=== PATIENT | female | born 1940 | race Caucasian/White ===

== ENCOUNTER 2017-08-15 14:04 | Inpatient (IN) | payer MEDICARE, SELFPAY ==
[2017-08-15] VITALS (16 sets, daily range): BP systolic 90–128; BP diastolic 60–104; PULSE 94–110; RESP 12–31; TEMP 36.3–36.9; O2SAT 92–100; BMI 31.1; BMI 31.2
--- NOTE | 2017-08-15 14:54 | EKG12_ITS ---
Test Reason : Blood Pressure : / mmHG Vent. Rate : 101 BPM Atrial Rate : 197 BPM P-R Int : 000 ms QRS Dur : 104 ms QT Int : 348 ms P-R-T Axes : 000 030 190 degrees QTc Int : 451 ms Atrial fibrillation with premature ventricular or aberrantly conducted complexes Poor R wave progression Nonspecific T wave abnormality Lateral infarct , age undetermined , cannot be excluded Abnormal ECG Confirmed by JOSE VALDEZ, AMANDA ([id number]), online editor NOEL POOL ([id number]) on 08/19/2017 2:41:20 PM Referred By: GUILLE Confirmed By:AMANDA GARCIA MD
--- NOTE | 2017-08-15 14:59 | PCM.HP.STD ---
Problem List (1) COPD (chronic obstructive pulmonary disease) with acute bronchitis Status: Acute (2) Acute respiratory failure with hypoxia Status: Acute (3) Coronary artery disease Status: Acute (4) Hypertension Status: Chronic (5) Paroxysmal A-fib Status: Acute (6) Acute exacerbation of congestive heart failure Status: Acute History of Present Illness Date of Admission: 08/15/17 Chief Complaint: Progressive worsening of shortness of breath for 2 weeks The patient is a 76 year old F with history of COPD and CHF and transferred from [place] ER for progressive worsening of shortness of breath for 2 weeks. Patient came to ER with respiratory distress and was put on BiPAP. She also complained of fever or chills. She does not use home oxygen/CPAP or BiPAP at home. In ER, ABG at 100% FiO2 / BiPAP setting shows 7.4/40 4/237. Chest x-ray reported as moderate degree of vascular redistribution and airspace changes suggestive of congestive changes. Moderate cardiomegaly. ED vitals temperature 96.1?F, pulse 101/min, respiratory 22, BP 140/105. Basic abnormal labs hemoglobin 8.8. K3.6, BUN 24, creatinine 0.94. LFT within normal limits. Anion gap 14. CO2 26. Magnesium 1.9. Troponin negative. EKG shows pulseless bigeminy with each QRS complex followed by PVC. No discernible P-wave. [] Past Medical History Past Medical History (Chronic Problems): Chronic Problems Hypertension (Chronic) Allergies Penicillins [PCN] Allergy (Verified 08/15/17 14:23) Swelling Smoking Status: Former smoker Review of Systems Constitutional: Reports: Chills, Fever, Weakness. Denies: Weight Change HEENT: Denies: Head Aches, Sinus Congestion, Sinus Drainage Cardiovascular: Denies: Chest Pain, Chest Pressure, Palpitations Respiratory: Reports: Cough, Shortness of breath at rest, Wheezing. Denies: Sputum production Gastrointestinal: Denies: Abdominal Pain, Nausea, Vomiting Genitourinary: Denies: Dysuria Musculoskeletal: Denies: Joint Pain, Joint Tenderness Skin: Denies: Rash, Wounds Neurological: Denies: Numbness, Tingling, Focal weakness Psychiatric: Denies: Anxiety, Depression, Homicidal Ideations, Suicidal Ideations Hematologic/ Lymphatic: Denies: Easy Bruising, Easy Bleeding VTE Information - Inpt Only VTE Present on Admission: No VTE Mechan Device Prophylaxis: SCD's VTE Pharm Prophylaxis ordered?: Yes Patient Problems: Active and Suspected Problems Congestive heart failure (Acute) COPD (chronic obstructive pulmonary disease) with acute bronchitis (Acute) Acute respiratory failure with hypoxia (Acute) Coronary artery disease (Acute) Paroxysmal A-fib (Acute) Acute exacerbation of congestive heart failure (Acute) - Physical Exam General: Alert, Oriented x3, Cooperative HEENT: Atraumatic, PERRLA, EOMI, Normocephalic Oral: Dry Mucosa Neck: Supple, No JVD, Negative Carotid Bruits Lungs: No wheeze, No rales, Diminished, Rhonchi Cardiovascular: Normal S1, Normal S2, No murmurs, Irregular Rate Abdomen: Bowel Sounds Present, Soft, Non Tender, Non-Distended Extremities: No edema, Capillary Refill Less than 3 Seconds Skin: No rashes, No breakdown Musculoskeletal: No Tenderness to Palpation of Joints or Extremities, Arthritic Changes Neurological: Cranial nerves II-XII grossly intact, Neuro grossly intact Psych/Mental Status: Normal Affect, Appropriate Vital Signs Temp Pulse Resp BP Pulse Ox 98.4 F 94 25 H 117/85 H 100 08/15/17 14:21 08/15/17 14:43 08/15/17 14:21 08/15/17 14:21 08/15/17 14:21 Oxygen Delivery Method Bi-pap Weight: 170 lb 6.677 oz Body Mass Index (BMI) 31.1 Assessment/Plan Active and Suspected Problems Congestive heart failure (Acute) COPD (chronic obstructive pulmonary disease) with acute bronchitis (Acute) Acute respiratory failure with hypoxia (Acute) Coronary artery disease (Acute) Paroxysmal A-fib (Acute) Acute exacerbation of congestive heart failure (Acute) The patient is a 76 year old F with history of COPD and CHF and transferred from [place] ER for progressive worsening of shortness of breath for 2 weeks. Patient came to ER with respiratory distress and was put on BiPAP. She also complained of fever or chills. She does not use home oxygen/CPAP or BiPAP at home. In ER, ABG at 100% FiO2 12/6 BiPAP setting shows 7.4/40 4/237. Chest x-ray reported as moderate degree of vascular redistribution and airspace changes suggestive of congestive changes. Moderate cardiomegaly. ED vitals temperature 96.1?F, pulse 101/min, respiratory 22, BP 140/105. Basic abnormal labs hemoglobin 8.8. K3.6, BUN 24, creatinine 0.94. LFT within normal limits. Anion gap 14. CO2 26. Magnesium 1.9. Troponin negative. EKG shows pulseless bigeminy with each QRS complex followed by PVC. No discernible P-wave. 1. Acute hypoxic respiratory failure: As per the ABG it seems that she is not a CO2 retainer. 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 Twelve-lead EKG and cardiac enzymes ordered. Repeat chest x-ray portable ordered. Continue BiPAP. Currently she is on 08/09 at 40% FiO2. Pulmonary consult. Titrate to keep pulse ox around 90%. 2. COPD exacerbation: On IV Solu-Medrol 40 mg every 8 hourly, bronchodilator, incentive spirometry, chest physiotherapy. Influenza test and sputum culture. 3. CHF exacerbation: There is no echo report in our system. It is unclear whether systolic or diastolic. 2D echo report ordered. 4. SIRS or sepsis (tachycardia, tachypnea, hypoxia with lactic acidosis) possible community acquired pneumonia: Patient complaint of fever, shortness of breath. Lactic acid 2.9. Chest x-ray images not available. Patient was given aztreonam and doxycycline in [place] ER. Started on IV Levaquin until we rule out pneumonia. On sepsis protocol. 5. Other comorbidities include coronary artery disease status post stent, hypertension, possible paroxysmal A. fib: Home medication reconciliation done. DVT prophylaxis: On Lovenox 40 mg subcu daily and bilateral SCDs Code Visit Inpatient E&M: 76065 Init Hosp L3
--- NOTE | 2017-08-15 15:02 | ECHOD_ITS ---
Reason For Study: Heart Failure Procedure This was a 2D Doppler, Color Flow transthoracic echocardiogram. The exam was of poor technical quality due to diminished acoustic windows. The study was technically difficult. Exam performed portable in patient room. Left Ventricle Normal LV size. Mild segmental systolic dysfunction (see wall motion). The estimated ejection fraction is 40 %. Infero-Basal: Hypokinetic. Basal inferoseptal: Hypokinetic. Mid-Anterior : Hypokinetic. Mid-Lateral : Hypokinetic. Mid-Posterior: Hypokinetic. Mid-Inferior: Akinetic. Mid- inferoseptal : Hypokinetic. Mid-anteroseptal : Hypokinetic. Anterior [place] : Not visualized. Inferior [place] : Akinetic. Lateral [place] : Akinetic. Septal [place] : Akinetic. Right Ventricle Normal RV size. Normal systolic function. Atria The left atrium is mildly enlarged. The right atrium is mildly enlarged. No doppler evidence for ASD. Mitral Valve There is mild mitral annular calcification. Mild diffuse mitral valve thickening. Mild-Moderate (1- 2+) eccentric mitral valve insufficiency. Tricuspid Valve Normal tricuspid valve. Mild tricuspid valve insufficiency. Right ventricular systolic pressure estimated to be 53 mmHg. Aortic Valve Trisinus/trileaflet aortic valve. Mild focal aortic valve thickening. Pulmonic Valve The pulmonic valve is not well visualized. Trivial pulmonic valve insufficiency. Great Vessels Normal sized aortic root. Pericardium/Pleural No pericardial effusion. MMode/2D Measurements & Calculations LVIDd: 4.8 cm IVSd: 1.4 cm LVOT diam: 2.0 cm LVIDs: 3.7 cm LVPWd: 0.94 cm LVOT area: 3.1 cm2 RVDd: 4.2 cm FS: 23.0 % Ao root diam: 2.7 cm LAV(MOD-bp): 102.0 ml LVAd ap4: 33.3 cm2 LA dimension: 4.6 cm LAV(MOD-bp) Indexed: 57.2 ml/m2 EDV(MOD-sp4): 115.5 ml LAV(MOD-sp2): 87.1 ml EDV(sp4-el): 119.6 ml LAV(MOD-sp4): 106.0 ml LVAs ap4: 25.0 cm2 ESV(MOD-sp4): 64.6 ml ESV(sp4-el): 68.2 ml EF(MOD-sp4): 44.0 % EF(sp4-el): 43.0 % SV(MOD-sp4): 50.8 ml SV(sp4-el): 51.4 ml LA A4 area: 27.9 cm2 RA A4 area: 25.5 cm2 Time Measurements MV dec time: 0.13 sec Doppler Measurements & Calculations MV E max jarrell: 117.2 cm/sec Ao V2 max: 156.7 cm/sec LV V1 max: 94.9 cm/sec Ao max P.8 mmHg LV V1 max P.6 mmHg Ao V2 mean: 102.4 cm/sec LV V1 mean P.4 mmHg Ao mean P.8 mmHg LV V1 mean: 52.6 cm/sec Ao V2 VTI: 22.4 cm LV V1 VTI: 15.8 cm SATINDER(I,D): 2.2 cm2 SATINDER(V,D): 1.9 cm2 SV(LVOT): 48.9 ml PA V2 max: 100.2 cm/sec TR max jarrell: 352.2 cm/sec TR max P.1 mmHg Interpretation Summary The study was technically difficult. Mild segmental systolic dysfunction (see wall motion). The estimated ejection fraction is 40 %. The left atrium is mildly enlarged. The right atrium is mildly enlarged. There is mild mitral annular calcification. Mild diffuse mitral valve thickening. Mild-Moderate (1-2+) eccentric mitral valve insufficiency. Mild tricuspid valve insufficiency. Mild focal aortic valve thickening. Trivial pulmonic valve insufficiency. Right ventricular systolic pressure estimated to be 53 mmHg. Ordering Physician: Nato Madsen Referring Physician: Pretty Noguera Performed By: Saqib Spangler RCS
--- NOTE | 2017-08-15 15:14 | HP.PCM_ITS ---
Problem List (1) COPD (chronic obstructive pulmonary disease) with acute bronchitis Status: Acute (2) Acute respiratory failure with hypoxia Status: Acute (3) Coronary artery disease Status: Acute (4) Hypertension Status: Chronic (5) Paroxysmal A-fib Status: Acute (6) Acute exacerbation of congestive heart failure Status: Acute History of Present Illness Date of Admission: 08/15/17 Chief Complaint: Progressive worsening of shortness of breath for 2 weeks The patient is a 76 year old F with history of COPD and CHF and transferred from [place] ER for progressive worsening of shortness of breath for 2 weeks. Patient came to ER with respiratory distress and was put on BiPAP. She also complained of fever or chills. She does not use home oxygen/CPAP or BiPAP at home. In ER, ABG at 100% FiO2 / BiPAP setting shows 7.4/40 4/237. Chest x- ray reported as moderate degree of vascular redistribution and airspace changes suggestive of congestive changes. Moderate cardiomegaly. ED vitals temperature 96.1?F, pulse 101/min, respiratory 22, BP 140/105. Basic abnormal labs hemoglobin 8.8. K3.6, BUN 24, creatinine 0.94. LFT within normal limits. Anion gap 14. CO2 26. Magnesium 1.9. Troponin negative. EKG shows pulseless bigeminy with each QRS complex followed by PVC. No discernible P-wave. [] Past Medical History Past Medical History (Chronic Problems): Chronic Problems Hypertension (Chronic) Allergies Penicillins [PCN] Allergy (Verified 08/15/17 14:23) Swelling Smoking Status: Former smoker Review of Systems Constitutional: Reports: Chills, Fever, Weakness. Denies: Weight Change HEENT: Denies: Head Aches, Sinus Congestion, Sinus Drainage Cardiovascular: Denies: Chest Pain, Chest Pressure, Palpitations Respiratory: Reports: Cough, Shortness of breath at rest, Wheezing. Denies: Sputum production Gastrointestinal: Denies: Abdominal Pain, Nausea, Vomiting Genitourinary: Denies: Dysuria Musculoskeletal: Denies: Joint Pain, Joint Tenderness Skin: Denies: Rash, Wounds Neurological: Denies: Numbness, Tingling, Focal weakness Psychiatric: Denies: Anxiety, Depression, Homicidal Ideations, Suicidal Ideations Hematologic/ Lymphatic: Denies: Easy Bruising, Easy Bleeding VTE Information - Inpt Only VTE Present on Admission: No VTE Mechan Device Prophylaxis: SCD's VTE Pharm Prophylaxis ordered?: Yes Patient Problems: Active and Suspected Problems Congestive heart failure (Acute) COPD (chronic obstructive pulmonary disease) with acute bronchitis (Acute) Acute respiratory failure with hypoxia (Acute) Coronary artery disease (Acute) Paroxysmal A-fib (Acute) Acute exacerbation of congestive heart failure (Acute) - Physical Exam General: Alert, Oriented x3, Cooperative HEENT: Atraumatic, PERRLA, EOMI, Normocephalic Oral: Dry Mucosa Neck: Supple, No JVD, Negative Carotid Bruits Lungs: No wheeze, No rales, Diminished, Rhonchi Cardiovascular: Normal S1, Normal S2, No murmurs, Irregular Rate Abdomen: Bowel Sounds Present, Soft, Non Tender, Non-Distended Extremities: No edema, Capillary Refill Less than 3 Seconds Skin: No rashes, No breakdown Musculoskeletal: No Tenderness to Palpation of Joints or Extremities, Arthritic Changes Neurological: Cranial nerves II-XII grossly intact, Neuro grossly intact Psych/Mental Status: Normal Affect, Appropriate Vital Signs Temp Pulse Resp BP Pulse Ox 98.4 F 94 25 H 117/85 H 100 08/15/17 14:21 08/15/17 14:43 08/15/17 14:21 08/15/17 14:21 08/15/17 14:21 Oxygen Delivery Method Bi-pap Weight: 170 lb 6.677 oz Body Mass Index (BMI) 31.1 Assessment/Plan Active and Suspected Problems Congestive heart failure (Acute) COPD (chronic obstructive pulmonary disease) with acute bronchitis (Acute) Acute respiratory failure with hypoxia (Acute) Coronary artery disease (Acute) Paroxysmal A-fib (Acute) Acute exacerbation of congestive heart failure (Acute) The patient is a 76 year old F with history of COPD and CHF and transferred from [place] ER for progressive worsening of shortness of breath for 2 weeks. Patient came to ER with respiratory distress and was put on BiPAP. She also complained of fever or chills. She does not use home oxygen/CPAP or BiPAP at home. In ER, ABG at 100% FiO2 12/6 BiPAP setting shows 7.4/40 4/237. Chest x- ray reported as moderate degree of vascular redistribution and airspace changes suggestive of congestive changes. Moderate cardiomegaly. ED vitals temperature 96.1?F, pulse 101/min, respiratory 22, BP 140/105. Basic abnormal labs hemoglobin 8.8. K3.6, BUN 24, creatinine 0.94. LFT within normal limits. Anion gap 14. CO2 26. Magnesium 1.9. Troponin negative. EKG shows pulseless bigeminy with each QRS complex followed by PVC. No discernible P-wave. 1. Acute hypoxic respiratory failure: As per the ABG it seems that she is not a CO2 retainer. 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 Twelve-lead EKG and cardiac enzymes ordered. Repeat chest x-ray portable ordered. Continue BiPAP. Currently she is on 08/09 at 40% FiO2. Pulmonary consult. Titrate to keep pulse ox around 90%. 2. COPD exacerbation: On IV Solu-Medrol 40 mg every 8 hourly, bronchodilator, incentive spirometry, chest physiotherapy. Influenza test and sputum culture. 3. CHF exacerbation: There is no echo report in our system. It is unclear whether systolic or diastolic. 2D echo report ordered. 4. SIRS or sepsis (tachycardia, tachypnea, hypoxia with lactic acidosis) possible community acquired pneumonia: Patient complaint of fever, shortness of breath. Lactic acid 2.9. Chest x-ray images not available. Patient was given aztreonam and doxycycline in [place] ER. Started on IV Levaquin until we rule out pneumonia. On sepsis protocol. 5. Other comorbidities include coronary artery disease status post stent, hypertension, possible paroxysmal A. fib: Home medication reconciliation done. DVT prophylaxis: On Lovenox 40 mg subcu daily and bilateral SCDs Code Visit Inpatient E&M: 16605 Init Hosp L3
--- NOTE | 2017-08-15 15:16 | RAD_ITS ---
STUDY: X-RAY CHEST REASON FOR EXAM: Female, 76 years old. Increasing shortness of breath. TECHNIQUE: Single AP portable view of the chest. COMPARISON: None. FINDINGS: EKG electrodes are seen. Mild degree of vascular congestion and CHF. There is no demonstrated pleural abnormality. There is mild cardiac enlargement. Normal mediastinum and blade. Normal visualized pulmonary arteries. There is atherosclerotic calcification of the aortic arch with tortuosity. There are degenerative changes of the visualized thoracic spine. Normal visualized ribs, clavicles, and shoulders. There is no demonstrated abnormality of the visualized soft tissue structures of the upper abdomen. RAD/Chest 1 View (Portable) IMPRESSION: Cardiomegaly and mild CHF. Electronically Signed: Larry Rios MD at 15:38 EST Tel [phone], Service support ,
[2017-08-15 16:19] LABS: Partial Thromboplast Time 36.7 Seconds (24.1-36.2)
[2017-08-15 16:39] LABS: Lactic Acid 1.4 mmol/L (0.4-2.0)
[2017-08-15] MEDS: APIXABAN 5 MG TABLET PO (17:27)
[2017-08-15] MEDS: tiZANidine HCl 2 MG Tablet PO (17:27)
[2017-08-15] MEDS: Atorvastatin Calcium 40 MG Tablet PO (17:30)
[2017-08-15] MEDS: Aspirin 325 MG Tablet PO (17:30)
[2017-08-15] MEDS: 0.9% NaCl Peripheral Flush Adult/Peds IV ×2 (18:03→21:39)
[2017-08-15] MEDS: Furosemide 40 MG/4 ML Vial IV (18:03)
[2017-08-15 18:48] LABS: Lactic Acid 1.9 mmol/L (0.4-2.0)
[2017-08-15] MEDS: Ipratropium/Albuterol Sulfate 3 ML AMPUL.NEB INHALATION (19:36)
[2017-08-15] MEDS: Zolpidem Tartrate 5 MG Tablet PO (21:38)
[2017-08-15] MEDS: guaiFENesin 1,200 MG Tablet 1200 MG PO (21:39)
[2017-08-16] VITALS (27 sets, daily range): BP systolic 113–147; BP diastolic 57–92; PULSE 60–122; RESP 12–31; TEMP 35.9–37.2; O2SAT 92–100
[2017-08-16 06:03] LABS: Absolute Lymphocyte Count 0.24 X10^3/ul (0.83-4.51); Absolute Neutrophil Count 4.5 X10^3/uL (2.0-7.7); Hematocrit 28.7 % (37-47); Hemoglobin 7.9 g/dl (12.0-15.0); Lymphocyte # 0.24 X10^3/ul (4.0); Mean Corp Hgb Conc 27.5 g/gl (32-36); Mean Corpuscular Hgb 19.3 pg (27.0-32.0); Mean Corpuscular Volume 70.2 fL (81-99); Mean Platelet Vol. 10.3 fl (6.2-12.0); Monocyte# 0.03 X10^3/uL; Monocyte% 0.6 % (0-10); Neutrophil # 4.53 X10^3/uL (2.7-7.7); Neutrophil % 94.2 % (47-70); Platelet Count 233 K/mm3 (150-450); RBC Distribution Width CV 19.8 % (11.6-14.6); RBC Distribution Width SD 49.3 fl (35.1-43.9); Red Blood Count 4.09 M/mm3 (4.2-5.4); White Blood Count 4.8 K/mm3 (4.4-11.0)
[2017-08-16 06:05] LABS: Differential Indicated SCAN CRITERIA MET; POSITIVE COUNT NO; POSITIVE DIFFERENTIAL YES; POSITIVE MORPHOLOGY YES
[2017-08-16] MEDS: 0.9% NaCl Peripheral Flush Adult/Peds IV ×3 (06:16→13:13)
[2017-08-16 06:21] LABS: Anion Gap 9 (5-15); BUN 23 mg/dL (7-18); BUN/Creat Ratio 24.4 RATIO (10-20); Calcium,Total 8.9 mg/dL (8.5-10.1); Chloride 106 mmol/L (98-107); Cholesterol 138 mg/dL (200); Creatinine, Serum 0.94 mg/dL (0.55-1.02); EST Glomerular Filtration Rate 61 mL/min (>60); Est Glom Filt Rate - Afr Amer 74 mL/min (>60); Estimated Creatinine Clearance 39.64 ml/min; Glucose 134 mg/dL (70-110); High Density Lipoprotein 77 mg/dL; Potassium 3.8 mmol/L (3.5-5.1); Sodium Level 142 mmol/L (136-145); Thyroid Stim Hormone (TSH) 0.49 uIU/mL (0.358-3.74); Triglycerides 45 mg/dL; Very Low Density Lipoprotein 9 mg/dL (5-40)
[2017-08-16 06:25] LABS: Acanthocytes RARE; Differential Comment SCANNED; Hypochromasia 3+; Microcytosis 2+; Ovalocyte 1+; Schistocytes RARE
[2017-08-16] MEDS: Ipratropium/Albuterol Sulfate 3 ML AMPUL.NEB INHALATION ×4 (07:21→20:30)
[2017-08-16] MEDS: APIXABAN 5 MG TABLET PO ×2 (09:11→21:31)
[2017-08-16] MEDS: guaiFENesin 1,200 MG Tablet 1200 MG PO (09:11)
[2017-08-16] MEDS: Furosemide 40 MG/4 ML Vial IV ×2 (09:11→17:10)
[2017-08-16] MEDS: Aspirin 325 MG Tablet PO (09:11)
[2017-08-16] MEDS: LORazepam 1 MG Tablet PO (09:11)
--- NOTE | 2017-08-16 11:31 | PCM.CONS.GEN ---
Problem List (1) Acute respiratory failure with hypoxia Status: Acute (2) COPD (chronic obstructive pulmonary disease) with acute bronchitis Status: Acute (3) Acute exacerbation of congestive heart failure Status: Acute Qualifiers: Congestive heart failure type: combined Qualified Code(s): I50.43 - Acute on chronic combined systolic (congestive) and diastolic (congestive) heart failure (4) Coronary artery disease Status: Chronic Comment: s/p stents 1999 (5) Hypertension Status: Chronic (6) Paroxysmal A-fib Status: Chronic Comment: on Eliquis (7) Anxiety Status: Chronic (8) Hypothyroidism Status: Chronic Qualifiers: Hypothyroidism type: unspecified Qualified Code(s): E03.9 - Hypothyroidism, unspecified (9) GERD (gastroesophageal reflux disease) Status: Chronic (10) Hyperlipidemia Status: Chronic (11) Hypokalemia Status: Chronic (12) Anemia Status: Chronic Qualifiers: Anemia type: unspecified type Qualified Code(s): D64.9 - Anemia, unspecified (13) Chronic bronchitis Status: Chronic Reason for Consult Date of Consultation: 08/16/17 Reason for Consultation: acute respiratory failure, on BiPAP History of Present Illness: The patient is a 77 year old F who presented to [place] ER via EMS with complaints of a 1-2 week history of progressive shortness of breath with fever and chills the last 2 days. She was placed on BiPAP at [facility] secondary to hypoxia at 88% with venturi mask and ABG was obtained, which showed pH of 7.40, bicarb 27.3, PCO2 44, PO2 237 with oxygen saturation of 100%. Workup at [place] as follows: Medications received include IV Lorazepam, 100 mg of doxycycline IV, Nitropaste 1 inch topical, Lasix 20 mg IV ?1, Azactam 2 g ?1, and DuoNeb aerosol. Urinalysis was negative for infection. CBC with no leukocytosis, Hgb 8.8 and Hct 31.4. CMP remarkable for glucose 149, bilirubin 1.8, normal AST/ALT. Renal function with BUN of 24 and creatinine 0.94. Lactate was 2.9. Troponin was normal. Chest x-ray showed moderate degree of vascular congestion and airspace changes, moderate cardiomegaly. EKG read as bigeminy with a rate of 94 bpm. Initial vital signs BP 140/105, pulse 101, RR 22, 96.1?F. The patient denies any known history of COPD. She takes DuoNeb and Ventolin MDI twice daily at home. She also routinely uses fluticasone. She has 100 [id number] of smoking and quit in the . She has never been on noninvasive positive pressure therapy. Patient reports she had a walking oximetry at her primary care physician's office about 3 weeks ago and was ordered home oxygen at bedtime only, she is unsure how much but thinks it might be 2 L. Patient reports she was placed on a Z-Ramu last week for she is on Lasix 20 mg daily and metoprolol for her history of diastolic congestive heart failure. She is anticoagulated with Eliquis secondary to PAF. An acute exacerbation of chronic bronchitis. She was not put on any steroids. She reports minimal improvement from the Z-Ramu. She reports some intermittent fever and chills over the last week. She has been feeling very tired and noticed an increase in her lower extremity edema. Typically when this happens, her tool checker has her take 40 mg of Lasix until edema resolves. She did take an extra Lasix at home with no relief in her shortness of breath and orthopnea. She denied any dizziness, chest pain, hemoptysis, or nausea/vomiting/diarrhea. She has a cough but denies any increase in cough or sputum production. She does have occasional brown sputum. Lab work on arrival to [facility] showed no leukocytosis, hemoglobin of 7.9 and hematocrit 28.7. Neutrophils were 94.2% and lymphocytes 5%. BNP elevated at 1784. Initial troponin 0 0.27 and peaked at 0.38. TSH was 0.49. Blood cultures are still pending. Urine culture showed no growth. Influenza was negative. Sputum has not yet been collected. Echocardiogram was performed today and showed mild segmental systolic dysfunction, an estimated EF of 40%, a mildly enlarged left and right atrium, mild mitral annular calcification, mild diffuse MV thickening, mild to moderate eccentric MVI, mild TVI, mild focal aortic valve thickening, trivial PVI, and RVSP estimated at 53 mmHg. There is no previous echocardiogram on file to compare to. Patient follows with Dr. Ndiaye in [place] from [facility]. She does have a history of CAD s/p stents in 1999. 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 She had a colonoscopy in December 2016 which was normal. She gets yearly mammograms with no abnormalities in the past. Past Medical History Past Medical History (Chronic Problems): Chronic Problems Coronary artery disease (Chronic) s/p stents 1999 Hypertension (Chronic) Paroxysmal A-fib (Chronic) on Eliquis Anxiety (Chronic) Hypothyroidism (Chronic) GERD (gastroesophageal reflux disease) (Chronic) Hyperlipidemia (Chronic) Hypokalemia (Chronic) Anemia (Chronic) Chronic bronchitis (Chronic) Allergies Penicillins [PCN] Allergy (Verified 08/15/17 14:23) Swelling Home Medications: Ambulatory Orders Medication Instructions Recorded Apixaban [Eliquis] 5 mg PO BID 08/15/17 Furosemide [Lasix] 20 mg PO DAILY 08/15/17 Lorazepam [Ativan] 1 mg PO DAILY 08/15/17 Potassium Chloride [Klor-Con 10] 10 meq PO DAILY 08/15/17 Tizanidine HCl [Zanaflex] 2 mg PO Q8H PRN 08/15/17 TraMADol [Ultram (G)] 50 mg PO Q4H PRN PRN 08/15/17 Surgical History: appendectomy, cholecystectomy, hysterectomy - total, tonsillectomy, - - colonoscopy 2009, cardiac stents 1999 Psychiatric History: Anxiety FORENSIC PATHOLOGIST History: No pertinent FORENSIC PATHOLOGIST history Smoking Status: Former smoker - 2 PPD x50 years Tobacco Use: Cigarettes Alcohol: None Drugs: None - *Family History Maternal History Items: Unknown Paternal History Items: Unknown Review of Systems Constitutional: Reports: Chills, Fever, Fatigue. Denies: Anorexia, Night Sweats, Malaise, Weakness, Weight Change Eyes: Denies: Vision Change HEENT: Reports: Nasal Congestion, Post Nasal Drip. Denies: Difficulty Swallowing, Head Aches, Nasal bleeding, Sore Throat, Visual Changes Cardiovascular: Reports: Chest Tightness - at times, Edema, Orthopnea. Denies: Chest Pain, Light Headedness, Palpitations, Paroxysmal Noc. Dyspnea, Syncope Respiratory: Reports: Cough - chronic, Shortness of breath upon exertion, Sputum production - occasional, no increase in frequency or consistency, Wheezing. Denies: Hemoptysis, Pleuritic Pain, Shortness of breath at rest Gastrointestinal: Denies: Abdominal Pain, Constipation, Diarrhea, Dyspepsia, Hematemesis, Hematochezia, Nausea, Melena, Vomiting Genitourinary: Denies: Dysuria, Frequency, Hematuria, Retention Musculoskeletal: Reports: Back Pain - chronic Skin: Reports: Dryness, Skin Changes - leathery, large scab to L wrist Neurological: Denies: Balance problems, Change in Speech, Confusion, Difficulty swallowing, Focal weakness, Numbness, Tingling, Tremor, Seizures Psychiatric: Reports: Anxiety. Denies: Depression, Suicidal Ideations Endocrine: Denies: Change in Body Habitus, Polydipsia, Polyuria Hematologic/ Lymphatic: Reports: Anemia, Easy Bruising, Easy Bleeding. Denies: Adenopathy, Hx of blood clot Patient Problems: Active and Suspected Problems Congestive heart failure (Acute) COPD (chronic obstructive pulmonary disease) with acute bronchitis (Acute) Acute respiratory failure with hypoxia (Acute) Acute exacerbation of congestive heart failure (Acute) Subjective: The patient was seen and examined. She is wearing her BiPAP. I did switch her to 4 L per nasal cannula for the interview. She seemed to tolerate this fairly well, she had moderate conversational dyspnea towards the end. She denies any persistent cough, does feel like she has a tickle in the back of her throat. She has occasional brown sputum production, denies any increase. Reports intermittent fevers and chills despite being on an antibiotic last week. Her shortness of breath has been progressively worse over the last 1-2 weeks, reports improvement on the BiPAP. Denies any current chest pain. Patient placed back on BiPAP before I left the room. Objective: Clinical Impression(s) from Imaging Studies Chest X-Ray 08/15/17 15:16 IMPRESSION: Cardiomegaly and mild CHF. Electronically Signed: Larry Rios MD at 15:38 EST Tel [phone], Service support , - Physical Exam General: Alert, Oriented x3, Cooperative, No apparent distress, Well developed, Well nourished HEENT: Atraumatic, Normocephalic Oral: No Gingival or Mucosal Lesions/ Ulcerations, Dry Mucosa Neck: Supple, No Nodes, Trachea Midline Lungs: - - Very diminished throughout, faint expiratory wheeze on the left. Mild bibasilar rales Cardiovascular: Normal S1, Normal S2, No murmurs, No rub noted, No Gallop, - - Irregular rhythm Abdomen: Bowel Sounds Present, Soft, Non Tender, Non-Distended, No Hepato-splenomegaly, Obese Extremities: No clubbing, No cyanosis, Capillary Refill Less than 3 Seconds, No Calf Tenderness, Edema - Mild bilat LE Skin: No rashes, Ulcer/ Wound - large scab L wrist, no drainage. Musculoskeletal: No Tenderness to Palpation of Joints or Extremities Lymphatic: No Cervical, Supraclavicular, or Inguinal Adenopathy Neurological: Cranial nerves II-XII grossly intact, Neuro grossly intact, Motor Exam 5/5 strength throughout Psych/Mental Status: Alert and oriented to time, place, person, mood and affect Vital Signs Temp Pulse Resp BP Pulse Ox 98.4 F 98 20 H 125/64 H 97 08/16/17 11:00 08/16/17 11:13 08/16/17 11:00 08/16/17 11:00 08/16/17 11:00 Oxygen Flow Rate 6 Oxygen Delivery Method Bi-pap Weight: 76.6 kg Body Mass Index (BMI) 31.1 Intake and Output for Last 24 Hours 08/14/17 08/15/17 08/16/17 23:59 23:59 23:59 Intake Total 320 / 320 200 / 200 Output Total 150 / 150 1200 / 1200 Balance 170 / 170 -1000 / -1000 Microbiology Past 72 Hours 08/15/17 18:07 Urine Culture - Preliminary Urine Catheter - Prieto Culture exhibits no growth. 08/15/17 15:45 Influenza Types A,B Direct FA (VIDAL) - Final Mucosa - Nose Laboratory Tests Past 24 Hrs 08/15/17 08/15/17 08/15/17 15:50 15:50 15:50 WBC RBC Hgb Hct MCV MCH MCHC RDW RDW Differential Plt Count MPV Immature Gran % (Auto) Neut % (Auto) Lymph % (Auto) [place] % (Auto) Eos % (Auto) Baso % (Auto) Absolute Neuts (auto) Absolute Lymphs (auto) Total Counted Differential Comment Hypochromasia Microcytosis Ovalocytes Acanthocytes (Spur) Schistocytes APTT 36.7 H Sodium Potassium Chloride Carbon Dioxide Anion Gap BUN Creatinine Estim Creat Clear Calc Est GFR (MDRD) Af Amer Est GFR (MDRD) Non-Af BUN/Creatinine Ratio Glucose Lactic Acid 1.4 Calcium Troponin I 0.27 H B-Natriuretic Peptide Triglycerides Cholesterol LDL Cholesterol VLDL Cholesterol HDL Cholesterol TSH 08/15/17 08/15/17 08/15/17 17:56 19:42 23:37 WBC RBC Hgb Hct MCV MCH MCHC RDW RDW Differential Plt Count MPV Immature Gran % (Auto) Neut % (Auto) Lymph % (Auto) [place] % (Auto) Eos % (Auto) Baso % (Auto) Absolute Neuts (auto) Absolute Lymphs (auto) Total Counted Differential Comment Hypochromasia Microcytosis Ovalocytes Acanthocytes (Spur) Schistocytes APTT Sodium Potassium Chloride Carbon Dioxide Anion Gap BUN Creatinine Estim Creat Clear Calc Est GFR (MDRD) Af Amer Est GFR (MDRD) Non-Af BUN/Creatinine Ratio Glucose Lactic Acid 1.9 Calcium Troponin I 0.34 H 0.38 H B-Natriuretic Peptide Triglycerides Cholesterol LDL Cholesterol VLDL Cholesterol HDL Cholesterol TSH 08/16/17 08/16/17 08/16/17 05:32 05:32 05:32 WBC 4.8 RBC 4.09 L Hgb 7.9 L Hct 28.7 L MCV 70.2 L MCH 19.3 L MCHC 27.5 L RDW 19.8 H RDW Differential 49.3 H Plt Count 233 MPV 10.3 Immature Gran % (Auto) 0.200 Neut % (Auto) 94.2 H Lymph % (Auto) 5.0 L Montgomery % (Auto) 0.6 Eos % (Auto) 0.0 Baso % (Auto) 0.0 Absolute Neuts (auto) 4.5 Absolute Lymphs (auto) 0.24 L Total Counted Not Reportable Differential Comment SCANNED Hypochromasia 3+ Microcytosis 2+ Ovalocytes 1+ Acanthocytes (Spur) RARE Schistocytes RARE APTT Sodium 142 Potassium 3.8 Chloride 106 Carbon Dioxide 27.0 Anion Gap 9 BUN 23 H Creatinine 0.94 Estim Creat Clear Calc 39.64 Est GFR (MDRD) Af Amer 74 Est GFR (MDRD) Non-Af 61 BUN/Creatinine Ratio 24.4 H Glucose 134 H Lactic Acid Calcium 8.9 Troponin I 0.36 H B-Natriuretic Peptide 1784.3 H Triglycerides 45 Cholesterol 138 LDL Cholesterol 52 VLDL Cholesterol 9 HDL Cholesterol 77 TSH 0.49 Assessment/Plan Active and Suspected Problems Congestive heart failure (Acute) COPD (chronic obstructive pulmonary disease) with acute bronchitis (Acute) Acute respiratory failure with hypoxia (Acute) Acute exacerbation of congestive heart failure (Acute) RECOMMENDATIONS 1. Wean off BiPAP/oxygen to keep saturations 88-92% 2. Recommend increasing Lasix to twice daily for more aggressive diuresis 3. Recheck CBC in a.m. 4. Discontinue steroids 5. Continue aerosols 6. Obtain respiratory panel and sputum culture IMPRESSIONS 1. Acute hypoxic respiratory failure Likely secondary to CHF exacerbation. Chest x-ray showed cardiomegaly and mild CHF. Patient does also have significant pulmonary hypertension on echocardiogram performed 08/16/17. She was hypoxic in the 80s on room air and placed on BiPAP and [place], which she has remained on pretty much continuously. She was given a break when I was in the room and she did become somewhat dyspneic. She was placed back on BiPAP. Wean FiO2 as tolerated and transition to nasal cannula once breathing improves. Would recommend leaving her on for the remainder of the day with breaks as tolerated. Patient did have a bump in her troponin which peaked at 0.38, likely demand ischemia from her hypoxia. She does wear 2 L of oxygen at bedtime which was prescribed proximally 3 weeks ago. It is unclear what testing she has had in the past, as she is a poor historian. Infectious workup pending. Ordered a respiratory panel and sputum culture. Would recommend walking oximetry prior to discharge to assess the need for supplemental oxygen. She can follow-up in the pulmonary clinic in 2 weeks after discharge with the [facility] if she so desires, at which time pulmonary function tests and a walking oximetry can be ordered. 2. Acute CHF exacerbation, combined Echocardiogram shows systolic and diastolic dysfunction, estimated EF of 40%. RVSP elevated at 53 mmHg, c/w moderate pulmonary hypertension. BNP was elevated at 1784. Patient follows with Dr. Ndiaye from [facility], she is scheduled to see him in October. 3. Suspected COPD Patient denies any history of COPD. Patient has never had any pulmonary function tests that she is aware of. She has an extensive smoking history of 100 pack years. She uses DuoNeb and Ventolin at home. She does not recall ever being on any other inhalers. She has never seen a navy material inspector in the past. Does not appear that she has an acute COPD exacerbation. She has minimal wheezing, no increase in sputum or cough. Would wean supplemental oxygen to keep saturations 88-92%. Doubt that she requires antibiotics or steroids at this time. 4. PAF on anticoagulation/anxiety/hyperthyroidism/GERD/hyperlipidemia/hypokalemia/anemia/hypertension/CAD Complicates care, management, recovery, and prognosis. Continue her home medications per hospitalist recommendations. Thank you for the opportunity to participate in this patient's care, please do not hesitate to contact us with any further questions or concerns. This note was generated with [employer] dictation software. It may contain incorrect words, spelling, and punctuation that were not noted in checking the note before signing.
--- NOTE | 2017-08-16 11:44 | CON.PCM_ITS ---
Problem List (1) Acute respiratory failure with hypoxia Status: Acute (2) COPD (chronic obstructive pulmonary disease) with acute bronchitis Status: Acute (3) Acute exacerbation of congestive heart failure Status: Acute Qualifiers: Congestive heart failure type: combined Qualified Code(s): I50.43 - Acute on chronic combined systolic (congestive) and diastolic (congestive) heart failure (4) Coronary artery disease Status: Chronic Comment: s/p stents 1999 (5) Hypertension Status: Chronic (6) Paroxysmal A-fib Status: Chronic Comment: on Eliquis (7) Anxiety Status: Chronic (8) Hypothyroidism Status: Chronic Qualifiers: Hypothyroidism type: unspecified Qualified Code(s): E03.9 - Hypothyroidism , unspecified (9) GERD (gastroesophageal reflux disease) Status: Chronic (10) Hyperlipidemia Status: Chronic (11) Hypokalemia Status: Chronic (12) Anemia Status: Chronic Qualifiers: Anemia type: unspecified type Qualified Code(s): D64.9 - Anemia, unspecified (13) Chronic bronchitis Status: Chronic Reason for Consult Date of Consultation: 08/16/17 Reason for Consultation: acute respiratory failure, on BiPAP History of Present Illness: The patient is a 77 year old F who presented to [facility] via EMS with complaints of a 1-2 week history of progressive shortness of breath with fever and chills the last 2 days. She was placed on BiPAP at [facility] secondary to hypoxia at 88% with venturi mask and ABG was obtained, which showed pH of 7.40, bicarb 27.3, PCO2 44, PO2 237 with oxygen saturation of 100%. Workup at [facility] as follows: Medications received include IV Lorazepam, 100 mg of doxycycline IV, Nitropaste 1 inch topical, Lasix 20 mg IV ?1, Azactam 2 g ?1, and DuoNeb aerosol. Urinalysis was negative for infection. CBC with no leukocytosis, Hgb 8.8 and Hct 31.4. CMP remarkable for glucose 149, bilirubin 1.8, normal AST/ ALT. Renal function with BUN of 24 and creatinine 0.94. Lactate was 2.9. Troponin was normal. Chest x-ray showed moderate degree of vascular congestion and airspace changes, moderate cardiomegaly. EKG read as bigeminy with a rate of 94 bpm. Initial vital signs BP 140/105, pulse 101, RR 22, 96.1?F. The patient denies any known history of COPD. She takes DuoNeb and Ventolin MDI twice daily at home. She also routinely uses fluticasone. She has 100 pack -year-history of smoking and quit in the . She has never been on noninvasive positive pressure therapy. Patient reports she had a walking oximetry at her primary care physician's office about 3 weeks ago and was ordered home oxygen at bedtime only, she is unsure how much but thinks it might be 2 L. Patient reports she was placed on a Z-Ramu last week for she is on Lasix 20 mg daily and metoprolol for her history of diastolic congestive heart failure. She is anticoagulated with Eliquis secondary to PAF. An acute exacerbation of chronic bronchitis. She was not put on any steroids. She reports minimal improvement from the Z-Ramu. She reports some intermittent fever and chills over the last week. She has been feeling very tired and noticed an increase in her lower extremity edema. 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 She did take an extra Lasix at home with no relief in her shortness of breath and orthopnea. She denied any dizziness, chest pain, hemoptysis, or nausea/vomiting /diarrhea. She has a cough but denies any increase in cough or sputum production. She does have occasional brown sputum. Lab work on arrival to [facility] showed no leukocytosis, hemoglobin of 7.9 and hematocrit 28.7. Neutrophils were 94.2% and lymphocytes 5%. BNP elevated at 1784. Initial troponin 0 0.27 and peaked at 0.38. TSH was 0.49. Blood cultures are still pending. Urine culture showed no growth. Influenza was negative. Sputum has not yet been collected. Echocardiogram was performed today and showed mild segmental systolic dysfunction, an estimated EF of 40%, a mildly enlarged left and right atrium, mild mitral annular calcification, mild diffuse MV thickening, mild to moderate eccentric MVI, mild TVI, mild focal aortic valve thickening, trivial PVI, and RVSP estimated at 53 mmHg. There is no previous echocardiogram on file to compare to. Patient follows with Dr. Ndiaye in [place] from [facility]. She does have a history of CAD s/p stents in 1999. 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 She had a colonoscopy in December 2016 which was normal. She gets yearly mammograms with no abnormalities in the past. Past Medical History Past Medical History (Chronic Problems): Chronic Problems Coronary artery disease (Chronic) s/p stents 1999 Hypertension (Chronic) Paroxysmal A-fib (Chronic) on Eliquis Anxiety (Chronic) Hypothyroidism (Chronic) GERD (gastroesophageal reflux disease) (Chronic) Hyperlipidemia (Chronic) Hypokalemia (Chronic) Anemia (Chronic) Chronic bronchitis (Chronic) Allergies Penicillins [PCN] Allergy (Verified 08/15/17 14:23) Swelling Home Medications: Ambulatory Orders Medication Instructions Recorded Apixaban [Eliquis] 5 mg PO BID 08/15/17 Furosemide [Lasix] 20 mg PO DAILY 08/15/17 Lorazepam [Ativan] 1 mg PO DAILY 08/15/17 Potassium Chloride [Klor-Con 10] 10 meq PO DAILY 08/15/17 Tizanidine HCl [Zanaflex] 2 mg PO Q8H PRN 08/15/17 TraMADol [Ultram (G)] 50 mg PO Q4H PRN PRN 08/15/17 Surgical History: appendectomy, cholecystectomy, hysterectomy - total, tonsillectomy, - - colonoscopy 2009, cardiac stents 1999 Psychiatric History: Anxiety BRIAR CUTTER History: No pertinent BRIAR CUTTER history Smoking Status: Former smoker - 2 PPD x50 years Tobacco Use: Cigarettes Alcohol: None Drugs: None - *Family History Maternal History Items: Unknown Paternal History Items: Unknown Review of Systems Constitutional: Reports: Chills, Fever, Fatigue. Denies: Anorexia, Night Sweats , Malaise, Weakness, Weight Change Eyes: Denies: Vision Change HEENT: Reports: Nasal Congestion, Post Nasal Drip. Denies: Difficulty Swallowing, Head Aches, Nasal bleeding, Sore Throat, Visual Changes Cardiovascular: Reports: Chest Tightness - at times, Edema, Orthopnea. Denies: Chest Pain, Light Headedness, Palpitations, Paroxysmal Noc. Dyspnea, Syncope Respiratory: Reports: Cough - chronic, Shortness of breath upon exertion, Sputum production - occasional, no increase in frequency or consistency, Wheezing. Denies: Hemoptysis, Pleuritic Pain, Shortness of breath at rest Gastrointestinal: Denies: Abdominal Pain, Constipation, Diarrhea, Dyspepsia, Hematemesis, Hematochezia, Nausea, Melena, Vomiting Genitourinary: Denies: Dysuria, Frequency, Hematuria, Retention Musculoskeletal: Reports: Back Pain - chronic Skin: Reports: Dryness, Skin Changes - leathery, large scab to L wrist Neurological: Denies: Balance problems, Change in Speech, Confusion, Difficulty swallowing, Focal weakness, Numbness, Tingling, Tremor, Seizures Psychiatric: Reports: Anxiety. Denies: Depression, Suicidal Ideations Endocrine: Denies: Change in Body Habitus, Polydipsia, Polyuria Hematologic/ Lymphatic: Reports: Anemia, Easy Bruising, Easy Bleeding. Denies: Adenopathy, Hx of blood clot Patient Problems: Active and Suspected Problems Congestive heart failure (Acute) COPD (chronic obstructive pulmonary disease) with acute bronchitis (Acute) Acute respiratory failure with hypoxia (Acute) Acute exacerbation of congestive heart failure (Acute) Subjective: The patient was seen and examined. She is wearing her BiPAP. I did switch her to 4 L per nasal cannula for the interview. She seemed to tolerate this fairly well, she had moderate conversational dyspnea towards the end. She denies any persistent cough, does feel like she has a tickle in the back of her throat. She has occasional brown sputum production, denies any increase. Reports intermittent fevers and chills despite being on an antibiotic last week. Her shortness of breath has been progressively worse over the last 1-2 weeks, reports improvement on the BiPAP. Denies any current chest pain. Patient placed back on BiPAP before I left the room. Objective: Clinical Impression(s) from Imaging Studies Chest X-Ray 08/15/17 15:16 IMPRESSION: Cardiomegaly and mild CHF. Electronically Signed: Larry Rios MD at 15:38 EST Tel [phone], Service support , - Physical Exam General: Alert, Oriented x3, Cooperative, No apparent distress, Well developed, Well nourished HEENT: Atraumatic, Normocephalic Oral: No Gingival or Mucosal Lesions/ Ulcerations, Dry Mucosa Neck: Supple, No Nodes, Trachea Midline Lungs: - - Very diminished throughout, faint expiratory wheeze on the left. Mild bibasilar rales Cardiovascular: Normal S1, Normal S2, No murmurs, No rub noted, No Gallop, - - Irregular rhythm Abdomen: Bowel Sounds Present, Soft, Non Tender, Non-Distended, No Hepato- splenomegaly, Obese Extremities: No clubbing, No cyanosis, Capillary Refill Less than 3 Seconds, No Calf Tenderness, Edema - Mild bilat LE Skin: No rashes, Ulcer/ Wound - large scab L wrist, no drainage. Musculoskeletal: No Tenderness to Palpation of Joints or Extremities Lymphatic: No Cervical, Supraclavicular, or Inguinal Adenopathy Neurological: Cranial nerves II-XII grossly intact, Neuro grossly intact, Motor Exam 5/5 strength throughout Psych/Mental Status: Alert and oriented to time, place, person, mood and affect Vital Signs Temp Pulse Resp BP Pulse Ox 98.4 F 98 20 H 125/64 H 97 08/16/17 11:00 08/16/17 11:13 08/16/17 11:00 08/16/17 11:00 08/16/17 11:00 Oxygen Flow Rate 6 Oxygen Delivery Method Bi-pap Weight: 76.6 kg Body Mass Index (BMI) 31.1 Intake and Output for Last 24 Hours 08/14/17 08/15/17 08/16/17 23:59 23:59 23:59 Intake Total 320 / 320 200 / 200 Output Total 150 / 150 1200 / 1200 Balance 170 / 170 -1000 / -1000 Microbiology Past 72 Hours 08/15/17 18:07 Urine Culture - Preliminary Urine Catheter - Prieto Culture exhibits no growth. 08/15/17 15:45 Influenza Types A,B Direct FA (VIDAL) - Final Mucosa - Nose Laboratory Tests Past 24 Hrs 08/15/17 08/15/17 08/15/17 15:50 15:50 15:50 WBC RBC Hgb Hct MCV MCH MCHC RDW RDW Differential Plt Count MPV Immature Gran % (Auto) Neut % (Auto) Lymph % (Auto) [place] % (Auto) Eos % (Auto) Baso % (Auto) Absolute Neuts (auto) Absolute Lymphs (auto) Total Counted Differential Comment Hypochromasia Microcytosis Ovalocytes Acanthocytes (Spur) Schistocytes APTT 36.7 H Sodium Potassium Chloride Carbon Dioxide Anion Gap BUN Creatinine Estim Creat Clear Calc Est GFR (MDRD) Af Amer Est GFR (MDRD) Non-Af BUN/Creatinine Ratio Glucose Lactic Acid 1.4 Calcium Troponin I 0.27 H B-Natriuretic Peptide Triglycerides Cholesterol LDL Cholesterol VLDL Cholesterol HDL Cholesterol TSH 08/15/17 08/15/17 08/15/17 17:56 19:42 23:37 WBC RBC Hgb Hct MCV MCH MCHC RDW RDW Differential Plt Count MPV Immature Gran % (Auto) Neut % (Auto) Lymph % (Auto) [place] % (Auto) Eos % (Auto) Baso % (Auto) Absolute Neuts (auto) Absolute Lymphs (auto) Total Counted Differential Comment Hypochromasia Microcytosis Ovalocytes Acanthocytes (Spur) Schistocytes APTT Sodium Potassium Chloride Carbon Dioxide Anion Gap BUN Creatinine Estim Creat Clear Calc Est GFR (MDRD) Af Amer Est GFR (MDRD) Non-Af BUN/Creatinine Ratio Glucose Lactic Acid 1.9 Calcium Troponin I 0.34 H 0.38 H B-Natriuretic Peptide Triglycerides Cholesterol LDL Cholesterol VLDL Cholesterol HDL Cholesterol TSH 08/16/17 08/16/17 08/16/17 05:32 05:32 05:32 WBC 4.8 RBC 4.09 L Hgb 7.9 L Hct 28.7 L MCV 70.2 L MCH 19.3 L MCHC 27.5 L RDW 19.8 H RDW Differential 49.3 H Plt Count 233 MPV 10.3 Immature Gran % (Auto) 0.200 Neut % (Auto) 94.2 H Lymph % (Auto) 5.0 L [place] % (Auto) 0.6 Eos % (Auto) 0.0 Baso % (Auto) 0.0 Absolute Neuts (auto) 4.5 Absolute Lymphs (auto) 0.24 L Total Counted Not Reportable Differential Comment SCANNED Hypochromasia 3+ Microcytosis 2+ Ovalocytes 1+ Acanthocytes (Spur) RARE Schistocytes RARE APTT Sodium 142 Potassium 3.8 Chloride 106 Carbon Dioxide 27.0 Anion Gap 9 BUN 23 H Creatinine 0.94 Estim Creat Clear Calc 39.64 Est GFR (MDRD) Af Amer 74 Est GFR (MDRD) Non-Af 61 BUN/Creatinine Ratio 24.4 H Glucose 134 H Lactic Acid Calcium 8.9 Troponin I 0.36 H B-Natriuretic Peptide 1784.3 H Triglycerides 45 Cholesterol 138 LDL Cholesterol 52 VLDL Cholesterol 9 HDL Cholesterol 77 TSH 0.49 Assessment/Plan Active and Suspected Problems Congestive heart failure (Acute) COPD (chronic obstructive pulmonary disease) with acute bronchitis (Acute) Acute respiratory failure with hypoxia (Acute) Acute exacerbation of congestive heart failure (Acute) RECOMMENDATIONS 1. Wean off BiPAP/oxygen to keep saturations 88-92% 2. Recommend increasing Lasix to twice daily for more aggressive diuresis 3. Recheck CBC in a.m. 4. Discontinue steroids 5. Continue aerosols 6. Obtain respiratory panel and sputum culture IMPRESSIONS 1. Acute hypoxic respiratory failure Likely secondary to CHF exacerbation. Chest x-ray showed cardiomegaly and mild CHF. Patient does also have significant pulmonary hypertension on echocardiogram performed 08/16/17. She was hypoxic in the 80s on room air and placed on BiPAP and [facility], which she has remained on pretty much continuously. She was given a break when I was in the room and she did become somewhat dyspneic. She was placed back on BiPAP. Wean FiO2 as tolerated and transition to nasal cannula once breathing improves. Would recommend leaving her on for the remainder of the day with breaks as tolerated. Patient did have a bump in her troponin which peaked at 0.38, likely demand ischemia from her hypoxia. She does wear 2 L of oxygen at bedtime which was prescribed proximally 3 weeks ago. It is unclear what testing she has had in the past, as she is a poor historian. Infectious workup pending. Ordered a respiratory panel and sputum culture. Would recommend walking oximetry prior to discharge to assess the need for supplemental oxygen. She can follow-up in the pulmonary clinic in 2 weeks after discharge with the [employer] if she so desires, at which time pulmonary function tests and a walking oximetry can be ordered. 2. Acute CHF exacerbation, combined Echocardiogram shows systolic and diastolic dysfunction, estimated EF of 40%. RVSP elevated at 53 mmHg, c/w moderate pulmonary hypertension. BNP was elevated at 1784. Patient follows with Dr. Ndiaye from [facility], she is scheduled to see him in October. 3. Suspected COPD Patient denies any history of COPD. Patient has never had any pulmonary function tests that she is aware of. She has an extensive smoking history of 100 pack years. She uses DuoNeb and Ventolin at home. She does not recall ever being on any other inhalers. She has never seen a mending carrier in the past. Does not appear that she has an acute COPD exacerbation. She has minimal wheezing, no increase in sputum or cough. Would wean supplemental oxygen to keep saturations 88-92%. Doubt that she requires antibiotics or steroids at this time. 4. PAF on anticoagulation/anxiety/hyperthyroidism/GERD/hyperlipidemia/ hypokalemia/anemia/hypertension/CAD Complicates care, management, recovery, and prognosis. Continue her home medications per hospitalist recommendations. Thank you for the opportunity to participate in this patient's care, please do not hesitate to contact us with any further questions or concerns. This note was generated with [employer] dictation software. It may contain incorrect words, spelling, and punctuation that were not noted in checking the note before signing.
[2017-08-16 13:25] LABS: Ferritin 11 ng/mL (8-252); Iron 17 ug/dL (50-170); Iron Binding Capacity,Total 386 ug/dL (250-450); PERCENT IRON SATURATION 4.4 % (15.0-55.0)
--- NOTE | 2017-08-16 14:26 | PCM.PROGNOTE ---
<Cyril Aguilera - Last Filed: 08/16/17 14:26> Patient Problems: Active and Suspected Problems Congestive heart failure (Acute) COPD (chronic obstructive pulmonary disease) with acute bronchitis (Acute) Acute respiratory failure with hypoxia (Acute) Acute exacerbation of congestive heart failure (Acute) Subjective: Patient seen and examined this morning following echocardiogram. She states she has been wearing the BiPAP all night and most of the morning here. She feels that her breathing is significantly improved and she would like to take it off. She does does not use CPAP or BiPAP at home but she does use home oxygen in the evening. She denies prior history of COPD but used to smoke heavily, denies smoking now. She also does use duo nebs at home. She does have a known history of congestive heart failure does admit to atrial fibrillation and states she takes Eliquis. She denies fevers or chills. She has an occasional dry cough. At this time she denies dizziness, lightheadedness, or palpitations or racing. She has noted some recent worsening of swelling in her lower extremities. - Physical Exam General: Alert, Oriented x3, Cooperative HEENT: Atraumatic, PERRLA, EOMI, Normocephalic Neck: Supple, No JVD, Negative Carotid Bruits Lungs: Diminished, Wheezes - Diffuse expiratory wheezing bilateral lungs diffusely heard throughout. Cardiovascular: Regular rate, No murmurs Abdomen: Bowel Sounds Present, Soft, Non Tender Extremities: No edema, Capillary Refill Less than 3 Seconds Skin: No rashes, No breakdown Musculoskeletal: No Tenderness to Palpation of Joints or Extremities Neurological: Cranial nerves II-XII grossly intact Psych/Mental Status: Normal Affect, Appropriate Vital Signs Temp Pulse Resp BP Pulse Ox 98.4 F 86 16 125/64 H 97 08/16/17 11:00 08/16/17 14:20 08/16/17 14:20 08/16/17 11:00 08/16/17 14:20 Oxygen Flow Rate 3 Oxygen Delivery Method Nasal Cannula Weight: 76.6 kg Body Mass Index (BMI) 31.1 Intake and Output for Last 24 Hours 08/14/17 08/15/17 08/16/17 23:59 23:59 23:59 Intake Total 320 / 320 746 / 746 Output Total 150 / 150 1800 / 1800 Balance 170 / 170 -1054 / -1054 Microbiology Past 72 Hours 08/15/17 18:07 Urine Culture - Preliminary Urine Catheter - Prieto Culture exhibits no growth. 08/15/17 15:45 Influenza Types A,B Direct FA (VIDAL) - Final Mucosa - Nose Laboratory Tests Past 24 Hrs 08/15/17 08/15/17 08/15/17 15:50 15:50 15:50 WBC RBC Hgb Hct MCV MCH MCHC RDW RDW Differential Plt Count MPV Immature Gran % (Auto) Neut % (Auto) Lymph % (Auto) [place] % (Auto) Eos % (Auto) Baso % (Auto) Absolute Neuts (auto) Absolute Lymphs (auto) Total Counted Differential Comment Hypochromasia Microcytosis Ovalocytes Acanthocytes (Spur) Schistocytes APTT 36.7 H Sodium Potassium Chloride Carbon Dioxide Anion Gap BUN Creatinine Estim Creat Clear Calc Est GFR (MDRD) Af Amer Est GFR (MDRD) Non-Af BUN/Creatinine Ratio Glucose Lactic Acid 1.4 Calcium Iron TIBC Iron Saturation Ferritin Troponin I 0.27 H B-Natriuretic Peptide Triglycerides Cholesterol LDL Cholesterol VLDL Cholesterol HDL Cholesterol TSH 08/15/17 08/15/17 08/15/17 17:56 19:42 23:37 WBC RBC Hgb Hct MCV MCH MCHC RDW RDW Differential Plt Count MPV Immature Gran % (Auto) Neut % (Auto) Lymph % (Auto) [place] % (Auto) Eos % (Auto) Baso % (Auto) Absolute Neuts (auto) Absolute Lymphs (auto) Total Counted Differential Comment Hypochromasia Microcytosis Ovalocytes Acanthocytes (Spur) Schistocytes APTT Sodium Potassium Chloride Carbon Dioxide Anion Gap BUN Creatinine Estim Creat Clear Calc Est GFR (MDRD) Af Amer Est GFR (MDRD) Non-Af BUN/Creatinine Ratio Glucose Lactic Acid 1.9 Calcium Iron TIBC Iron Saturation Ferritin Troponin I 0.34 H 0.38 H B-Natriuretic Peptide Triglycerides Cholesterol LDL Cholesterol VLDL Cholesterol HDL Cholesterol TSH 08/16/17 08/16/17 08/16/17 05:32 05:32 05:32 WBC 4.8 RBC 4.09 L Hgb 7.9 L Hct 28.7 L MCV 70.2 L MCH 19.3 L MCHC 27.5 L RDW 19.8 H RDW Differential 49.3 H Plt Count 233 MPV 10.3 Immature Gran % (Auto) 0.200 Neut % (Auto) 94.2 H Lymph % (Auto) 5.0 L [place] % (Auto) 0.6 Eos % (Auto) 0.0 Baso % (Auto) 0.0 Absolute Neuts (auto) 4.5 Absolute Lymphs (auto) 0.24 L Total Counted Not Reportable Differential Comment SCANNED Hypochromasia 3+ Microcytosis 2+ Ovalocytes 1+ Acanthocytes (Spur) RARE Schistocytes RARE APTT Sodium 142 Potassium 3.8 Chloride 106 Carbon Dioxide 27.0 Anion Gap 9 BUN 23 H Creatinine 0.94 Estim Creat Clear Calc 39.64 Est GFR (MDRD) Af Amer 74 Est GFR (MDRD) Non-Af 61 BUN/Creatinine Ratio 24.4 H Glucose 134 H Lactic Acid Calcium 8.9 Iron TIBC Iron Saturation Ferritin Troponin I 0.36 H B-Natriuretic Peptide 1784.3 H Triglycerides 45 Cholesterol 138 LDL Cholesterol 52 VLDL Cholesterol 9 HDL Cholesterol 77 TSH 0.49 08/16/17 05:32 WBC RBC Hgb Hct MCV MCH MCHC RDW RDW Differential Plt Count MPV Immature Gran % (Auto) Neut % (Auto) Lymph % (Auto) [place] % (Auto) Eos % (Auto) Baso % (Auto) Absolute Neuts (auto) Absolute Lymphs (auto) Total Counted Differential Comment Hypochromasia Microcytosis Ovalocytes Acanthocytes (Spur) Schistocytes APTT Sodium Potassium Chloride Carbon Dioxide Anion Gap BUN Creatinine Estim Creat Clear Calc Est GFR (MDRD) Af Amer Est GFR (MDRD) Non-Af BUN/Creatinine Ratio Glucose Lactic Acid Calcium Iron 17 L TIBC 386 Iron Saturation 4.4 L Ferritin 11 Troponin I B-Natriuretic Peptide Triglycerides Cholesterol LDL Cholesterol VLDL Cholesterol HDL Cholesterol TSH Assessment/Plan Active and Suspected Problems Congestive heart failure (Acute) COPD (chronic obstructive pulmonary disease) with acute bronchitis (Acute) Acute respiratory failure with hypoxia (Acute) Acute exacerbation of congestive heart failure (Acute) 1. Acute on chronic systolic congestive heart failure exacerbation located by moderate pulmonary hypertension-chest x-ray demonstrates cardiomegaly and CHF. -Continue Lasix 40 IV twice daily. -Echocardiogram performed this morning demonstrates EF of 40%, regional wall abnormalities noted, RVSP is 53 mmHg, 1-2+ MVI -Patient on metoprolol 25 twice daily at home, will add this in today -Patient not on an GINGER inhibitor, will start low-dose and monitor blood pressure. -BNP 1700+ -Troponin is indeterminant, began at 0.27 and is increased to 0.36. 2. Probable underlying COPD-will maintain steroids for now. Continue duo nebs. Heavy smoking history. No longer smokes. 3. Infectious process ruled out-we will discontinue antibiotics. No fever or leukocytosis. 4. Acute on chronic hypoxic respiratory failure-we will trial off BiPAP this afternoon and see how she does on nasal cannula. Her baseline is 2 L at night only. 5. Paroxysmal atrial fibrillation-continue LoPatricia castaneda 6. History of hyperthyroidism-TSH normal 7. Microcytic anemia-trend as her hemoglobin is 7.9, will check ferritin, iron, and TIBC. 8. CAD-had stents in 1999. Continue beta-arthur, GINGER inhibitor-she is on high-dose aspirin daily. She is not on Plavix. 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 DVT prophylaxis: Patricia MARCIAL planning: No reported debility. We will reassess her respiratory status in the morning. This patient was seen by Cyril Aguilera PA-C under the supervision of Doctor Tristen. Code Visit Inpatient E&M: 63134 Subs Hosp L2 <Ulices Ramon - Last Filed: 08/16/17 15:01> - Physical Exam General: Alert, Cooperative HEENT: Atraumatic, Normocephalic Lungs: Diminished, Wheezes Cardiovascular: Regular rate, Regular Rhythm, Normal S1, Normal S2, No murmurs Abdomen: Bowel Sounds Present, Soft, Non Tender, Non-Distended Extremities: No edema, No Calf Tenderness Skin: No rashes, No breakdown Vital Signs Temp Pulse Resp BP Pulse Ox 36.9 C 86 16 125/64 H 97 08/16/17 11:00 08/16/17 14:20 08/16/17 14:20 08/16/17 11:00 08/16/17 14:20 Oxygen Flow Rate 3 Oxygen Delivery Method Nasal Cannula Weight: 76.6 kg Body Mass Index (BMI) 31.1 Intake and Output for Last 24 Hours 08/14/17 08/15/17 08/16/17 23:59 23:59 23:59 Intake Total 320 / 320 746 / 746 Output Total 150 / 150 1800 / 1800 Balance 170 / 170 -1054 / -1054 Microbiology Past 72 Hours 08/15/17 18:07 Urine Culture - Preliminary Urine Catheter - Prieto Culture exhibits no growth. 08/15/17 15:45 Influenza Types A,B Direct FA (VIDAL) - Final Mucosa - Nose Laboratory Tests Past 24 Hrs 08/15/17 08/15/17 08/15/17 15:50 15:50 15:50 WBC RBC Hgb Hct MCV MCH MCHC RDW RDW Differential Plt Count MPV Immature Gran % (Auto) Neut % (Auto) Lymph % (Auto) [place] % (Auto) Eos % (Auto) Baso % (Auto) Absolute Neuts (auto) Absolute Lymphs (auto) Total Counted Differential Comment Hypochromasia Microcytosis Ovalocytes Acanthocytes (Spur) Schistocytes APTT 36.7 H Sodium Potassium Chloride Carbon Dioxide Anion Gap BUN Creatinine Estim Creat Clear Calc Est GFR (MDRD) Af Amer Est GFR (MDRD) Non-Af BUN/Creatinine Ratio Glucose Lactic Acid 1.4 Calcium Iron TIBC Iron Saturation Ferritin Troponin I 0.27 H B-Natriuretic Peptide Triglycerides Cholesterol LDL Cholesterol VLDL Cholesterol HDL Cholesterol TSH 08/15/17 08/15/17 08/15/17 17:56 19:42 23:37 WBC RBC Hgb Hct MCV MCH MCHC RDW RDW Differential Plt Count MPV Immature Gran % (Auto) Neut % (Auto) Lymph % (Auto) [place] % (Auto) Eos % (Auto) Baso % (Auto) Absolute Neuts (auto) Absolute Lymphs (auto) Total Counted Differential Comment Hypochromasia Microcytosis Ovalocytes Acanthocytes (Spur) Schistocytes APTT Sodium Potassium Chloride Carbon Dioxide Anion Gap BUN Creatinine Estim Creat Clear Calc Est GFR (MDRD) Af Amer Est GFR (MDRD) Non-Af BUN/Creatinine Ratio Glucose Lactic Acid 1.9 Calcium Iron TIBC Iron Saturation Ferritin Troponin I 0.34 H 0.38 H B-Natriuretic Peptide Triglycerides Cholesterol LDL Cholesterol VLDL Cholesterol HDL Cholesterol TSH 08/16/17 08/16/17 08/16/17 05:32 05:32 05:32 WBC 4.8 RBC 4.09 L Hgb 7.9 L Hct 28.7 L MCV 70.2 L MCH 19.3 L MCHC 27.5 L RDW 19.8 H RDW Differential 49.3 H Plt Count 233 MPV 10.3 Immature Gran % (Auto) 0.200 Neut % (Auto) 94.2 H Lymph % (Auto) 5.0 L [place] % (Auto) 0.6 Eos % (Auto) 0.0 Baso % (Auto) 0.0 Absolute Neuts (auto) 4.5 Absolute Lymphs (auto) 0.24 L Total Counted Not Reportable Differential Comment SCANNED Hypochromasia 3+ Microcytosis 2+ Ovalocytes 1+ Acanthocytes (Spur) RARE Schistocytes RARE APTT Sodium 142 Potassium 3.8 Chloride 106 Carbon Dioxide 27.0 Anion Gap 9 BUN 23 H Creatinine 0.94 Estim Creat Clear Calc 39.64 Est GFR (MDRD) Af Amer 74 Est GFR (MDRD) Non-Af 61 BUN/Creatinine Ratio 24.4 H Glucose 134 H Lactic Acid Calcium 8.9 Iron TIBC Iron Saturation Ferritin Troponin I 0.36 H B-Natriuretic Peptide 1784.3 H Triglycerides 45 Cholesterol 138 LDL Cholesterol 52 VLDL Cholesterol 9 HDL Cholesterol 77 TSH 0.49 08/16/17 05:32 WBC RBC Hgb Hct MCV MCH MCHC RDW RDW Differential Plt Count MPV Immature Gran % (Auto) Neut % (Auto) Lymph % (Auto) [place] % (Auto) Eos % (Auto) Baso % (Auto) Absolute Neuts (auto) Absolute Lymphs (auto) Total Counted Differential Comment Hypochromasia Microcytosis Ovalocytes Acanthocytes (Spur) Schistocytes APTT Sodium Potassium Chloride Carbon Dioxide Anion Gap BUN Creatinine Estim Creat Clear Calc Est GFR (MDRD) Af Amer Est GFR (MDRD) Non-Af BUN/Creatinine Ratio Glucose Lactic Acid Calcium Iron 17 L TIBC 386 Iron Saturation 4.4 L Ferritin 11 Troponin I B-Natriuretic Peptide Triglycerides Cholesterol LDL Cholesterol VLDL Cholesterol HDL Cholesterol TSH Assessment/Plan Patient seen and examined and family. Agree with the above note by the physician restaurant assistant. 1. Heart failure with reduced ejection fraction Ejection fraction 40% Seen with IV Lasix, lisinopril on metoprolol tartrate 2. COPD De-escalate steroids to prednisone 40 mg for 5 days with bronchodilators No pneumonia, antibiotics DC'd.
--- NOTE | 2017-08-16 14:36 | PN_ITS ---
<Cyril Aguilera - Last Filed: 08/16/17 14:26> Patient Problems: Active and Suspected Problems Congestive heart failure (Acute) COPD (chronic obstructive pulmonary disease) with acute bronchitis (Acute) Acute respiratory failure with hypoxia (Acute) Acute exacerbation of congestive heart failure (Acute) Subjective: Patient seen and examined this morning following echocardiogram. She states she has been wearing the BiPAP all night and most of the morning here. She feels that her breathing is significantly improved and she would like to take it off. She does does not use CPAP or BiPAP at home but she does use home oxygen in the evening. She denies prior history of COPD but used to smoke heavily, denies smoking now. She also does use duo nebs at home. She does have a known history of congestive heart failure does admit to atrial fibrillation and states she takes Eliquis. She denies fevers or chills. She has an occasional dry cough. At this time she denies dizziness, lightheadedness , or palpitations or racing. She has noted some recent worsening of swelling in her lower extremities. - Physical Exam General: Alert, Oriented x3, Cooperative HEENT: Atraumatic, PERRLA, EOMI, Normocephalic Neck: Supple, No JVD, Negative Carotid Bruits Lungs: Diminished, Wheezes - Diffuse expiratory wheezing bilateral lungs diffusely heard throughout. Cardiovascular: Regular rate, No murmurs Abdomen: Bowel Sounds Present, Soft, Non Tender Extremities: No edema, Capillary Refill Less than 3 Seconds Skin: No rashes, No breakdown Musculoskeletal: No Tenderness to Palpation of Joints or Extremities Neurological: Cranial nerves II-XII grossly intact Psych/Mental Status: Normal Affect, Appropriate Vital Signs Temp Pulse Resp BP Pulse Ox 98.4 F 86 16 125/64 H 97 08/16/17 11:00 08/16/17 14:20 08/16/17 14:20 08/16/17 11:00 08/16/17 14:20 Oxygen Flow Rate 3 Oxygen Delivery Method Nasal Cannula Weight: 76.6 kg Body Mass Index (BMI) 31.1 Intake and Output for Last 24 Hours 08/14/17 08/15/17 08/16/17 23:59 23:59 23:59 Intake Total 320 / 320 746 / 746 Output Total 150 / 150 1800 / 1800 Balance 170 / 170 -1054 / -1054 Microbiology Past 72 Hours 08/15/17 18:07 Urine Culture - Preliminary Urine Catheter - Prieto Culture exhibits no growth. 08/15/17 15:45 Influenza Types A,B Direct FA (VIDAL) - Final Mucosa - Nose Laboratory Tests Past 24 Hrs 08/15/17 08/15/17 08/15/17 15:50 15:50 15:50 WBC RBC Hgb Hct MCV MCH MCHC RDW RDW Differential Plt Count MPV Immature Gran % (Auto) Neut % (Auto) Lymph % (Auto) [place] % (Auto) Eos % (Auto) Baso % (Auto) Absolute Neuts (auto) Absolute Lymphs (auto) Total Counted Differential Comment Hypochromasia Microcytosis Ovalocytes Acanthocytes (Spur) Schistocytes APTT 36.7 H Sodium Potassium Chloride Carbon Dioxide Anion Gap BUN Creatinine Estim Creat Clear Calc Est GFR (MDRD) Af Amer Est GFR (MDRD) Non-Af BUN/Creatinine Ratio Glucose Lactic Acid 1.4 Calcium Iron TIBC Iron Saturation Ferritin Troponin I 0.27 H B-Natriuretic Peptide Triglycerides Cholesterol LDL Cholesterol VLDL Cholesterol HDL Cholesterol TSH 08/15/17 08/15/17 08/15/17 17:56 19:42 23:37 WBC RBC Hgb Hct MCV MCH MCHC RDW RDW Differential Plt Count MPV Immature Gran % (Auto) Neut % (Auto) Lymph % (Auto) [place] % (Auto) Eos % (Auto) Baso % (Auto) Absolute Neuts (auto) Absolute Lymphs (auto) Total Counted Differential Comment Hypochromasia Microcytosis Ovalocytes Acanthocytes (Spur) Schistocytes APTT Sodium Potassium Chloride Carbon Dioxide Anion Gap BUN Creatinine Estim Creat Clear Calc Est GFR (MDRD) Af Amer Est GFR (MDRD) Non-Af BUN/Creatinine Ratio Glucose Lactic Acid 1.9 Calcium Iron TIBC Iron Saturation Ferritin Troponin I 0.34 H 0.38 H B-Natriuretic Peptide Triglycerides Cholesterol LDL Cholesterol VLDL Cholesterol HDL Cholesterol TSH 08/16/17 08/16/17 08/16/17 05:32 05:32 05:32 WBC 4.8 RBC 4.09 L Hgb 7.9 L Hct 28.7 L MCV 70.2 L MCH 19.3 L MCHC 27.5 L RDW 19.8 H RDW Differential 49.3 H Plt Count 233 MPV 10.3 Immature Gran % (Auto) 0.200 Neut % (Auto) 94.2 H Lymph % (Auto) 5.0 L [place] % (Auto) 0.6 Eos % (Auto) 0.0 Baso % (Auto) 0.0 Absolute Neuts (auto) 4.5 Absolute Lymphs (auto) 0.24 L Total Counted Not Reportable Differential Comment SCANNED Hypochromasia 3+ Microcytosis 2+ Ovalocytes 1+ Acanthocytes (Spur) RARE Schistocytes RARE APTT Sodium 142 Potassium 3.8 Chloride 106 Carbon Dioxide 27.0 Anion Gap 9 BUN 23 H Creatinine 0.94 Estim Creat Clear Calc 39.64 Est GFR (MDRD) Af Amer 74 Est GFR (MDRD) Non-Af 61 BUN/Creatinine Ratio 24.4 H Glucose 134 H Lactic Acid Calcium 8.9 Iron TIBC Iron Saturation Ferritin Troponin I 0.36 H B-Natriuretic Peptide 1784.3 H Triglycerides 45 Cholesterol 138 LDL Cholesterol 52 VLDL Cholesterol 9 HDL Cholesterol 77 TSH 0.49 08/16/17 05:32 WBC RBC Hgb Hct MCV MCH MCHC RDW RDW Differential Plt Count MPV Immature Gran % (Auto) Neut % (Auto) Lymph % (Auto) [place] % (Auto) Eos % (Auto) Baso % (Auto) Absolute Neuts (auto) Absolute Lymphs (auto) Total Counted Differential Comment Hypochromasia Microcytosis Ovalocytes Acanthocytes (Spur) Schistocytes APTT Sodium Potassium Chloride Carbon Dioxide Anion Gap BUN Creatinine Estim Creat Clear Calc Est GFR (MDRD) Af Amer Est GFR (MDRD) Non-Af BUN/Creatinine Ratio Glucose Lactic Acid Calcium Iron 17 L TIBC 386 Iron Saturation 4.4 L Ferritin 11 Troponin I B-Natriuretic Peptide Triglycerides Cholesterol LDL Cholesterol VLDL Cholesterol HDL Cholesterol TSH Assessment/Plan Active and Suspected Problems Congestive heart failure (Acute) COPD (chronic obstructive pulmonary disease) with acute bronchitis (Acute) Acute respiratory failure with hypoxia (Acute) Acute exacerbation of congestive heart failure (Acute) 1. Acute on chronic systolic congestive heart failure exacerbation located by moderate pulmonary hypertension-chest x-ray demonstrates cardiomegaly and CHF. -Continue Lasix 40 IV twice daily. -Echocardiogram performed this morning demonstrates EF of 40%, regional wall abnormalities noted, RVSP is 53 mmHg, 1-2+ MVI -Patient on metoprolol 25 twice daily at home, will add this in today -Patient not on an GINGER inhibitor, will start low-dose and monitor blood pressure. -BNP 1700+ -Troponin is indeterminant, began at 0.27 and is increased to 0.36. 2. Probable underlying COPD-will maintain steroids for now. Continue duo nebs. Heavy smoking history. No longer smokes. 3. Infectious process ruled out-we will discontinue antibiotics. No fever or leukocytosis. 4. Acute on chronic hypoxic respiratory failure-we will trial off BiPAP this afternoon and see how she does on nasal cannula. Her baseline is 2 L at night only. 5. Paroxysmal atrial fibrillation-continue LoPatricia castaneda 6. History of hyperthyroidism-TSH normal 7. Microcytic anemia-trend as her hemoglobin is 7.9, will check ferritin, iron , and TIBC. 8. CAD-had stents in 1999. Continue beta-arthur, GINGER inhibitor-she is on high -dose aspirin daily. She is not on Plavix. 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 DVT prophylaxis: Patricia MARCIAL planning: No reported debility. We will reassess her respiratory status in the morning. This patient was seen by Cyril Aguilera PA-C under the supervision of Doctor Tristen. Code Visit Inpatient E&M: 74494 Subs Hosp L2 <Ulices Ramon - Last Filed: 08/16/17 15:01> - Physical Exam General: Alert, Cooperative HEENT: Atraumatic, Normocephalic Lungs: Diminished, Wheezes Cardiovascular: Regular rate, Regular Rhythm, Normal S1, Normal S2, No murmurs Abdomen: Bowel Sounds Present, Soft, Non Tender, Non-Distended Extremities: No edema, No Calf Tenderness Skin: No rashes, No breakdown Vital Signs Temp Pulse Resp BP Pulse Ox 36.9 C 86 16 125/64 H 97 08/16/17 11:00 08/16/17 14:20 08/16/17 14:20 08/16/17 11:00 08/16/17 14:20 Oxygen Flow Rate 3 Oxygen Delivery Method Nasal Cannula Weight: 76.6 kg Body Mass Index (BMI) 31.1 Intake and Output for Last 24 Hours 08/14/17 08/15/17 08/16/17 23:59 23:59 23:59 Intake Total 320 / 320 746 / 746 Output Total 150 / 150 1800 / 1800 Balance 170 / 170 -1054 / -1054 Microbiology Past 72 Hours 08/15/17 18:07 Urine Culture - Preliminary Urine Catheter - Prieto Culture exhibits no growth. 08/15/17 15:45 Influenza Types A,B Direct FA (VIDAL) - Final Mucosa - Nose Laboratory Tests Past 24 Hrs 08/15/17 08/15/17 08/15/17 15:50 15:50 15:50 WBC RBC Hgb Hct MCV MCH MCHC RDW RDW Differential Plt Count MPV Immature Gran % (Auto) Neut % (Auto) Lymph % (Auto) [place] % (Auto) Eos % (Auto) Baso % (Auto) Absolute Neuts (auto) Absolute Lymphs (auto) Total Counted Differential Comment Hypochromasia Microcytosis Ovalocytes Acanthocytes (Spur) Schistocytes APTT 36.7 H Sodium Potassium Chloride Carbon Dioxide Anion Gap BUN Creatinine Estim Creat Clear Calc Est GFR (MDRD) Af Amer Est GFR (MDRD) Non-Af BUN/Creatinine Ratio Glucose Lactic Acid 1.4 Calcium Iron TIBC Iron Saturation Ferritin Troponin I 0.27 H B-Natriuretic Peptide Triglycerides Cholesterol LDL Cholesterol VLDL Cholesterol HDL Cholesterol TSH 08/15/17 08/15/17 08/15/17 17:56 19:42 23:37 WBC RBC Hgb Hct MCV MCH MCHC RDW RDW Differential Plt Count MPV Immature Gran % (Auto) Neut % (Auto) Lymph % (Auto) [place] % (Auto) Eos % (Auto) Baso % (Auto) Absolute Neuts (auto) Absolute Lymphs (auto) Total Counted Differential Comment Hypochromasia Microcytosis Ovalocytes Acanthocytes (Spur) Schistocytes APTT Sodium Potassium Chloride Carbon Dioxide Anion Gap BUN Creatinine Estim Creat Clear Calc Est GFR (MDRD) Af Amer Est GFR (MDRD) Non-Af BUN/Creatinine Ratio Glucose Lactic Acid 1.9 Calcium Iron TIBC Iron Saturation Ferritin Troponin I 0.34 H 0.38 H B-Natriuretic Peptide Triglycerides Cholesterol LDL Cholesterol VLDL Cholesterol HDL Cholesterol TSH 08/16/17 08/16/17 08/16/17 05:32 05:32 05:32 WBC 4.8 RBC 4.09 L Hgb 7.9 L Hct 28.7 L MCV 70.2 L MCH 19.3 L MCHC 27.5 L RDW 19.8 H RDW Differential 49.3 H Plt Count 233 MPV 10.3 Immature Gran % (Auto) 0.200 Neut % (Auto) 94.2 H Lymph % (Auto) 5.0 L [place] % (Auto) 0.6 Eos % (Auto) 0.0 Baso % (Auto) 0.0 Absolute Neuts (auto) 4.5 Absolute Lymphs (auto) 0.24 L Total Counted Not Reportable Differential Comment SCANNED Hypochromasia 3+ Microcytosis 2+ Ovalocytes 1+ Acanthocytes (Spur) RARE Schistocytes RARE APTT Sodium 142 Potassium 3.8 Chloride 106 Carbon Dioxide 27.0 Anion Gap 9 BUN 23 H Creatinine 0.94 Estim Creat Clear Calc 39.64 Est GFR (MDRD) Af Amer 74 Est GFR (MDRD) Non-Af 61 BUN/Creatinine Ratio 24.4 H Glucose 134 H Lactic Acid Calcium 8.9 Iron TIBC Iron Saturation Ferritin Troponin I 0.36 H B-Natriuretic Peptide 1784.3 H Triglycerides 45 Cholesterol 138 LDL Cholesterol 52 VLDL Cholesterol 9 HDL Cholesterol 77 TSH 0.49 08/16/17 05:32 WBC RBC Hgb Hct MCV MCH MCHC RDW RDW Differential Plt Count MPV Immature Gran % (Auto) Neut % (Auto) Lymph % (Auto) [place] % (Auto) Eos % (Auto) Baso % (Auto) Absolute Neuts (auto) Absolute Lymphs (auto) Total Counted Differential Comment Hypochromasia Microcytosis Ovalocytes Acanthocytes (Spur) Schistocytes APTT Sodium Potassium Chloride Carbon Dioxide Anion Gap BUN Creatinine Estim Creat Clear Calc Est GFR (MDRD) Af Amer Est GFR (MDRD) Non-Af BUN/Creatinine Ratio Glucose Lactic Acid Calcium Iron 17 L TIBC 386 Iron Saturation 4.4 L Ferritin 11 Troponin I B-Natriuretic Peptide Triglycerides Cholesterol LDL Cholesterol VLDL Cholesterol HDL Cholesterol TSH Assessment/Plan Patient seen and examined and family. Agree with the above note by the physician regulatory affairs assistant. 1. Heart failure with reduced ejection fraction Ejection fraction 40% Seen with IV Lasix, lisinopril on metoprolol tartrate 2. COPD De-escalate steroids to prednisone 40 mg for 5 days with bronchodilators No pneumonia, antibiotics DC'd.
--- NOTE | 2017-08-16 16:34 | CASEMGMT ---
Face to Face with patient for initial transition planning/care coordination assessment. RN MATILDA introduced self and role at [facility], pt voices understanding and consents to assessment at this time. Pt sitting up on side of bed in no distress at this time. Pt A/O x4 at this time and answers all questions appropriately at this time. Care providers, pharmacy, and demographics verified and updated. See attached link. Pt voices no further concerns/needs at this time. Advised pt to ask for CM if any further questions/concerns/needs arise, voices understanding. CM to follow for any further discharge planning/needs. PLAN[place]
[2017-08-16] MEDS: Atorvastatin Calcium 40 MG Tablet PO (21:31)
[2017-08-16] MEDS: Metoprolol Tartrate 25 MG Tablet PO (21:31)
[2017-08-16] MEDS: Zolpidem Tartrate 5 MG Tablet PO (21:31)
[2017-08-17] VITALS (18 sets, daily range): BP systolic 100–127; BP diastolic 61–73; PULSE 64–98; RESP 16–20; TEMP 36.8–37; O2SAT 87–99
[2017-08-17] MEDS: Ipratropium/Albuterol Sulfate 3 ML AMPUL.NEB INHALATION ×4 (07:55→20:16)
[2017-08-17] MEDS: Aspirin 325 MG Tablet PO (07:58)
[2017-08-17 08:08] LABS: Absolute Lymphocyte Count 1.06 X10^3/ul (0.83-4.51); Absolute Neutrophil Count 10.2 X10^3/uL (2.0-7.7); Hematocrit 30.8 % (37-47); Hemoglobin 8.3 g/dl (12.0-15.0); Lymphocyte # 1.06 X10^3/ul (4.0); Lymphocyte % 8.7 % (19-41); Mean Corp Hgb Conc 26.9 g/gl (32-36); Mean Corpuscular Hgb 19.1 pg (27.0-32.0); Mean Platelet Vol. 10.2 fl (6.2-12.0); Monocyte# 0.95 X10^3/uL; Monocyte% 7.8 % (0-10); Neutrophil # 10.22 X10^3/uL (2.7-7.7); Neutrophil % 83.3 % (47-70); Platelet Count 253 K/mm3 (150-450); RBC Distribution Width CV 19.5 % (11.6-14.6); RBC Distribution Width SD 50.4 fl (35.1-43.9); Red Blood Count 4.34 M/mm3 (4.2-5.4); White Blood Count 12.3 K/mm3 (4.4-11.0)
[2017-08-17 08:21] LABS: AST(SGOT) 29 U/L (15-37); Alanine Aminotransfer ALT/SGPT 18 U/L (12-78); Albumin, Serum 3.4 g/dL (3.4-5.0); Alkaline Phosphatase 85 U/L (45-117); Anion Gap 7 (5-15); BUN 34 mg/dL (7-18); BUN/Creat Ratio 30.6 RATIO (10-20); Chloride 106 mmol/L (98-107); Creatinine, Serum 1.11 mg/dL (0.55-1.02); EST Glomerular Filtration Rate 51 mL/min (>60); Est Glom Filt Rate - Afr Amer 61 mL/min (>60); Estimated Creatinine Clearance 33.57 ml/min; Globulin 3.4 g/dL (2.2-4.2); Glucose 103 mg/dL (70-110); Potassium 3.6 mmol/L (3.5-5.1); Protein, Total 6.8 g/dL (6.4-8.2); Sodium Level 144 mmol/L (136-145)
--- NOTE | 2017-08-17 08:27 | CPS ---
PEP THERAPY AND SMI .....PT INSTRUCTED TO DO ON OWN
[2017-08-17 08:29] LABS: Differential Indicated SCAN CRITERIA MET; POSITIVE COUNT NO; POSITIVE DIFFERENTIAL NO; POSITIVE MORPHOLOGY YES
--- NOTE | 2017-08-17 08:43 | PCM.PROGNOTE ---
Patient Problems: Active and Suspected Problems Congestive heart failure (Acute) COPD (chronic obstructive pulmonary disease) with acute bronchitis (Acute) Acute respiratory failure with hypoxia (Acute) Acute exacerbation of congestive heart failure (Acute) Subjective: Patient did well overnight. Patient tolerated BiPAP for a couple hours, but discontinued secondary to discomfort. Patient has remained on 6 L nasal cannula. Patient reports subjective improvement in dyspnea compared to yesterday. No productive cough is been reported. - Physical Exam General: Alert, Oriented x3, Cooperative, No apparent distress, - - Speaking in full sentences. Appears stated age. HEENT: Atraumatic, PERRLA, EOMI, Normocephalic, - - No scleral icterus or injection noted. Oral: Moist Mucosa, No Gingival or Mucosal Lesions/ Ulcerations Neck: Supple, No Nodes, Trachea Midline, JVD, Right Lungs: No rhonchi, Diminished, Rales, Wheezes - Sporadic Cardiovascular: Normal S1, Normal S2, No murmurs, Irregular Rate, No rub noted, No Gallop Abdomen: Bowel Sounds Present, Soft, Non Tender, Non-Distended, Obese Extremities: No cyanosis, Capillary Refill Less than 3 Seconds, Edema Skin: No rashes, No breakdown Musculoskeletal: No Tenderness to Palpation of Joints or Extremities Lymphatic: No Cervical, Supraclavicular, or Inguinal Adenopathy Neurological: Cranial nerves II-XII grossly intact, Neuro grossly intact, Motor Exam 5/5 strength throughout Psych/Mental Status: Alert and oriented to time, place, person, mood and affect Vital Signs Temp Pulse Resp BP Pulse Ox 36.8 C 81 16 113/68 94 08/17/17 03:16 08/17/17 07:55 08/17/17 07:55 08/17/17 03:16 08/17/17 07:44 Oxygen Flow Rate 2 Oxygen Delivery Method Nasal Cannula Weight: 74.4 kg Body Mass Index (BMI) 31.1 Intake and Output for Last 24 Hours 08/15/17 08/16/17 08/17/17 23:59 23:59 23:59 Intake Total 320 / 320 1116 / 1116 60 / 60 Output Total 150 / 150 2200 / 2200 300 / 300 Balance 170 / 170 -1084 / -1084 -240 / -240 Microbiology Past 72 Hours 08/15/17 18:07 Urine Culture - Preliminary Urine Catheter - Prieto Culture exhibits no growth. 08/15/17 15:45 Influenza Types A,B Direct FA (VIDAL) - Final Mucosa - Nose Laboratory Tests Past 24 Hrs 08/16/17 08/17/17 08/17/17 05:32 07:35 07:35 WBC 12.3 H RBC 4.34 Hgb 8.3 L Hct 30.8 L MCV 71.0 L MCH 19.1 L MCHC 26.9 L RDW 19.5 H RDW Differential 50.4 H Plt Count 253 MPV 10.2 Immature Gran % (Auto) 0.200 Neut % (Auto) 83.3 H Lymph % (Auto) 8.7 L [place] % (Auto) 7.8 Eos % (Auto) 0.0 Baso % (Auto) 0.0 Absolute Neuts (auto) 10.2 H Absolute Lymphs (auto) 1.06 Total Counted Pending Sodium 144 Potassium 3.6 Chloride 106 Carbon Dioxide 31.0 Anion Gap 7 BUN 34 H Creatinine 1.11 H Estim Creat Clear Calc 33.57 Est GFR (MDRD) Af Amer 61 Est GFR (MDRD) Non-Af 51 L BUN/Creatinine Ratio 30.6 H Glucose 103 Calcium 9.0 Iron 17 L TIBC 386 Iron Saturation 4.4 L Ferritin 11 Total Bilirubin 1.10 H AST 29 ALT 18 Alkaline Phosphatase 85 Total Protein 6.8 Albumin 3.4 Globulin 3.4 Albumin/Globulin Ratio 1.0 Assessment/Plan Active and Suspected Problems Congestive heart failure (Acute) COPD (chronic obstructive pulmonary disease) with acute bronchitis (Acute) Acute respiratory failure with hypoxia (Acute) Acute exacerbation of congestive heart failure (Acute) RECOMMENDATIONS: 1. Wean off BiPAP/oxygen to keep saturations 88-92% 2. Recommend increasing Lasix to twice daily for more aggressive diuresis 3. Recheck CBC in a.m. 4. Discontinue steroids 5. Continue aerosols 6. Obtain respiratory panel and sputum culture IMPRESSIONS: 1. Acute hypoxic respiratory failure Patient appears to be responding to therapy well. Patient does have BiPAP that she can use overnight and for rescue during the day. Would continue with diuresis with a goal of -1-2 L per day. Respiratory status is likely complicated by underlying COPD, but this has not been confirmed. She does not appear to be in acute exacerbation of COPD at this time. Patient has been attempted on noninvasive therapy previously for LITO, but was unable to tolerate. Likely okay to discontinue steroids from my perspective. Steroids may add to increase in uremia. 2. Acute CHF exacerbation, combined Echocardiogram shows systolic and diastolic dysfunction, estimated EF of 40%. RVSP elevated at 53 mmHg, c/w moderate pulmonary hypertension. BNP was elevated at 1784. Patient follows with Dr. Ndiaye from [facility], she is scheduled to see him in October. Unclear how much aggressive diuresis patient will tolerate given increase in creatinine. Recommend rechecking BMP tomorrow. Elevation of troponin likely secondary to type II non-ST elevation [place] with global hypoxemia leading to decreased effective perfusion to her vasculature. 3. Suspected COPD Patient would need outpatient pulmonary function test for confirmation of suspected COPD. Patient does have an extensive smoking history. Patient has DuoNeb's at home, but is never seen a transformer mechanic. Labs are suggestive of CO2 retention at baseline. Would recommend keeping patient saturations 88-92% to minimize CO2 retention. 4. PAF on anticoagulation/anxiety/hyperthyroidism/GERD/hyperlipidemia/hypokalemia/anemia/hypertension/CAD Complicates care, management, recovery, and prognosis. Continue her home medications per hospitalist recommendations. Thank you for the opportunity to participate in this patient's care, please do not hesitate to contact us with any further questions or concerns. This note was generated with [employer] dictation software. It may contain incorrect words, spelling, and punctuation that were not noted in checking the note before signing. Code Visit Inpatient E&M: 25651 Subs Hosp L3
--- NOTE | 2017-08-17 08:49 | PN_ITS ---
Patient Problems: Active and Suspected Problems Congestive heart failure (Acute) COPD (chronic obstructive pulmonary disease) with acute bronchitis (Acute) Acute respiratory failure with hypoxia (Acute) Acute exacerbation of congestive heart failure (Acute) Subjective: Patient did well overnight. Patient tolerated BiPAP for a couple hours, but discontinued secondary to discomfort. Patient has remained on 6 L nasal cannula. Patient reports subjective improvement in dyspnea compared to yesterday. No productive cough is been reported. - Physical Exam General: Alert, Oriented x3, Cooperative, No apparent distress, - - Speaking in full sentences. Appears stated age. HEENT: Atraumatic, PERRLA, EOMI, Normocephalic, - - No scleral icterus or injection noted. Oral: Moist Mucosa, No Gingival or Mucosal Lesions/ Ulcerations Neck: Supple, No Nodes, Trachea Midline, JVD, Right Lungs: No rhonchi, Diminished, Rales, Wheezes - Sporadic Cardiovascular: Normal S1, Normal S2, No murmurs, Irregular Rate, No rub noted, No Gallop Abdomen: Bowel Sounds Present, Soft, Non Tender, Non-Distended, Obese Extremities: No cyanosis, Capillary Refill Less than 3 Seconds, Edema Skin: No rashes, No breakdown Musculoskeletal: No Tenderness to Palpation of Joints or Extremities Lymphatic: No Cervical, Supraclavicular, or Inguinal Adenopathy Neurological: Cranial nerves II-XII grossly intact, Neuro grossly intact, Motor Exam 5/5 strength throughout Psych/Mental Status: Alert and oriented to time, place, person, mood and affect Vital Signs Temp Pulse Resp BP Pulse Ox 36.8 C 81 16 113/68 94 08/17/17 03:16 08/17/17 07:55 08/17/17 07:55 08/17/17 03:16 08/17/17 07:44 Oxygen Flow Rate 2 Oxygen Delivery Method Nasal Cannula Weight: 74.4 kg Body Mass Index (BMI) 31.1 Intake and Output for Last 24 Hours 08/15/17 08/16/17 08/17/17 23:59 23:59 23:59 Intake Total 320 / 320 1116 / 1116 60 / 60 Output Total 150 / 150 2200 / 2200 300 / 300 Balance 170 / 170 -1084 / -1084 -240 / -240 Microbiology Past 72 Hours 08/15/17 18:07 Urine Culture - Preliminary Urine Catheter - Prieto Culture exhibits no growth. 08/15/17 15:45 Influenza Types A,B Direct FA (VIDAL) - Final Mucosa - Nose Laboratory Tests Past 24 Hrs 08/16/17 08/17/17 08/17/17 05:32 07:35 07:35 WBC 12.3 H RBC 4.34 Hgb 8.3 L Hct 30.8 L MCV 71.0 L MCH 19.1 L MCHC 26.9 L RDW 19.5 H RDW Differential 50.4 H Plt Count 253 MPV 10.2 Immature Gran % (Auto) 0.200 Neut % (Auto) 83.3 H Lymph % (Auto) 8.7 L [place] % (Auto) 7.8 Eos % (Auto) 0.0 Baso % (Auto) 0.0 Absolute Neuts (auto) 10.2 H Absolute Lymphs (auto) 1.06 Total Counted Pending Sodium 144 Potassium 3.6 Chloride 106 Carbon Dioxide 31.0 Anion Gap 7 BUN 34 H Creatinine 1.11 H Estim Creat Clear Calc 33.57 Est GFR (MDRD) Af Amer 61 Est GFR (MDRD) Non-Af 51 L BUN/Creatinine Ratio 30.6 H Glucose 103 Calcium 9.0 Iron 17 L TIBC 386 Iron Saturation 4.4 L Ferritin 11 Total Bilirubin 1.10 H AST 29 ALT 18 Alkaline Phosphatase 85 Total Protein 6.8 Albumin 3.4 Globulin 3.4 Albumin/Globulin Ratio 1.0 Assessment/Plan Active and Suspected Problems Congestive heart failure (Acute) COPD (chronic obstructive pulmonary disease) with acute bronchitis (Acute) Acute respiratory failure with hypoxia (Acute) Acute exacerbation of congestive heart failure (Acute) RECOMMENDATIONS: 1. Wean off BiPAP/oxygen to keep saturations 88-92% 2. Recommend increasing Lasix to twice daily for more aggressive diuresis 3. Recheck CBC in a.m. 4. Discontinue steroids 5. Continue aerosols 6. Obtain respiratory panel and sputum culture IMPRESSIONS: 1. Acute hypoxic respiratory failure Patient appears to be responding to therapy well. Patient does have BiPAP that she can use overnight and for rescue during the day. Would continue with diuresis with a goal of -1-2 L per day. Respiratory status is likely complicated by underlying COPD, but this has not been confirmed. She does not appear to be in acute exacerbation of COPD at this time. Patient has been attempted on noninvasive therapy previously for LITO, but was unable to tolerate. Likely okay to discontinue steroids from my perspective. Steroids may add to increase in uremia. 2. Acute CHF exacerbation, combined Echocardiogram shows systolic and diastolic dysfunction, estimated EF of 40%. RVSP elevated at 53 mmHg, c/w moderate pulmonary hypertension. BNP was elevated at 1784. Patient follows with Dr. Ndiaye from [facility], she is scheduled to see him in October. Unclear how much aggressive diuresis patient will tolerate given increase in creatinine. Recommend rechecking BMP tomorrow. Elevation of troponin likely secondary to type II non-ST elevation [place] with global hypoxemia leading to decreased effective perfusion to her vasculature. 3. Suspected COPD Patient would need outpatient pulmonary function test for confirmation of suspected COPD. Patient does have an extensive smoking history. Patient has DuoNeb's at home, but is never seen a ground support agent. Labs are suggestive of CO2 retention at baseline. Would recommend keeping patient saturations 88-92% to minimize CO2 retention. 4. PAF on anticoagulation/anxiety/hyperthyroidism/GERD/hyperlipidemia/ hypokalemia/anemia/hypertension/CAD Complicates care, management, recovery, and prognosis. Continue her home medications per hospitalist recommendations. Thank you for the opportunity to participate in this patient's care, please do not hesitate to contact us with any further questions or concerns. This note was generated with [employer] dictation software. It may contain incorrect words, spelling, and punctuation that were not noted in checking the note before signing. Code Visit Inpatient E&M: 92910 Subs Hosp L3
[2017-08-17] MEDS: APIXABAN 5 MG TABLET PO ×2 (09:26→21:15)
[2017-08-17] MEDS: LORazepam 1 MG Tablet PO (09:26)
[2017-08-17] MEDS: Lisinopril 5 MG Tablet PO (09:26)
[2017-08-17] MEDS: BENZOCAINE/MENTHOL 1 LOZENGE MUCOUS MEM (09:26)
[2017-08-17] MEDS: Metoprolol Tartrate 25 MG Tablet PO ×2 (09:26→21:15)
[2017-08-17] MEDS: 0.9% NaCl Peripheral Flush Adult/Peds IV (09:26)
[2017-08-17] MEDS: Furosemide 40 MG/4 ML Vial IV (09:27)
[2017-08-17 11:06] LABS: Anisocytosis 2+; Differential Comment SCANNED; Hypochromasia 2+; Poikilocytosis 1+
[2017-08-17 11:07] LABS: Macrocytosis 1+; Microcytosis 1+; Ovalocyte 1+; Target Cells 1+
--- NOTE | 2017-08-17 13:03 | PN_ITS ---
Patient Problems: Active and Suspected Problems Congestive heart failure (Acute) COPD (chronic obstructive pulmonary disease) with acute bronchitis (Acute) Acute respiratory failure with hypoxia (Acute) Acute exacerbation of congestive heart failure (Acute) Subjective: Shortness of breath improved lower extremity edema improved Vitals/I&O's: Vital Signs Temp Pulse Resp BP Pulse Ox 37.0 C 64 16 127/73 H 96 08/17/17 09:15 08/17/17 11:35 08/17/17 11:35 08/17/17 09:15 08/17/17 09:15 Oxygen Flow Rate 2 Oxygen Delivery Method Nasal Cannula Weight: 74.4 kg Body Mass Index (BMI) 31.1 Intake and Output for Last 24 Hours 08/15/17 08/16/17 08/17/17 23:59 23:59 23:59 Intake Total 320 / 320 1116 / 1116 500 / 500 Output Total 150 / 150 2200 / 2200 1300 / 1300 Balance 170 / 170 -1084 / -1084 -800 / -800 General: Alert, Cooperative, No apparent distress HEENT: Atraumatic, Normocephalic Neck: No Nodes, Thyroid Normal Size and Texture Lungs: Clear to auscultation, Normal air movement, No rhonchi, No wheeze Cardiovascular: Regular rate, Regular Rhythm, Normal S1, Normal S2 Abdomen: Bowel Sounds Present, Soft, Non Tender, Non-Distended Extremities: Edema - trace Skin: No rashes, No breakdown Microbiology Past 72 Hours 08/16/17 14:20 Mucosa - Nose Respiratory Panel (PCR) - Final 08/15/17 18:07 Urine Catheter - Prieto Urine Culture - Preliminary Culture exhibits no growth. 08/15/17 15:45 Mucosa - Nose Influenza Types A,B Direct FA (VIDAL) - Final Laboratory Results 08/16/17 05:32: Iron 17 L, TIBC 386, Iron Saturation 4.4 L, Ferritin 11 08/17/17 07:35: WBC 12.3 H, RBC 4.34, Hgb 8.3 L, Hct 30.8 L, MCV 71.0 L, MCH 19.1 L, MCHC 26.9 L, RDW 19.5 H, RDW Differential 50.4 H, Plt Count 253, MPV 10.2, Immature Gran % (Auto) 0.200, Neut % (Auto) 83.3 H, Lymph % (Auto) 8.7 L, [place] % (Auto) 7.8, Eos % (Auto) 0.0, Baso % (Auto) 0.0, Absolute Neuts (auto) 10.2 H, Absolute Lymphs (auto) 1.06, Total Counted Not Reportable, Differential Comment SCANNED, Hypochromasia 2+, Poikilocytosis 1+, Anisocytosis 2+, Microcytosis 1+, Macrocytosis 1+, Target Cells 1+, Ovalocytes 1+ 08/17/17 07:35: Sodium 144, Potassium 3.6, Chloride 106, Carbon Dioxide 31.0, Anion Gap 7, BUN 34 H, Creatinine 1.11 H, Estim Creat Clear Calc 33.57, Est GFR (MDRD) Af Amer 61, Est GFR (MDRD) Non-Af 51 L, BUN/Creatinine Ratio 30.6 H, Glucose 103, Calcium 9.0, Total Bilirubin 1.10 H, AST 29, ALT 18, Alkaline Phosphatase 85, Total Protein 6.8, Albumin 3.4, Globulin 3.4, Albumin/Globulin Ratio 1.0 Current Medications Acetaminophen (Tylenol) 650 mg PO Q6H PRN PRN PRN Reason: Mild Pain (scale 0-3)/T>100.7 Al Hydroxide/Mg Hydroxide (Mylanta Ii) 30 ml PO Q6H PRN PRN PRN Reason: Gastric Burning Albuterol Sulfate (Ventolin Aerosols) 2.5 mg INHALATION Q2H PRN PRN PRN Reason: SHORTNESS OF BREATH Albuterol/Ipratropium (Duoneb) 3 ml INHALATION Q4HWA.RT [facility] Last Admin: 08/17/17 11:35 Dose: 3 ml Apixaban (Eliquis) 5 mg PO BID [facility] Last Admin: 08/17/17 09:26 Dose: 5 mg Aspirin (Aspirin) 325 mg PO DAILY@0800 [facility] Last Admin: 08/17/17 07:58 Dose: 325 mg Atorvastatin Calcium (Lipitor) 40 mg PO QHS [facility] Last Admin: 08/16/17 21:31 Dose: 40 mg Docusate Sodium (Colace) 200 mg PO BID PRN PRN PRN Reason: Constipation Furosemide (Lasix) 40 mg IV BID@1000,1800 [facility] Last Admin: 08/17/17 09:27 Dose: 40 mg Lisinopril (Zestril) 5 mg PO DAILY [facility] Last Admin: 08/17/17 09:26 Dose: 5 mg Lorazepam (Ativan) 1 mg PO DAILY [facility] Last Admin: 08/17/17 09:26 Dose: 1 mg Metoprolol Tartrate (Lopressor (Beta [place])) 25 mg PO BID [facility] Last Admin: 08/17/17 09:26 Dose: 25 mg Ondansetron HCl (Zofran) 4 mg IV Q8H PRN PRN PRN Reason: Nausea Potassium Chloride (K-Dur) 40 meq PO DAILYCM [facility] Last Admin: 08/17/17 07:58 Dose: 40 meq Prednisone (Prednisone) 40 mg PO DAILY@0800 [facility] Last Admin: 08/17/17 07:58 Dose: 40 mg Sodium Chloride () 5 - 30 ml IV UD PRN PRN Reason: SALINE FLUSH Last Admin: 08/17/17 09:26 Dose: 10 ml Throat Lozenges (Cepacol Sore Throat Lozenge) 1 lozenge MUCOUS MEM Q2H PRN PRN PRN Reason: SORE THROAT Last Admin: 08/17/17 09:26 Dose: 1 lozenge Tizanidine HCl (Zanaflex) 2 mg PO Q8H PRN PRN PRN Reason: MUSCLE SPASM Last Admin: 08/15/17 17:27 Dose: 2 mg Tramadol HCl (Ultram (G)) 50 mg PO Q4H PRN PRN PRN Reason: MODERATE PAIN (4-5/10) Zolpidem Tartrate (Ambien (Generic)) 5 mg PO QHS PRN PRN PRN Reason: INSOMNIA Last Admin: 08/16/17 21:31 Dose: 5 mg Assessment/Plan Active and Suspected Problems Congestive heart failure (Acute) COPD (chronic obstructive pulmonary disease) with acute bronchitis (Acute) Acute respiratory failure with hypoxia (Acute) Acute exacerbation of congestive heart failure (Acute) 1. Heart failure with reduced ejection fraction Ejection fraction 40% Much better today Transition Lasix over to oral at 40 mg daily. Patient instructed to weigh herself daily as well as take an additional 40 mg of her weight Is put on by 2 pounds in 1 day or 3 pounds in 1 week. Agent is to follow-up with her cook starch, Dr. Ndiaye 2. COPD De-escalate steroids to prednisone 40 mg for 5 days with bronchodilators No pneumonia, antibiotics DC'd. Check an amatory pulse ox of the patient does have oxygen at home. Discharge home.
[2017-08-17] MEDS: Zolpidem Tartrate 5 MG Tablet PO (21:15)
[2017-08-17] MEDS: Atorvastatin Calcium 40 MG Tablet PO (21:15)
[2017-08-18] VITALS (20 sets, daily range): BP systolic 100–115; BP diastolic 35–60; PULSE 60–94; RESP 16–20; TEMP 36.3–36.7; O2SAT 85–98
[2017-08-18 07:34] LABS: Anion Gap 8 (5-15); BUN 34 mg/dL (7-18); BUN/Creat Ratio 37.7 RATIO (10-20); Calcium,Total 8.7 mg/dL (8.5-10.1); Chloride 103 mmol/L (98-107); EST Glomerular Filtration Rate 64 mL/min (>60); Est Glom Filt Rate - Afr Amer 78 mL/min (>60); Glucose 83 mg/dL (70-110); Potassium 3.3 mmol/L (3.5-5.1); Sodium Level 143 mmol/L (136-145)
[2017-08-18] MEDS: Ipratropium/Albuterol Sulfate 3 ML AMPUL.NEB INHALATION ×4 (07:37→19:42)
[2017-08-18 08:28] LABS: Absolute Lymphocyte Count 1.92 X10^3/ul (0.83-4.51); Basophil# 0.01 X10^3/uL; Basophil% 0.1 % (0-1); Eosinophil# 0.02 X10^3/uL; Eosinophils% 0.2 % (0-5); Hematocrit 31.7 % (37-47); Hemoglobin 8.5 g/dl (12.0-15.0); Lymphocyte # 1.92 X10^3/ul (4.0); Lymphocyte % 19.6 % (19-41); Mean Corp Hgb Conc 26.8 g/gl (32-36); Mean Corpuscular Hgb 19.1 pg (27.0-32.0); Mean Corpuscular Volume 71.2 fL (81-99); Mean Platelet Vol. 10.1 fl (6.2-12.0); Monocyte# 0.89 X10^3/uL; Monocyte% 9.1 % (0-10); Neutrophil # 6.97 X10^3/uL (2.7-7.7); Neutrophil % 70.9 % (47-70); Platelet Count 237 K/mm3 (150-450); RBC Distribution Width CV 19.4 % (11.6-14.6); RBC Distribution Width SD 50.6 fl (35.1-43.9); Red Blood Count 4.45 M/mm3 (4.2-5.4); White Blood Count 9.8 K/mm3 (4.4-11.0)
[2017-08-18 08:30] LABS: Differential Indicated SCAN CRITERIA MET; POSITIVE COUNT NO; POSITIVE DIFFERENTIAL NO; POSITIVE MORPHOLOGY YES
--- NOTE | 2017-08-18 08:41 | PCM.PROGNOTE ---
Patient Problems: Active and Suspected Problems Congestive heart failure (Acute) COPD (chronic obstructive pulmonary disease) with acute bronchitis (Acute) Acute respiratory failure with hypoxia (Acute) Acute exacerbation of congestive heart failure (Acute) Subjective: Patient did well overnight. Patient reports subjective improvement. Patient's oxygen has improved compared to yesterday. No acute issues were reported overnight. - Physical Exam General: Alert, Oriented x3, Cooperative, No apparent distress, - - Speaking in full sentences. HEENT: Atraumatic, PERRLA, EOMI, Normocephalic, - - No scleral icterus or injection noted. Oral: Moist Mucosa, No Gingival or Mucosal Lesions/ Ulcerations Neck: Supple, No JVD, No Nodes Lungs: No rhonchi, No wheeze, Diminished, Rales - Improving, - - Symmetric expansion. No dullness to percussion. Cardiovascular: Normal S1, Normal S2, Irregular Rate, Murmur, No rub noted, No Gallop Abdomen: Bowel Sounds Present, Soft, Non Tender, Non-Distended Extremities: No clubbing, No cyanosis, Capillary Refill Less than 3 Seconds, Edema - Improving Skin: No rashes, No breakdown Musculoskeletal: No Tenderness to Palpation of Joints or Extremities, No Muscle Wasting Lymphatic: No Cervical, Supraclavicular, or Inguinal Adenopathy Neurological: Cranial nerves II-XII grossly intact, Neuro grossly intact, Motor Exam 5/5 strength throughout Psych/Mental Status: Alert and oriented to time, place, person, mood and affect Vital Signs Temp Pulse Resp BP Pulse Ox 36.7 C 60 18 108/60 94 08/18/17 07:54 08/18/17 07:59 08/18/17 07:59 08/18/17 07:54 08/18/17 07:54 Oxygen Flow Rate 2 Oxygen Delivery Method Nasal Cannula Weight: 74.5 kg Body Mass Index (BMI) 31.1 Intake and Output for Last 24 Hours 08/16/17 08/17/17 08/18/17 23:59 23:59 23:59 Intake Total 1116 / 1116 1082 / 1082 120 / 120 Output Total 2200 / 2200 1500 / 1500 Balance -1084 / -1084 -418 / -418 120 / 120 Microbiology Past 72 Hours 08/15/17 16:10 Blood Culture - Preliminary Blood Culture (Wb) #2 - Anticubital Right No growth in 48 hours. 12/14/17 15:50 Blood Culture - Preliminary Blood Culture (Wb) - Left Hand No growth in 48 hours. 08/16/17 14:20 Respiratory Panel (PCR) - Final Mucosa - Nose 08/15/17 18:07 Urine Culture - Preliminary Urine Catheter - Prieto Culture exhibits no growth. 08/15/17 15:45 Influenza Types A,B Direct FA (VIDAL) - Final Mucosa - Nose Laboratory Tests Past 24 Hrs 08/17/17 08/18/17 08/18/17 07:35 06:28 06:28 WBC 9.8 RBC 4.45 Hgb 8.5 L Hct 31.7 L MCV 71.2 L MCH 19.1 L MCHC 26.8 L RDW 19.4 H RDW Differential 50.6 H Plt Count 237 MPV 10.1 Immature Gran % (Auto) 0.100 Neut % (Auto) 70.9 H Lymph % (Auto) 19.6 [place] % (Auto) 9.1 Eos % (Auto) 0.2 Baso % (Auto) 0.1 Absolute Neuts (auto) 7.0 Absolute Lymphs (auto) 1.92 Total Counted Not Reportable Pending Differential Comment SCANNED Hypochromasia 2+ Poikilocytosis 1+ Anisocytosis 2+ Microcytosis 1+ Macrocytosis 1+ Target Cells 1+ Ovalocytes 1+ Sodium 143 Potassium 3.3 L Chloride 103 Carbon Dioxide 32.0 Anion Gap 8 BUN 34 H Creatinine 0.90 Estim Creat Clear Calc 41.40 Est GFR (MDRD) Af Amer 78 Est GFR (MDRD) Non-Af 64 BUN/Creatinine Ratio 37.7 H Glucose 83 Calcium 8.7 Assessment/Plan Active and Suspected Problems Congestive heart failure (Acute) COPD (chronic obstructive pulmonary disease) with acute bronchitis (Acute) Acute respiratory failure with hypoxia (Acute) Acute exacerbation of congestive heart failure (Acute) RECOMMENDATIONS: 1. Wean off BiPAP/oxygen to keep saturations 88-92% 2. Likely continue diuresis for another 24 hours 3. Outpatient complete pulmonary function test 4. Walking oximetry prior to discharge IMPRESSIONS: 1. Acute hypoxic respiratory failure Patient appears to be responding to therapy well. Patient does have BiPAP that she can use overnight and for rescue during the day, but this has not been required. Would continue with diuresis with a goal of -1-2 L per day. Respiratory status is likely complicated by underlying COPD, but this has not been confirmed. She does not appear to be in acute exacerbation of COPD at this time. Patient has been attempted on noninvasive therapy previously for LITO, but was unable to tolerate. Likely okay to discontinue steroids from my perspective. Potassium supplementation per hospitalist 2. Acute CHF exacerbation, combined Echocardiogram shows systolic and diastolic dysfunction, estimated EF of 40%. RVSP elevated at 53 mmHg, c/w moderate pulmonary hypertension. BNP was elevated at 1784. Patient follows with Dr. Ndiaye from [facility], she is scheduled to see him in October. Unclear how much aggressive diuresis patient will tolerate given increase in creatinine. Recommend rechecking BMP tomorrow. Elevation of troponin likely secondary to type II non-ST elevation CT with global hypoxemia leading to decreased effective perfusion to her vasculature. 3. Suspected COPD Patient would need outpatient pulmonary function test for confirmation of suspected COPD. Patient does have an extensive smoking history. Patient has DuoNeb's at home, but is never seen a timber selector. Labs are suggestive of CO2 retention at baseline. Would recommend keeping patient saturations 88-92% to minimize CO2 retention. 4. PAF on anticoagulation/anxiety/hyperthyroidism/GERD/hyperlipidemia/hypokalemia/anemia/hypertension/CAD Complicates care, management, recovery, and prognosis. Continue her home medications per hospitalist recommendations. Thank you for the opportunity to participate in this patient's care, please do not hesitate to contact us with any further questions or concerns. This note was generated with [employer] dictation software. It may contain incorrect words, spelling, and punctuation that were not noted in checking the note before signing. Code Visit Inpatient E&M: 43641 Subs Hosp L2
--- NOTE | 2017-08-18 08:44 | PN_ITS ---
Patient Problems: Active and Suspected Problems Congestive heart failure (Acute) COPD (chronic obstructive pulmonary disease) with acute bronchitis (Acute) Acute respiratory failure with hypoxia (Acute) Acute exacerbation of congestive heart failure (Acute) Subjective: Patient did well overnight. Patient reports subjective improvement. Patient's oxygen has improved compared to yesterday. No acute issues were reported overnight. - Physical Exam General: Alert, Oriented x3, Cooperative, No apparent distress, - - Speaking in full sentences. HEENT: Atraumatic, PERRLA, EOMI, Normocephalic, - - No scleral icterus or injection noted. Oral: Moist Mucosa, No Gingival or Mucosal Lesions/ Ulcerations Neck: Supple, No JVD, No Nodes Lungs: No rhonchi, No wheeze, Diminished, Rales - Improving, - - Symmetric expansion. No dullness to percussion. Cardiovascular: Normal S1, Normal S2, Irregular Rate, Murmur, No rub noted, No Gallop Abdomen: Bowel Sounds Present, Soft, Non Tender, Non-Distended Extremities: No clubbing, No cyanosis, Capillary Refill Less than 3 Seconds, Edema - Improving Skin: No rashes, No breakdown Musculoskeletal: No Tenderness to Palpation of Joints or Extremities, No Muscle Wasting Lymphatic: No Cervical, Supraclavicular, or Inguinal Adenopathy Neurological: Cranial nerves II-XII grossly intact, Neuro grossly intact, Motor Exam 5/5 strength throughout Psych/Mental Status: Alert and oriented to time, place, person, mood and affect Vital Signs Temp Pulse Resp BP Pulse Ox 36.7 C 60 18 108/60 94 08/18/17 07:54 08/18/17 07:59 08/18/17 07:59 08/18/17 07:54 08/18/17 07:54 Oxygen Flow Rate 2 Oxygen Delivery Method Nasal Cannula Weight: 74.5 kg Body Mass Index (BMI) 31.1 Intake and Output for Last 24 Hours 08/16/17 08/17/17 08/18/17 23:59 23:59 23:59 Intake Total 1116 / 1116 1082 / 1082 120 / 120 Output Total 2200 / 2200 1500 / 1500 Balance -1084 / -1084 -418 / -418 120 / 120 Microbiology Past 72 Hours 08/15/17 16:10 Blood Culture - Preliminary Blood Culture (Wb) #2 - Anticubital Right No growth in 48 hours. 12/14/17 15:50 Blood Culture - Preliminary Blood Culture (Wb) - Left Hand No growth in 48 hours. 08/16/17 14:20 Respiratory Panel (PCR) - Final Mucosa - Nose 08/15/17 18:07 Urine Culture - Preliminary Urine Catheter - Prieto Culture exhibits no growth. 08/15/17 15:45 Influenza Types A,B Direct FA (VIDAL) - Final Mucosa - Nose Laboratory Tests Past 24 Hrs 08/17/17 08/18/17 08/18/17 07:35 06:28 06:28 WBC 9.8 RBC 4.45 Hgb 8.5 L Hct 31.7 L MCV 71.2 L MCH 19.1 L MCHC 26.8 L RDW 19.4 H RDW Differential 50.6 H Plt Count 237 MPV 10.1 Immature Gran % (Auto) 0.100 Neut % (Auto) 70.9 H Lymph % (Auto) 19.6 [place] % (Auto) 9.1 Eos % (Auto) 0.2 Baso % (Auto) 0.1 Absolute Neuts (auto) 7.0 Absolute Lymphs (auto) 1.92 Total Counted Not Reportable Pending Differential Comment SCANNED Hypochromasia 2+ Poikilocytosis 1+ Anisocytosis 2+ Microcytosis 1+ Macrocytosis 1+ Target Cells 1+ Ovalocytes 1+ Sodium 143 Potassium 3.3 L Chloride 103 Carbon Dioxide 32.0 Anion Gap 8 BUN 34 H Creatinine 0.90 Estim Creat Clear Calc 41.40 Est GFR (MDRD) Af Amer 78 Est GFR (MDRD) Non-Af 64 BUN/Creatinine Ratio 37.7 H Glucose 83 Calcium 8.7 Assessment/Plan Active and Suspected Problems Congestive heart failure (Acute) COPD (chronic obstructive pulmonary disease) with acute bronchitis (Acute) Acute respiratory failure with hypoxia (Acute) Acute exacerbation of congestive heart failure (Acute) RECOMMENDATIONS: 1. Wean off BiPAP/oxygen to keep saturations 88-92% 2. Likely continue diuresis for another 24 hours 3. Outpatient complete pulmonary function test 4. Walking oximetry prior to discharge IMPRESSIONS: 1. Acute hypoxic respiratory failure Patient appears to be responding to therapy well. Patient does have BiPAP that she can use overnight and for rescue during the day, but this has not been required. Would continue with diuresis with a goal of -1-2 L per day. Respiratory status is likely complicated by underlying COPD, but this has not been confirmed. She does not appear to be in acute exacerbation of COPD at this time. Patient has been attempted on noninvasive therapy previously for LITO , but was unable to tolerate. Likely okay to discontinue steroids from my perspective. Potassium supplementation per hospitalist 2. Acute CHF exacerbation, combined Echocardiogram shows systolic and diastolic dysfunction, estimated EF of 40%. RVSP elevated at 53 mmHg, c/w moderate pulmonary hypertension. BNP was elevated at 1784. Patient follows with Dr. Ndiaye from [facility], she is scheduled to see him in October. Unclear how much aggressive diuresis patient will tolerate given increase in creatinine. Recommend rechecking BMP tomorrow. Elevation of troponin likely secondary to type II non-ST elevation PA with global hypoxemia leading to decreased effective perfusion to her vasculature. 3. Suspected COPD Patient would need outpatient pulmonary function test for confirmation of suspected COPD. Patient does have an extensive smoking history. Patient has DuoNeb's at home, but is never seen a link cutter. Labs are suggestive of CO2 retention at baseline. Would recommend keeping patient saturations 88-92% to minimize CO2 retention. 4. PAF on anticoagulation/anxiety/hyperthyroidism/GERD/hyperlipidemia/ hypokalemia/anemia/hypertension/CAD Complicates care, management, recovery, and prognosis. Continue her home medications per hospitalist recommendations. Thank you for the opportunity to participate in this patient's care, please do not hesitate to contact us with any further questions or concerns. This note was generated with [employer] dictation software. It may contain incorrect words, spelling, and punctuation that were not noted in checking the note before signing. Code Visit Inpatient E&M: 61982 Subs Hosp L2
[2017-08-18 09:57] LABS: Anisocytosis 2+; Differential Comment SCANNED; Hypochromasia 2+; Microcytosis 2+; Ovalocyte 1+; Poikilocytosis 1+
[2017-08-18] MEDS: Furosemide 40 MG Tablet PO (10:26)
[2017-08-18] MEDS: LORazepam 1 MG Tablet PO (10:29)
[2017-08-18] MEDS: Aspirin 325 MG Tablet PO (10:30)
[2017-08-18] MEDS: Metoprolol Tartrate 25 MG Tablet PO ×2 (10:31→21:50)
[2017-08-18] MEDS: Lisinopril 5 MG Tablet PO (11:04)
[2017-08-18] MEDS: APIXABAN 5 MG TABLET PO ×2 (11:04→21:50)
--- NOTE | 2017-08-18 11:06 | PCM.PN.HOSP ---
Patient Problems: Active and Suspected Problems Congestive heart failure (Acute) COPD (chronic obstructive pulmonary disease) with acute bronchitis (Acute) Acute respiratory failure with hypoxia (Acute) Acute exacerbation of congestive heart failure (Acute) Subjective: Breathing well. Denies shortness of breath. No chest pain. Objective: Weight Weight: 74.5 kg Weight: 74.4 kg Weight: 76.6 kg Weight: 76.6 kg Weight: 77.3 kg Intake and Output for Last 24 Hours 08/16/17 08/17/17 08/18/17 23:59 23:59 23:59 Intake Total 1116 / 1116 1082 / 1082 120 / 120 Output Total 2200 / 2200 1500 / 1500 Balance -1084 / -1084 -418 / -418 120 / 120 Vitals/I&O's: Vital Signs Temp Pulse Resp BP Pulse Ox 36.7 C 75 18 108/60 94 08/18/17 07:54 08/18/17 10:31 08/18/17 07:59 08/18/17 10:31 08/18/17 07:54 Oxygen Flow Rate 2 Oxygen Delivery Method Nasal Cannula Weight: 74.5 kg Body Mass Index (BMI) 31.1 Intake and Output for Last 24 Hours 08/16/17 08/17/17 08/18/17 23:59 23:59 23:59 Intake Total 1116 / 1116 1082 / 1082 120 / 120 Output Total 2200 / 2200 1500 / 1500 Balance -1084 / -1084 -418 / -418 120 / 120 General: Alert, Cooperative, Well developed, Well nourished HEENT: Atraumatic, Normocephalic Neck: No Nodes, Thyroid Normal Size and Texture Lungs: Clear to auscultation, Normal air movement, No rhonchi, No wheeze Cardiovascular: Regular rate, Regular Rhythm, Normal S1, Normal S2 Abdomen: Bowel Sounds Present, Soft, Non Tender, Non-Distended, No Hepato-splenomegaly Extremities: No edema, No Calf Tenderness Psych/Mental Status: Normal Affect, Appropriate Microbiology Past 72 Hours 08/15/17 16:10 Blood Culture (Wb) #2 - Anticubital Right Blood Culture - Preliminary No growth in 48 hours. 08/15/17 15:50 Blood Culture (Wb) - Left Hand Blood Culture - Preliminary No growth in 48 hours. 08/16/17 14:20 Mucosa - Nose Respiratory Panel (PCR) - Final 08/15/17 18:07 Urine Catheter - Prieto Urine Culture - Preliminary Culture exhibits no growth. 08/15/17 15:45 Mucosa - Nose Influenza Types A,B Direct FA (VIDAL) - Final Laboratory Results 08/17/17 07:35: Total Counted Not Reportable, Differential Comment SCANNED, Hypochromasia 2+, Poikilocytosis 1+, Anisocytosis 2+, Microcytosis 1+, Macrocytosis 1+, Target Cells 1+, Ovalocytes 1+ 08/18/17 06:28: WBC 9.8, RBC 4.45, Hgb 8.5 L, Hct 31.7 L, MCV 71.2 L, MCH 19.1 L, MCHC 26.8 L, RDW 19.4 H, RDW Differential 50.6 H, Plt Count 237, MPV 10.1, Immature Gran % (Auto) 0.100, Neut % (Auto) 70.9 H, Lymph % (Auto) 19.6, [place] % (Auto) 9.1, Eos % (Auto) 0.2, Baso % (Auto) 0.1, Absolute Neuts (auto) 7.0, Absolute Lymphs (auto) 1.92, Total Counted Not Reportable, Differential Comment SCANNED, Hypochromasia 2+, Poikilocytosis 1+, Anisocytosis 2+, Microcytosis 2+, Ovalocytes 1+ 08/18/17 06:28: Sodium 143, Potassium 3.3 L, Chloride 103, Carbon Dioxide 32.0, Anion Gap 8, BUN 34 H, Creatinine 0.90, Estim Creat Clear Calc 41.40, Est GFR (MDRD) Af Amer 78, Est GFR (MDRD) Non-Af 64, BUN/Creatinine Ratio 37.7 H, Glucose 83, Calcium 8.7 Current Medications Acetaminophen (Tylenol) 650 mg PO Q6H PRN PRN PRN Reason: Mild Pain (scale 0-3)/T>100.7 Al Hydroxide/Mg Hydroxide (Mylanta Ii) 30 ml PO Q6H PRN PRN PRN Reason: Gastric Burning Albuterol Sulfate (Ventolin Aerosols) 2.5 mg INHALATION Q2H PRN PRN PRN Reason: SHORTNESS OF BREATH Albuterol/Ipratropium (Duoneb) 3 ml INHALATION Q4HWA.RT [facility] Last Admin: 08/18/17 10:56 Dose: 3 ml Apixaban (Eliquis) 5 mg PO BID [facility] Last Admin: 08/18/17 11:04 Dose: 5 mg Aspirin (Aspirin) 325 mg PO DAILY@0800 [facility] Last Admin: 08/18/17 10:30 Dose: 325 mg Atorvastatin Calcium (Lipitor) 40 mg PO QHS [facility] Last Admin: 08/17/17 21:15 Dose: 40 mg Docusate Sodium (Colace) 200 mg PO BID PRN PRN PRN Reason: Constipation Furosemide (Lasix) 40 mg PO DAILY [facility] Last Admin: 08/18/17 10:26 Dose: 40 mg Lisinopril (Zestril) 5 mg PO DAILY [facility] Last Admin: 08/18/17 11:04 Dose: 5 mg Lorazepam (Ativan) 1 mg PO DAILY [facility] Last Admin: 08/18/17 10:29 Dose: 1 mg Metoprolol Tartrate (Lopressor (Beta [place])) 25 mg PO BID [facility] Last Admin: 08/18/17 10:31 Dose: 25 mg Ondansetron HCl (Zofran) 4 mg IV Q8H PRN PRN PRN Reason: Nausea Potassium Chloride (K-Dur) 40 meq PO DAILYCM [facility] Last Admin: 08/18/17 10:31 Dose: 40 meq Prednisone (Prednisone) 40 mg PO DAILY@0800 [facility] Last Admin: 08/18/17 10:26 Dose: 40 mg Sodium Chloride () 5 - 30 ml IV UD PRN PRN Reason: SALINE FLUSH Last Admin: 08/17/17 09:26 Dose: 10 ml Throat Lozenges (Cepacol Sore Throat Lozenge) 1 lozenge MUCOUS MEM Q2H PRN PRN PRN Reason: SORE THROAT Last Admin: 08/17/17 09:26 Dose: 1 lozenge Tizanidine HCl (Zanaflex) 2 mg PO Q8H PRN PRN PRN Reason: MUSCLE SPASM Last Admin: 08/15/17 17:27 Dose: 2 mg Tramadol HCl (Ultram (G)) 50 mg PO Q4H PRN PRN PRN Reason: MODERATE PAIN (4-5/10) Zolpidem Tartrate (Ambien (Generic)) 5 mg PO QHS PRN PRN PRN Reason: INSOMNIA Last Admin: 08/17/17 21:15 Dose: 5 mg Assessment/Plan Active and Suspected Problems Congestive heart failure (Acute) COPD (chronic obstructive pulmonary disease) with acute bronchitis (Acute) Acute respiratory failure with hypoxia (Acute) Acute exacerbation of congestive heart failure (Acute) 1. Heart failure with reduced ejection fraction Ejection fraction 40% Much better today Transition Lasix over to oral at 40 mg daily. Patient instructed to weigh herself daily as well as take an additional 40 mg of her weight Is put on by 2 pounds in 1 day or 3 pounds in 1 week. Agent is to follow-up with her customer experience strategist, Dr. Ndiaye 2. COPD De-escalate steroids to prednisone 40 mg for 5 days with bronchodilators No pneumonia, antibiotics DC'd. 3. Elevated troponins Suspect due to demand ischemia from heart failure. Stress test has been ordered and will be performed on . This shows no new process then I would anticipate patient be able to be discharged on the , however if it is showing new areas of ischemia then I would consult cardiology. Patient's customer experience strategist is associated with [facility]. Continue with aspirin and atorvastatin 4. Paroxysmal atrial fibrillation Anticoagulated on Eliquis and on metoprolol tartrate
--- NOTE | 2017-08-18 11:09 | PN_ITS ---
Patient Problems: Active and Suspected Problems Congestive heart failure (Acute) COPD (chronic obstructive pulmonary disease) with acute bronchitis (Acute) Acute respiratory failure with hypoxia (Acute) Acute exacerbation of congestive heart failure (Acute) Subjective: Breathing well. Denies shortness of breath. No chest pain. Objective: Weight Weight: 74.5 kg Weight: 74.4 kg Weight: 76.6 kg Weight: 76.6 kg Weight: 77.3 kg Intake and Output for Last 24 Hours 08/16/17 08/17/17 08/18/17 23:59 23:59 23:59 Intake Total 1116 / 1116 1082 / 1082 120 / 120 Output Total 2200 / 2200 1500 / 1500 Balance -1084 / -1084 -418 / -418 120 / 120 Vitals/I&O's: Vital Signs Temp Pulse Resp BP Pulse Ox 36.7 C 75 18 108/60 94 08/18/17 07:54 08/18/17 10:31 08/18/17 07:59 08/18/17 10:31 08/18/17 07:54 Oxygen Flow Rate 2 Oxygen Delivery Method Nasal Cannula Weight: 74.5 kg Body Mass Index (BMI) 31.1 Intake and Output for Last 24 Hours 08/16/17 08/17/17 08/18/17 23:59 23:59 23:59 Intake Total 1116 / 1116 1082 / 1082 120 / 120 Output Total 2200 / 2200 1500 / 1500 Balance -1084 / -1084 -418 / -418 120 / 120 General: Alert, Cooperative, Well developed, Well nourished HEENT: Atraumatic, Normocephalic Neck: No Nodes, Thyroid Normal Size and Texture Lungs: Clear to auscultation, Normal air movement, No rhonchi, No wheeze Cardiovascular: Regular rate, Regular Rhythm, Normal S1, Normal S2 Abdomen: Bowel Sounds Present, Soft, Non Tender, Non-Distended, No Hepato- splenomegaly Extremities: No edema, No Calf Tenderness Psych/Mental Status: Normal Affect, Appropriate Microbiology Past 72 Hours 08/15/17 16:10 Blood Culture (Wb) #2 - Anticubital Right Blood Culture - Preliminary No growth in 48 hours. 08/15/17 15:50 Blood Culture (Wb) - Left Hand Blood Culture - Preliminary No growth in 48 hours. 08/16/17 14:20 Mucosa - Nose Respiratory Panel (PCR) - Final 08/15/17 18:07 Urine Catheter - Prieto Urine Culture - Preliminary Culture exhibits no growth. 08/15/17 15:45 Mucosa - Nose Influenza Types A,B Direct FA (VIDAL) - Final Laboratory Results 08/17/17 07:35: Total Counted Not Reportable, Differential Comment SCANNED, Hypochromasia 2+, Poikilocytosis 1+, Anisocytosis 2+, Microcytosis 1+, Macrocytosis 1+, Target Cells 1+, Ovalocytes 1+ 08/18/17 06:28: WBC 9.8, RBC 4.45, Hgb 8.5 L, Hct 31.7 L, MCV 71.2 L, MCH 19.1 L , MCHC 26.8 L, RDW 19.4 H, RDW Differential 50.6 H, Plt Count 237, MPV 10.1, Immature Gran % (Auto) 0.100, Neut % (Auto) 70.9 H, Lymph % (Auto) 19.6, [place] % (Auto) 9.1, Eos % (Auto) 0.2, Baso % (Auto) 0.1, Absolute Neuts (auto) 7.0, Absolute Lymphs (auto) 1.92, Total Counted Not Reportable, Differential Comment SCANNED, Hypochromasia 2+, Poikilocytosis 1+, Anisocytosis 2+, Microcytosis 2+, Ovalocytes 1+ 08/18/17 06:28: Sodium 143, Potassium 3.3 L, Chloride 103, Carbon Dioxide 32.0, Anion Gap 8, BUN 34 H, Creatinine 0.90, Estim Creat Clear Calc 41.40, Est GFR ( MDRD) Af Amer 78, Est GFR (MDRD) Non-Af 64, BUN/Creatinine Ratio 37.7 H, Glucose 83, Calcium 8.7 Current Medications Acetaminophen (Tylenol) 650 mg PO Q6H PRN PRN PRN Reason: Mild Pain (scale 0-3)/T>100.7 Al Hydroxide/Mg Hydroxide (Mylanta Ii) 30 ml PO Q6H PRN PRN PRN Reason: Gastric Burning Albuterol Sulfate (Ventolin Aerosols) 2.5 mg INHALATION Q2H PRN PRN PRN Reason: SHORTNESS OF BREATH Albuterol/Ipratropium (Duoneb) 3 ml INHALATION Q4HWA.RT [facility] Last Admin: 08/18/17 10:56 Dose: 3 ml Apixaban (Eliquis) 5 mg PO BID [facility] Last Admin: 08/18/17 11:04 Dose: 5 mg Aspirin (Aspirin) 325 mg PO DAILY@0800 [facility] Last Admin: 08/18/17 10:30 Dose: 325 mg Atorvastatin Calcium (Lipitor) 40 mg PO QHS [facility] Last Admin: 08/17/17 21:15 Dose: 40 mg Docusate Sodium (Colace) 200 mg PO BID PRN PRN PRN Reason: Constipation Furosemide (Lasix) 40 mg PO DAILY [facility] Last Admin: 08/18/17 10:26 Dose: 40 mg Lisinopril (Zestril) 5 mg PO DAILY [facility] Last Admin: 08/18/17 11:04 Dose: 5 mg Lorazepam (Ativan) 1 mg PO DAILY [facility] Last Admin: 08/18/17 10:29 Dose: 1 mg Metoprolol Tartrate (Lopressor (Beta [place])) 25 mg PO BID [facility] Last Admin: 08/18/17 10:31 Dose: 25 mg Ondansetron HCl (Zofran) 4 mg IV Q8H PRN PRN PRN Reason: Nausea Potassium Chloride (K-Dur) 40 meq PO DAILYCM [facility] Last Admin: 08/18/17 10:31 Dose: 40 meq Prednisone (Prednisone) 40 mg PO DAILY@0800 [facility] Last Admin: 08/18/17 10:26 Dose: 40 mg Sodium Chloride () 5 - 30 ml IV UD PRN PRN Reason: SALINE FLUSH Last Admin: 08/17/17 09:26 Dose: 10 ml Throat Lozenges (Cepacol Sore Throat Lozenge) 1 lozenge MUCOUS MEM Q2H PRN PRN PRN Reason: SORE THROAT Last Admin: 08/17/17 09:26 Dose: 1 lozenge Tizanidine HCl (Zanaflex) 2 mg PO Q8H PRN PRN PRN Reason: MUSCLE SPASM Last Admin: 08/15/17 17:27 Dose: 2 mg Tramadol HCl (Ultram (G)) 50 mg PO Q4H PRN PRN PRN Reason: MODERATE PAIN (4-5/10) Zolpidem Tartrate (Ambien (Generic)) 5 mg PO QHS PRN PRN PRN Reason: INSOMNIA Last Admin: 08/17/17 21:15 Dose: 5 mg Assessment/Plan Active and Suspected Problems Congestive heart failure (Acute) COPD (chronic obstructive pulmonary disease) with acute bronchitis (Acute) Acute respiratory failure with hypoxia (Acute) Acute exacerbation of congestive heart failure (Acute) 1. Heart failure with reduced ejection fraction Ejection fraction 40% Much better today Transition Lasix over to oral at 40 mg daily. Patient instructed to weigh herself daily as well as take an additional 40 mg of her weight Is put on by 2 pounds in 1 day or 3 pounds in 1 week. Agent is to follow-up with her echocardiograph technician, Dr. Ndiaye 2. COPD De-escalate steroids to prednisone 40 mg for 5 days with bronchodilators No pneumonia, antibiotics DC'd. 3. Elevated troponins Suspect due to demand ischemia from heart failure. Stress test has been ordered and will be performed on . This shows no new process then I would anticipate patient be able to be discharged on the , however if it is showing new areas of ischemia then I would consult cardiology. Patient's echocardiograph technician is associated with [facility]. Continue with aspirin and atorvastatin 4. Paroxysmal atrial fibrillation Anticoagulated on Eliquis and on metoprolol tartrate
[2017-08-18] MEDS: Atorvastatin Calcium 40 MG Tablet PO (21:50)
[2017-08-19] VITALS (12 sets, daily range): BP systolic 107–121; BP diastolic 43–62; PULSE 60–94; RESP 16–18; TEMP 36.2–37.1; O2SAT 91–99
--- NOTE | 2017-08-19 04:00 | EKG12_ITS ---
Test Reason : AM EKG Blood Pressure : / mmHG Vent. Rate : 062 BPM Atrial Rate : 072 BPM P-R Int : 000 ms QRS Dur : 100 ms QT Int : 454 ms P-R-T Axes : 000 006 181 degrees QTc Int : [address] & T wave abnormality, consider inferolateral ischemia Abnormal ECG When compared with ECG of 15-AUG-2017 14:53, MANUAL COMPARISON REQUIRED, DATA IS UNCONFIRMED Confirmed by REBECCA VALDEZ, KIKA ([id number]), editor newspaper NOEL [employer]OL ([id number]) on 08/21/2017 3:31:52 PM Referred By: JOAQUÍN Confirmed By:KIKA FERNANDEZ MD
[2017-08-19 04:04] LABS: Absolute Lymphocyte Count 1.41 X10^3/ul (0.83-4.51); Absolute Neutrophil Count 7.3 X10^3/uL (2.0-7.7); Basophil# 0.01 X10^3/uL; Basophil% 0.1 % (0-1); Eosinophil# 0.01 X10^3/uL; Eosinophils% 0.1 % (0-5); Hemoglobin 8.8 g/dl (12.0-15.0); Lymphocyte # 1.41 X10^3/ul (4.0); Lymphocyte % 14.8 % (19-41); Mean Corp Hgb Conc 27.5 g/gl (32-36); Mean Corpuscular Hgb 19.4 pg (27.0-32.0); Mean Corpuscular Volume 70.5 fL (81-99); Mean Platelet Vol. 9.9 fl (6.2-12.0); Monocyte# 0.83 X10^3/uL; Monocyte% 8.7 % (0-10); Neutrophil # 7.26 X10^3/uL (2.7-7.7); Neutrophil % 76.2 % (47-70); Platelet Count 277 K/mm3 (150-450); RBC Distribution Width CV 19.7 % (11.6-14.6); RBC Distribution Width SD 49.1 fl (35.1-43.9); Red Blood Count 4.54 M/mm3 (4.2-5.4); White Blood Count 9.5 K/mm3 (4.4-11.0)
[2017-08-19 04:06] LABS: Differential Indicated SCAN CRITERIA MET; POSITIVE COUNT NO; POSITIVE DIFFERENTIAL NO; POSITIVE MORPHOLOGY YES
[2017-08-19 04:14] LABS: International Normalized Ratio 1.4; Prothrombin Time (Protime)PT. 16.7 SECONDS (11.7-14.9)
[2017-08-19 04:15] LABS: Partial Thromboplast Time 33.2 Seconds (24.1-36.2)
[2017-08-19 04:19] LABS: Anion Gap 6 (5-15); BUN 36 mg/dL (7-18); BUN/Creat Ratio 47.4 RATIO (10-20); Calcium,Total 8.7 mg/dL (8.5-10.1); Chloride 103 mmol/L (98-107); Creatinine, Serum 0.76 mg/dL (0.55-1.02); EST Glomerular Filtration Rate 79 mL/min (>60); Est Glom Filt Rate - Afr Amer 95 mL/min (>60); Estimated Creatinine Clearance 37.26 ml/min; Glucose 99 mg/dL (70-110); Potassium 3.6 mmol/L (3.5-5.1); Sodium Level 142 mmol/L (136-145)
[2017-08-19 04:24] LABS: Differential Comment SCANNED; Ovalocyte 1+; Target Cells 3+
[2017-08-19] MEDS: Lisinopril 5 MG Tablet PO (05:42)
--- NOTE | 2017-08-19 09:22 | PN_ITS ---
Patient Problems: Active and Suspected Problems Congestive heart failure (Acute) COPD (chronic obstructive pulmonary disease) with acute bronchitis (Acute) Acute respiratory failure with hypoxia (Acute) Acute exacerbation of congestive heart failure (Acute) Subjective: Patient seen and examined, sitting up in chair with no complaints. Reports her breathing is back to baseline. Denies any shortness of breath or cough. She had a stress test this morning and is awaiting the results. Objective: Awaiting stress test results. Renal function stable. Remains hemodynamically stable. Oxygen saturations have been in the upper 90s on 2 L. She is on room air this morning but was put back on 2 L during her stress test for an unknown reason. - Physical Exam General: Alert, Oriented x3, Cooperative, No apparent distress, Well developed, Well nourished HEENT: Atraumatic, Normocephalic Oral: Moist Mucosa, No Gingival or Mucosal Lesions/ Ulcerations Neck: Supple, No Nodes, Trachea Midline Lungs: Clear to auscultation, No rhonchi, No wheeze, No rales, - - mildly diminished posteriorly Cardiovascular: Regular rate, Regular Rhythm, Normal S1, Normal S2, No murmurs Abdomen: Bowel Sounds Present, Soft, Non Tender, Non-Distended Extremities: No clubbing, No cyanosis, Edema - trace Skin: No rashes, No breakdown Musculoskeletal: No Tenderness to Palpation of Joints or Extremities Lymphatic: No Cervical, Supraclavicular, or Inguinal Adenopathy Neurological: Neuro grossly intact Psych/Mental Status: Alert and oriented to time, place, person, mood and affect Vital Signs Temp Pulse Resp BP Pulse Ox 97.2 F L 78 18 119/43 L 99 08/19/17 03:45 08/19/17 07:06 08/19/17 03:45 08/19/17 03:45 08/19/17 03:45 Oxygen Flow Rate 2 Oxygen Delivery Method Nasal Cannula Weight: 72.3 kg Body Mass Index (BMI) 31.1 Intake and Output for Last 24 Hours 08/17/17 08/18/17 08/19/17 23:59 23:59 23:59 Intake Total 1082 / 1082 2142 / 2142 Output Total 1500 / 1500 200 / 200 200 / 200 Balance -418 / -418 1942 / 1942 -200 / -200 Microbiology Past 72 Hours 08/15/17 18:07 Urine Culture - Final Urine Catheter - Prieto Culture exhibits no growth. 08/15/17 16:10 Blood Culture - Preliminary Blood Culture (Wb) #2 - Anticubital Right No growth in 48 hours. 08/15/17 15:50 Blood Culture - Preliminary Blood Culture (Wb) - Left Hand No growth in 48 hours. 08/16/17 14:20 Respiratory Panel (PCR) - Final Mucosa - Nose Laboratory Tests Past 24 Hrs 08/18/17 08/19/17 08/19/17 06:28 03:50 03:50 WBC 9.5 RBC 4.54 Hgb 8.8 L Hct 32.0 L MCV 70.5 L MCH 19.4 L MCHC 27.5 L RDW 19.7 H RDW Differential 49.1 H Plt Count 277 MPV 9.9 Immature Gran % (Auto) 0.100 Neut % (Auto) 76.2 H Lymph % (Auto) 14.8 L [place] % (Auto) 8.7 Eos % (Auto) 0.1 Baso % (Auto) 0.1 Absolute Neuts (auto) 7.3 Absolute Lymphs (auto) 1.41 Total Counted Not Reportable Not Reportable Differential Comment SCANNED SCANNED Hypochromasia 2+ Poikilocytosis 1+ Anisocytosis 2+ Microcytosis 2+ Target Cells 3+ Ovalocytes 1+ 1+ PT 16.7 H INR 1.4 APTT 33.2 Sodium Potassium Chloride Carbon Dioxide Anion Gap BUN Creatinine Estim Creat Clear Calc Est GFR (MDRD) Af Amer Est GFR (MDRD) Non-Af BUN/Creatinine Ratio Glucose Calcium 08/19/17 03:50 WBC RBC Hgb Hct MCV MCH MCHC RDW RDW Differential Plt Count MPV Immature Gran % (Auto) Neut % (Auto) Lymph % (Auto) [place] % (Auto) Eos % (Auto) Baso % (Auto) Absolute Neuts (auto) Absolute Lymphs (auto) Total Counted Differential Comment Hypochromasia Poikilocytosis Anisocytosis Microcytosis Target Cells Ovalocytes PT INR APTT Sodium 142 Potassium 3.6 Chloride 103 Carbon Dioxide 33.0 H Anion Gap 6 BUN 36 H Creatinine 0.76 Estim Creat Clear Calc 37.26 Est GFR (MDRD) Af Amer 95 Est GFR (MDRD) Non-Af 79 BUN/Creatinine Ratio 47.4 H Glucose 99 Calcium 8.7 Assessment/Plan Active and Suspected Problems Congestive heart failure (Acute) COPD (chronic obstructive pulmonary disease) with acute bronchitis (Acute) Acute respiratory failure with hypoxia (Acute) Acute exacerbation of congestive heart failure (Acute) RECOMMENDATIONS: 1. Wean off oxygen to keep saturations 88-92% 2. Continue Lasix 40mg daily 3. Outpatient complete pulmonary function test 4. Walking oximetry prior to discharge 5. Okay to d/c from pulmonary standpoint. IMPRESSIONS: 1. Acute hypoxic respiratory failure Patient appears to be responding to therapy well. Patient does have BiPAP that she can use overnight and for rescue during the day, but this has not been required. Would continue 40mg lasix daily. Respiratory status is likely complicated by underlying COPD, but this has not been confirmed. She does not appear to be in acute exacerbation of COPD at this time. Patient has been attempted on noninvasive therapy previously for LITO, but was unable to tolerate. Likely okay to discontinue steroids. 2. Acute CHF exacerbation, combined Echocardiogram shows systolic and diastolic dysfunction, estimated EF of 40%. RVSP elevated at 53 mmHg, c/w moderate pulmonary hypertension. BNP was elevated at 1784. Patient follows with Dr. Ndiaye from [facility]/CC. Unclear how much aggressive diuresis patient will tolerate given increase in creatinine. Elevation of troponin likely secondary to type II non-ST elevation WI with global hypoxemia leading to decreased effective perfusion to her vasculature. 3. Suspected COPD Patient would need outpatient pulmonary function test for confirmation of suspected COPD. Patient does have an extensive smoking history. 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 Labs are suggestive of CO2 retention at baseline. Would recommend keeping patient saturations 88-92% to minimize CO2 retention. 4. PAF on anticoagulation/anxiety/hyperthyroidism/GERD/hyperlipidemia/ hypokalemia/anemia/hypertension/CAD Complicates care, management, recovery, and prognosis. Continue her home medications per hospitalist recommendations. This note was generated with GeneCaptureation software. It may contain incorrect words, spelling, and punctuation that were not noted in checking the note before signing.
--- NOTE | 2017-08-19 09:52 | STRESSREP ---
Stress Test Report Pharmacologic myocardial perfusion stress test. 77 yo man with abnormal cardiac testing with positive enzymes. Stress Test Protocol. Atrial fibrillation with resting heart rate of 72. T-wave inversions noted in lead II and aVF V5 and V6. 0.4 mg of regadenoson was infused per usual protocol followed by rapid intravenous saline flush injection. Continuous EKG monitoring was performed. At rest there with T-wave inversions noted and during infusion T-wave inversions persisted. The maximum heart rate attained was 93 bpm which was 65% of the maximum predicted workload. The maximum workload of 1 metabolic equivalent. The resting blood pressure is 132/84 with a final blood pressure of 122/72. Myocardial perfusion protocol. 11.3 mCi of technetium 99m sestamibi was injected at rest. 0.4 mg regadenoson was infused per usual protocol peak infusion 32.9 mCi of technetium 99m sestamibi was injected. Stress images were obtained. Stress and rest images were reconstructed and compared in the short axis vertical long and horizontal long axis. Gated images were also obtained. Perfusion SPECT analysis: Review of the stress images demonstrate normal uptake of tracer noted in the septum and anterior wall. The distal anterior wall and apex has a small to medium sized defect present. The lateral wall and mid and basal inferior wall appeared to be well perfused. On the resting images there is a similar defect Giordano noted in the apex. 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 No significant ischemia is noted. Gated SPECT analysis: The gated ejection fraction is noted to be 46%. There appears to be evidence of apical akinesis and anterior apical dyskinesis. The above confirms a previous anterior apical infarct. 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 No ischemia is noted. Mild ischemic cardiomyopathy.
[2017-08-19] MEDS: Aspirin 325 MG Tablet PO (10:05)
[2017-08-19] MEDS: Furosemide 40 MG Tablet PO (10:06)
[2017-08-19] MEDS: Metoprolol Tartrate 25 MG Tablet PO (10:06)
[2017-08-19] MEDS: LORazepam 1 MG Tablet PO (10:19)
[2017-08-19] MEDS: APIXABAN 5 MG TABLET PO (10:20)
[2017-08-19] MEDS: Ipratropium/Albuterol Sulfate 3 ML AMPUL.NEB INHALATION (11:37)
--- NOTE | 2017-08-19 11:52 | CASEMGMT ---
Per Akiko LARA, pt does not qualify for home oxygen at this time. Preston LARA CM
--- NOTE | 2017-08-19 17:57 | PN_ITS ---
Patient Problems: Active and Suspected Problems Congestive heart failure (Acute) COPD (chronic obstructive pulmonary disease) with acute bronchitis (Acute) Acute respiratory failure with hypoxia (Acute) Acute exacerbation of congestive heart failure (Acute) - Physical Exam Vital Signs Temp Pulse Resp BP Pulse Ox 98.6 F 81 18 121/48 H 93 08/19/17 15:45 08/19/17 15:45 08/19/17 15:45 08/19/17 15:45 08/19/17 15:45 Oxygen Flow Rate 2 Oxygen Delivery Method Room Air Weight: 159 lb 6.307 oz Body Mass Index (BMI) 31.1 Intake and Output for Last 24 Hours 08/17/17 08/18/17 08/19/17 23:59 23:59 23:59 Intake Total 1082 / 1082 2142 / 2142 360 / 360 Output Total 1500 / 1500 200 / 200 200 / 200 Balance -418 / -418 194 / 194 160 / 160 Microbiology Past 72 Hours 08/18/17 09:40 Gram Stain - Final Sputum, Expectorated/Coughed Respiratory Culture - Preliminary 08/15/17 18:07 Urine Culture - Final Urine Catheter - Prieto Culture exhibits no growth. 08/15/17 16:10 Blood Culture - Preliminary Blood Culture (Wb) #2 - Anticubital Right No growth in 48 hours. 08/15/17 15:50 Blood Culture - Preliminary Blood Culture (Wb) - Left Hand No growth in 48 hours. 08/16/17 14:20 Respiratory Panel (PCR) - Final Mucosa - Nose Laboratory Tests Past 24 Hrs 08/19/17 08/19/17 08/19/17 03:50 03:50 03:50 WBC 9.5 RBC 4.54 Hgb 8.8 L Hct 32.0 L MCV 70.5 L MCH 19.4 L MCHC 27.5 L RDW 19.7 H RDW Differential 49.1 H Plt Count 277 MPV 9.9 Immature Gran % (Auto) 0.100 Neut % (Auto) 76.2 H Lymph % (Auto) 14.8 L [place] % (Auto) 8.7 Eos % (Auto) 0.1 Baso % (Auto) 0.1 Absolute Neuts (auto) 7.3 Absolute Lymphs (auto) 1.41 Total Counted Not Reportable Differential Comment SCANNED Target Cells 3+ Ovalocytes 1+ PT 16.7 H INR 1.4 APTT 33.2 Sodium 142 Potassium 3.6 Chloride 103 Carbon Dioxide 33.0 H Anion Gap 6 BUN 36 H Creatinine 0.76 Estim Creat Clear Calc 37.26 Est GFR (MDRD) Af Amer 95 Est GFR (MDRD) Non-Af 79 BUN/Creatinine Ratio 47.4 H Glucose 99 Calcium 8.7 Assessment/Plan Active and Suspected Problems Congestive heart failure (Acute) COPD (chronic obstructive pulmonary disease) with acute bronchitis (Acute) Acute respiratory failure with hypoxia (Acute) Acute exacerbation of congestive heart failure (Acute)
--- NOTE | 2017-08-19 18:29 | DCINST_ITS ---
- Discharge Diagnoses Current Active Problems: Current Active and Chronic Problems Congestive heart failure (Acute) COPD (chronic obstructive pulmonary disease) with acute bronchitis (Acute) Acute respiratory failure with hypoxia (Acute) Coronary artery disease (Chronic) s/p stents 1999 Hypertension (Chronic) Paroxysmal A-fib (Chronic) on Eliquis Acute exacerbation of congestive heart failure (Acute) Anxiety (Chronic) Hypothyroidism (Chronic) GERD (gastroesophageal reflux disease) (Chronic) Hyperlipidemia (Chronic) Hypokalemia (Chronic) Anemia (Chronic) Chronic bronchitis (Chronic) You will use the following diet at home:: Cardiac Your food should be the consistency of: Regular Your liquids should be the consistency of: Regular/Thin Discharge Activity: Return to Normal Activity, - - Avoid exposure to any strong smells such as bleach, cleaning products, strong colognes or perfumes, paint fumes and smoke of any kind. Avoid sudden exposure to cold air because this can cause bronchospasm. You may want to cover your mouth when you go outside in the winter. Avoid exposure to anyone who is sick with a cough or sore throat. Call your doctor if you observe: Fever of 101 or Higher, Inability to urinate, Shortness of breath, Dizziness, Fainting spells, Swelling in the ankles, Chest pain Additional Instructions: 1. You are on some new medications. I faxed your new prescriptions to your pharmacy. 2. You are iron deficient and this is causing you to be anemic. I have given you a prescription for an iron supplement to take BUT, if you have not had a colonoscopy recently you need to discuss this with your PCP. Anemia can contribute to shortness of breath, davi with exertion. 3. The stress test was negative. You heart does not squeeze as well as it should and for this reason you will need to stay on Lasix(furosemide ) which is a diuretic. You should weigh yourself daily in the morning and keep a record. If the weigh increases by more than 1-2 lbs for 2-3 days in a row then you are retaining fluid and you should cut back on salt and fluids and call your doctor for instructions. Allergies/Adverse Reactions: Allergies Penicillins [PCN] Allergy (Verified 08/15/17 14:23) Swelling Medications to take at Discharge Apixaban [Eliquis] 5 mg PO BID 08/15/17 Lorazepam [Ativan] 1 mg PO DAILY 08/15/17 Potassium Chloride [Klor-Con 10] 10 meq PO DAILY 08/15/17 Tizanidine HCl [Zanaflex] 2 mg PO Q8H PRN 08/15/17 TraMADol [Ultram] 50 mg PO Q4H PRN PRN 08/15/17 Aspirin 81 mg PO DAILY #1 tab.chew 08/17/17 Albuterol Sulfate [Proair Hfa] 8.5 gm IH Q4H PRN PRN #1 hfa.aer.ad 08/19/17 Atorvastatin Calcium 40 mg PO QHS #30 tab 08/19/17 Furosemide [Lasix] 40 mg PO DAILY #30 tab 08/19/17 Lisinopril [Zestril] 5 mg PO DAILY #30 tab 08/19/17 Metoprolol Tartrate [Lopressor (beta arthur)] 25 mg PO BID #60 tab 08/19/17 Prednisone 20 mg PO BID #8 tab 08/19/17 The following prescriptions were given: Albuterol Sulfate [Proair Hfa] 8.5 gm IH Q4H PRN PRN #1 hfa.aer.ad PRN Reason: wheeZing/SOB Aspirin 81 mg PO DAILY #1 tab.chew Atorvastatin Calcium 40 mg PO QHS #30 tab Furosemide [Lasix] 40 mg PO DAILY #30 tab Lisinopril [Zestril] 5 mg PO DAILY #30 tab Metoprolol Tartrate [Lopressor (beta arthur)] 25 mg PO BID #60 tab Prednisone 20 mg PO BID #8 tab Primary Care Physician: Pretty Noguera [Primary Care Provider] - Please follow up with your Primary Care Physician in: 5-7 days Please Follow Up With: Gael Wagner MD - or Last When: 2 weeks to arrange PFT's Please Follow Up With: cardiology When: within the next 4-6 weeks Proposed Discharge Date: 08/19/17
--- NOTE | 2017-08-19 18:37 | DS.PCM_ITS ---
Discharge Date and Diagnosis Date of Admission: 08/15/17 Date of Discharge: 08/19/17 - Primary Discharge Diagnosis Active and Suspected Problems COPD (chronic obstructive pulmonary disease) with acute bronchitis (Acute) Acute respiratory failure with hypoxia (Acute) Acute exacerbation of congestive heart failure (Acute) - Secondary Discharge Diagnosis Chronic Problems Iron deficiency anemia (Chronic) Congestive heart failure (Chronic)- EF on stress is 46% Coronary artery disease (Chronic) s/p stents 2000 Hypertension (Chronic) Paroxysmal A-fib (Chronic) on Eliquis Anxiety (Chronic) Hypothyroidism (Chronic) GERD (gastroesophageal reflux disease) (Chronic) Hyperlipidemia (Chronic) Hypokalemia (Chronic) Chronic bronchitis (Chronic) Hospital Course and Treatment Imaging Results: Clinical Impression(s) from Imaging Studies Chest X-Ray 08/15/17 15:16 IMPRESSION: Cardiomegaly and mild CHF. Electronically Signed: Larry Rios MD at 15:38 EST Tel [phone], Service support , Microbiology Past 72 Hours 08/18/17 09:40 Gram Stain - Final Sputum, Expectorated/Coughed Respiratory Culture - Preliminary 08/15/17 18:07 Urine Culture - Final Urine Catheter - Prieto Culture exhibits no growth. 08/15/17 16:10 Blood Culture - Preliminary Blood Culture (Wb) #2 - Anticubital Right No growth in 48 hours. 08/15/17 15:50 Blood Culture - Preliminary Blood Culture (Wb) - Left Hand No growth in 48 hours. 08/16/17 14:20 Respiratory Panel (PCR) - Final Mucosa - Nose Laboratory Tests Past 24 Hrs 08/19/17 08/19/17 08/19/17 03:50 03:50 03:50 WBC 9.5 RBC 4.54 Hgb 8.8 L Hct 32.0 L MCV 70.5 L MCH 19.4 L MCHC 27.5 L RDW 19.7 H RDW Differential 49.1 H Plt Count 277 MPV 9.9 Immature Gran % (Auto) 0.100 Neut % (Auto) 76.2 H Lymph % (Auto) 14.8 L [place] % (Auto) 8.7 Eos % (Auto) 0.1 Baso % (Auto) 0.1 Absolute Neuts (auto) 7.3 Absolute Lymphs (auto) 1.41 Total Counted Not Reportable Differential Comment SCANNED Target Cells 3+ Ovalocytes 1+ PT 16.7 H INR 1.4 APTT 33.2 Sodium 142 Potassium 3.6 Chloride 103 Carbon Dioxide 33.0 H Anion Gap 6 BUN 36 H Creatinine 0.76 Estim Creat Clear Calc 37.26 Est GFR (MDRD) Af Amer 95 Est GFR (MDRD) Non-Af 79 BUN/Creatinine Ratio 47.4 H Glucose [address] 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 She was placed on BiPAP in the emergency room. Pulse ox on BiPAP with 100% FiO2 was 100% and the FiO2 was successfully weaned to 40%. Chest x-ray was consistent with CHF and she had cardiomegaly. White blood cell count was within normal limits at 4.8 but she had 94% neutrophils. Hemoglobin was 7.9 with an MCV 70.2 and platelets were 233,000. BUN was 23 with a creatinine of 0.94. Troponin at admission was 0.27 and did not trend. BNP was 1784. EKG showed atrial fibrillation with PVCs no significant ST or T-wave changes that would indicate ischemia. She was admitted to the hospital and started on intravenous furosemide. Pulmonary consult was ordered with Dr. Gael Wagner. She was started on Solu-Medrol 40 mg every 8 hours, aerosolized bronchodilators, incentive spirometry and Acapella. An echocardiogram was obtained and showed mild segmental systolic dysfunction with an estimated ejection fraction of 40%. There was biatrial mild enlargement. There was diffuse mitral valve thickening with 1-2+ eccentric mitral valve insufficiency. The right ventricular systolic pressure was estimated to be 53. As she diuresed the BiPAP was discontinued and the oxygen weaned off. Was converted to p.o. Lasix 40 mg daily. Potassium supplementation was administered. On 08/19 she had a nuclear stress test that showed apical akinesis and anterior apical dyskinesis. There was no ischemia noted. The gated ejection fraction was 46%. Significant lab during her admission included a iron panel showing a TIBC of 386, low serum iron at 17 and a low ferritin at 11. LFTs were unremarkable with the exception of a mildly increased bilirubin at 1.1. Lipid panel showed a total cholesterol of 138, LDL of 52 and an HDL of 77. TSH was within normal limits. Vital signs at the time of discharge were temp 98.8, pulse rate 81-94, blood pressure 118/50, respiratory rate 18 and she was 94% saturated on room air. She was not tachypneic and had no conversational dyspnea. She denied shortness of breath and also denied chest pain. She had no peripheral edema. Auscultation of her lungs revealed them to be clear to auscultation but diminished. Heart rate was controlled. She was discharged home with prescriptions for an albuterol metered-dose inhaler, atorvastatin 40 mg nightly , furosemide 40 mg daily, lisinopril 5 mg daily, metoprolol 25 mg twice daily and prednisone 40 mg daily for the following 4 days. She was instructed to follow-up with Dr. Gael Wagner or Dr. Ni in the office in 2 weeks. She will need outpatient pulmonary function tests. She will also need to follow-up with cardiology for CAD and mild ischemic cardiomyopathy. She will follow-up with Dr. Pretty gregg, her PCP, in 5-7 days. Patient does have iron deficiency and the source of chronic bleeding has not been identified. She will discuss with Dr. gregg obtaining colonoscopy/EGD if this has not been done in the recent past. Would recheck a ferritin in 1 month and if it is not improving consider referral to hematology. This note was generated with Snapt[employer] dictation software. It may contain incorrect words, spelling, and punctuation that were not noted in checking the note before signing. Discharge Activity: Return to Normal Activity, - - Avoid exposure to any strong smells such as bleach, cleaning products, strong colognes or perfumes, paint fumes and smoke of any kind. Avoid sudden exposure to cold air because this can cause bronchospasm. You may want to cover your mouth when you go outside in the winter. Avoid exposure to anyone who is sick with a cough or sore throat. Call your doctor if you observe: Fever of 101 or Higher, Inability to urinate, Shortness of breath, Dizziness, Fainting spells, Swelling in the ankles, Chest pain Home Medications: Medications to take at Discharge Apixaban [Eliquis] 5 mg PO BID 08/15/17 Lorazepam [Ativan] 1 mg PO DAILY 08/15/17 Potassium Chloride [Klor-Con 10] 10 meq PO DAILY 08/15/17 Tizanidine HCl [Zanaflex] 2 mg PO Q8H PRN 08/15/17 TraMADol [Ultram] 50 mg PO Q4H PRN PRN 08/15/17 Aspirin 81 mg PO DAILY #1 tab.chew 08/17/17 Albuterol Sulfate [Proair Hfa] 8.5 gm IH Q4H PRN PRN #1 hfa.aer.ad 08/19/17 Atorvastatin Calcium 40 mg PO QHS #30 tab 08/19/17 Ferrous Sulfate 325 mg PO BIDCM #60 tab 08/19/17 Furosemide [Lasix] 40 mg PO DAILY #30 tab 08/19/17 Lisinopril [Zestril] 5 mg PO DAILY #30 tab 08/19/17 Metoprolol Tartrate [Lopressor (beta arthur)] 25 mg PO BID #60 tab 08/19/17 Prednisone 20 mg PO BID #8 tab 08/19/17 Following Prescrptions Were Given to Patient: Albuterol Sulfate [Proair Hfa] 8.5 gm IH Q4H PRN PRN #1 hfa.aer.ad PRN Reason: wheeZing/SOB Aspirin 81 mg PO DAILY #1 tab.chew Atorvastatin Calcium 40 mg PO QHS #30 tab Furosemide [Lasix] 40 mg PO DAILY #30 tab Lisinopril [Zestril] 5 mg PO DAILY #30 tab Ferrous Sulfate 325 mg PO BIDCM #60 tab Metoprolol Tartrate [Lopressor (beta arthur)] 25 mg PO BID #60 tab Prednisone 20 mg PO BID #8 tab Primary Care Physician: Pretty Gregg [Primary Care Provider] - Please follow up with your Primary Care Physician in: 5-7 days Please Follow Up With: Gael Wagner MD - or Last When: 2 weeks to arrange PFT's Please Follow Up With: cardiology When: within the next 4-6 weeks Minutes spent on discharge:: 40 Patient Condition:: Good Meaningful Use Info Meaningful Use Diagnoses (Choose all that apply): CHF - CHF GINGER/ARB ordered at discharge?: Yes Documented LVEF (%): 46 Code Visit Inpatient E&M: 27832 Disch Hosp
== END 2017-08-19 19:05 | disposition home or self-care (01) | DRG 291 ==
PROVIDERS: Physician Assistant; Admitting Provider Internal Medicine; Family Provider Family Medicine; PCP Family Medicine; Visit Provider Internal Medicine
DX: I11.0 Hypertensive heart disease with heart failure (principal); J96.21 Acute and chronic respiratory failure with hypoxia; I27.20 Pulmonary hypertension, unspecified; J44.0 Chronic obstructive pulmonary disease with (acute) lower respiratory infection; I50.43 Acute on chronic combined systolic (congestive) and diastolic (congestive) heart failure; I25.5 Ischemic cardiomyopathy; I25.10 Atherosclerotic heart disease of native coronary artery without angina pectoris; I48.0 Paroxysmal atrial fibrillation; F41.9 Anxiety disorder, unspecified; K21.9 Gastro-esophageal reflux disease without esophagitis; E78.5 Hyperlipidemia, unspecified; E87.6 Hypokalemia; D50.9 Iron deficiency anemia, unspecified; Z99.81 Dependence on supplemental oxygen; Z95.5 Presence of coronary angioplasty implant and graft; Z79.02 Long term (current) use of antithrombotics/antiplatelets; Z87.891 Personal history of nicotine dependence; J20.9 Acute bronchitis, unspecified
CPT/HCPCS: 36415; 71010; 78452; 80048; 80053; 80061; 82728; 83540; 83550; 83605; 83880; 84443; 84484; 85025; 85610; 85730; 87040; 87070; 87086; 87205; 87633; 87804; 93005; 93017; 93306; 94002; 94003; 94640; 94667; 94668; 94762; A9500; J7040; A4216; J1940; J2785

== ENCOUNTER 2018-12-15 13:45 | Inpatient (IN) | payer MEDICARE, SELFPAY ==
[2017-08-15 14:29] VITALS: BMI 31.1
[2018-12-15] VITALS (7 sets, daily range): BP systolic 136–145; BP diastolic 50–58; PULSE 79–102; RESP 16–18; TEMP 36.6–36.8; O2SAT 86–94; BMI 31.4; BMI 31.5
--- NOTE | 2018-12-15 14:46 | PCM.HP.STD ---
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 (3) Acute respiratory failure with hypoxia Status: Acute (4) Anxiety Status: Chronic (5) Chronic bronchitis Status: Chronic (6) Congestive heart failure Status: Chronic (7) Coronary artery disease Status: Chronic Comment: s/p stents 1999 (8) GERD (gastroesophageal reflux disease) Status: Chronic (9) Hyperlipidemia Status: Chronic (10) Hypertension Status: Chronic (11) Hypothyroidism Status: Chronic Qualifiers: (12) Iron deficiency anemia Status: Chronic (13) Paroxysmal A-fib Status: Chronic Comment: on Patricia (14) Chronic anticoagulation Status: Chronic History of Present Illness Date of Admission: 12/15/18 Chief Complaint: pain in the left buttock radiating down the left leg with numbness in the anterior thigh The patient is a 78 year old F with a past medical history of paroxysmal atrial fibrillation, chronic anticoagulation with apixaban, coronary artery disease, hypertension, or smoking history, COPD, anxiety, GERD, hyperlipidemia and ischemic cardiomyopathy who was transferred to [facility] from [place] emergency room on 12/15/2018. She presented to [facility] ER complaining of severe left buttock and left leg pain causing an inability for her to bear weight and walk. She tells me that approximately 2 weeks ago she started with some pain in her buttocks and low back. This has progressed and now extends down her posterior thigh, posterior calf and into her toes. Sitting and prolonged standing make it worse. Today she could not bear weight without severe pain and she was unable to ambulate. She denies any falls.She was lifting some heavy objects. No lab was done at [facility] but she did have a MRI of the LS spine and has several lateral recess and foraminal stenosis at L4-5 on the left. She also has foraminal stenosis at L5-S1. Venous US of the LLE was negative. No fractures. She has + SLR on the left at 20-30 degrees. He denies any urinary or fecal incontinence. She has been Temodal at home with no relief. She was given morphine sulfate intravenously at [facility] and she stated this helped her. She is being admitted to the hospital for intractable back pain secondary to severe foraminal stenosis at L4-5 and L5-1 on the left. Past Medical History Past Medical History (Chronic Problems): Chronic Problems Foraminal stenosis of lumbosacral region (Chronic) Chronic anticoagulation (Chronic) Iron deficiency anemia (Chronic) Congestive heart failure (Chronic) Coronary artery disease (Chronic) s/p stents 1999 Hypertension (Chronic) Paroxysmal A-fib (Chronic) on Eliquis Anxiety (Chronic) Hypothyroidism (Chronic) GERD (gastroesophageal reflux disease) (Chronic) Hyperlipidemia (Chronic) Chronic bronchitis (Chronic) Allergies Penicillins [PCN] Allergy (Verified 08/15/17 14:23) Swelling Home Medications: Ambulatory Orders Medication Instructions Recorded Apixaban [Eliquis] 5 mg PO BID 08/15/17 Potassium Chloride [Klor-Con 10] 2 tab PO DAILY 08/15/17 Cyanocobalamin/FA/Pyridoxine 1 each PO DAILY 12/15/18 [Folgard Rx Tablet] Cyclobenzaprine [Flexeril] 10 mg PO TID PRN PRN 12/15/18 Ferrous Sulfate 325 mg PO BIDCM 12/15/18 Fluticasone Propionate 1 spray NASAL DAILY 12/15/18 Furosemide [Lasix] 1 tablet PO DAILY 12/15/18 Ipratropium/Albuterol Sulfate 3 ml INHALATION BID 12/15/18 [Iprat-Albut 0.5-3(2.5) mg/3 ml] Levothyroxine [Synthroid] 75 mcg PO DAILY 12/15/18 Lisinopril [Zestril] 5 mg PO DAILY 12/15/18 Metoprolol Tartrate [Lopressor 25 mg PO BID 12/15/18 (beta arthur)] Omeprazole [Prilosec] 20 mg PO DAILY 12/15/18 Sertraline HCl [Zoloft] 50 mg PO DAILY 12/15/18 traZODone [Desyrel] 2 tab PO QHS 12/15/18 Surgical History: appendectomy, cholecystectomy, hysterectomy - total, tonsillectomy, - - colonoscopy 2009, cardiac stents 1999 Psychiatric History: Anxiety INVESTIGATOR History: No pertinent INVESTIGATOR history Lives: With Family Smoking Status: Former smoker Tobacco Use: Non-smoker Alcohol: Occasional Drugs: None - *Family History Maternal History Items: Unknown Paternal History Items: Unknown Review of Systems Constitutional: Denies: Chills, Fever, Weight Change HEENT: Denies: Head Aches, Sinus Congestion, Sinus Drainage Cardiovascular: Denies: Chest Pain, Palpitations Respiratory: Denies: Cough, Shortness of breath at rest, Sputum production Gastrointestinal: Denies: Abdominal Pain, Nausea, Vomiting Genitourinary: Denies: Dysuria Musculoskeletal: Reports: Back Pain - radiatin g down the R leg. Denies: Joint Pain, Joint Tenderness Skin: Denies: Rash, Wounds Neurological: Denies: Numbness, Tingling, Focal weakness Psychiatric: Denies: Anxiety, Depression, Homicidal Ideations, Suicidal Ideations Hematologic/ Lymphatic: Denies: Easy Bruising, Easy Bleeding VTE Information - Inpt Only VTE Present on Admission: No VTE Mechan Device Prophylaxis: SCD's, Knee High PEYTON Hose VTE Pharm Prophylaxis ordered?: No Reason prophylaxis not ordered:: Treatment Not Indicated - on Eliquis Patient Problems: Active and Suspected Problems Intractable back pain (Acute) - Physical Exam General: Alert, Oriented x3, Cooperative, Well developed, Well nourished, - - looks to be in severe pain HEENT: Atraumatic, PERRLA, EOMI Oral: Moist Mucosa Neck: Supple, No Nodes, No Nuchal Rigidity, Trachea Midline Lungs: Clear to auscultation Cardiovascular: Regular rate, Regular Rhythm, Normal S1, Normal S2 Abdomen: Bowel Sounds Present, Soft, Non Tender, Non-Distended Extremities: No clubbing, No cyanosis, No edema Skin: No rashes Musculoskeletal: Arthritic Changes, - - + pain in the left buttock and it radiates down the left posterior thigh to the toes. She has some numbenss in the toes intemittently + SLR at 30 degrees. Negative Fabers Neurological: Cranial nerves II-XII grossly intact, Neuro grossly intact, Motor Exam 5/5 strength throughout Psych/Mental Status: Appropriate, Anxious Weight: 172 lb 2.896 oz Body Mass Index (BMI) 31.4 Assessment/Plan All Active Problems Intractable back pain (Acute) Acute respiratory failure with hypoxia (Acute) Acute exacerbation of congestive heart failure (Resolved) COPD (chronic obstructive pulmonary disease) with acute bronchitis (Resolved) Hypokalemia (Resolved) Impressions 1. Intractable back pain with radiation down the left leg secondary to her lateral recess foraminal stenosis at L4-L5 on the left. Also with foraminal stenosis at L5-S1. 2. Foraminal stenosis at L4-5 on the left with foraminal stenosis at L5-S1 3. Paroxysmal atrial fibrillation 4. Chronic anticoagulation with Eliquis 5. Coronary artery disease 6. Hypertension 7. COPD 8. Anxiety 9. GERD 10. Hyperlipidemia 11. Ischemic cardiomyopathy CBC, CMP, mag Hold the Eliquis in anticipation of Dr. Faria doing an epidural....will need to wait [address] Faria Prednisone 60 mg daily.....I asked the ED doc at [facility] to give her 60 mg today Flexeril 10 mg TID PT and OT consults Pain medications ordered. Code Visit Inpatient E&M: 93524 Init Hosp L2
--- NOTE | 2018-12-15 14:51 | HP.PCM_ITS ---
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 (3) Acute respiratory failure with hypoxia Status: Acute (4) Anxiety Status: Chronic (5) Chronic bronchitis Status: Chronic (6) Congestive heart failure Status: Chronic (7) Coronary artery disease Status: Chronic Comment: s/p stents 1999 (8) GERD (gastroesophageal reflux disease) Status: Chronic (9) Hyperlipidemia Status: Chronic (10) Hypertension Status: Chronic (11) Hypothyroidism Status: Chronic Qualifiers: (12) Iron deficiency anemia Status: Chronic (13) Paroxysmal A-fib Status: Chronic Comment: on Patricia (14) Chronic anticoagulation Status: Chronic History of Present Illness Date of Admission: 12/15/18 Chief Complaint: pain in the left buttock radiating down the left leg with numbness in the anterior thigh The patient is a 78 year old F with a past medical history of paroxysmal atrial fibrillation, chronic anticoagulation with apixaban, coronary artery disease, hypertension, or smoking history, COPD, anxiety, GERD, hyperlipidemia and ischemic cardiomyopathy who was transferred to [facility] from [place] emergency room on 12/15/2018. She presented to [place] ER complaining of severe left buttock and left leg pain causing an inability for her to bear weight and walk. She tells me that approximately 2 weeks ago she started with some pain in her buttocks and low back. This has progressed and now extends down her posterior thigh, posterior calf and into her toes. Sitting and prolonged standing make it worse. Today she could not bear weight without severe pain and she was unable to ambulate. She denies any falls.She was lifting some heavy objects. No lab was done at [place] but she did have a MRI of the LS spine and has several lateral recess and foraminal stenosis at L4-5 on the left. She also has foraminal stenosis at L5-S1. Venous US of the LLE was negative. No fractures. She has + SLR on the left at 20-30 degrees. He denies any urinary or fecal incontinence. She has been Temodal at home with no relief. She was given morphine sulfate intravenously at [place] and she stated this helped her. She is being admitted to the hospital for intractable back pain secondary to severe foraminal stenosis at L4-5 and L5-1 on the left. Past Medical History Past Medical History (Chronic Problems): Chronic Problems Foraminal stenosis of lumbosacral region (Chronic) Chronic anticoagulation (Chronic) Iron deficiency anemia (Chronic) Congestive heart failure (Chronic) Coronary artery disease (Chronic) s/p stents 1999 Hypertension (Chronic) Paroxysmal A-fib (Chronic) on Eliquis Anxiety (Chronic) Hypothyroidism (Chronic) GERD (gastroesophageal reflux disease) (Chronic) Hyperlipidemia (Chronic) Chronic bronchitis (Chronic) Allergies Penicillins [PCN] Allergy (Verified 08/15/17 14:23) Swelling Home Medications: Ambulatory Orders Medication Instructions Recorded Apixaban [Eliquis] 5 mg PO BID 08/15/17 Potassium Chloride [Klor-Con 10] 2 tab PO DAILY 08/15/17 Cyanocobalamin/FA/Pyridoxine 1 each PO DAILY 12/15/18 [Folgard Rx Tablet] Cyclobenzaprine [Flexeril] 10 mg PO TID PRN PRN 12/15/18 Ferrous Sulfate 325 mg PO BIDCM 12/15/18 Fluticasone Propionate 1 spray NASAL DAILY 12/15/18 Furosemide [Lasix] 1 tablet PO DAILY 12/15/18 Ipratropium/Albuterol Sulfate 3 ml INHALATION BID 12/15/18 [Iprat-Albut 0.5-3(2.5) mg/3 ml] Levothyroxine [Synthroid] 75 mcg PO DAILY 12/15/18 Lisinopril [Zestril] 5 mg PO DAILY 12/15/18 Metoprolol Tartrate [Lopressor 25 mg PO BID 12/15/18 (beta arthur)] Omeprazole [Prilosec] 20 mg PO DAILY 12/15/18 Sertraline HCl [Zoloft] 50 mg PO DAILY 12/15/18 traZODone [Desyrel] 2 tab PO QHS 12/15/18 Surgical History: appendectomy, cholecystectomy, hysterectomy - total, tonsillectomy, - - colonoscopy 2009, cardiac stents 1999 Psychiatric History: Anxiety 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 Denies: Joint Pain, Joint Tenderness Skin: Denies: Rash, Wounds Neurological: Denies: Numbness, Tingling, Focal weakness Psychiatric: Denies: Anxiety, Depression, Homicidal Ideations, Suicidal Ideations Hematologic/ Lymphatic: Denies: Easy Bruising, Easy Bleeding VTE Information - Inpt Only VTE Present on Admission: No VTE Mechan Device Prophylaxis: SCD's, Knee High PEYTON Hose VTE Pharm Prophylaxis ordered?: No Reason prophylaxis not ordered:: Treatment Not Indicated - on Eliquis Patient Problems: Active and Suspected Problems Intractable back pain (Acute) - Physical Exam General: Alert, Oriented x3, Cooperative, Well developed, Well nourished, - - looks to be in severe pain HEENT: Atraumatic, PERRLA, EOMI Oral: Moist Mucosa Neck: Supple, No Nodes, No Nuchal Rigidity, Trachea Midline Lungs: Clear to auscultation Cardiovascular: Regular rate, Regular Rhythm, Normal S1, Normal S2 Abdomen: Bowel Sounds Present, Soft, Non Tender, Non-Distended Extremities: No clubbing, No cyanosis, No edema Skin: No rashes Musculoskeletal: Arthritic Changes, - - + pain in the left buttock and it radiates down the left posterior thigh to the toes. She has some numbenss in the toes intemittently + SLR at 30 degrees. Negative Fabers Neurological: Cranial nerves II-XII grossly intact, Neuro grossly intact, Motor Exam 5/5 strength throughout Psych/Mental Status: Appropriate, Anxious Weight: 172 lb 2.896 oz Body Mass Index (BMI) 31.4 Assessment/Plan All Active Problems Intractable back pain (Acute) Acute respiratory failure with hypoxia (Acute) Acute exacerbation of congestive heart failure (Resolved) COPD (chronic obstructive pulmonary disease) with acute bronchitis (Resolved) Hypokalemia (Resolved) Impressions 1. Intractable back pain with radiation down the left leg secondary to her lateral recess foraminal stenosis at L4-L5 on the left. Also with foraminal stenosis at L5-S1. 2. Foraminal stenosis at L4-5 on the left with foraminal stenosis at L5-S1 3. Paroxysmal atrial fibrillation 4. Chronic anticoagulation with Eliquis 5. Coronary artery disease 6. Hypertension 7. COPD 8. Anxiety 9. GERD 10. Hyperlipidemia 11. Ischemic cardiomyopathy CBC, CMP, mag Hold the Eliquis in anticipation of Dr. Faria doing an epidural....will need to wait [address] Faria Prednisone 60 mg daily.....I asked the ED doc at [place] to give her 60 mg today Flexeril 10 mg TID PT and OT consults Pain medications ordered. Code Visit Inpatient E&M: 36414 Init Hosp L2
[2018-12-15 15:38] LABS: Absolute Lymphocyte Count 1.05 X10^3/ul (0.83-4.51); Absolute Neutrophil Count 5.6 X10^3/uL (2.0-7.7); Basophil# 0.04 X10^3/uL; Basophil% 0.6 % (0-1); Eosinophil# 0.08 X10^3/uL; Eosinophils% 1.1 % (0-5); Hematocrit 42.7 % (37-47); Hemoglobin 13.6 g/dl (12.0-15.0); Lymphocyte # 1.05 X10^3/ul (4.0); Lymphocyte % 14.8 % (19-41); Mean Corp Hgb Conc 31.9 g/gl (32-36); Mean Corpuscular Hgb 29.3 pg (27.0-32.0); Mean Platelet Vol. 10.5 fl (6.2-12.0); Monocyte# 0.34 X10^3/uL; Monocyte% 4.8 % (0-10); Neutrophil # 5.55 X10^3/uL (2.7-7.7); Neutrophil % 78.4 % (47-70); Platelet Count 171 K/mm3 (150-450); RBC Distribution Width CV 13.2 % (11.6-14.6); RBC Distribution Width SD 43.1 fl (35.1-43.9); Red Blood Count 4.64 M/mm3 (4.2-5.4); White Blood Count 7.1 K/mm3 (4.4-11.0)
[2018-12-15 15:43] LABS: POSITIVE COUNT NO; POSITIVE DIFFERENTIAL NO; POSITIVE MORPHOLOGY NO
[2018-12-15 15:51] LABS: ALB/GLOB Ratio 0.8 RATIO (0.9-2.4); AST(SGOT) 62 U/L (15-37); Alanine Aminotransfer ALT/SGPT 44 U/L (13-56); Albumin, Serum 3.3 g/dL (3.2-5.0); Alkaline Phosphatase 156 U/L (45-117); Anion Gap 3 (5-15); BUN 26 mg/dL (7-18); BUN/Creat Ratio 34.7 RATIO (10-20); Calcium,Total 8.8 mg/dL (8.5-10.1); Chloride 109 mmol/L (98-107); Creatinine, Serum 0.75 mg/dL (0.55-1.02); EST Glomerular Filtration Rate 79 mL/min (>60); Est Glom Filt Rate - Afr Amer 96 mL/min (>60); Estimated Creatinine Clearance 36.67 ml/min; Globulin 3.9 g/dL (2.2-4.2); Glucose 83 mg/dL (74-106); Potassium 4.1 mmol/L (3.5-5.1); Protein, Total 7.2 g/dL (6.4-8.2); Sodium Level 143 mmol/L (136-145)
[2018-12-15] MEDS: Ondansetron 4 MG/2 ML Vial IV (18:12)
[2018-12-15] MEDS: Morphine 2 MG/ML Syringe IV (18:13)
[2018-12-15 18:20] LABS: Bacteria 0 SEEN /hpf (None Seen); Mucous, Urine 0 SEEN /hpf (<or=2+); Red Blood Cells-Urine 0 SEEN /hpf (0-5); Squamous Epithelial Cells - UA 0 SEEN /hpf (5-10); White Blood Cells 0 SEEN /hpf (0-5)
[2018-12-15 18:22] LABS: Color, Urine Yellow (Yellow); Glucose, Dipstick Normal (Normal); Ketone-Dipstick 5 mg/dl (Negative); Leukocyte Esterase-Dipstick Negative /ul (Negative); Nitrite-Dipstick Negative (Negative); Occult Blood-Urine Negative /ul (Negative); Protein-Dipstick Negative (Negative); Specific Gravity, Urine 1.025 (1.002-1.030); Urine Bilirubin Dipstick Negative (Negative); Urine Clarity Clear (Clear); Urine Urobilinogen Normal (Normal)
[2018-12-15] MEDS: Ipratropium/Albuterol Sulfate 3 ML AMPUL.NEB INHALATION (19:35)
[2018-12-15] MEDS: Metoprolol Tartrate 25 MG Tablet PO (21:05)
[2018-12-15] MEDS: traZODone 50 MG Tablet 100 MG PO (21:06)
[2018-12-15] MEDS: HYDROcodone Bitartrate/Apap 5/325 Tablet PO (23:10)
[2018-12-16] VITALS (12 sets, daily range): BP systolic 140–153; BP diastolic 69–83; PULSE 75–98; RESP 16–18; TEMP 36.5–37.5; O2SAT 89–96
[2018-12-16] MEDS: Levothyroxine 75 MCG Tablet PO (05:08)
[2018-12-16] MEDS: HYDROcodone Bitartrate/Apap 5/325 Tablet PO ×3 (06:41→23:48)
[2018-12-16] MEDS: 0.9% NaCl Peripheral Flush Adult/Peds IV ×4 (06:42→21:50)
[2018-12-16] MEDS: Ipratropium/Albuterol Sulfate 3 ML AMPUL.NEB INHALATION ×2 (06:54→18:46)
[2018-12-16] MEDS: Morphine 2 MG/ML Syringe IV ×3 (07:48→21:50)
--- NOTE | 2018-12-16 08:37 | NURSING ---
Home med to prevent clotting (diagnosis of A.fib), has been held since admission 12/15 and continues to be held for surgical intervention with Dr. Faria Saturday.
[2018-12-16] MEDS: Ferrous Sulfate 325 MG Tablet PO ×2 (09:47→17:08)
[2018-12-16] MEDS: predniSONE 20 MG Tablet 60 MG PO (09:48)
[2018-12-16] MEDS: Metoprolol Tartrate 25 MG Tablet PO ×2 (09:48→21:49)
[2018-12-16] MEDS: Furosemide 20 MG Tablet PO (09:48)
[2018-12-16] MEDS: Lisinopril 5 MG Tablet PO (09:49)
[2018-12-16] MEDS: Pantoprazole Sodium 20 MG Tablet PO (09:49)
[2018-12-16] MEDS: Sertraline 50 MG Tablet PO (09:49)
--- NOTE | 2018-12-16 11:25 | CASEMGMT ---
RN CM Assessment Presentation: Intractable Back pain, Forminal stenosis of lumbosacral region. Dr. Faria consult, plan is for epidural Saturday, Patricia is on hold for procedure. Intro role of CM and purpose of RN CM assessment to patient in room. Pt is having significant back pain still. . Demographics, PCP and Pharmacy verified. Pt states she and her sister live together, however sister is in SNF presently. Pt will be home alone on discharge. Niece is able to assist some per pt. PCP: Dr. Baeza Specialists: Dr. Faria Preferred Pharmacy: [facility] Insurance:[employer] [facility] PP Prescription Benefit: yes LNOK: Sister Katelyn Kelly Living Arrangements: Lives in Mobile Home, 3 steps into home. Pt was independent prior to this back pain incident Transportation: Pt drives DME: Pt uses oxygen @ night. Does not know which company she used. Pt does not have ambulatory devices. HHC: none Patient DC goals: Home DC PLAN: undetermined. Will await to see after epidural and PT/OT evaluations. Catrina WILLIS RN ACM
--- NOTE | 2018-12-16 11:30 | PN_ITS ---
Patient Problems: Active and Suspected Problems Intractable back pain (Acute) Subjective: The patient is a 78 year old F with a past medical history of paroxysmal atrial fibrillation, chronic anticoagulation with apixaban, coronary artery disease, hypertension, or smoking history, COPD, anxiety, GERD, hyperlipidemia and ischemic cardiomyopathy who was transferred to [facility] from [place] emergency room on 12/15/2018. She presented to [place] ER complaining of severe left buttock and left leg pain causing an inability for her to bear weight and walk. She tells me that approximately 2 weeks ago she started with some pain in her buttocks and low back. MRI of the LS spine and has several lateral recess and foraminal stenosis at L4-5 on the left. She also has foraminal stenosis at L5-S1. Venous US of the LLE was negative. No fractures. All events of the past 24 hours been reviewed. Temperature was 99.5 degrees this morning but there is no evidence of any infection. She was under a lot of blankets.. Blood pressure is mildly elevated likely secondary to pain. Pulse ox earlier this morning was 89% on a 4 L nasal cannula. Pulse ox decreases when she receives pain medication. She was seen by Dr. Dr. Faria yesterday and he plans on an epidural tomorrow. Eliquis needs to be held for 48 hours prior to epidural. She continues to complain of pain. She just had physical therapy and was unable to ambulate. She had severe pain when sitting at the edge of the bed. She is quite anxious about moving because she fears the pain will get worse. She has received 2 doses of Vicodin 5 mg and 2 doses of morphine sulfate 4 mg. The last dose was at 748 and the current time is 1130. Denies nausea. She is tremulous and anxious. Objective: - Physical Exam General: Alert, Oriented x3, Cooperative, Well developed, Well nourished, - - looks to be in severe pain. She is very tremulous. He just finished PT. HEENT: Atraumatic, PERRLA, EOMI Oral: Moist Mucosa Neck: Supple, No Nodes, No Nuchal Rigidity, Trachea Midline Lungs: Clear to auscultation, diminished. Cardiovascular: Regular rate, Regular Rhythm, Normal S1, Normal S2 Abdomen: Bowel Sounds Present, Soft, Non Tender, Non-Distended Extremities: No clubbing, No cyanosis, No edema Skin: No rashes Musculoskeletal: Arthritic Changes, - - + pain in the left buttock and it radiates down the left posterior thigh to the toes. She has some numbness in the toes intermittently + SLR at 30 degrees. Negative Fabers Neurological: Cranial nerves II-XII grossly intact, Neuro grossly intact, Motor Exam 5/5 strength throughout Psych/Mental Status: Appropriate, Anxious Telemetry shows CAF with good rate control and no significant pauses. - Physical Exam Vital Signs Temp Pulse Resp BP Pulse Ox 99.5 F H 84 18 152/69 H 89 12/16/18 07:55 12/16/18 10:00 12/16/18 07:55 12/16/18 09:48 12/16/18 07:55 Oxygen Flow Rate (L/min) 2 Oxygen Delivery Method Nasal Cannula Weight: 172 lb 2.896 oz Body Mass Index (BMI) 31.4 Intake and Output for Last 24 Hours 12/14/18 12/15/18 12/16/18 23:59 23:59 23:59 Intake Total 100 / 100 150 / 150 Output Total 600 / 600 300 / 300 Balance -500 / -500 -150 / -150 Laboratory Tests Past 24 Hrs 12/15/18 12/15/18 12/15/18 15:10 15:10 18:00 WBC 7.1 RBC 4.64 Hgb 13.6 Hct 42.7 MCV 92.0 MCH 29.3 MCHC 31.9 L RDW 13.2 RDW Differential 43.1 Plt Count 171 MPV 10.5 Immature Gran % (Auto) 0.300 Neut % (Auto) 78.4 H Lymph % (Auto) 14.8 L Patrick % (Auto) 4.8 Eos % (Auto) 1.1 Baso % (Auto) 0.6 Absolute Neuts (auto) 5.6 Absolute Lymphs (auto) 1.05 Total Counted Not Reportable Sodium 143 Potassium 4.1 Chloride 109 H Carbon Dioxide 31.0 Anion Gap 3 L BUN 26 H Creatinine 0.75 Estim Creat Clear Calc 36.67 Est GFR (MDRD) Af Amer 96 Est GFR (MDRD) Non-Af 79 BUN/Creatinine Ratio 34.7 H Glucose 83 Calcium 8.8 Total Bilirubin 1.00 AST 62 H ALT 44 Alkaline Phosphatase 156 H Total Protein 7.2 Albumin 3.3 Globulin 3.9 Albumin/Globulin Ratio 0.8 L Urine Color Yellow Urine Clarity Clear Urine pH 5.0 Ur Specific [place] 1.025 Urine Protein Negative Urine Glucose (UA) Normal Urine Ketones 5 H Urine Occult Blood Negative Urine Nitrite Negative Urine Bilirubin Negative Urine Urobilinogen Normal Ur Leukocyte Esterase Negative Urine RBC 0 SEEN Urine WBC 0 SEEN Ur Squamous Epith Cells 0 SEEN Urine Bacteria 0 SEEN Urine Mucus 0 SEEN Medical Necessity - Tobacco Use Smoking Status: Former smoker Tobacco Use: Non-smoker Assessment/Plan All Active Problems Intractable back pain (Acute) Acute respiratory failure with hypoxia (Acute) Acute exacerbation of congestive heart failure (Resolved) COPD (chronic obstructive pulmonary disease) with acute bronchitis (Resolved) Hypokalemia (Resolved) Impressions 1. Intractable back pain with radiation down the left leg secondary to her lateral recess foraminal stenosis at L4-L5 on the left. Also with foraminal stenosis at L5-S1. 2. Foraminal stenosis at L4-5 on the left with foraminal stenosis at L5-S1 3. Paroxysmal atrial fibrillation 4. Chronic anticoagulation with Eliquis 5. Coronary artery disease 6. Hypertension 7. COPD 8. Anxiety 9. GERD 10. Hyperlipidemia 11. Ischemic cardiomyopathy Add Vistaril 25 mg p.o. 3 times daily as needed anxiety -nursing tells me that when she is medicated she appears comfortable and is able to go to sleep. She seems to get anxious when anyone is in her room and especially when anyone tries to move her left leg. Yesterday after pain medication PEYTON hose were applied and both legs were lifted and she was relaxed and able to go to sleep. Lovenox 40 mg x1 today and then discontinue in preparation for epidural tomorrow continue prednisone, Flexeril and pain medication. Any PT/OT And is unable to even sit at the edge of the bed without severe pain and anxiety. She has been unable to ambulate for the past 2 days. She [facility] discharge. Code Visit Inpatient E&M: 83098 Subs Hosp L2
[2018-12-16] MEDS: Fluticasone 0.05% 1 SPRAY NASAL.SRY NASAL ×2 (13:43)
[2018-12-16] MEDS: hydrOXYzine PAM 25 MG Capsule PO ×2 (13:44→23:48)
--- NOTE | 2018-12-16 13:51 | CASEMGMT ---
SW spoke w/pt in room in regard to discharge plan. Pt is very painful at present, is to have an epidural tomorrow. Pt has never been to SNF in the past, sister is at [facility] in [place]. Pt would not want to go there. Pt is too painful at present to have a conversation about options for SNF if needed. SW explained will come back to see her tomorrow. LATRELL Bonds
--- NOTE | 2018-12-16 15:01 | CHAPLAIN ---
patient is sleeping and RN requests she be permitted to sleep as pt becomes anxious easily; this ware cleaner will make visit attempt another time
[2018-12-16] MEDS: traZODone 50 MG Tablet 100 MG PO (21:49)
[2018-12-17] VITALS (16 sets, daily range): BP systolic 133–183; BP diastolic 60–106; PULSE 66–95; RESP 16–22; TEMP 36.6–37.6; O2SAT 93–98; BMI 31.4
[2018-12-17] MEDS: Levothyroxine 75 MCG Tablet PO (05:16)
[2018-12-17] MEDS: 0.9% NaCl Peripheral Flush Adult/Peds IV ×4 (05:21→15:11)
[2018-12-17] MEDS: Morphine 2 MG/ML Syringe IV ×3 (05:21→15:07)
[2018-12-17 06:08] LABS: Basophil# 0.01 X10^3/uL; Basophil% 0.1 % (0-1); Eosinophil# 0.01 X10^3/uL; Eosinophils% 0.1 % (0-5); Lymphocyte % 12.2 % (19-41); Mean Corp Hgb Conc 32.6 g/gl (32-36); Mean Corpuscular Hgb 29.2 pg (27.0-32.0); Mean Corpuscular Volume 89.7 fL (81-99); Mean Platelet Vol. 11.3 fl (6.2-12.0); Monocyte# 0.91 X10^3/uL; Monocyte% 10.1 % (0-10); Neutrophil # 6.98 X10^3/uL (2.7-7.7); Neutrophil % 77.3 % (47-70); Platelet Count 190 K/mm3 (150-450); RBC Distribution Width CV 12.8 % (11.6-14.6); RBC Distribution Width SD 41.8 fl (35.1-43.9); Red Blood Count 5.13 M/mm3 (4.2-5.4)
[2018-12-17 06:23] LABS: POSITIVE COUNT NO; POSITIVE DIFFERENTIAL NO; POSITIVE MORPHOLOGY NO
[2018-12-17 06:39] LABS: Anion Gap 6 (5-15); BUN 27 mg/dL (7-18); BUN/Creat Ratio 36.6 RATIO (10-20); Calcium,Total 9.2 mg/dL (8.5-10.1); Chloride 100 mmol/L (98-107); Creatinine, Serum 0.74 mg/dL (0.55-1.02); EST Glomerular Filtration Rate 81 mL/min (>60); Est Glom Filt Rate - Afr Amer 98 mL/min (>60); Estimated Creatinine Clearance 36.67 ml/min; Glucose 106 mg/dL (74-106); Potassium 3.9 mmol/L (3.5-5.1); Sodium Level 140 mmol/L (136-145); Thyroid Stim Hormone (TSH) 0.76 uIU/mL (0.358-3.74)
[2018-12-17] MEDS: Ipratropium/Albuterol Sulfate 3 ML AMPUL.NEB INHALATION ×2 (07:18→20:18)
[2018-12-17] MEDS: Sertraline 50 MG Tablet PO (07:48)
[2018-12-17] MEDS: predniSONE 20 MG Tablet 60 MG PO (07:48)
[2018-12-17] MEDS: Lisinopril 5 MG Tablet PO (07:48)
[2018-12-17] MEDS: Pantoprazole Sodium 20 MG Tablet PO (07:48)
[2018-12-17] MEDS: Metoprolol Tartrate 25 MG Tablet PO ×2 (07:50→21:18)
--- NOTE | 2018-12-17 08:24 | PCM.PROGNOTE ---
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 Patient seen and examined. When I saw the patient, she was in severe pain in the left lower extremity, crying, very anxious. Next was instructed to give the patient IV morphine at this time. She is afebrile, blood pressure slightly elevated which is likely because of pain, pulse ox is maintained on room air. - Physical Exam General: Alert, Oriented x3, Cooperative, - - Very anxious, in severe distress because of pain. HEENT: Atraumatic, PERRLA, EOMI, Normocephalic Oral: Moist Mucosa, No Gingival or Mucosal Lesions/ Ulcerations Neck: Supple, No JVD, Negative Carotid Bruits, Trachea Midline, Thyroid Normal Size and Texture Lungs: Clear to auscultation, No rhonchi, No wheeze, No rales, Diminished Cardiovascular: Regular rate, Regular Rhythm, Normal S1, Normal S2, PMI Normal, Tachycardic Abdomen: Bowel Sounds Present, Soft, Non Tender, Non-Distended, No Hepato-splenomegaly Extremities: No clubbing, No cyanosis, No edema Skin: No rashes, No breakdown Lymphatic: No Cervical, Supraclavicular, or Inguinal Adenopathy Neurological: Cranial nerves II-XII grossly intact, Motor Exam 5/5 strength throughout, - - Decreased sensation to light touch on the left leg pain Psych/Mental Status: Anxious, Restless, Alert and oriented to time, place, person, mood and affect Vital Signs Temp Pulse Resp BP Pulse Ox 98 F 85 16 170/90 H 98 12/17/18 07:37 12/17/18 07:50 12/17/18 07:37 12/17/18 07:37 12/17/18 07:37 Oxygen Flow Rate (L/min) 2 Oxygen Delivery Method Room Air Weight: 172 lb 2.896 oz Body Mass Index (BMI) 31.4 Intake and Output for Last 24 Hours 12/15/18 12/16/18 12/17/18 23:59 23:59 23:59 Intake Total 100 / 100 1500 / 1500 50 / 50 Output Total 600 / 600 1425 / 1425 100 / 100 Balance -500 / -500 75 / 75 -50 / -50 Laboratory Tests Past 24 Hrs 12/17/18 12/17/18 05:14 05:14 WBC 9.0 RBC 5.13 Hgb 15.0 Hct 46.0 MCV 89.7 MCH 29.2 MCHC 32.6 RDW 12.8 RDW Differential 41.8 Plt Count 190 MPV 11.3 Immature Gran % (Auto) 0.200 Neut % (Auto) 77.3 H Lymph % (Auto) 12.2 L [place] % (Auto) 10.1 H Eos % (Auto) 0.1 Baso % (Auto) 0.1 Absolute Neuts (auto) 7.0 Absolute Lymphs (auto) 1.10 Total Counted Not Reportable Sodium 140 Potassium 3.9 Chloride 100 Carbon Dioxide 34.0 H Anion Gap 6 BUN 27 H Creatinine 0.74 Estim Creat Clear Calc 36.67 Est GFR (MDRD) Af Amer 98 Est GFR (MDRD) Non-Af 81 BUN/Creatinine Ratio 36.6 H Glucose 106 Calcium 9.2 TSH 0.76 Medical Necessity - Tobacco Use Smoking Status: Former smoker Tobacco Use: Non-smoker Assessment/Plan All Active Problems Intractable back pain (Acute) This is a 78 years old female patient admitted because of pain in the left buttock with radiation down to the left leg associated with numbness, had an MRI done at outside facility that revealed severe foraminal stenosis at L4-L5 on the left side as well as L5-S1 and she was admitted for pain control and epidural injection. #1 intractable low back pain/left buttock pain/left lower extremity pain/severe foraminal stenosis at L4-L5/L5-S1/radiculopathy: She is on IV morphine, [place], prednisone and Flexeril. She is still symptomatic, having severe pain this morning. Apart from slightly elevated blood pressure secondary to pain, other vital signs are stable. Routine blood work was unremarkable. Pain management consulted, plan for epidural injection today. Patient will need placement to halfway facility. #2 paroxysmal atrial fibrillation: Rate is controlled, continue metoprolol for rate control, Eliquis held because she is going for the epidural injection. #3 CAD status post stents: Stable, no acute issues. Continue lisinopril and metoprolol. #4 hypertension: Blood pressure slightly elevated secondary to pain, continue current medications, IV hydralazine as needed. #5 hypothyroidism: TSH was normal, continue levothyroxine. #6 DVT prophylaxis: SCDs for now. Other chronic medical problems: Stable, continue current medications. #1 GERD. #2 hyperlipidemia. #3 chronic anemia. #4 chronic bronchitis. This note was generated with etechies.ination software. It may contain incorrect words, spelling, and punctuation that were not noted in checking the note before signing. Code Visit Inpatient E&M: 66225 Subs Hosp L2
--- NOTE | 2018-12-17 08:27 | PN_ITS ---
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 Patient seen and examined. When I saw the patient, she was in severe pain in the left lower extremity, crying, very anxious. Next was instructed to give the patient IV morphine at this time. She is afebrile, blood pressure slightly elevated which is likely because of pain, pulse ox is maintained on room air. - Physical Exam General: Alert, Oriented x3, Cooperative, - - Very anxious, in severe distress because of pain. HEENT: Atraumatic, PERRLA, EOMI, Normocephalic Oral: Moist Mucosa, No Gingival or Mucosal Lesions/ Ulcerations Neck: Supple, No JVD, Negative Carotid Bruits, Trachea Midline, Thyroid Normal Size and Texture Lungs: Clear to auscultation, No rhonchi, No wheeze, No rales, Diminished Cardiovascular: Regular rate, Regular Rhythm, Normal S1, Normal S2, PMI Normal, Tachycardic Abdomen: Bowel Sounds Present, Soft, Non Tender, Non-Distended, No Hepato- splenomegaly Extremities: No clubbing, No cyanosis, No edema Skin: No rashes, No breakdown Lymphatic: No Cervical, Supraclavicular, or Inguinal Adenopathy Neurological: Cranial nerves II-XII grossly intact, Motor Exam 5/5 strength throughout, - - Decreased sensation to light touch on the left leg pain Psych/Mental Status: Anxious, Restless, Alert and oriented to time, place, person, mood and affect Vital Signs Temp Pulse Resp BP Pulse Ox 98 F 85 16 170/90 H 98 12/17/18 07:37 12/17/18 07:50 12/17/18 07:37 12/17/18 07:37 12/17/18 07:37 Oxygen Flow Rate (L/min) 2 Oxygen Delivery Method Room Air Weight: 172 lb 2.896 oz Body Mass Index (BMI) 31.4 Intake and Output for Last 24 Hours 12/15/18 12/16/18 12/17/18 23:59 23:59 23:59 Intake Total 100 / 100 1500 / 1500 50 / 50 Output Total 600 / 600 1425 / 1425 100 / 100 Balance -500 / -500 75 / 75 -50 / -50 Laboratory Tests Past 24 Hrs 12/17/18 12/17/18 05:14 05:14 WBC 9.0 RBC 5.13 Hgb 15.0 Hct 46.0 MCV 89.7 MCH 29.2 MCHC 32.6 RDW 12.8 RDW Differential 41.8 Plt Count 190 MPV 11.3 Immature Gran % (Auto) 0.200 Neut % (Auto) 77.3 H Lymph % (Auto) 12.2 L [place] % (Auto) 10.1 H Eos % (Auto) 0.1 Baso % (Auto) 0.1 Absolute Neuts (auto) 7.0 Absolute Lymphs (auto) 1.10 Total Counted Not Reportable Sodium 140 Potassium 3.9 Chloride 100 Carbon Dioxide 34.0 H Anion Gap 6 BUN 27 H Creatinine 0.74 Estim Creat Clear Calc 36.67 Est GFR (MDRD) Af Amer 98 Est GFR (MDRD) Non-Af 81 BUN/Creatinine Ratio 36.6 H Glucose 106 Calcium 9.2 TSH 0.76 Medical Necessity - Tobacco Use Smoking Status: Former smoker Tobacco Use: Non-smoker Assessment/Plan All Active Problems Intractable back pain (Acute) This is a 78 years old female patient admitted because of pain in the left buttock with radiation down to the left leg associated with numbness, had an MRI done at outside facility that revealed severe foraminal stenosis at L4-L5 on the left side as well as L5-S1 and she was admitted for pain control and epidural injection. #1 intractable low back pain/left buttock pain/left lower extremity pain/severe foraminal stenosis at L4-L5/L5-S1/radiculopathy: She is on IV morphine, [place], prednisone and Flexeril. She is still symptomatic, having severe pain this morning. Apart from slightly elevated blood pressure secondary to pain, other vital signs are stable. Routine blood work was unremarkable. Pain management consulted, plan for epidural injection today. Patient will need placement to senior living facility. #2 paroxysmal atrial fibrillation: Rate is controlled, continue metoprolol for rate control, Eliquis held because she is going for the epidural injection. #3 CAD status post stents: Stable, no acute issues. Continue lisinopril and metoprolol. #4 hypertension: Blood pressure slightly elevated secondary to pain, continue current medications, IV hydralazine as needed. #5 hypothyroidism: TSH was normal, continue levothyroxine. #6 DVT prophylaxis: SCDs for now. Other chronic medical problems: Stable, continue current medications. #1 GERD. #2 hyperlipidemia. #3 chronic anemia. #4 chronic bronchitis. This note was generated with isocketation software. It may contain incorrect words, spelling, and punctuation that were not noted in checking the note before signing. Code Visit Inpatient E&M: 57578 Subs Hosp L2
--- NOTE | 2018-12-17 11:00 | NURSING ---
called report to ac. pt left for surgery
--- NOTE | 2018-12-17 12:00 | RAD_ITS ---
PROCEDURE: Epidural block at the L4-L5 level. DATE OF EXAMINATION: December 17, 2018 INDICATION: Female, 78 years old. Low back pain. FLUOROSCOPY TIME (if supplied): (0:04) minutes/seconds. Single coned-down intraoperative view was obtained. Intraoperative imaging provided for left-sided epidural block at the L4-L5 level. RAD/Spine 1 View Any Level IMPRESSION: Intraoperative imaging provided for left-sided epidural block at the L4-L5 level. Electronically Signed: Larry Rios, at 8:30 EDT , Service support ,
[2018-12-17] MEDS: Triamcinolone Acetonide 40 MG/ML Vial (13:07)
--- NOTE | 2018-12-17 13:38 | CASEMGMT ---
Physician stated in rounds this morning that pt will need usp. SW was not able to speak w/pt prior to her going for a procedure. SW will speak w/pt later today or tomorrow morning regarding usp placement. LATRELL Bonds
[2018-12-17] MEDS: hydrALAZINE 20 MG/ML Vial 10 MG IV (14:13)
[2018-12-17] MEDS: hydrOXYzine PAM 25 MG Capsule PO (15:07)
--- NOTE | 2018-12-17 15:32 | CHAPLAIN ---
patient and bed are out of the room; card left
[2018-12-17] MEDS: Ferrous Sulfate 325 MG Tablet PO (17:03)
[2018-12-17] MEDS: traZODone 50 MG Tablet 100 MG PO (21:18)
[2018-12-18] VITALS (8 sets, daily range): BP systolic 144–163; BP diastolic 63–93; PULSE 65–100; RESP 12–20; TEMP 36.6–37.1; O2SAT 95–98
[2018-12-18] MEDS: HYDROcodone Bitartrate/Apap 5/325 Tablet PO ×3 (01:23→18:49)
[2018-12-18] MEDS: Levothyroxine 75 MCG Tablet PO (06:02)
[2018-12-18] MEDS: predniSONE 20 MG Tablet 60 MG PO (07:37)
[2018-12-18] MEDS: Ipratropium/Albuterol Sulfate 3 ML AMPUL.NEB INHALATION ×2 (07:37→19:35)
[2018-12-18] MEDS: hydrOXYzine PAM 25 MG Capsule PO ×2 (07:37→18:49)
[2018-12-18] MEDS: Ferrous Sulfate 325 MG Tablet PO ×2 (07:38→16:31)
--- NOTE | 2018-12-18 08:12 | NURSING ---
pt yelling out stating she needs pain/anxiety medication. reviewed MAR, recently medicated for both. reminded patient of recent medications given. attempted to have patient relax using distraction, deep breathing. patient now resting in bed with eyes closed. will continue to monitor.
--- NOTE | 2018-12-18 08:46 | PCM.PROGNOTE ---
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 Patient seen and examined. No acute events overnight. Low back, left buttock and left lower extremity pain significantly improved compared to yesterday. Patient still anxious and very restless. All over, she feels better. Vital signs are stable. - Physical Exam General: Alert, Oriented x3, Cooperative, - - Anxious. HEENT: Atraumatic, PERRLA, EOMI, Normocephalic Oral: Moist Mucosa, No Gingival or Mucosal Lesions/ Ulcerations Neck: Supple, No JVD, Negative Carotid Bruits, Trachea Midline, Thyroid Normal Size and Texture Lungs: Clear to auscultation, No rhonchi, No wheeze, No rales, Diminished Cardiovascular: Regular rate, Regular Rhythm, Normal S1, Normal S2, PMI Normal Abdomen: Bowel Sounds Present, Soft, Non Tender, Non-Distended, No Hepato-splenomegaly Extremities: No clubbing, No cyanosis, No edema Skin: No rashes, No breakdown Lymphatic: No Cervical, Supraclavicular, or Inguinal Adenopathy Neurological: Cranial nerves II-XII grossly intact, Neuro grossly intact Psych/Mental Status: Anxious, Restless, Alert and oriented to time, place, person, mood and affect Vital Signs Temp Pulse Resp BP Pulse Ox 97.9 F 98 16 158/93 H 98 12/18/18 07:16 12/18/18 07:16 12/18/18 07:16 12/18/18 07:16 12/18/18 07:16 Oxygen Flow Rate (L/min) 2 Oxygen Delivery Method Nasal Cannula Weight: 172 lb 2.896 oz Body Mass Index (BMI) 31.4 Intake and Output for Last 24 Hours 12/16/18 12/17/18 12/18/18 23:59 23:59 23:59 Intake Total 1500 / 1500 250 / 250 500 / 500 Output Total 1425 / 1425 300 / 300 1250 / 1250 Balance 75 / 75 -50 / -50 -750 / -750 Medical Necessity - Tobacco Use Smoking Status: Former smoker Tobacco Use: Non-smoker Assessment/Plan All Active Problems Intractable back pain (Acute) This is a 78 years old female patient admitted because of pain in the left buttock with radiation down to the left leg associated with numbness, had an MRI done at outside facility that revealed severe foraminal stenosis at L4-L5 on the left side as well as L5-S1 and she was admitted for pain control and epidural injection. #1 intractable low back pain/left buttock pain/left lower extremity pain/severe foraminal stenosis at L4-L5/L5-S1/radiculopathy: Status post epidural steroid injection. She is on IV morphine, [place], prednisone and Flexeril. Her pain started to improve but she is still very anxious. Plan: Start Ativan every 12 hours for anxiety, continue other treatments, plan for placement to shelter facility. #2 paroxysmal atrial fibrillation: Rate is controlled, continue metoprolol for rate control, Eliquis held for the epidural injection, plan to restart Eliquis tomorrow. #3 CAD status post stents: Stable, no acute issues. Continue lisinopril and metoprolol. #4 hypertension: Blood pressure slightly elevated secondary to pain, continue current medications, IV hydralazine as needed. #5 hypothyroidism: TSH was normal, continue levothyroxine. #6 DVT prophylaxis: SCDs for now. Other chronic medical problems: Stable, continue current medications. #1 GERD. #2 hyperlipidemia. #3 chronic anemia. #4 chronic bronchitis. This note was generated with [employer] software. It may contain incorrect words, spelling, and punctuation that were not noted in checking the note before signing. Code Visit Inpatient E&M: 26236 Subs Hosp L2
--- NOTE | 2018-12-18 08:49 | PN_ITS ---
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 Patient seen and examined. No acute events overnight. Low back, left buttock and left lower extremity pain significantly improved compared to yesterday. Patient still anxious and very restless. All over, she feels better. Vital signs are stable. - Physical Exam General: Alert, Oriented x3, Cooperative, - - Anxious. HEENT: Atraumatic, PERRLA, EOMI, Normocephalic Oral: Moist Mucosa, No Gingival or Mucosal Lesions/ Ulcerations Neck: Supple, No JVD, Negative Carotid Bruits, Trachea Midline, Thyroid Normal Size and Texture Lungs: Clear to auscultation, No rhonchi, No wheeze, No rales, Diminished Cardiovascular: Regular rate, Regular Rhythm, Normal S1, Normal S2, PMI Normal Abdomen: Bowel Sounds Present, Soft, Non Tender, Non-Distended, No Hepato- splenomegaly Extremities: No clubbing, No cyanosis, No edema Skin: No rashes, No breakdown Lymphatic: No Cervical, Supraclavicular, or Inguinal Adenopathy Neurological: Cranial nerves II-XII grossly intact, Neuro grossly intact Psych/Mental Status: Anxious, Restless, Alert and oriented to time, place, person, mood and affect Vital Signs Temp Pulse Resp BP Pulse Ox 97.9 F 98 16 158/93 H 98 12/18/18 07:16 12/18/18 07:16 12/18/18 07:16 12/18/18 07:16 12/18/18 07:16 Oxygen Flow Rate (L/min) 2 Oxygen Delivery Method Nasal Cannula Weight: 172 lb 2.896 oz Body Mass Index (BMI) 31.4 Intake and Output for Last 24 Hours 12/16/18 12/17/18 12/18/18 23:59 23:59 23:59 Intake Total 1500 / 1500 250 / 250 500 / 500 Output Total 1425 / 1425 300 / 300 1250 / 1250 Balance 75 / 75 -50 / -50 -750 / -750 Medical Necessity - Tobacco Use Smoking Status: Former smoker Tobacco Use: Non-smoker Assessment/Plan All Active Problems Intractable back pain (Acute) This is a 78 years old female patient admitted because of pain in the left buttock with radiation down to the left leg associated with numbness, had an MRI done at outside facility that revealed severe foraminal stenosis at L4-L5 on the left side as well as L5-S1 and she was admitted for pain control and epidural injection. #1 intractable low back pain/left buttock pain/left lower extremity pain/severe foraminal stenosis at L4-L5/L5-S1/radiculopathy: Status post epidural steroid injection. She is on IV morphine, [place], prednisone and Flexeril. Her pain started to improve but she is still very anxious. Plan: Start Ativan every 12 hours for anxiety, continue other treatments, plan for placement to [facility] facility. #2 paroxysmal atrial fibrillation: Rate is controlled, continue metoprolol for rate control, Eliquis held for the epidural injection, plan to restart Eliquis tomorrow. #3 CAD status post stents: Stable, no acute issues. Continue lisinopril and metoprolol. #4 hypertension: Blood pressure slightly elevated secondary to pain, continue current medications, IV hydralazine as needed. #5 hypothyroidism: TSH was normal, continue levothyroxine. #6 DVT prophylaxis: SCDs for now. Other chronic medical problems: Stable, continue current medications. #1 GERD. #2 hyperlipidemia. #3 chronic anemia. #4 chronic bronchitis. This note was generated with Mailgunation software. It may contain incorrect words, spelling, and punctuation that were not noted in checking the note before signing. Code Visit Inpatient E&M: 23671 Subs Hosp L2
[2018-12-18] MEDS: Fluticasone 0.05% 1 SPRAY NASAL.SRY NASAL (10:11)
[2018-12-18] MEDS: Pantoprazole Sodium 20 MG Tablet PO (10:12)
[2018-12-18] MEDS: Metoprolol Tartrate 25 MG Tablet PO ×2 (10:12→21:42)
[2018-12-18] MEDS: Furosemide 20 MG Tablet PO (10:12)
[2018-12-18] MEDS: Lisinopril 5 MG Tablet PO (10:12)
[2018-12-18] MEDS: Sertraline 50 MG Tablet PO (10:13)
[2018-12-18] MEDS: ALPRAZolam 0.5 MG Tablet PO ×2 (10:16→21:42)
--- NOTE | 2018-12-18 10:29 | CASEMGMT ---
SW spoke w/pt in room in regard to possible rehab options for her. She would like to go to the [facility]. SW explained will call. SW called, they take pt's insurance and have bed availability. SW faxed initial referral, will fax PT/OT updates once they see pt. SW let pt know that [facility] takes her insurance and they are reviewing her referral. Pt states understanding. SW will continue to follow. LATRELL Bonds
--- NOTE | 2018-12-18 10:38 | CASEMGMT ---
LW/POA not in chart, SW let pt know, asked her to bring in the forms at some point in the future. Pt states understanding. LATRELL Bonds
--- NOTE | 2018-12-18 10:54 | NURSING ---
PT STOOD AT BEDSIDE WITH MAX 2 ASSIST. PT TOLERATED FAIR. PT PLACED BACK INTO BED WITH HEAD ELEVATED.
--- NOTE | 2018-12-18 14:54 | CHAPLAIN ---
Type of Pastoral Visit _x__ Initial Visit ___ Follow-up Visit ___ On-call Visit ___ General Patient Visit ___ Spiritual Assessment ___ Family Conference ___ Bereavement ___ Rapid Response ___ Code Blue ___ Other (describe below) Pastoral Care Referral From _x__ Patient _x__ Family ___ Nurse ___ Physician ___ Office Runner ___ Crusher Plant Operator ___ Other (describe below) Sacrament/Intervention _x__ Active listening ___ Anointing ___ Mormon ___ Bereavement ___ Communion ___ Sayra exploration ___ ___ Life review _x__ Prayer ___ Reconciliation ___ Sacrament of Sick _x__ Supportive presence ___ Wedding ___ Other (describe below) Pastoral Comments
[2018-12-18] MEDS: traZODone 50 MG Tablet 100 MG PO (21:41)
[2018-12-19] VITALS (8 sets, daily range): BP systolic 102–168; BP diastolic 74–98; PULSE 68–108; RESP 16–20; TEMP 36.4–37.2; O2SAT 92–100
[2018-12-19] MEDS: hydrOXYzine PAM 25 MG Capsule PO ×3 (02:29→15:26)
[2018-12-19] MEDS: hydrALAZINE 20 MG/ML Vial 10 MG IV (02:29)
[2018-12-19] MEDS: HYDROcodone Bitartrate/Apap 5/325 Tablet PO ×3 (02:29→15:26)
[2018-12-19] MEDS: 0.9% NaCl Peripheral Flush Adult/Peds IV (02:31)
[2018-12-19] MEDS: Levothyroxine 75 MCG Tablet PO (06:37)
[2018-12-19] MEDS: Acetaminophen 325 MG Tablet 650 MG PO (06:37)
[2018-12-19] MEDS: Ipratropium/Albuterol Sulfate 3 ML AMPUL.NEB INHALATION (07:12)
[2018-12-19] MEDS: Furosemide 20 MG Tablet PO (09:10)
[2018-12-19] MEDS: predniSONE 20 MG Tablet 60 MG PO (09:10)
[2018-12-19] MEDS: Pantoprazole Sodium 20 MG Tablet PO (09:11)
[2018-12-19] MEDS: Fluticasone 0.05% 1 SPRAY NASAL.SRY NASAL (09:11)
[2018-12-19] MEDS: Ferrous Sulfate 325 MG Tablet PO (09:11)
[2018-12-19] MEDS: Sertraline 50 MG Tablet PO (09:12)
[2018-12-19] MEDS: ALPRAZolam 0.5 MG Tablet PO (09:16)
--- NOTE | 2018-12-19 09:26 | NURSING ---
pT SITTING IN CHAIR, THERAPY GOT PT UP. WAS ONLY UP MAYBE 20 MIN. PT TEARFULL, MOANING, ANXIOUS WHEN THIS NURSE ENTERED ROOM. pT SEEMED FINE UNTIL THIS NURSE ENTERED ROOM. pT DEMEANDING TO GET BACK IN BED. ONCE INFORMED WE WOULD GET HER BACK IN BED, MOANING, AND ANXIETY GOT WORSE. pANIAC LEVEL OF ANXIETY. i CANT BREATHE i CANT BREATHE. SHE KEPT REPEATING. INSTRUCTED TO TAKE DEEP BREATHS. SPO2 WAS 100% ON 2l nc. oNCE BACK IN BED PT HAD DIARREA. STATES SHE GETS THAT WHEN SHE IS ANXIOUS.
--- NOTE | 2018-12-19 11:33 | CASEMGMT ---
Addendum entered by Mimi Burgess 12/19/18 14:02: NAVIN faxed completed discharge paperwork to [facility] including transfer to extended care facility, signed medication list and any scripts. Original in SNF folder and copy on pt's chart. NAVIN arranged transportation through [facility] via cot for 3:30pm. Transportation form on SNF folder and copy on pt's chart. [facility] is not needed. NAVIN updated pt, charge nurse and RN on transportation time. SW asked pt if she would like this worker to call any family members, pt denied, states she will call her family when she arrives at [facility]. Plan: Pt to discharge to [facility] with [facility] transporting via cot at 3:30pm ANIBAL Smalls Original Note: Social Work Note SW received message from MARCO Geronimo at [facility] stating pre-cert has been obtained and pt is able to discharge today. Physician updated. Plan: [facility] today ANIBAL Smalls
--- NOTE | 2018-12-19 11:39 | PCM.TXEXTCAR ---
- Diet 12/17/18 13:58 Diet: Cardiac/Low Cholesterol Type of Dietary Supplement:: Ensure Complete Is pt able to select menu?: No - Wound(s) top of left foot Wound Type: thickened area- abrasion to top LUMBAR Wound Type: INJECTION - Suggestions for Active Care Change Position every (hours): 3 Hours to sit in a chair: 2 Times a day to sit in chair: 3 - Therapies Weight Bearing: Weight bearing as tolerated Physical Therapy: Eval and Treat Occupational Therapy: Eval and Treat - Allergies/Procedures Done in Hospital Allergies/Adverse Reactions: Allergies Penicillins [PCN] Allergy (Verified 08/15/17 14:23) Swelling - Type of Care/Length of Stay Estimated LOS: Convalescent Care Less Than 30 days Type of Care Needed: Skilled Rehab Potential: Fair Prognosis: Fair - Additional Orders/Day of Discharge H&P will serve as current which was dated: 12/15/18 Day of Discharge: 12/19/18 - Dietary and Speech Recommendations Dietitian Recommendations/Changes: Rec diet change to Cardiac/Low sodium diet w/ fluid restriction if medically indicated d/t hx of CHF and to comply w/ home routine. Rec to change ONS to Ensure Enlive 120 ml w/medpass to increase protein/energy intake between meals instead of 240ml w/ meals. Rec continue w/ 240 ml Ensure Enlive for breakfast to comply w/ home routine. - Follow Up Care Primary Care Physician: Pretty Baeza DO [Primary Care Provider] - Please follow up with your Primary Care Physician in: 2 weeks. Please Follow Up With: Peter Faria MD When: 1 week.
--- NOTE | 2018-12-19 13:09 | PCM.PROGNOTE ---
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 Patient seen and examined. No acute events overnight. Today, she feels better, having less pain. She is less anxious. Feeling much better. Her vital signs are stable. We are awaiting insurance approval for placement to senior care facility. - Physical Exam General: Alert, Oriented x3, Cooperative, No apparent distress HEENT: Atraumatic, PERRLA, EOMI, Normocephalic Oral: Moist Mucosa, No Gingival or Mucosal Lesions/ Ulcerations Neck: Supple, No JVD, Negative Carotid Bruits, Trachea Midline, Thyroid Normal Size and Texture Lungs: Clear to auscultation, No rhonchi, No wheeze, No rales, Diminished Cardiovascular: Regular rate, Regular Rhythm, Normal S1, Normal S2, PMI Normal Abdomen: Bowel Sounds Present, Soft, Non Tender, Non-Distended, No Hepato-splenomegaly Extremities: No clubbing, No cyanosis, No edema Skin: No rashes, No breakdown Lymphatic: No Cervical, Supraclavicular, or Inguinal Adenopathy Neurological: Cranial nerves II-XII grossly intact, Neuro grossly intact Psych/Mental Status: Normal Affect, Appropriate, Alert and oriented to time, place, person, mood and affect Vital Signs Temp Pulse Resp BP Pulse Ox 98.9 F 108 H 20 H 102/74 100 12/19/18 08:15 12/19/18 08:15 12/19/18 08:15 12/19/18 08:15 12/19/18 08:15 Oxygen Flow Rate (L/min) 2 Oxygen Delivery Method Nasal Cannula Weight: 172 lb 2.896 oz Body Mass Index (BMI) 31.4 Intake and Output for Last 24 Hours 12/17/18 12/18/18 12/19/18 23:59 23:59 23:59 Intake Total 250 / 250 500 / 500 300 / 300 Output Total 300 / 300 1250 / 1250 Balance -50 / -50 -750 / -750 299 / 299 Microbiology Past 72 Hours 12/15/18 18:00 Urine Culture - Final Urine Catheter - Catheter Culture exhibits no growth. Medical Necessity - Tobacco Use Smoking Status: Former smoker Tobacco Use: Non-smoker Assessment/Plan All Active Problems Intractable back pain (Acute) This is a 78 years old female patient admitted because of pain in the left buttock with radiation down to the left leg associated with numbness, had an MRI done at outside facility that revealed severe foraminal stenosis at L4-L5 on the left side as well as L5-S1 and she was admitted for pain control and epidural injection. #1 intractable low back pain/left buttock pain/left lower extremity pain/severe foraminal stenosis at L4-L5/L5-S1/radiculopathy: Status post epidural steroid injection. She is on IV morphine, [place], prednisone and Flexeril. Symptoms continue to improve, feeling much better. She is able to ambulate. Awaiting insurance approval for placement to senior care facility. #2 paroxysmal atrial fibrillation: Rate is controlled, continue metoprolol for rate control, started back on Eliquis. #3 CAD status post stents: Stable, no acute issues. Continue lisinopril and metoprolol. #4 hypertension: Blood pressure under better control, continue current medications, IV hydralazine as needed. #5 hypothyroidism: TSH was normal, continue levothyroxine. #6 DVT prophylaxis: SCDs for now. Other chronic medical problems: Stable, continue current medications. #1 GERD. #2 hyperlipidemia. #3 chronic anemia. #4 chronic bronchitis. This note was generated with [employer] dictation software. It may contain incorrect words, spelling, and punctuation that were not noted in checking the note before signing. Code Visit Inpatient E&M: 63420 Subs Hosp L2
--- NOTE | 2018-12-19 13:20 | PN_ITS ---
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 Patient seen and examined. No acute events overnight. Today, she feels better, having less pain. She is less anxious. Feeling much better. Her vital signs are stable. We are awaiting insurance approval for placement to [facility]. - Physical Exam General: Alert, Oriented x3, Cooperative, No apparent distress HEENT: Atraumatic, PERRLA, EOMI, Normocephalic Oral: Moist Mucosa, No Gingival or Mucosal Lesions/ Ulcerations Neck: Supple, No JVD, Negative Carotid Bruits, Trachea Midline, Thyroid Normal Size and Texture Lungs: Clear to auscultation, No rhonchi, No wheeze, No rales, Diminished Cardiovascular: Regular rate, Regular Rhythm, Normal S1, Normal S2, PMI Normal Abdomen: Bowel Sounds Present, Soft, Non Tender, Non-Distended, No Hepato- splenomegaly Extremities: No clubbing, No cyanosis, No edema Skin: No rashes, No breakdown Lymphatic: No Cervical, Supraclavicular, or Inguinal Adenopathy Neurological: Cranial nerves II-XII grossly intact, Neuro grossly intact Psych/Mental Status: Normal Affect, Appropriate, Alert and oriented to time, place, person, mood and affect Vital Signs Temp Pulse Resp BP Pulse Ox 98.9 F 108 H 20 H 102/74 100 12/19/18 08:15 12/19/18 08:15 12/19/18 08:15 12/19/18 08:15 12/19/18 08:15 Oxygen Flow Rate (L/min) 2 Oxygen Delivery Method Nasal Cannula Weight: 172 lb 2.896 oz Body Mass Index (BMI) 31.4 Intake and Output for Last 24 Hours 12/17/18 12/18/18 12/19/18 23:59 23:59 23:59 Intake Total 250 / 250 500 / 500 300 / 300 Output Total 300 / 300 1250 / 1250 Balance -50 / -50 -750 / -750 299 / 299 Microbiology Past 72 Hours 12/15/18 18:00 Urine Culture - Final Urine Catheter - Catheter Culture exhibits no growth. Medical Necessity - Tobacco Use Smoking Status: Former smoker Tobacco Use: Non-smoker Assessment/Plan All Active Problems Intractable back pain (Acute) This is a 78 years old female patient admitted because of pain in the left buttock with radiation down to the left leg associated with numbness, had an MRI done at outside facility that revealed severe foraminal stenosis at L4-L5 on the left side as well as L5-S1 and she was admitted for pain control and epidural injection. #1 intractable low back pain/left buttock pain/left lower extremity pain/severe foraminal stenosis at L4-L5/L5-S1/radiculopathy: Status post epidural steroid injection. She is on IV morphine, [place], prednisone and Flexeril. Symptoms continue to improve, feeling much better. She is able to ambulate. Awaiting insurance approval for placement to prison facility. #2 paroxysmal atrial fibrillation: Rate is controlled, continue metoprolol for rate control, started back on Eliquis. #3 CAD status post stents: Stable, no acute issues. Continue lisinopril and metoprolol. #4 hypertension: Blood pressure under better control, continue current medications, IV hydralazine as needed. #5 hypothyroidism: TSH was normal, continue levothyroxine. #6 DVT prophylaxis: SCDs for now. Other chronic medical problems: Stable, continue current medications. #1 GERD. #2 hyperlipidemia. #3 chronic anemia. #4 chronic bronchitis. This note was generated with [employer] dictation software. It may contain incorrect words, spelling, and punctuation that were not noted in checking the note before signing. Code Visit Inpatient E&M: 12135 Subs Hosp L2
[2018-12-19] MEDS: Lisinopril 5 MG Tablet PO (14:21)
[2018-12-19] MEDS: Metoprolol Tartrate 25 MG Tablet PO (14:22)
[2018-12-19] MEDS: APIXABAN 5 MG TABLET PO (14:24)
--- NOTE | 2018-12-19 14:54 | NURSING ---
Bladder Scanned for 431. This was after Attends changed.
--- NOTE | 2018-12-19 15:21 | NURSING ---
Addendum entered by Sravanthi Munoz 12/19/18 15:58: pt up to [facility] and voided 300cc of urine. Original Note: pt only had one mod amt of incont in attends. Mimi LARA bladder scanned pt for 431. This nurse and Mimi LARA got pt up to [facility]. Pt screaming and having another Panic attack. states her pain goes from waist down to toes, pt states it does not happen while she is in bed. Dr. Del Angel paged to inform that pt still complaining of this. Dr. Del Angel states she came in with this and that the reason for the epidural injection. pt still okay to go to [place].
--- NOTE | 2018-12-19 16:14 | NURSING ---
Report given to Adriane LARA at [facility] at this time. Still waiting on transport to come get her.
--- NOTE | 2018-12-19 16:29 | DS.PCM_ITS ---
Discharge Date and Diagnosis Date of Admission: 12/15/18 Date of Discharge: 12/19/18 - Primary Discharge Diagnosis Active and Suspected Problems #1 intractable back pain/left buttock pain/left lower extremity pain (Acute) #2 severe foraminal stenosis at L4-L5/L5-S1 with radiculopathy. Status post epidural steroid injection. #3 physical debility/functional decline. - Secondary Discharge Diagnosis Chronic Problems Foraminal stenosis of lumbosacral region (Chronic) Chronic anticoagulation (Chronic) Iron deficiency anemia (Chronic) Congestive heart failure (Chronic) Coronary artery disease (Chronic) s/p stents 1999 Hypertension (Chronic) Paroxysmal A-fib (Chronic) on Eliquis Anxiety (Chronic) Hypothyroidism (Chronic) GERD (gastroesophageal reflux disease) (Chronic) Hyperlipidemia (Chronic) Chronic bronchitis (Chronic) Hospital Course and Treatment Imaging Results: Clinical Impression(s) from Imaging Studies Spine X-Ray 12/17/18 12:00 IMPRESSION: Intraoperative imaging provided for left-sided epidural block at the L4-L5 level. Electronically Signed: Larry Rios, at 8:30 EDT , Service support , Dr. Faria, pain management. Operations: None Procedures: - - Epidural steroid injection. Summary of Care Provided: Patient seen and examined on the day of discharge and appeared to be stable to be discharged home. Her back/left buttock/left leg pain improved and she has been able to ambulate. Her level of anxiety also improved. Her vital signs are stable. The patient is a 78 year old F admitted because of pain in the left buttock with radiation down to the left leg associated with numbness and tingling. She had an MRI done at outside facility that revealed severe foraminal stenosis at L4-L5 on the left side as well as L5-S1. She was treated with IV morphine, [place], oral prednisone and Flexeril. Pain management consulted and patient underwent epidural steroid injection. Initially, patient had severe pain, was very distressed and very anxious. After the epidural injection as well as IV pain medications, her symptoms started to improve. She had very high level of anxiety for which she was started on Xanax twice daily. With above-mentioned treatment, patient symptoms improved, her pain improved and she was able to ambulate on her feet and she did have minimal numbness and tingling in the left lower extremity. Because patient lives alone at home and because of her difficulties with this pain and radicular bradycardia, patient was appropriate for placement to halfway facility. Her Eliquis was held for 2 days for the epidural injection and then was restarted back. Patient discharged to halfway facility in a stable medical condition, discharged on tapering course of prednisone, [place] for pain as needed, Flexeril as needed, discharged on Xanax 0.5 mg p.o. twice daily for anxiety, continued on her chronic home medications without any changes, recommended follow-up with PCP in 2 weeks and follow-up with pain management in 1 week. - Physical Exam General: Alert, Oriented x3, Cooperative HEENT: Atraumatic, PERRLA, EOMI, Normocephalic Oral: Moist Mucosa, No Gingival or Mucosal Lesions/ Ulcerations Neck: Supple, No JVD, Negative Carotid Bruits, Trachea Midline, Thyroid Normal Size and Texture Lungs: Clear to auscultation, No rhonchi, No wheeze, No rales, Diminished Cardiovascular: Regular rate, Regular Rhythm, Normal S1, Normal S2, PMI Normal Abdomen: Bowel Sounds Present, Soft, Non Tender, Non-Distended, No Hepato- splenomegaly Extremities: No clubbing, No cyanosis, No edema Skin: No rashes, No breakdown Neurological: Cranial nerves II-XII grossly intact, - - Moving all limbs. Psych/Mental Status: - - Less anxious and restless. Vital Signs Temp Pulse Resp BP Pulse Ox 98.2 F 102 H 18 152/84 H 92 12/19/18 14:25 12/19/18 14:25 12/19/18 14:25 12/19/18 14:25 12/19/18 14:25 Oxygen Flow Rate (L/min) 2 Oxygen Delivery Method Room Air Weight: 172 lb 2.896 oz Body Mass Index (BMI) 31.4 Intake and Output for Last 24 Hours 12/17/18 12/18/18 12/19/18 23:59 23:59 23:59 Intake Total 250 / 250 500 / 500 500 / 500 Output Total 300 / 300 1250 / 1250 Balance -50 / -50 -750 / -750 499 / 499 Microbiology Past 72 Hours 04/15/19 18:00 Urine Culture - Final Urine Catheter - Catheter Culture exhibits no growth. Home Medications: Medications to take at Discharge Apixaban [Eliquis] 5 mg PO BID 08/15/17 Potassium Chloride [Klor-Con 10] 2 tab PO DAILY 08/15/17 Cyanocobalamin/FA/Pyridoxine [Folgard Rx Tablet] 1 each PO DAILY 12/15/18 Cyclobenzaprine [Flexeril] 10 mg PO TID PRN PRN 12/15/18 Ferrous Sulfate 325 mg PO BIDCM 12/15/18 Fluticasone Propionate 1 spray NASAL DAILY 12/15/18 Furosemide [Lasix] 1 tablet PO DAILY 12/15/18 Ipratropium/Albuterol Sulfate [Iprat-Albut 0.5-3(2.5) mg/3 ml] 3 ml INHALATION BID 12/15/18 Levothyroxine [Synthroid] 75 mcg PO DAILY 12/15/18 Lisinopril [Zestril] 5 mg PO DAILY 12/15/18 Metoprolol Tartrate [Lopressor (beta arthur)] 25 mg PO BID 12/15/18 Omeprazole [Prilosec] 20 mg PO DAILY 12/15/18 Sertraline HCl [Zoloft] 50 mg PO DAILY 12/15/18 traZODone [Desyrel] 2 tab PO QHS 12/15/18 ALPRAZolam [Xanax] 0.5 mg PO BID #30 tab 12/19/18 Hydrocodone Bitart/Apap 5-325 [[place] 5/325] 1 tab PO Q6H PRN PRN 7 Days #30 tab 12/19/18 Prednisone 40 mg PO DAILY #30 tab 12/19/18 Following Prescrptions Were Given to Patient: Hydrocodone Bitart/Apap 5-325 [[place] 5/325] 1 tab PO Q6H PRN PRN 7 Days #30 tab PRN Reason: Severe Pain (6-10/10) Prednisone 40 mg PO DAILY #30 tab ALPRAZolam [Xanax] 0.5 mg PO BID #30 tab Primary Care Physician: Pretty Baeza DO [Primary Care Provider] - Please follow up with your Primary Care Physician in: 2 weeks. Please Follow Up With: Peter Faria MD When: 1 week. Disposition: [facility] facility Minutes spent on discharge:: 32 Patient Condition:: Stable Medical Necessity - Tobacco Use Smoking Status: Former smoker Tobacco Use: Non-smoker Meaningful Use Info Meaningful Use Diagnoses (Choose all that apply): None applicable Code Visit Inpatient E&M: 76624 Disch Hosp
== END 2018-12-19 16:20 | disposition skilled nursing facility (03) | DRG 552 ==
PROVIDERS: Anesthesiology; Anesthesiology Pain Medicine; Admitting Provider Internal Medicine; Family Provider Family Medicine; PCP Family Medicine; Referring Provider Internal Medicine; Visit Provider Hospitalist
PROC: 3E0S3BZ Introduction of Anesthetic Agent into Epidural Space, Percutaneous Approach (ICD-10-PCS; CPT 62322; principal; 2018-12-17 11:55)
DX: M48.07 Spinal stenosis, lumbosacral region (principal); M48.061 Spinal stenosis, lumbar region without neurogenic claudication; I48.0 Paroxysmal atrial fibrillation; I25.10 Atherosclerotic heart disease of native coronary artery without angina pectoris; J44.9 Chronic obstructive pulmonary disease, unspecified; K21.9 Gastro-esophageal reflux disease without esophagitis; I25.5 Ischemic cardiomyopathy; Z79.01 Long term (current) use of anticoagulants; E78.5 Hyperlipidemia, unspecified; M54.16 Radiculopathy, lumbar region; M54.17 Radiculopathy, lumbosacral region; F41.9 Anxiety disorder, unspecified; E03.9 Hypothyroidism, unspecified; I11.0 Hypertensive heart disease with heart failure; I50.9 Heart failure, unspecified; D50.9 Iron deficiency anemia, unspecified; Z95.5 Presence of coronary angioplasty implant and graft; Z87.891 Personal history of nicotine dependence
CPT/HCPCS: 36415; 64483; 72020; 80048; 80053; 81001; 84443; 85025; 87086; 93005; 94640; 97162; 97166; 97530; A4216; J2405

== ENCOUNTER 2022-07-13 23:04 | Inpatient (IN) | payer MEDICARE, SELFPAY ==
--- NOTE | 2022-07-13 22:57 | HP.PCM.HOS_ITS ---
HPI - General General Date of Admission: 07/13/22 Date of Service: 07/13/22 Chief Complaint: Abdominal pain, elevated LFTs HPI Narrative The patient is an 81 y/o F w/ PMHx: Former tobacco use, CAD s/p PCI OM 10/2003, Chronic thrombocytopenia, HTN, HLD, PAF, Anxiety and Depression, Hypothyroidism, GERD, Chronic anemia/Fe deficiency anemia, Diastolic CHF/Mild Ischemic Cardiomyopathy, COPD w/ Chronic Hypoxic Respiratory Failure (O2 HS only), Chronic elevated alkaline phosphatase and stable biliary ductal dilation per records recently admitted to [facility] secondary to fatigue, encephalopathy and elevated LFTs from 06/27/22-07/03/22 eventual diagnosed with PNA (suspected aspiration potential treated with rocephin/flagyl), diarrhea transiently from abx with ruled out cdiff/enteric/O+P, YOHANA improved, Elevated LFTs improved w/ continued mildly elevated alk phos with MRCP noting T2 intense lesion involving segment 6 of the liver, findings concerning for acute interstitial pancreatitis, mild intrahepatic and extrahepatic biliary ductal dilatation with no evidence of choledocholithiasis, right lower lobe mass or infiltrate, negative hepatitis panel with GI evaluation performed who now presents to [place] ED on 07/13/22 with increased abdominal pain, upper abdominal, epigastric region with radiation toward the middle of the back, ongoing congestion/cough but no recent fever or chills prompting return to ED for evaluation. From review of records during prior recent admission at [facility] noted intention for outpatient EUS. Patient was encouraged to be transferred to [facility] where she has received all her care but she declined and noted preference to transfer to [place]. Upon her initial presentation and work-up at [facility] her labs were: 06/27/22 with sodium 136, potassium 5.2, chloride 97, BUN/creatinine 49/2.13, AST/ALT 123/109, ALP 341, bilirubin 1.0. From prior [facility] records with noted 04/2021 w/ EGD and colonoscopy gastritis, several adenomatous colon polyps, diverticulosis and hemorrhoids at that time. Current work-up at [place] ED included: VS: T 98.5, BP 111/96, HR 68, RR 14, 100% on RA CBC: WBC 7.75, Hgb 12.9, MCV 94, Ptls 158 without marked shift CMP: Na 139, K 4.1, Chl 95, CO2 34, BUN/Cr 25/1.06, glucose 94, AST/ALT 201/70, Alk phos 416, lipase 44. [facility] Medical History (Updated 07/13/22 @ 23:[address] Elisa Huddleston MD) Anxiety and depression Chronic idiopathic thrombocytopenia Chronic respiratory failure with hypoxia, on home O2 therapy COPD (chronic obstructive pulmonary disease) Coronary artery disease Diastolic CHF Former tobacco use GERD (gastroesophageal reflux disease) Hyperlipidemia Hypertension Hypothyroidism Iron deficiency anemia Ischemic cardiomyopathy Paroxysmal A-fib Home Medications apixaban 5 mg tablet (Eliquis) 2.5 mg PO BID blood thinner 08/15/17 [History Last Taken 07/13/22] cyclobenzaprine 10 mg tablet 10 mg PO TID PRN PRN pain 12/15/18 [History Last Taken Unknown] ferrous sulfate 325 mg (65 mg iron) tablet 325 mg PO BIDCM anemia 12/15/18 [History Last Taken Unknown] fluticasone propionate 50 mcg/actuation nasal spray,suspension 1 spray DAILY copd 12/15/18 [History Last Taken Unknown] folic acid-vit B6-vit B12 2.2 mg-25 mg-1 mg tablet (Folgard RX) 1 ea PO DAILY supplement 12/15/18 [History Last Taken Unknown] ipratropium 0.5 mg-albuterol 3 mg (2.5 mg base)/3 mL nebulization soln 3 ml inhalation TID respiratory 12/15/18 [History Last Taken 07/13/22] levothyroxine 75 mcg tablet 75 mcg PO DAILY thyroid 12/15/18 [History Last Taken 07/13/22] sertraline 50 mg tablet 125 mg PO DAILY depression 12/15/18 [History Last Taken 07/13/22] trazodone 50 mg tablet 100 mg PO QHS sleep, depression 12/15/18 [History Last Taken 07/12/22] amlodipine 2.5 mg tablet 2.5 mg PO DAILY bp 07/13/22 [History Last Taken 07/13/22] atorvastatin 40 mg tablet 40 mg PO DAILY cholesterol 07/13/22 [History Last Taken 07/12/22] cetirizine 10 mg tablet 10 mg PO DAILY SINUSES 07/13/22 [History Last Taken 07/12/22] metoprolol succinate 25 mg tablet,extended release 24 hr 25 mg PO DAILY HEART FAILURE 07/13/22 [History Last Taken 07/13/22] pantoprazole 20 mg tablet,delayed release (Protonix) 20 mg PO DAILY gerd 07/13/22 [History Last Taken 07/13/22] potassium chloride 20 mEq tablet,extended release 20 meq PO BID CHF 07/13/22 [History Last Taken 07/13/22] sacubitril 49 mg-valsartan 51 mg tablet 1 tab PO BID CHF 07/13/22 [History Last Taken 07/13/22] torsemide 20 mg tablet 20 mg PO BID sob/edema 07/13/22 [History Last Taken 07/13/22] Allergy/AdvReac Type Severity Reaction Status Date / Time Penicillins [PCN] Allergy Swelling Verified 08/15/17 14:23 other (Denies any marked maternal or paternal family history including HD, DM, CA.) Surgical History (Updated 07/13/22 @ 20:[address] Elisa Huddleston MD) H/O heart artery stent History of appendectomy History of tonsillectomy and adenoidectomy History of total abdominal hysterectomy Hx of cholecystectomy Social History (Updated 07/13/22 @ 20:[address] Elisa Huddleston MD) household members: none housing: assisted living facility Smoking Status: Former smoker how long ago did patient quit smoking: Quit 1999. alcohol intake: never substance use type: does not use ROS ROS Narrative Admission Review of Systems: CONSTITUTIONAL: + Prior recent hospitalization with fever, weakness, fatigue, weight loss history. + Congestion, rhinorrhea. Eyes: No visual loss, blurred vision, double vision or yellow sclerae. Ears, Nose, Throat: No hearing loss, sneezing. SKIN: + Various excoriations, picked regions, occasional ecchymoses. CARDIOVASCULAR: No chest pain, chest pressure or chest discomfort, palpitations, edema, orthopnea, syncopal events. RESPIRATORY: + shortness of breath, cough with mildly productive sputum, No wheezing, hemoptysis. GASTROINTESTINAL: + anorexia, recent diarrhea at [facility], abdominal pain, nausea, No melena, BRBPR. GENITOURINARY: No dysuria, frequency, urgency or retention. NEUROLOGICAL: No headache, dizziness, syncope, paralysis, ataxia, numbness or tingling in the extremities, focal weakness, change in bowel or bladder control, seizure. MUSCULOSKELETAL: + muscle, back pain, joint pain or stiffness. HEMATOLOGIC: + anemia, bleeding or bruising. LYMPHATICS: No enlarged nodes. No history of splenectomy. PSYCHIATRIC: + history of depression or anxiety. ENDOCRINOLOGIC: No reports of sweating, cold or heat intolerance. No polyuria or polydipsia. ALLERGIES: + history of rhinitis. Physical Exam Narrative Physical Examination: General: Awake, alert, oriented x 3 and cooperative, seated upright in the EMS bed, no acute distress. Skin: Normal color, normal turgor, no icterus, no cyanosis except for occasional excoriations, picked regions, occasional ecchymoses. HEENT: AT/NC, EOMI, PERRLA, MMM, no carotid bruits or JVD noted. Lungs: Diminished, greater bases, some moist coughing but improves, no evidence of any distress, no rales, ronchi or wheezing but again notably diminished. Heart: Irregular, rate controlled; no gallop, rub audible. Abdomen: Soft, initially mild discomfort especially to the epigastric region however with distraction there is no abdominal pain present, ND, distant normal BS, no HSM. Extremities: No cyanosis, clubbing, or edema. Neurological: Patient awake, alert, oriented as noted, cognitive function intact; pupils equally reactive to light and accommodation, cranial nerves II- XII grossly normal, moving all 4 extremities, no focal deficits, strength moderately global decrease secondary to acute complaints Psychiatric: Affect appears fatigued otherwise normal, no acute evidence of depressive or anxiety feelings. Assessment & Plan Assessment/Plan (1) Abdominal pain: PLAN: Plan The patient is an 81 y/o F w/ PMHx: Former tobacco use, CAD s/p PCI OM 10/2003, Chronic thrombocytopenia, HTN, HLD, PAF, Anxiety and Depression, Hypothyroidism, GERD, Chronic anemia/Fe deficiency anemia, Diastolic CHF/Mild Ischemic Cardiomyopathy, COPD w/ Chronic Hypoxic Respiratory Failure (O2 HS only), Chronic elevated alkaline phosphatase and stable biliary ductal dilation per records recently admitted to [facility] 06/27/22-07/03/22 who now presents to the [facility] as direct admission from [place] ED on 07/13/22 with increased abdominal pain, upper abdominal, epigastric region with radiation toward the middle of the back, ongoing congestion/cough but no recent fever or chills. #1. Epigastric pain with intermittent Transaminitis: Recent MRCP with concern for possible findings on acute pancreatitis and as noted prior upper endscopy from 2020 with findings of gastritis thus certainly could be component, lipase at OSH ED normal, will admit to [facility] given pain, monitor lipase and liver function, maintain on IV PPI, carafate, judiciously hydrate given CHF history, NPO status, pending repeat LFTs, pending repeat AM assessment if ongoing discomfort or if LFTs increase further would consider GI evaluation. #2. Recent Pneumonia: CT of the chest RLL pulmonary infiltrate also noted on MRCP as noted, treated with course rocephin and flagyl for possible initial aspiration concerns, required oxygen supplementation at [facility] transiently above her baseline q HS, still having URI type symptoms, will obtain full respiratory viral panel and COVID PCR to be cautious, continue aerosols as noted, encourage HOB, IS, speech consulted given concern at OSH prior for rec ent aspiration PNA. #3. Recent YOHANA: Improved, at initial OSH [facility] recent admission Cr >2, OSH ED current presentation with BUN/Cr 25/1.06, baseline Cr 1.2, Nephrology at [facility] as suspected bactrim and medications as etiology for recent YOHANA which is resolved. #4. Recent diarrhea, suspect antibiotic related, resolved: Patient with diarrhea at [facility] with negative C. difficile, enteric and O&P, improved with Lomotil and from reports had started after antibiotic therapies at admission. #5. Chronic Diastolic CHF (historically reported as both preserved and reduced EF of note): 06/29/2022 echocardiogram with normal LV size, mild LV hypertrophy, LV systolic function mild decreased with EF 53% ?5%, LV diastolic function not evaluated due to A. fib, RV moderately dilated, RV systolic function normal, moderately dilated LA and RA, moderate early systolic mitral valve regurgitation due to excessive leaflet motion likely related to fibrocalcific changes, mild TR. Will continue home eliquis, entresto, torsemide, metoprolol, statin therapy. #6. Chronic COPD with chronic hypoxic respiratory failure (supplemental oxygen nightly): Will maintain on supplemental nightly home oxygen, continue ATC duonebs, PRN albuterol, HOB, IS parameters. #7. Hypertension: Continue home regimen including metoprolol, Entresto, torsemide with hold parameters as, PRN hydralazine. #8. Hyperlipidemia: Continue home statin regimen. #9. Chronic anemia/Fe deficiency anemia: OSH ED Hgb 12.9, from prior [facility] records 10-11 baseline, continue to trend. #10. GERD: We will continue patient on PPI. #11. Hypothyroidism: We will continue patient home Synthroid regimen. #12. Anxiety and depression: We will continue patient home sertraline and nightly trazodone regimen. #13. Former tobacco use: Encourage continued tobacco cessation. #14. PAF: From review of records at [facility] patient had consistently been in atrial fibrillation of note, Will continue home eliquis and metoprolol regimen. #15. Chronic thrombocytopenia: Noted history, outside [place] ED Plts 154, improved from prior reviewed labs, will trend CBC. #16. DVT prophylaxis: SCDs, eliquis. #17. CODE status: Patient TORO is her son Ollie and living will is currently in place. Discussed CODE status at length including difference between FULL code, DNR-CCA and DNR-CC status. Following discussions about the differences in these status, requested DNR-CCA, no intubation status. Advanced Care Planning Face to Face Time: 16 minutes. Charges/Coding Visit Charges OBSV E&M: 52062 Initial observation care L3 Procedures Hospitalists Procedures: 92830 Advncd Care Plan 30 Min
[2022-07-13 22:58] VITALS: BP 133/70; PULSE 65; RESP 18; TEMP 36.9; O2SAT 98
[2022-07-13 23:04] VITALS: BMI 27.4
[2022-07-13 23:44] VITALS: O2SAT 97
[2022-07-13] MEDS: 0.9% Normal Saline 1,000 ML 100 ML IV (23:45)
[2022-07-14] VITALS (10 sets, daily range): BP systolic 124–142; BP diastolic 49–102; PULSE 42–66; RESP 16–18; TEMP 36.5–37.1; O2SAT 93–100
[2022-07-14] MEDS: Sucralfate 1 GM Tablet PO ×5 (00:21→22:09)
[2022-07-14] MEDS: 0.9% Saline Lock 10 ML Syringe IV ×3 (00:21→15:36)
[2022-07-14] MEDS: Levothyroxine 75 MCG Tablet PO (05:42)
[2022-07-14] MEDS: Morphine 2 MG/ML Syringe IV (06:20)
--- NOTE | 2022-07-14 06:22 | PCM.HOSP.N ---
Hospitalist Note Respiratory panel with RSV A. Onset diarrhea, foul smelling, sent for cdiff and enteric to be cautious.
[2022-07-14 06:43] LABS: Absolute Lymphocyte Count 1.75 X10^3/uL (0.83-4.51); Absolute Neutrophil Count 4.2 X10^3/uL (2.0-7.7); Basophil# 0.04 X10^3/uL; Basophil% 0.6 % (0-1); Eosinophil# 0.28 X10^3/uL; Eosinophils% 4.1 % (0-5); Hematocrit 38.6 % (37-47); Hemoglobin 11.9 g/dL (12.0-15.0); Lymphocyte # 1.75 X10^3/ul (0.83-4.51); Lymphocyte % 25.8 % (19-41); Mean Corp Hgb Conc 30.8 g/dL (32-36); Mean Corpuscular Hgb 28.8 pg (27.0-32.0); Mean Corpuscular Volume 93.5 fL (81-99); Mean Platelet Vol. 12.7 fl (6.2-12.0); Monocyte# 0.52 X10^3/uL; Monocyte% 7.7 % (0-10); NRBC Flagged by Analyzer 0 % (0-5); Neutrophil # 4.16 X10^3/uL (2.7-7.7); Neutrophil % 61.4 % (47-70); Platelet Count 169 K/mm3 (150-450); RBC Distribution Width CV 14.3 % (11.6-14.6); RBC Distribution Width SD 48.4 fl (35.1-43.9); Red Blood Count 4.13 M/mm3 (4.2-5.4); White Blood Count 6.8 K/mm3 (4.4-11.0)
[2022-07-14 07:20] LABS: AST(SGOT) 201 U/L (15-37); Alanine Aminotransfer ALT/SGPT 119 U/L (13-56); Albumin, Serum 2.6 g/dL (3.2-5.0); Alkaline Phosphatase 389 U/L (45-117); Anion Gap 5 (5-15); BUN 21 mg/dL (7-18); BUN/Creat Ratio 21.4 RATIO (10-20); Bilirubin, Direct 0.49 mg/dL (0.00-0.30); Calcium,Total 8.8 mg/dL (8.5-10.1); Chloride 102 mmol/L (98-107); Creatinine, Serum 0.98 mg/dL (0.55-1.02); EST Glomerular Filtration Rate 58 mL/min (>60); Est Glom Filt Rate - Afr Amer 70 mL/min (>60); Estimated Creatinine Clearance 33.97 ml/min; Globulin 4.8 g/dL (2.2-4.2); Glucose 76 mg/dL (74-106); Lipase 62 U/L (73-393); Potassium 3.9 mmol/L (3.5-5.1); Protein, Total 7.4 g/dL (6.4-8.2); Sodium Level 139 mmol/L (136-145)
[2022-07-14] MEDS: Ipratropium/Albuterol Sulfate 3 ML AMPUL.NEB INHALATION ×3 (07:25→19:29)
[2022-07-14 08:33] LABS: Procalcitonin 0.24 ng/mL (0.00-0.09)
--- NOTE | 2022-07-14 08:46 | CASEMGMT ---
Social Work As per admitting RN, pt has LW and POA, indicated that Ollie Guerrero is POA. However, pt is not able to bring in the documents at this time. LATRELL Bonds
[2022-07-14] MEDS: Potassium Chloride Oral Tablet 20 MEQ PO (08:58)
[2022-07-14] MEDS: Furosemide 40 MG Tablet PO (09:06)
[2022-07-14] MEDS: Sertraline 50 MG Tablet 125 MG PO (09:07)
[2022-07-14] MEDS: APIXABAN 2.5 MG TABLET PO ×2 (09:07→22:09)
[2022-07-14] MEDS: amLODIPine 2.5 MG Tablet PO (09:08)
[2022-07-14] MEDS: Metoprolol(XL)Succ 25 MG Tablet PO (09:08)
[2022-07-14] MEDS: Loratadine 10 MG Tablet PO (09:09)
[2022-07-14] MEDS: SACUBITRIL/VALSARTAN 49-51 MG TABLET 1 EACH PO ×2 (09:09→22:08)
--- NOTE | 2022-07-14 10:27 | PCM.PN.HOSP ---
Subjective Subjective Follow-up on abdominal pain: Patient was seen and examined. She is on 2 L of oxygen. She complains of slight abdominal discomfort as well as diarrhea. Patient denies any fever or chills. Objective Data Objective Data Vital Signs: Vital Signs Temp Pulse Resp BP Pulse Ox O2 Del Method O2 Flow Rate 98.3 F 66 18 124/50 H 100 Nasal Cannula 3 07/14/22 09:02 07/14/22 09:08 07/14/22 09:02 07/14/22 09:08 07/14/22 09:02 07/14/22 09:16 07/14/22 09:16 Oxygen Flow Rate (L/min) 3 Oxygen Delivery Method Nasal Cannula Weight: 67.495 kg Body Mass Index (BMI) 27.4 Intake & Output: Intake and Output for Last 24 Hours 07/12/22 07/13/22 07/14/22 23:59 23:59 23:59 Intake Total 170 / 170 Output Total 300 / 300 Balance -130 / -130 Lab / Micro Data Result Diagrams: 07/14/22 06:02 07/14/22 06:02 Labs: Laboratory Results - last 24 hr 07/13/22 23:25: COVID-19 (MATY) Not Detected 07/14/22 06:02: Procalcitonin 0.24 H 07/14/22 06:02: WBC 6.8, RBC 4.13 L, Hgb 11.9 L, Hct 38.6, MCV 93.5, MCH 28.8, MCHC 30.8 L, RDW Std Deviation 48.4 H, RDW Coeff of Cha 14.3, Plt Count 169, MPV 12.7 H, Immature Gran % (Auto) 0.400, Neut % (Auto) 61.4, Lymph % (Auto) 25.8, [place] % (Auto) 7.7, Eos % (Auto) 4.1, Baso % (Auto) 0.6, Absolute Neuts (auto) 4.2, Absolute Lymphs (auto) 1.75, Nucleated RBC % 0 07/14/22 06:02: Sodium 139, Potassium 3.9, Chloride 102, Carbon Dioxide 32.0, Anion Gap 5, BUN 21 H, Creatinine 0.98, Estim Creat Clear Calc 33.97, Est GFR (MDRD) Af Amer 70, Est GFR (MDRD) Non-Af 58 L, BUN/Creatinine Ratio 21.4 H, Glucose 76, Calcium 8.8, Total Bilirubin 1.20 H, Direct Bilirubin 0.49 H, AST 201 H, ALT 119 H, Alkaline Phosphatase 389 H, Total Protein 7.4, Albumin 2.6 L, Globulin 4.8 H, Lipase 62 L Micro: Microbiology 07/13/22 23:25 Mucosa - Nasopharyngeal Respiratory Panel (PCR) - Final RSV A Physical Exam Narrative Physical exam: General: Alert, Oriented x3, Cooperative, on 2 L of oxygen, appears very frail HEENT: Atraumatic Oral: Moist Mucosa Neck: Supple Lungs: Diminished to auscultation Cardiovascular: HS I+II, regular, no murmurs Abdomen: Bowel Sounds Present, Soft, generalized tenderness over the upper abdomen Extremities: No edema Skin: No rashes, No breakdown Neurological: Grossly intact Psych/Mental Status: Appropriate Assessment & Plan Assessment/Plan (1) Abdominal pain: (2) Diarrhea: PLAN: Plan 1. Elevated transaminitis, recent treatment for acute pancreatitis Admitting lipase was 62, LFTs remain elevated We will continue to trend, consult GI Obtain records from [facility] Continue IV fluids, trend labs 2. Acute RSV infection in a patient with chronic hypoxic respiratory failure Patient however remains on her home 2 L of oxygen Continue breathing treatments as needed 3. Acute diarrhea, C. diff panel is pending, recent diarrhea in [facility] where acute C. difficile was ruled out Will continue contact precautions, continue IVF Continue on lactobacillus 4. Rest of chronic medications - chronic diastolic CHF/Hypertension/Hyperlipidemia/Hypothyroidism/Anxiety/depression/PAF/chronic thrombocytopenia Continue amlodipine, apixaban, atorvastatin, metoprolol 5. Depression, continue on Zoloft and trazodone 6. DVT PPx-apixaban Charges/Coding Visit Charges Inpatient E&M: 00543 Subs Hosp L3
[2022-07-14] MEDS: 0.9% Normal Saline 1,000 ML 100 ML IV ×2 (11:38→22:08)
[2022-07-14] MEDS: FLU VACC QS2022-23(6MOS UP)/PF 60 MCG/0.5 ML SYRINGE IM (11:47)
--- NOTE | 2022-07-14 12:27 | CASEMGMT ---
RN CM in to pt room to complete assessment. Pt states that she lives at [facility]. States her address is her son's in [place] as that is who does her mail. Updated SW that pt is from [facility].
--- NOTE | 2022-07-14 13:19 | CASEMGMT ---
Addendum entered by Delmy Kelly 07/14/22 13:22: Social Work As per son, pt is there private pay, which would be an intermediate level of care. LATRELL Bonds Original Note: Social Work SW reviewed chart, pt is here from [facility]. SW spoke w/pt, confirmed her plan is to return to [facility] when ready. Pt declined a list of custodial facilities in the area. W/pt's permission, NAVIN also called pt's son Ollie to confirm the plan is for pt to return to [facility] when ready. NAVIN sent updates via [employer]. SW checked w/physician, pt will be here at least through Saturday. NAVIN will follow up on Saturday. LATRELL Bonds
--- NOTE | 2022-07-14 19:30 | PCM.CONS.GEN ---
Assessment & Plan Assessment/Plan (1) Diarrhea: PLAN: Asymptomatic colonization with C. difficile is more common than C. difficile infection (CDI) and in most cases, should not be treated. CDI is present when a patient tests positive for toxigenic C. difficile?bacteria and clinical symptoms of infection are present. She is positive for A/B antigen, but negative for C. difficile toxin. She also is PCR positive for C. difficile. In a patient without any diarrhea, weight loss and who has not been in the hospital or given antibiotics then it could be a false positive. However in this case I believe it is a true positive. I will recommend to treat her with vancomycin 125 mg p.o. every 6 hours x14 days and to give her colestipol 1 g p.o. twice daily for approximately 30 days. (2) Cholestatic hepatitis: PLAN: She should undergo more biochemical testing and due to other past medical history she is high risk of cirrhosis as the cause her chronic cholestatic hepatitis more than anything else at this time being that she has had a normal MRCP and I am assuming chronic hepatitis and viral hepatitis has been ruled out. HPI Consult Data Date of Consult: 07/14/22 HPI Narrative Reason for Consultation: Abdominal pain and diarrhea HPI Narrative: LOWELL CANALES, is a 81 F with a past medical history of paroxysmal atrial fibrillation, chronic anticoagulation with apixaban, coronary artery disease, hypertension, or smoking history, COPD, anxiety, GERD, hyperlipidemia and ischemic cardiomyopathy, COPD w/ Chronic Hypoxic Respiratory Failure (O2 HS only). She has been diagnosed with RSV on this particular admission. She also has a history of intermittent cholestatic hepatitis, acute recurrent pancreatitis without chronic pancreatitis being evaluated by gastroenterology at [facility]. I was asked to see her for abdominal pain and diarrhea. Her LFTs today are Total Bilirubin 1.20 H, Direct Bilirubin 0.49 H, AST 201 H, ALT 119 H, Alkaline Phosphatase 389 H, Total Protein 7.4, Albumin 2.6 L, Globulin 4.8 H, Lipase 62 L. She underwent an MRCP at outside institution and as per previous report did not show any signs of filling defect in common bile duct. There was possibly going to be endoscopic ultrasound in the near future to evaluate her hepatobiliary and pancreatic system. However patient did not want to go back to the outside hospital. Her main complaint at this time is not abdominal pain. Her main complaint is persistent diarrhea. She has stool studies that are positive for C. diff A/B Antigen and C. Diff PCR is Positive-Toxigenic C. Difficile Detected. To her knowledge she has never had C. difficile in the past. She has been on multiple antibiotics and is having 4-5 watery bowel movements per day. [facility] Medical History (Updated 07/14/22 @ 19:[address] Hand Friend, DO) Anxiety and depression Chronic idiopathic thrombocytopenia Chronic respiratory failure with hypoxia, on home O2 therapy COPD (chronic obstructive pulmonary disease) Coronary artery disease Diastolic CHF Former tobacco use GERD (gastroesophageal reflux disease) Hyperlipidemia Hypertension Hypothyroidism Iron deficiency anemia Ischemic cardiomyopathy Kidney stones Paroxysmal A-fib Home Medications apixaban 5 mg tablet (Eliquis) 2.5 mg PO BID blood thinner 08/15/17 [History Last Taken 07/13/22] ipratropium 0.5 mg-albuterol 3 mg (2.5 mg base)/3 mL nebulization soln 3 ml inhalation TID respiratory 12/15/18 [History Last Taken 07/13/22] levothyroxine 75 mcg tablet 75 mcg PO DAILY thyroid 12/15/18 [History Last Taken 07/13/22] sertraline 50 mg tablet 125 mg PO DAILY depression 12/15/18 [History Last Taken 07/13/22] trazodone 50 mg tablet 100 mg PO QHS sleep, depression 12/15/18 [History Last Taken 07/12/22] Lactobacillus acidophilus 1 cap PO DAILY ANTIBIOTIC USE 07/13/22 [History Last Taken 07/13/22] amlodipine 2.5 mg tablet 2.5 mg PO DAILY bp 07/13/22 [History Last Taken 07/13/22] atorvastatin 40 mg tablet 40 mg PO DAILY cholesterol 07/13/22 [History Last Taken 07/12/22] cetirizine 10 mg tablet 10 mg PO DAILY SINUSES 07/13/22 [History Last Taken 07/12/22] metoprolol succinate 25 mg tablet,extended release 24 hr 25 mg PO DAILY HEART FAILURE 07/13/22 [History Last Taken 07/13/22] multivitamin 1 tab PO DAILY SUPPLEMENT 07/13/22 [History Last Taken 07/13/22] pantoprazole 20 mg tablet,delayed release (Protonix) 20 mg PO DAILY gerd 07/13/22 [History Last Taken 07/13/22] potassium chloride 20 mEq tablet,extended release 20 meq PO BID CHF 07/13/22 [History Last Taken 07/13/22] sacubitril 49 mg-valsartan 51 mg tablet 1 tab PO BID CHF 07/13/22 [History Last Taken 07/13/22] torsemide 20 mg tablet 20 mg PO BID sob/edema 07/13/22 [History Last Taken 07/13/22] Allergy/AdvReac Type Severity Reaction Status Date / Time Penicillins [PCN] Allergy Swelling Verified 08/15/17 14:23 Family History other Surgical History (Updated 07/13/22 @ 20:[address] Elisa Huddleston MD) H/O heart artery stent History of appendectomy History of tonsillectomy and adenoidectomy History of total abdominal hysterectomy Hx of cholecystectomy Social History (Updated 07/13/22 @ 20:[address] Elisa Huddleston MD) household members: none housing: assisted living facility Smoking Status: Former smoker how long ago did patient quit smoking: Quit 1999. alcohol intake: never substance use type: does not use ROS ROS Narrative Admission Review of Systems: CONSTITUTIONAL: + Prior recent hospitalization with fever, weakness, fatigue, weight loss history. + Congestion, rhinorrhea. Eyes: No visual loss, blurred vision, double vision or yellow sclerae. Ears, Nose, Throat: No hearing loss, sneezing. SKIN: + Various excoriations, picked regions, occasional ecchymoses. CARDIOVASCULAR: No chest pain, chest pressure or chest discomfort, palpitations, edema, orthopnea, syncopal events. RESPIRATORY: + shortness of breath, cough with mildly productive sputum, No wheezing, hemoptysis. GASTROINTESTINAL: + anorexia, recent diarrhea at [facility], abdominal pain, nausea, No melena, BRBPR. GENITOURINARY: No dysuria, frequency, urgency or retention. NEUROLOGICAL: No headache, dizziness, syncope, paralysis, ataxia, numbness or tingling in the extremities, focal weakness, change in bowel or bladder control, seizure. MUSCULOSKELETAL: + muscle, back pain, joint pain or stiffness. HEMATOLOGIC: + anemia, bleeding or bruising. LYMPHATICS: No enlarged nodes. No history of splenectomy. PSYCHIATRIC: + history of depression or anxiety. ENDOCRINOLOGIC: No reports of sweating, cold or heat intolerance. No polyuria or polydipsia. ALLERGIES: + history of rhinitis. Physical Exam Narrative Physical exam: General: Alert, Oriented x3, Cooperative, on 2 L of oxygen, appears very frail HEENT: Atraumatic Oral: Moist Mucosa Neck: Supple Lungs: Diminished to auscultation Cardiovascular: HS I+II, regular, no murmurs Abdomen: Bowel Sounds Present, Soft, generalized tenderness over the upper abdomen Extremities: No edema Skin: No rashes, No breakdown Neurological: Grossly intact Psych/Mental Status: Appropriate Lab / Micro Data Result Diagrams: 07/14/22 06:02 07/14/22 06:02 Labs: Laboratory Results - last 24 hr 07/13/22 23:25: COVID-19 (MATY) Not Detected 07/14/22 06:02: Procalcitonin 0.24 H 07/14/22 06:02: WBC 6.8, RBC 4.13 L, Hgb 11.9 L, Hct 38.6, MCV 93.5, MCH 28.8, MCHC 30.8 L, RDW Std Deviation 48.4 H, RDW Coeff of Cha 14.3, Plt Count 169, MPV 12.7 H, Immature Gran % (Auto) 0.400, Neut % (Auto) 61.4, Lymph % (Auto) 25.8, Day % (Auto) 7.7, Eos % (Auto) 4.1, Baso % (Auto) 0.6, Absolute Neuts (auto) 4.2, Absolute Lymphs (auto) 1.75, Nucleated RBC % 0 07/14/22 06:02: Sodium 139, Potassium 3.9, Chloride 102, Carbon Dioxide 32.0, Anion Gap 5, BUN 21 H, Creatinine 0.98, Estim Creat Clear Calc 33.97, Est GFR (MDRD) Af Amer 70, Est GFR (MDRD) Non-Af 58 L, BUN/Creatinine Ratio 21.4 H, Glucose 76, Calcium 8.8, Total Bilirubin 1.20 H, Direct Bilirubin 0.49 H, AST 201 H, ALT 119 H, Alkaline Phosphatase 389 H, Total Protein 7.4, Albumin 2.6 L, Globulin 4.8 H, Lipase 62 L Micro: Microbiology 07/14/22 06:22 Stool Enteric Bacteriology - Final 07/14/22 06:22 Stool C. difficile GDH Antigen & Toxins - Final 07/14/22 06:22 Stool C. difficile DNA Amplification - Final 07/13/22 23:25 Mucosa - Nasopharyngeal Respiratory Panel (PCR) - Final RSV A Charges/Coding Visit Charges Inpatient E&M: 45631 Init Hosp L3
[2022-07-14] MEDS: Atorvastatin Calcium 40 MG Tablet PO (22:09)
[2022-07-14] MEDS: traZODone 100 MG Tablet PO (22:10)
[2022-07-15] VITALS (11 sets, daily range): BP systolic 118–140; BP diastolic 53–64; PULSE 55–95; RESP 16–18; TEMP 36.6–37.1; O2SAT 95–99
[2022-07-15] MEDS: Vancomycin 125 MG/5 ML Susp PO.SYRINGE PO ×5 (00:31→23:47)
[2022-07-15] MEDS: Sucralfate 1 GM Tablet PO ×4 (05:15→23:47)
[2022-07-15] MEDS: Levothyroxine 75 MCG Tablet PO (05:38)
[2022-07-15 06:03] LABS: Absolute Lymphocyte Count 1.32 X10^3/uL (0.83-4.51); Absolute Neutrophil Count 2.3 X10^3/uL (2.0-7.7); Basophil# 0.05 X10^3/uL; Basophil% 1.1 % (0-1); Eosinophil# 0.28 X10^3/uL; Eosinophils% 6.4 % (0-5); Hemoglobin 10.7 g/dL (12.0-15.0); Lymphocyte # 1.32 X10^3/ul (0.83-4.51); Mean Corp Hgb Conc 30.6 g/dL (32-36); Mean Corpuscular Hgb 28.8 pg (27.0-32.0); Mean Corpuscular Volume 94.3 fL (81-99); Monocyte% 9.1 % (0-10); NRBC Flagged by Analyzer 0 % (0-5); Neutrophil # 2.33 X10^3/uL (2.7-7.7); Neutrophil % 52.9 % (47-70); Platelet Count 144 K/mm3 (150-450); RBC Distribution Width CV 14.2 % (11.6-14.6); RBC Distribution Width SD 49.3 fl (35.1-43.9); Red Blood Count 3.71 M/mm3 (4.2-5.4); White Blood Count 4.4 K/mm3 (4.4-11.0)
[2022-07-15 06:57] LABS: ALB/GLOB Ratio 0.5 RATIO (0.9-2.4); AST(SGOT) 85 U/L (15-37); Alanine Aminotransfer ALT/SGPT 69 U/L (13-56); Albumin, Serum 2.3 g/dL (3.2-5.0); Alkaline Phosphatase 296 U/L (45-117); Anion Gap 5 (5-15); BUN 15 mg/dL (7-18); Calcium,Total 8.4 mg/dL (8.5-10.1); Chloride 107 mmol/L (98-107); Creatinine, Serum 0.75 mg/dL (0.55-1.02); EST Glomerular Filtration Rate 79 mL/min (>60); Est Glom Filt Rate - Afr Amer 95 mL/min (>60); Estimated Creatinine Clearance 33.29 ml/min; Globulin 4.3 g/dL (2.2-4.2); Glucose 75 mg/dL (74-106); Potassium 3.5 mmol/L (3.5-5.1); Protein, Total 6.6 g/dL (6.4-8.2); Sodium Level 142 mmol/L (136-145)
[2022-07-15] MEDS: Ipratropium/Albuterol Sulfate 3 ML AMPUL.NEB INHALATION ×3 (07:10→19:35)
[2022-07-15] MEDS: 0.9% Normal Saline 1,000 ML 100 ML IV (08:39)
[2022-07-15] MEDS: Metoprolol(XL)Succ 25 MG Tablet PO (08:53)
[2022-07-15] MEDS: Loratadine 10 MG Tablet PO (08:53)
[2022-07-15] MEDS: APIXABAN 2.5 MG TABLET PO ×2 (08:54→22:07)
[2022-07-15] MEDS: Sertraline 50 MG Tablet 125 MG PO (08:54)
[2022-07-15] MEDS: SACUBITRIL/VALSARTAN 49-51 MG TABLET 1 EACH PO ×2 (08:55→22:07)
[2022-07-15] MEDS: amLODIPine 2.5 MG Tablet PO (08:55)
--- NOTE | 2022-07-15 10:11 | PCM.PN.HOSP ---
Subjective Subjective Follow-up on abdominal pain: Patient was seen and examined.? She is off oxygen at time of being seen. She denies any more diarrhea. Denied fever or chills. Objective Data Objective Data Vital Signs: Vital Signs Temp Pulse Resp BP Pulse Ox O2 Del Method O2 Flow Rate 97.9 F 63 18 129/53 H 99 Nasal Cannula 1 07/15/22 08:42 07/15/22 08:53 07/15/22 08:42 07/15/22 08:53 07/15/22 08:42 07/15/22 08:46 07/15/22 09:30 Oxygen Flow Rate (L/min) 1 Oxygen Delivery Method Nasal Cannula Weight: 69.5 kg Body Mass Index (BMI) 27.4 Intake & Output: Intake and Output for Last 24 Hours 07/13/22 07/14/22 07/15/22 23:59 23:59 23:59 Intake Total 2780 / 2780 1000 / 1000 Output Total 300 / 300 Balance 2480 / 2480 1000 / 1000 Lab / Micro Data Result Diagrams: 07/15/22 05:33 07/15/22 05:33 Labs: Laboratory Results - last 24 hr 07/15/22 05:33: WBC 4.4, RBC 3.71 L, Hgb 10.7 L, Hct 35.0 L, MCV 94.3, MCH 28.8, MCHC 30.6 L, RDW Std Deviation 49.3 H, RDW Coeff of Cha 14.2, Plt Count 144 L, MPV 12.0, Immature Gran % (Auto) 0.500, Neut % (Auto) 52.9, Lymph % (Auto) 30.0, [place] % (Auto) 9.1, Eos % (Auto) 6.4 H, Baso % (Auto) 1.1 H, Absolute Neuts (auto) 2.3, Absolute Lymphs (auto) 1.32, Nucleated RBC % 0 07/15/22 05:33: Sodium 142, Potassium 3.5, Chloride 107, Carbon Dioxide 30.0, Anion Gap 5, BUN 15, Creatinine 0.75, Estim Creat Clear Calc 33.29, Est GFR (MDRD) Af Amer 95, Est GFR (MDRD) Non-Af 79, BUN/Creatinine Ratio 20.0, Glucose 75, Calcium 8.4 L, Total Bilirubin 0.70, AST 85 H, ALT 69 H, Alkaline Phosphatase 296 H, Total Protein 6.6, Albumin 2.3 L, Globulin 4.3 H, Albumin/Globulin Ratio 0.5 L Micro: Microbiology 07/14/22 06:22 Stool Enteric Bacteriology - Final 07/14/22 06:22 Stool C. difficile GDH Antigen & Toxins - Final 07/14/22 06:22 Stool C. difficile DNA Amplification - Final 07/13/22 23:25 Mucosa - Nasopharyngeal Respiratory Panel (PCR) - Final RSV A Physical Exam Narrative Physical exam: General: Alert, Oriented x3, Cooperative, off oxygen, appears very frail HEENT: Atraumatic Oral: Moist Mucosa Neck: Supple Lungs: Diminished to auscultation Cardiovascular: HS I+II, regular, no murmurs Abdomen: Bowel Sounds Present, Soft, generalized tenderness over the upper abdomen Extremities: No edema Skin: No rashes, No breakdown Neurological: Grossly intact Psych/Mental Status: Appropriate Assessment & Plan Assessment/Plan (1) Abdominal pain: (2) Diarrhea: PLAN: Plan 1. Acute C diff diarrhea, resolved Continue on oral vancomycin (DAY 2) 2. Elevated transaminitis, recent treatment for acute pancreatitis, improved Admitting lipase was 62, and MRCP showed intra and extrahepatic biliary dilatation with no evidence of choledocholithiasis GI consulted; this will need to be followed up in the outpatient We will obtain records from [facility] 3. Acute RSV infection in a patient with chronic hypoxic respiratory failure, Patient is on room air Continue breathing treatments as needed 4. Rest of chronic medications - chronic diastolic CHF/Hypertension/Hyperlipidemia/Hypothyroidism/Anxiety/depression/PAF/chronic thrombocytopenia Continue amlodipine, apixaban, atorvastatin, metoprolol 5. Depression, continue on Zoloft and trazodone 6. DVT PPx-apixaban Disposition: Discharge back to assisted facility in a.m. Charges/Coding Visit Charges Inpatient E&M: 73130 Subs Hosp L2
[2022-07-15] MEDS: 0.9% Saline Lock 10 ML Syringe IV (11:51)
[2022-07-15] MEDS: Potassium Chloride Oral Tablet 20 MEQ PO (18:30)
[2022-07-15] MEDS: guaiFENesin 10 ML UDC (200MG/10ML) 20 ML PO (18:38)
[2022-07-15] MEDS: traZODone 100 MG Tablet PO (22:07)
[2022-07-15] MEDS: Atorvastatin Calcium 40 MG Tablet PO (22:08)
[2022-07-16] VITALS (13 sets, daily range): BP systolic 118–147; BP diastolic 47–64; PULSE 55–68; RESP 16–20; TEMP 36.3–37.1; O2SAT 97–100
[2022-07-16 05:34] LABS: Absolute Lymphocyte Count 1.67 X10^3/uL (0.83-4.51); Absolute Neutrophil Count 2.8 X10^3/uL (2.0-7.7); Basophil# 0.03 X10^3/uL; Basophil% 0.6 % (0-1); Eosinophil# 0.19 X10^3/uL; Eosinophils% 3.7 % (0-5); Hematocrit 33.6 % (37-47); Hemoglobin 10.6 g/dL (12.0-15.0); Lymphocyte # 1.67 X10^3/ul (0.83-4.51); Lymphocyte % 32.1 % (19-41); Mean Corp Hgb Conc 31.5 g/dL (32-36); Mean Corpuscular Hgb 29.6 pg (27.0-32.0); Mean Corpuscular Volume 93.9 fL (81-99); Mean Platelet Vol. 12.6 fl (6.2-12.0); Monocyte% 9.6 % (0-10); NRBC Flagged by Analyzer 0 % (0-5); Neutrophil # 2.77 X10^3/uL (2.7-7.7); Neutrophil % 53.2 % (47-70); Platelet Count 140 K/mm3 (150-450); RBC Distribution Width CV 14.2 % (11.6-14.6); RBC Distribution Width SD 48.4 fl (35.1-43.9); Red Blood Count 3.58 M/mm3 (4.2-5.4); White Blood Count 5.2 K/mm3 (4.4-11.0)
[2022-07-16] MEDS: Vancomycin 125 MG/5 ML Susp PO.SYRINGE PO ×3 (05:39→17:39)
[2022-07-16] MEDS: Sucralfate 1 GM Tablet PO ×4 (05:39→21:27)
[2022-07-16] MEDS: Levothyroxine 75 MCG Tablet PO (05:39)
[2022-07-16 06:14] LABS: ALB/GLOB Ratio 0.6 RATIO (0.9-2.4); AST(SGOT) 49 U/L (15-37); Alanine Aminotransfer ALT/SGPT 50 U/L (13-56); Albumin, Serum 2.4 g/dL (3.2-5.0); Alkaline Phosphatase 264 U/L (45-117); Anion Gap 6 (5-15); BUN 11 mg/dL (7-18); BUN/Creat Ratio 17.3 RATIO (10-20); Calcium,Total 8.5 mg/dL (8.5-10.1); Chloride 106 mmol/L (98-107); Creatinine, Serum 0.64 mg/dL (0.55-1.02); EST Glomerular Filtration Rate 95 mL/min (>60); Est Glom Filt Rate - Afr Amer 115 mL/min (>60); Estimated Creatinine Clearance 33.29 ml/min; Globulin 4.2 g/dL (2.2-4.2); Glucose 67 mg/dL (74-106); Potassium 3.2 mmol/L (3.5-5.1); Protein, Total 6.6 g/dL (6.4-8.2); Sodium Level 142 mmol/L (136-145)
--- NOTE | 2022-07-16 07:14 | PCM.PN.HOSP ---
Subjective Subjective Patient is an 81-year-old lady presented with abdominal pain and diarrhea diagnosed with acute C. difficile colitis admitted to regular nursing floor where patient is currently being managed Objective Data Objective Data Vital Signs: Vital Signs Temp Pulse Resp BP Pulse Ox O2 Del Method O2 Flow Rate 97.4 F L 66 16 147/51 H 99 Nasal Cannula 1 07/16/22 05:49 07/16/22 05:49 07/16/22 05:49 07/16/22 05:49 07/16/22 05:49 07/16/22 05:49 07/15/22 18:42 Oxygen Flow Rate (L/min) 1 Oxygen Delivery Method Nasal Cannula Weight: 69.2 kg Body Mass Index (BMI) 27.4 Intake & Output: Intake and Output for Last 24 Hours 07/14/22 07/15/22 07/16/22 23:59 23:59 23:59 Intake Total 2780 / 2780 2228.33 / 2228.33 Output Total 300 / 300 300 / 300 Balance 2480 / 2480 1928.33 / 1928.33 Lab / Micro Data Result Diagrams: 07/16/22 04:25 07/16/22 04:25 Labs: Laboratory Results - last 24 hr 07/16/22 04:25: WBC 5.2, RBC 3.58 L, Hgb 10.6 L, Hct 33.6 L, MCV 93.9, MCH 29.6, MCHC 31.5 L, RDW Std Deviation 48.4 H, RDW Coeff of Cha 14.2, Plt Count 140 L, MPV 12.6 H, Immature Gran % (Auto) 0.800, Neut % (Auto) 53.2, Lymph % (Auto) 32.1, [place] % (Auto) 9.6, Eos % (Auto) 3.7, Baso % (Auto) 0.6, Absolute Neuts (auto) 2.8, Absolute Lymphs (auto) 1.67, Nucleated RBC % 0 07/16/22 04:25: Sodium 142, Potassium 3.2 L, Chloride 106, Carbon Dioxide 30.0, Anion Gap 6, BUN 11, Creatinine 0.64, Estim Creat Clear Calc 33.29, Est GFR (MDRD) Af Amer 115, Est GFR (MDRD) Non-Af 95, BUN/Creatinine Ratio 17.3, Glucose 67 L, Calcium 8.5, Total Bilirubin 0.60, AST 49 H, ALT 50, Alkaline Phosphatase 264 H, Total Protein 6.6, Albumin 2.4 L, Globulin 4.2, Albumin/Globulin Ratio 0.6 L Micro: Microbiology 07/14/22 06:22 Stool Enteric Bacteriology - Final 07/14/22 06:22 Stool C. difficile GDH Antigen & Toxins - Final 07/14/22 06:22 Stool C. difficile DNA Amplification - Final 07/13/22 23:25 Mucosa - Nasopharyngeal Respiratory Panel (PCR) - Final RSV A Physical Exam Narrative GENERAL: cooperative HEENT: Atraumatic; normocephalic EYES; Anicteric, Normal Conjunctiva NECK; supple, normal thyroid, RESPIRATORY: Diminished to auscultation CARDIOVASCULAR: Regular S1 S2, GI: soft, normoactive bowel sounds, : No Renal angle tenderness; EXTREMITIES: No edema, no clubbing, MUSCULOSKELETAL: no muscle wasting NEURO: Awake; no lateralizing signs. SKIN: No Rash PSYCH; Flat affect Assessment & Plan Assessment/Plan (1) Abdominal pain: (2) Diarrhea: PLAN: Plan Patient is an 81-year-old lady presented with abdominal pain and diarrhea diagnosed with acute C. difficile colitis admitted to regular nursing floor where patient is currently being managed 1. Acute C. difficile colitis ? Patient is on p.o. vancomycin. Patient continues to experience loose bowel movement 2. Elevated transaminitis in the setting of recent acute pancreatitis ? MRCP did show intra and extrahepatic biliary dilatation with no evidence of choledocholithiasis 3. Recent acute RSV infection ? Treated symptomatically 4. Physical deconditioning - Requested for PT OT eval and social worker psychiatric to assist with discharge planning 5. Hypothyroidism - Patient is on levothyroxine home dose continued 6. Hypertension - Blood pressure controlled, home medications continued with dose adjustment as needed 7. Paroxysmal atrial fibrillation ? Rate controlled on metoprolol on systemic anticoagulation with apixaban 8. Hypokalemia -Corrected per protocol, repeat labs ordered for a.m. 9. Chronic thrombocytopenia ? Monitoring with daily CBC 10. Chronic congestive heart failure with reduced ejection fraction ?patient is on Entresto as well as torsemide at home. Torsemide was held 11. Physical deconditioning - Requested for PT OT eval and social worker psychiatric to assist with discharge planning 12. DVT prophylaxis -on apixaban Charges/Coding Visit Charges Inpatient E&M: 32198 Subs Hosp L2
--- NOTE | 2022-07-16 09:24 | CASEMGMT ---
Social Work SW sent message to Marzena Gardner via [employer] to update that PT/OT is NOT recommending additional therapy upon discharge and that pt's is planning to discharge pt tomorrow. PLAN: Return to [facility], [facility] ANIBAL Amin
[2022-07-16] MEDS: Potassium Chloride Oral Tablet 20 MEQ PO ×2 (09:28→17:39)
[2022-07-16] MEDS: Loratadine 10 MG Tablet PO (09:28)
[2022-07-16] MEDS: amLODIPine 2.5 MG Tablet PO (09:29)
[2022-07-16] MEDS: SACUBITRIL/VALSARTAN 49-51 MG TABLET 1 EACH PO ×2 (09:29→21:28)
[2022-07-16] MEDS: Sertraline 50 MG Tablet 125 MG PO (09:29)
[2022-07-16] MEDS: APIXABAN 2.5 MG TABLET PO ×2 (09:29→21:28)
[2022-07-16] MEDS: Potassium Chloride Oral Tablet 20 MEQ 40 MEQ PO (10:38)
[2022-07-16] MEDS: Ipratropium/Albuterol Sulfate 3 ML AMPUL.NEB INHALATION ×2 (10:53→19:30)
[2022-07-16] MEDS: traZODone 100 MG Tablet PO (21:27)
[2022-07-16] MEDS: Atorvastatin Calcium 40 MG Tablet PO (21:28)
[2022-07-16] MEDS: 0.9% Saline Lock 10 ML Syringe IV (21:28)
[2022-07-17] VITALS (8 sets, daily range): BP systolic 102–163; BP diastolic 48–55; PULSE 59–80; RESP 16–20; TEMP 36.6–37.2; O2SAT 96–99
[2022-07-17] MEDS: Vancomycin 125 MG/5 ML Susp PO.SYRINGE PO ×3 (00:47→11:35)
[2022-07-17 05:04] LABS: Absolute Lymphocyte Count 1.46 X10^3/uL (0.83-4.51); Absolute Neutrophil Count 2.1 X10^3/uL (2.0-7.7); Basophil# 0.04 X10^3/uL; Basophil% 0.9 % (0-1); Eosinophil# 0.17 X10^3/uL; Hematocrit 34.2 % (37-47); Hemoglobin 10.6 g/dL (12.0-15.0); Lymphocyte # 1.46 X10^3/ul (0.83-4.51); Lymphocyte % 34.6 % (19-41); Mean Corpuscular Hgb 29.2 pg (27.0-32.0); Mean Corpuscular Volume 94.2 fL (81-99); Mean Platelet Vol. 12.7 fl (6.2-12.0); Monocyte# 0.46 X10^3/uL; Monocyte% 10.9 % (0-10); NRBC Flagged by Analyzer 0 % (0-5); Neutrophil # 2.06 X10^3/uL (2.7-7.7); Neutrophil % 48.9 % (47-70); Platelet Count 132 K/mm3 (150-450); RBC Distribution Width CV 14.4 % (11.6-14.6); RBC Distribution Width SD 49.5 fl (35.1-43.9); Red Blood Count 3.63 M/mm3 (4.2-5.4); White Blood Count 4.2 K/mm3 (4.4-11.0)
[2022-07-17 05:36] LABS: ALB/GLOB Ratio 0.5 RATIO (0.9-2.4); AST(SGOT) 34 U/L (15-37); Alanine Aminotransfer ALT/SGPT 40 U/L (13-56); Albumin, Serum 2.3 g/dL (3.2-5.0); Alkaline Phosphatase 240 U/L (45-117); Anion Gap 4 (5-15); BUN 8 mg/dL (7-18); BUN/Creat Ratio 13.4 RATIO (10-20); Calcium,Total 8.9 mg/dL (8.5-10.1); Chloride 110 mmol/L (98-107); EST Glomerular Filtration Rate 102 mL/min (>60); Est Glom Filt Rate - Afr Amer 123 mL/min (>60); Estimated Creatinine Clearance 33.29 ml/min; Globulin 4.2 g/dL (2.2-4.2); Glucose 80 mg/dL (74-106); Protein, Total 6.5 g/dL (6.4-8.2); Sodium Level 143 mmol/L (136-145)
[2022-07-17] MEDS: Levothyroxine 75 MCG Tablet PO (06:41)
[2022-07-17] MEDS: Sucralfate 1 GM Tablet PO ×2 (06:41→11:35)
[2022-07-17] MEDS: Ipratropium/Albuterol Sulfate 3 ML AMPUL.NEB INHALATION (07:04)
--- NOTE | 2022-07-17 07:56 | PCM.PN.HOSP ---
Subjective Subjective Patient seen apparently had several loose bowel movement the day prior however no bowel movement this morning. Plan is for patient to be assessed for possible discharge Objective Data Objective Data Vital Signs: Vital Signs Temp Pulse Resp BP Pulse Ox O2 Del Method O2 Flow Rate 99.0 F 80 20 H 163/55 H 96 Nasal Cannula 2 07/17/22 06:40 07/17/22 07:05 07/17/22 07:05 07/17/22 06:40 07/17/22 07:05 07/17/22 07:05 07/17/22 07:05 Oxygen Flow Rate (L/min) 2 Oxygen Delivery Method Nasal Cannula Weight: 71.2 kg Body Mass Index (BMI) 27.4 Intake & Output: Intake and Output for Last 24 Hours 07/15/22 07/16/22 07/17/22 23:59 23:59 23:59 Intake Total 2228.33 / 2228.33 Output Total 300 / 300 Balance 1928.33 / 1928.33 Lab / Micro Data Result Diagrams: 07/17/22 04:09 07/17/22 04:09 Labs: Laboratory Results - last 24 hr 07/17/22 04:09: WBC 4.2 L, RBC 3.63 L, Hgb 10.6 L, Hct 34.2 L, MCV 94.2, MCH 29.2, MCHC 31.0 L, RDW Std Deviation 49.5 H, RDW Coeff of Cha 14.4, Plt Count 132 L, MPV 12.7 H, Immature Gran % (Auto) 0.700, Neut % (Auto) 48.9, Lymph % (Auto) 34.6, [place] % (Auto) 10.9 H, Eos % (Auto) 4.0, Baso % (Auto) 0.9, Absolute Neuts (auto) 2.1, Absolute Lymphs (auto) 1.46, Nucleated RBC % 0 07/17/22 04:09: Sodium 143, Potassium 4.0, Chloride 110 H, Carbon Dioxide 29.0, Anion Gap 4 L, BUN 8, Creatinine 0.60, Estim Creat Clear Calc 33.29, Est GFR (MDRD) Af Amer 123, Est GFR (MDRD) Non-Af 102, BUN/Creatinine Ratio 13.4, Glucose 80, Calcium 8.9, Total Bilirubin 0.40, AST 34, ALT 40, Alkaline Phosphatase 240 H, Total Protein 6.5, Albumin 2.3 L, Globulin 4.2, Albumin/Globulin Ratio 0.5 L Micro: Microbiology 07/14/22 06:22 Stool Enteric Bacteriology - Final 07/14/22 06:22 Stool C. difficile GDH Antigen & Toxins - Final 07/14/22 06:22 Stool C. difficile DNA Amplification - Final 07/13/22 23:25 Mucosa - Nasopharyngeal Respiratory Panel (PCR) - Final RSV A Physical Exam Narrative GENERAL: cooperative HEENT: Atraumatic; normocephalic EYES; Anicteric, Normal Conjunctiva NECK; supple, normal thyroid, RESPIRATORY: Diminished to auscultation CARDIOVASCULAR: Regular S1 S2, GI: soft, normoactive bowel sounds, : No Renal angle tenderness; EXTREMITIES: No edema, no clubbing, MUSCULOSKELETAL: no muscle wasting NEURO: Awake; no lateralizing signs. SKIN: No Rash PSYCH; Flat affect Assessment & Plan Assessment/Plan (1) Abdominal pain: (2) Diarrhea: PLAN: Plan Patient is an 81-year-old lady presented with abdominal pain and diarrhea diagnosed with acute C. difficile colitis admitted to regular nursing floor where patient is currently being managed 1. Acute C. difficile colitis ? Patient is on p.o. vancomycin. Patient continues to experience loose bowel movement -07/17/2022 Patient seen apparently had several loose bowel movement the day prior however no bowel movement this morning. Plan is for patient to be assessed for possible discharge 2. Elevated transaminitis in the setting of recent acute pancreatitis ? MRCP did show intra and extrahepatic biliary dilatation with no evidence of choledocholithiasis 3. Recent acute RSV infection ? Treated symptomatically 4. Physical deconditioning - Requested for PT OT eval and social worker health services to assist with discharge planning 5. Hypothyroidism - Patient is on levothyroxine home dose continued 6. Hypertension - Blood pressure controlled, home medications continued with dose adjustment as needed 7. Paroxysmal atrial fibrillation ? Rate controlled on metoprolol on systemic anticoagulation with apixaban 8. Hypokalemia -Corrected per protocol, repeat labs ordered for a.m. 9. Chronic thrombocytopenia ? Monitoring with daily CBC 10. Chronic congestive heart failure with reduced ejection fraction ?patient is on Entresto as well as torsemide at home. Torsemide was held 11. Physical deconditioning - Requested for PT OT eval and social worker health services to assist with discharge planning 12. DVT prophylaxis -on apixaban Charges/Coding Visit Charges Inpatient E&M: 12141 Subs Hosp L2
--- NOTE | 2022-07-17 07:59 | PCM.TXEXTCAR ---
Diet Diet Order/Speech Therapy: 07/14/22 10:52 Diet: Regular - General Food consistency:: Regular Liquid Consistency:: Regular/Thin Is pt able to select menu?: Yes Wound(s) generalized: Wound Type: scattered scabs chest: Wound Type: Abrasion R posterior thigh: Wound Type: Abrasion Right side nose: Wound Type: sore Therapies Physical Therapy: Eval and Treat Occupational Therapy: Eval and Treat Problem/Diagnosis (1) Abdominal pain: Status: Acute Code(s): R10.9 - Unspecified abdominal pain (2) Diarrhea: Status: Acute Code(s): R19.7 - Diarrhea, unspecified Plan Patient is an 81-year-old lady presented with abdominal pain and diarrhea diagnosed with acute C. difficile colitis admitted to regular nursing floor where patient is currently being managed 1. Acute C. difficile colitis ? Patient was treated with p.o. vancomycin 2. Elevated transaminitis in the setting of recent acute pancreatitis ? MRCP did show intra and extrahepatic biliary dilatation with no evidence of choledocholithiasis 3. Recent acute RSV infection ? Treated symptomatically 4. Physical deconditioning - Requested for PT OT eval and administrator social welfare to assist with discharge planning 5. Hypothyroidism - Patient is on levothyroxine home dose continued 6. Hypertension - Blood pressure controlled, home medications continued with dose adjustment as needed 7. Paroxysmal atrial fibrillation ? Rate controlled on metoprolol on systemic anticoagulation with apixaban 8. Hypokalemia -Corrected per protocol, repeat labs ordered for a.m. 9. Chronic thrombocytopenia ? Monitoring with daily CBC 10. Chronic congestive heart failure with reduced ejection fraction ?patient is on Entresto as well as torsemide at home. Torsemide was held 11. Physical deconditioning - Requested for PT OT eval and administrator social welfare to assist with discharge planning 12. DVT prophylaxis -on apixaban Allergies/Procedures Done in Hospital Allergies Penicillins [PCN] Allergy (Verified 08/15/17 14:23) Swelling Type of Care/Length of Stay Estimated LOS: More Than 30 Days Type of Care Needed: Intermediate Rehab Potential: Fair Prognosis: Fair Additional Orders/Day of Discharge Day of Discharge: 07/17/22 Dietary and Speech Recommendations Dietitian Recommendations/Changes: regular diet as tolerated; consider fiber restriction if GI distress occurs. Ensure w/ medpass if pt is agreeable- declines at this time. Discharge Plan Admission Admit Date/Time: 07/14/22 11:45 Attending Provider: Leno Funk Primary Care Provider: Pretty Noguera Consulting Providers: Elisa Huddleston ; Leyda Moreland Discharge Orders/Prescriptions Prescriptions: New Firvanq 25 mg/mL Recon Soln 125 mg PO Q6 10 Days Qty: 0 0RF acetaminophen [Tylenol] 325 mg Tablet 650 mg PO Q4H PRN PRN (Reason: Fever, pain -06/11) Qty: 0 0RF sucralfate 1 gram Tablet 1 g PO Q6H Qty: 0 0RF Continued Eliquis 5 MG tablet 2.5 mg PO BID ipratropium-albuterol 0.5-3MG solution for nebulization 3 ml inhalation TID trazodone 50 MG tablet 100 mg PO QHS levothyroxine 75 MCG tablet 75 mcg PO DAILY sertraline 50 MG tablet 125 mg PO DAILY amlodipine 2.5 mg tablet 2.5 mg PO DAILY atorvastatin 40 mg tablet 40 mg PO DAILY pantoprazole [Protonix] 20 mg Tablet,Delayed Release (Dr/Ec) 20 mg PO DAILY torsemide 20 mg Tablet 20 mg PO BID Rx Instructions: Takes 20mg in the morning, 10mg in the afternoon cetirizine 10 mg Tablet 10 mg PO DAILY potassium chloride 20 mEq Tablet Extended Release 20 meq PO BID sacubitril-valsartan 49-51 mg Tablet 1 tab PO BID metoprolol succinate 25 mg Tablet Extended Release 24 Hr 25 mg PO DAILY multivitamin Tablet 1 tab PO DAILY Lactobacillus acidophilus Capsule 1 cap PO DAILY Referrals / Follow Up: Pretty Noguera DO [Primary Care Provider] - Within 2 Weeks Disposition Disposition (needs filled in before D/C Order can be placed): Nursing Home Facility
--- NOTE | 2022-07-17 08:03 | PCM.DC.SUM ---
Providers Date of Admission: 07/14/22 Date of Discharge: 07/17/22 Primary Care Physician: Dr. Pretty Noguera, DO Consultations 07/14/22 13:03 Consult: Gastroenterology Routine Consulting Provider: [facility] Reason for Consult: Abd pain EMERGENT Consult: No MD Notified: Yes Date Notified: 07/14/22 Time Notified: 13:04 Method of Notification: Verbal Method of Consult:: In-Person Comments:: NOTIFIED ADELITA ROWAN SHE IS SWITCH REPAIRER Reason For Visit: ABDOMINAL PAIN, ELEVATED LFT, ALK PHOS Diagnosis Discharge Diagnosis (1) Abdominal pain: Status: Acute Code(s): R10.9 - Unspecified abdominal pain (2) Diarrhea: Status: Acute Code(s): R19.7 - Diarrhea, unspecified Plan Patient is an 81-year-old lady presented with abdominal pain and diarrhea diagnosed with acute C. difficile colitis admitted to regular nursing floor where patient is currently being managed 1. Acute C. difficile colitis ? Patient was treated with p.o. vancomycin 2. Elevated transaminitis in the setting of recent acute pancreatitis ? MRCP did show intra and extrahepatic biliary dilatation with no evidence of choledocholithiasis 3. Recent acute RSV infection ? Treated symptomatically 4. Physical deconditioning - Requested for PT OT eval and criminal justice social worker to assist with discharge planning 5. Hypothyroidism - Patient is on levothyroxine home dose continued 6. Hypertension - Blood pressure controlled, home medications continued with dose adjustment as needed 7. Paroxysmal atrial fibrillation ? Rate controlled on metoprolol on systemic anticoagulation with apixaban 8. Hypokalemia -Corrected per protocol, repeat labs ordered for a.m. 9. Chronic thrombocytopenia ? Monitoring with daily CBC 10. Chronic congestive heart failure with reduced ejection fraction ?patient is on Entresto as well as torsemide at home. Torsemide was held 11. Physical deconditioning - Requested for PT OT eval and criminal justice social worker to assist with discharge planning 12. DVT prophylaxis -on apixaban Medications at Discharge Home Medications apixaban 5 mg tablet (Eliquis) 2.5 mg PO BID blood thinner 08/15/17 ipratropium 0.5 mg-albuterol 3 mg (2.5 mg base)/3 mL nebulization soln 3 ml inhalation TID respiratory 12/15/18 levothyroxine 75 mcg tablet 75 mcg PO DAILY thyroid 12/15/18 sertraline 50 mg tablet 125 mg PO DAILY depression 12/15/18 trazodone 50 mg tablet 100 mg PO QHS sleep, depression 12/15/18 Lactobacillus acidophilus 1 cap PO DAILY ANTIBIOTIC USE 07/13/22 amlodipine 2.5 mg tablet 2.5 mg PO DAILY bp 07/13/22 atorvastatin 40 mg tablet 40 mg PO DAILY cholesterol 07/13/22 cetirizine 10 mg tablet 10 mg PO DAILY SINUSES 07/13/22 metoprolol succinate 25 mg tablet,extended release 24 hr 25 mg PO DAILY HEART FAILURE 07/13/22 multivitamin 1 tab PO DAILY SUPPLEMENT 07/13/22 pantoprazole 20 mg tablet,delayed release (Protonix) 20 mg PO DAILY gerd 07/13/22 potassium chloride 20 mEq tablet,extended release 20 meq PO BID CHF 07/13/22 sacubitril 49 mg-valsartan 51 mg tablet 1 tab PO BID CHF 07/13/22 torsemide 20 mg tablet 20 mg PO BID sob/edema 07/13/22 acetaminophen 325 mg tablet (Tylenol) 650 mg PO Q4H PRN PRN Fever, pain 1-06/11 #0 tabs 07/17/22 sucralfate 1 gram tablet 1 g PO Q6H #0 tabs 07/17/22 vancomycin 25 mg/mL oral solution (Firvanq) 125 mg (5 mL) PO Q6 10 days #0 mL 07/17/22 Hospital Course Summary of Care Provided Minutes Spent on Discharge: 35 Physical Exam Narrative GENERAL: cooperative HEENT: Atraumatic; normocephalic EYES; Anicteric, Normal Conjunctiva NECK; supple, normal thyroid, RESPIRATORY: Diminished to auscultation CARDIOVASCULAR: Regular S1 S2, GI: soft, normoactive bowel sounds, : No Renal angle tenderness; EXTREMITIES: No edema, no clubbing, MUSCULOSKELETAL: no muscle wasting NEURO: Awake; no lateralizing signs. SKIN: No Rash PSYCH; Flat affect Weight / BMI Weight Weight: 71.2 kg Body Mass Index (BMI) 27.4 ABG / Lab / Microbiology Data Result Diagrams: 07/17/22 04:09 07/17/22 04:09 Laboratory: Laboratory Results - last 24 hr 07/17/22 04:09: WBC 4.2 L, RBC 3.63 L, Hgb 10.6 L, Hct 34.2 L, MCV 94.2, MCH 29.2, MCHC 31.0 L, RDW Std Deviation 49.5 H, RDW Coeff of Cha 14.4, Plt Count 132 L, MPV 12.7 H, Immature Gran % (Auto) 0.700, Neut % (Auto) 48.9, Lymph % (Auto) 34.6, Carroll % (Auto) 10.9 H, Eos % (Auto) 4.0, Baso % (Auto) 0.9, Absolute Neuts (auto) 2.1, Absolute Lymphs (auto) 1.46, Nucleated RBC % 0 07/17/22 04:09: Sodium 143, Potassium 4.0, Chloride 110 H, Carbon Dioxide 29.0, Anion Gap 4 L, BUN 8, Creatinine 0.60, Estim Creat Clear Calc 33.29, Est GFR (MDRD) Af Amer 123, Est GFR (MDRD) Non-Af 102, BUN/Creatinine Ratio 13.4, Glucose 80, Calcium 8.9, Total Bilirubin 0.40, AST 34, ALT 40, Alkaline Phosphatase 240 H, Total Protein 6.5, Albumin 2.3 L, Globulin 4.2, Albumin/Globulin Ratio 0.5 L Microbiology: Microbiology 07/14/22 06:22 Stool Enteric Bacteriology - Final 07/14/22 06:22 Stool C. difficile GDH Antigen & Toxins - Final 07/14/22 06:22 Stool C. difficile DNA Amplification - Final 07/13/22 23:25 Mucosa - Nasopharyngeal Respiratory Panel (PCR) - Final RSV A D/C Instructions Discharge Diet: No restrictions Discharge Activity: Return to Normal Activity Call your doctor if you observe: Fever of 101 or Higher, Shortness of breath, Fainting spells and Chest pain Meaningful Use Info Meaningful Use Diagnoses (Choose all that apply): None applicable Discharge Plan Admission Admit Date/Time: 07/14/22 11:45 Attending Provider: Leno Funk Primary Care Provider: Pretty Noguera Consulting Providers: Elisa Huddleston ; Leyda Moreland Discharge Orders/Prescriptions Prescriptions: New Firvanq 25 mg/mL Recon Soln 125 mg PO Q6 10 Days Qty: 0 0RF acetaminophen [Tylenol] 325 mg Tablet 650 mg PO Q4H PRN PRN (Reason: Fever, pain 1-06/11) Qty: 0 0RF sucralfate 1 gram Tablet 1 g PO Q6H Qty: 0 0RF Continued Eliquis 5 MG tablet 2.5 mg PO BID ipratropium-albuterol 0.5-3MG solution for nebulization 3 ml inhalation TID trazodone 50 MG tablet 100 mg PO QHS levothyroxine 75 MCG tablet 75 mcg PO DAILY sertraline 50 MG tablet 125 mg PO DAILY amlodipine 2.5 mg tablet 2.5 mg PO DAILY atorvastatin 40 mg tablet 40 mg PO DAILY pantoprazole [Protonix] 20 mg Tablet,Delayed Release (Dr/Ec) 20 mg PO DAILY torsemide 20 mg Tablet 20 mg PO BID Rx Instructions: Takes 20mg in the morning, 10mg in the afternoon cetirizine 10 mg Tablet 10 mg PO DAILY potassium chloride 20 mEq Tablet Extended Release 20 meq PO BID sacubitril-valsartan 49-51 mg Tablet 1 tab PO BID metoprolol succinate 25 mg Tablet Extended Release 24 Hr 25 mg PO DAILY multivitamin Tablet 1 tab PO DAILY Lactobacillus acidophilus Capsule 1 cap PO DAILY Referrals / Follow Up: Pretty Noguera DO [Primary Care Provider] - Within 2 Weeks Disposition Disposition (needs filled in before D/C Order can be placed): [facility] Charges/Coding Visit Charges Inpatient E&M: 62616 Disch Hosp
--- NOTE | 2022-07-17 09:16 | CASEMGMT ---
Addendum entered by Ria Stanton 07/17/22 10:36: NAVIN called pt's son, Ollie, who is POA, to inform of pt discharge today. NAVIN offered Ollie the option to transport the pt back to [facility]. Ollie reports currently living in [place], not able to transport. Ollie stated would call other family members living near [place] to see if any others can transport as family would rather avoid medical bill for ambulance, if possible. Ollie asked this SW to hold off on setting up ambulance until 1pm. If this SW does not hear back about transportation by family by 1pm Ollie is agreeable to have ambulance transport pt to [facility]. ANIBAL Orozco Original Note: Social work SW called Rosio at [facility] to inform of pt discharge and return to their facility. NAVIN has been giving updates to [facility] via [employer] and was awaiting a response. However there was no response for the past three days. NAVIN informed Rosio that pt will be returning to [facility] today following her discharge. Rosio stated no 7000 was needed as pt was usp, however a covid test was requested. PLAN: Return to [facility] ANIBAL Orozco
[2022-07-17] MEDS: amLODIPine 2.5 MG Tablet PO (09:37)
[2022-07-17] MEDS: Sertraline 50 MG Tablet 125 MG PO (09:37)
[2022-07-17] MEDS: Potassium Chloride Oral Tablet 20 MEQ PO (09:38)
[2022-07-17] MEDS: SACUBITRIL/VALSARTAN 49-51 MG TABLET 1 EACH PO (09:38)
[2022-07-17] MEDS: Metoprolol(XL)Succ 25 MG Tablet PO (09:38)
[2022-07-17] MEDS: APIXABAN 2.5 MG TABLET PO (09:38)
[2022-07-17] MEDS: Loratadine 10 MG Tablet PO (09:38)
--- NOTE | 2022-07-17 09:56 | PHA.DC.MR ---
Pharmacy Service has performed discharge medication reconciliation for this patient. The patient's discharge medication list was reviewed for discrepancies and discrepancies were resolved. Home Medications apixaban 5 mg tablet (Eliquis) 2.5 mg PO BID blood thinner 08/15/17 ipratropium 0.5 mg-albuterol 3 mg (2.5 mg base)/3 mL nebulization soln 3 ml inhalation TID respiratory 12/15/18 levothyroxine 75 mcg tablet 75 mcg PO DAILY thyroid 12/15/18 sertraline 50 mg tablet 125 mg PO DAILY depression 12/15/18 trazodone 50 mg tablet 100 mg PO QHS sleep, depression 12/15/18 Lactobacillus acidophilus 1 cap PO DAILY ANTIBIOTIC USE 07/13/22 amlodipine 2.5 mg tablet 2.5 mg PO DAILY bp 07/13/22 atorvastatin 40 mg tablet 40 mg PO DAILY cholesterol 07/13/22 cetirizine 10 mg tablet 10 mg PO DAILY SINUSES 07/13/22 metoprolol succinate 25 mg tablet,extended release 24 hr 25 mg PO DAILY HEART FAILURE 07/13/22 multivitamin 1 tab PO DAILY SUPPLEMENT 07/13/22 pantoprazole 20 mg tablet,delayed release (Protonix) 20 mg PO DAILY gerd 07/13/22 potassium chloride 20 mEq tablet,extended release 20 meq PO BID CHF 07/13/22 sacubitril 49 mg-valsartan 51 mg tablet 1 tab PO BID CHF 07/13/22 torsemide 20 mg tablet 20 mg PO BID sob/edema 07/13/22 acetaminophen 325 mg tablet (Tylenol) 650 mg PO Q4H PRN PRN Fever, pain 1-06/11 #0 tabs 07/17/22 sucralfate 1 gram tablet 1 g PO Q6H #0 tabs 07/17/22 vancomycin 25 mg/mL oral solution (Firvanq) 125 mg (5 mL) PO Q6 10 days #0 mL 07/17/22
--- NOTE | 2022-07-17 10:46 | CASEMGMT ---
Social Work Speech therapy asked that ST be added to pt's discharge information. SW notified Dr. Funk of the request. Dr. Funk to update orders. ANIBAL Amin
--- NOTE | 2022-07-17 11:11 | CASEMGMT ---
Social work SW received pc from Nat, pt's family member. Nat willing to transport pt back to [facility] and will pick pt up at 12:30pm. SW faxed discharge orders to [facility] via [employer] and made sure in inform of additional speech therapy orders and transport time by family member. SW placed copies of all D/C orders on pt chart and sent originals in envelope to go with pt. Pt's nurse updated with discharge time and provided nurse to nurse phone line. Disposition: [facility], intermediate level of care. ANIBAL Amin
--- NOTE | 2022-07-17 11:25 | NURSING ---
Report called to Claudine LARA at [facility] [phone]. Pt will be picked up at 12:30
== END 2022-07-17 12:51 | disposition skilled nursing facility (03) | DRG 372 ==
PROVIDERS: Internal Medicine; Admitting Provider Family Medicine; PCP Family Medicine; Visit Provider Internal Medicine
DX: A04.72 Enterocolitis due to Clostridium difficile, not specified as recurrent (principal); J96.11 Chronic respiratory failure with hypoxia; I50.22 Chronic systolic (congestive) heart failure; B97.4 Respiratory syncytial virus as the cause of diseases classified elsewhere; I11.0 Hypertensive heart disease with heart failure; K75.89 Other specified inflammatory liver diseases; Z99.81 Dependence on supplemental oxygen; I48.0 Paroxysmal atrial fibrillation; J44.9 Chronic obstructive pulmonary disease, unspecified; E78.5 Hyperlipidemia, unspecified; I25.10 Atherosclerotic heart disease of native coronary artery without angina pectoris; K21.9 Gastro-esophageal reflux disease without esophagitis; D50.9 Iron deficiency anemia, unspecified; I25.5 Ischemic cardiomyopathy; E03.9 Hypothyroidism, unspecified; E87.6 Hypokalemia; F41.9 Anxiety disorder, unspecified; Z79.01 Long term (current) use of anticoagulants; Z87.891 Personal history of nicotine dependence; Z66 Do not resuscitate; Z23 Encounter for immunization; Z79.899 Other long term (current) drug therapy; F32.A Depression, unspecified
CPT/HCPCS: 36415; 80048; 80053; 80076; 83690; 84145; 85025; 87426; 87493; 87506; 87633; 87635; 92507; 92526; 92610; 94640; 97110; 97116; 97161; 97165; 97530; 97535; 99251; G0008; J7030; 90686; A4216; G0463; U0003; U0005

== ENCOUNTER 2024-01-21 23:40 | Inpatient (IN) | payer MEDICARE, MEDICAID, SELFPAY ==
[2024-01-21 23:40] VITALS: BP 141/47; PULSE 100; RESP 20; TEMP 36.3; BMI 33.3
[2024-01-22] VITALS (26 sets, daily range): BP systolic 101–139; BP diastolic 43–104; PULSE 64–105; RESP 16–25; TEMP 36.5–37.4; O2SAT 92–100; BMI 33.3
--- NOTE | 2024-01-22 00:34 | CT_ITS ---
EXAM: CT HEAD WITHOUT INTRAVENOUS CONTRAST CLINICAL INDICATION: confused TECHNIQUE: Multiple axial images were obtained of the head without intravenous contrast. This CT exam was performed using one or more of the following dose reduction techniques: automated exposure control, adjustment of the mA and/or kV according to patient size, and/or use of iterative reconstruction technique. RADIATION DOSE: Total DLP: 796.11 mGy-cm. COMPARISON: No relevant prior studies available. FINDINGS: BRAIN AND EXTRA-AXIAL SPACES: A minimal degree of age-related cortical atrophy is present with slight prominence of cortical sulci. There is mild prominence of the ventricles, especially the temporal horns. Extensive patchy density seen symmetrically within the deep and subcortical white matter tracts, consistent with chronic small vessel ischemic changes. Posterior fossa structures are unremarkable. Basal cisterns are patent. Anaya-white matter differentiation is preserved. No intracranial mass or hemorrhage. No sulcal effacement. BONES/JOINTS: Unremarkable. No discrete lytic or blastic abnormalities. VASCULATURE: Atherosclerotic vascular calcification is present. The middle cerebral arteries are not hyperdense. SINUSES: Unremarkable as visualized. Clear. MASTOID AIR CELLS: Unremarkable. Clear. ORBITS: Previous cataract extraction. CT/Brain/Head without Contrast IMPRESSION: Mildly prominent ventricles, most likely due to the age-related atrophy and extensive chronic small vessel ischemic changes, with communicating hydrocephalus felt less likely. No intracranial mass, hemorrhage or acute infarction identified. Electronically Signed: Santosh Mc MD at 3:02 EDT ,
--- NOTE | 2024-01-22 00:34 | RAD_ITS ---
EXAM: XR LEFT TIBIA AND FIBULA, 2 VIEWS CLINICAL INDICATION: pain, ?infection TECHNIQUE: Frontal and lateral views of the left tibia and fibula. COMPARISON: Right tibia/fibula radiographs of this date. FINDINGS: BONES/JOINTS: Unremarkable. No acute fracture. No subluxation. Normal alignment. Preservation of the joint space. No sclerotic or destructive changes observed. SOFT TISSUES: Atherosclerotic vascular calcification is present. Mild asymmetric soft tissue swelling noted anterior to the mid tibial shaft on the lateral view. No bubbles of soft tissue emphysema. No radiopaque foreign body. RAD/Tibia & Fibula 2 Views IMPRESSION: Soft tissue swelling. No lytic osseous lesion or bubbles of soft tissue emphysema identified. Electronically Signed: Santosh Mc MD at 3:08 EDT ,
--- NOTE | 2024-01-22 00:37 | EDS_ITS ---
HPI History of Present Illness Chief Complaint: Edema Informant: patient Narrative Narrative: intermediate patient sent here because she had a panic attack and was a little low on her home with 3 L oxygen at 88%, and according to staff she was alert and oriented x 3 and requested to come to the emergency department. She states her legs are hurting so bad, and that she is short of breath but thinks that is chronic from her COPD. She states her legs been hurting for the last 6 days. She cannot tell me details, she has a midline and and has no idea why she has it, states that she lives at home takes care of her self, and that some nurse comes and puts medicine in it for reasons that are unknown and medicines that are unknown. [facility] Medical History Kidney stones COPD (chronic obstructive pulmonary disease) Former tobacco use Chronic respiratory failure with hypoxia, on home O2 therapy Chronic idiopathic thrombocytopenia Ischemic cardiomyopathy Diastolic CHF Anxiety and depression Iron deficiency anemia Hyperlipidemia GERD (gastroesophageal reflux disease) Hypothyroidism Paroxysmal A-fib Hypertension Coronary artery disease Home Medications ?Medication ?Instructions ?Recorded ?Last Taken ?Type apixaban 5 mg tablet (Eliquis) 2.5 mg PO BID blood thinner 08/15/17 07/13/22 History ipratropium 0.5 mg-albuterol 3 mg 3 ml inhalation TID respiratory 12/15/18 07/13/22 History (2.5 mg base)/3 mL nebulization soln levothyroxine 75 mcg tablet 75 mcg PO DAILY thyroid 12/15/18 07/13/22 History sertraline 50 mg tablet 125 mg PO DAILY depression 12/15/18 07/13/22 History trazodone 50 mg tablet 100 mg PO QHS sleep, depression 12/15/18 07/12/22 History Lactobacillus acidophilus 1 cap PO DAILY ANTIBIOTIC USE 07/13/22 07/13/22 History atorvastatin 40 mg tablet 40 mg PO DAILY cholesterol 07/13/22 07/12/22 History multivitamin 1 tab PO DAILY SUPPLEMENT 07/13/22 07/13/22 History pantoprazole 20 mg tablet,delayed 40 mg PO DAILY gerd 07/13/22 07/13/22 History release (Protonix) potassium chloride 20 mEq 20 meq PO BID CHF 07/13/22 07/13/22 History tablet,extended release sacubitril 49 mg-valsartan 51 mg 1 tab PO BID CHF 07/13/22 07/13/22 History tablet sucralfate 1 gram tablet 1 g PO Q6H #0 tabs 07/17/22 Unknown Rx vancomycin 25 mg/mL oral solution 125 mg (5 mL) PO Q6 10 days #0 mL 07/17/22 Unknown Rx (Firvanq) ascorbic acid (vitamin C) 500 mg 500 mg PO BID 01/22/24 Unknown History capsule ferrous sulfate 325 mg (65 mg 325 mg PO BID 01/22/24 Unknown History iron) tablet (FeroSul) gabapentin 100 mg capsule 100 mg PO TID 01/22/24 Unknown History miconazole nitrate 2 % topical 1 applic topical DAILY 01/22/24 Unknown History cream (Antifungal (miconazole)) mirtazapine 7.5 mg tablet 7.5 mg PO QHS 01/22/24 Unknown History prevagen 10 mg PO DAILY 01/22/24 Unknown History sodium ferric gluconate complex in 125 mg IV .x5 days 01/22/24 Unknown History sucrose 62.5 mg/5 mL intravenous (Ferrlecit) spironolactone 25 mg tablet 25 mg PO DAILY 01/22/24 Unknown History (Aldactone) Allergy/AdvReac Type Severity Reaction Status Date / Time Penicillins (PCN) Allergy Swelling Verified 01/21/24 23:48 Surgical History History of total abdominal hysterectomy History of tonsillectomy and adenoidectomy H/O heart artery stent Hx of cholecystectomy History of appendectomy Social History household members: none housing: assisted living facility Smoking Status: Former smoker how long ago did patient quit smoking: Quit 1999. alcohol intake: never substance use type: does not use EXAM Physical Exam Const Vital Signs: 01/21/24 23:40 01/22/24 00:40 01/22/24 01:00 Temperature 97.4 F L Temperature Source Temporal Pulse Rate 100 94 83 Respiratory Rate 20 H 16 18 Blood Pressure 141/47 H 131/83 H Blood Pressure Mean 78 99 Pulse Ox 95 92 Oxygen Delivery Method Room Air Nasal Cannula Room Air Oxygen Flow Rate (L/min) 4 01/22/24 01:22 01/22/24 02:05 01/22/24 02:16 Temperature Temperature Source Pulse Rate Respiratory Rate Blood Pressure Blood Pressure Mean Pulse Ox 99 98 Oxygen Delivery Method Nasal Cannula Oxygen Flow Rate (L/min) 4 01/22/24 03:00 01/22/24 03:25 Temperature Temperature Source Pulse Rate 92 70 Respiratory Rate 25 H 18 Blood Pressure 127/63 H 130/69 H Blood Pressure Mean 84 89 Pulse Ox 99 Oxygen Delivery Method Nasal Cannula Oxygen Flow Rate (L/min) 4 Positive well nourished and well developed Constitutional Narrative: Complaining of pain and throughout her both of her legs but in no distress General Appearance ED: well developed and NAD HEENT Reports moist mucous membranes normocephalic and atraumatic Eyes PERRL and EOMs intact bilaterally Neck full ROM, supple and no JVD Resp normal respiratory effort Resp Narrative: Diminished throughout, some mild expiratory wheezes but otherwise clear Cardio Rate: Negative for tachycardic Rhythm: abnormal rhythm irregularly irregular GI non-tender and non-distended Auscultation: normoactive bowel sounds Palpation: soft Back/Spine no CVA tenderness General Back: other FROM Extremity Extremity Narrative: Symmetric appearing bilateral lower extremities. She has wraps on both of them. When I take them down, she winces in pain, she has sloughing superficially of epidermis but wounds throughout the anterior lower legs and erythema, they are weepy but no abscess, and tender everywhere. Her toes look benign. She has scattered erythematous patches and papules throughout her thighs that are nontender but she states those seem new. She has similar-appearing lesions on both of her arms that she states are chronic. All compartments of all 4 extremities are soft and nondistended. She can move her knees and her ankle without any difficulty but winces in pain every time she moves. There is no subcutaneous emphysema palpable or lymphangitis. General Extremety ED: Yes edema and tenderness; Negative for pulses abnormal General Extremity: edema; Negative for pulses abnormal Neuro CN's II-XII intact bilaterally and no sensory deficits noted Neuro Narrative: Moving all 4 extremities equally. Confused. Oriented to person. Sensorium / Orientation: awake and alert Psych Mood & Affect: anxious Skin Skin Narrative: See above for lesions on extremities otherwise no rashes MDM MDM MDM Narrative Medical decision making narrative: The patient is very disoriented. She is not oriented x 3. I told her she was at the hospital she was surprised. Therefore I am ordering a septic workup because her legs look like they are terribly infected from wounds that have been there for an unknown period of time, again the patient is very limited historian partially due to her being disoriented. For this reason I am ordering a septic workup on her as well as an ABG given her COPD and confusion. Essentially, workup shows a urinary tract infection, lactic acidosis, although her vital signs have been stable and normal, 2 view chest x-ray which on my interpretation shows no acute pneumonia, 2 view right tib-fib shows no subcutaneous air to suggest necrotizing fasciitis, and 2 view left tib-fib shows no subcutaneous air to suggest necrotizing fasciitis. They do appear to have cellulitis, the chronicity/acuteness of this is unknown. Patient is encephalopathic and not able to provide history regarding to help. I did send her for a CT of the head, I reviewed the images and the report which I agree with, it is negative for any acute. In addition her troponin is slightly elevated. Obtained an EKG does not show an acute injury pattern, but there is a right bundle branch block which is new compared with to her old EKG. Etiology of this is unknown, possibly related to transient hypoxemia. We had her on 4 L here and she has been satting well. Given her encephalopathy and at least an acute infection in her urinary tract, plan is for admission. Levaquin started after culture sent. Lab Data Attestation: I reviewed the patient's lab results. Labs: Laboratory Results - last 24 hr 01/22/24 01/22/24 01/22/24 00:06 01:02 01:20 WBC 7.9 RBC 3.10 L Hgb 8.1 L Hct 27.5 L MCV 88.7 MCH 26.1 L MCHC 29.5 L RDW Std Deviation 54.6 H RDW Coeff of Cha 17.5 H Plt Count 172 MPV 12.1 H Immature Gran % (Auto) 0.500 Neut % (Auto) 81.2 H Lymph % (Auto) 10.0 L [place] % (Auto) 7.8 Eos % (Auto) 0.1 Baso % (Auto) 0.4 Absolute Neuts (auto) 6.4 Absolute Lymphs (auto) 0.79 L Nucleated RBC % 0 PT 21.5 H INR 1.9 APTT 54.8 H Sodium 142 Potassium 3.7 Chloride 108 H Carbon Dioxide 27.0 Anion Gap 7 BUN 17 Creatinine 0.79 Estim Creat Clear Calc 51.71 Est GFR (MDRD) Af Amer 89 Est GFR (MDRD) Non-Af 73 BUN/Creatinine Ratio 21.4 H Glucose 89 Lactic Acid 3.6 H* Calcium 9.3 Total Bilirubin 0.70 AST 20 ALT 13 Alkaline Phosphatase 142 H Total Creatine Kinase 27 Troponin I High Sens 70 H Total Protein 7.1 Albumin 2.8 L Globulin 4.3 H Albumin/Globulin Ratio 0.7 L Urine Color Yellow Urine Clarity Cloudy Urine pH 5.0 Ur Specific [place] 1.020 Urine Protein 30 H Urine Glucose (UA) Normal Urine Ketones Negative Urine Occult Blood 250 H Urine Nitrite Negative Urine Bilirubin Negative Urine Urobilinogen Normal Ur Leukocyte Esterase 500 H Urine RBC 5-10 SEEN Urine WBC 50-100 SEEN Ur Squamous Epith Cells 0 SEEN Urine Bacteria 2+ Urine Mucus 0 SEEN Radiography Diagnostic Testing: Clinical Impression(s) from Imaging Studies Brain CT 01/22/24 00:34 IMPRESSION: Mildly prominent ventricles, most likely due to the age-related atrophy and extensive chronic small vessel ischemic changes, with communicating hydrocephalus felt less likely. No intracranial mass, hemorrhage or acute infarction identified. Electronically Signed: Santosh Mc MD at 3:02 EDT Reading Location ID and State: [facility] / [place] Tel , Service support , Tibia/Fibula X-Ray 01/22/24 00:34 IMPRESSION: Soft tissue swelling. No lytic osseous lesion or bubbles of soft tissue emphysema identified. Electronically Signed: Santosh Mc MD at 3:08 EDT , Tibia/Fibula X-Ray 01/22/24 00:43 IMPRESSION: No acute abnormality. No bubbles of soft tissue emphysema or lytic osseous lesion identified. Electronically Signed: Santosh Mc MD at 3:06 EDT , Chest X-Ray 01/22/24 01:50 IMPRESSION: Cardiomegaly with continued pulmonary venous hypertension, indicating a mild degree of cardiac decompensation/CHF, similar to the prior study of 08/18. No pneumonia or pulmonary edema. Electronically Signed: Santosh Mc MD at 3:05 EDT , Rhythm Strip Rhythm Strip: A-fib Rate: 85 Ectopy: None EKG Initial EKG: Attestation: I personally reviewed and interpreted this EKG as follows: Interpretation: No Acute Injury Pattern, Atrial Fibrillation and RBBB Prior EKG tracings: available for review Prior: Changed (With regards to axis/RBBB) Management Discussion w/another healthcare provider: Hospitalist Discharge Plan Dx/Rx/DC Orders Clinical Impression: Acute encephalopathy, Acute UTI, Bilateral cellulitis of lower leg, Elevated troponin I level, Acute electrocardiogram changes Disposition Disposition: Acute Care [facility]
--- NOTE | 2024-01-22 00:43 | RAD_ITS ---
EXAM: XR RIGHT TIBIA AND FIBULA, 2 VIEWS CLINICAL INDICATION: pain, ?infection TECHNIQUE: Frontal and lateral views of the right tibia and fibula. COMPARISON: Left tibia fibula radiographs of this same date. FINDINGS: BONES/JOINTS: Unremarkable. No acute fracture. No subluxation. Normal alignment. Preservation of the joint space. No sclerotic or destructive changes observed. SOFT TISSUES: Atherosclerotic vascular calcification. No soft tissue swelling or gas. No radiopaque foreign body. RAD/Tibia & Fibula 2 Views IMPRESSION: No acute abnormality. No bubbles of soft tissue emphysema or lytic osseous lesion identified. Electronically Signed: Santosh Mc MD at 3:06 EDT ,
[2024-01-22 01:00] LABS: Absolute Lymphocyte Count 0.79 X10^3/uL (0.83-4.51); Absolute Neutrophil Count 6.4 X10^3/uL (2.0-7.7); Basophil# 0.03 X10^3/uL; Basophil% 0.4 % (0-1); Eosinophil# 0.01 X10^3/uL; Eosinophils% 0.1 % (0-5); Hematocrit 27.5 % (37-47); Hemoglobin 8.1 g/dL (12.0-15.0); Lymphocyte # 0.79 X10^3/ul (0.83-4.51); Mean Corp Hgb Conc 29.5 g/dL (32-36); Mean Corpuscular Hgb 26.1 pg (27.0-32.0); Mean Corpuscular Volume 88.7 fL (81-99); Mean Platelet Vol. 12.1 fl (6.2-12.0); Monocyte# 0.62 X10^3/uL; Monocyte% 7.8 % (0-10); NRBC Flagged by Analyzer 0 % (0-5); Neutrophil # 6.41 X10^3/uL (2.7-7.7); Neutrophil % 81.2 % (47-70); Platelet Count 172 K/mm3 (150-450); RBC Distribution Width CV 17.5 % (11.6-14.6); RBC Distribution Width SD 54.6 fl (35.1-43.9); White Blood Count 7.9 K/mm3 (4.4-11.0)
[2024-01-22 01:09] LABS: International Normalized Ratio 1.9; Prothrombin Time (Protime)PT. 21.5 SECONDS (11.7-14.9)
[2024-01-22 01:10] LABS: Partial Thromboplast Time 54.8 Seconds (24.1-36.2)
[2024-01-22] MEDS: Ondansetron 4 MG/2 ML Vial IV (01:12)
[2024-01-22] MEDS: Morphine 4 MG/ML Syringe IV (01:13)
[2024-01-22 01:33] LABS: Mucous, Urine 0 SEEN /hpf (<or=2+); Squamous Epithelial Cells - UA 0 SEEN /hpf (5-10)
[2024-01-22 01:33] LABS: ALB/GLOB Ratio 0.7 RATIO (0.9-2.4); AST(SGOT) 20 U/L (15-37); Alanine Aminotransfer ALT/SGPT 13 U/L (13-56); Albumin, Serum 2.8 g/dL (3.2-5.0); Alkaline Phosphatase 142 U/L (45-117); Anion Gap 7 (5-15); BUN 17 mg/dL (7-18); BUN/Creat Ratio 21.4 RATIO (10-20); CPK Total, Creatine Kinase 27 U/L (26-192); Calcium,Total 9.3 mg/dL (8.5-10.1); Chloride 108 mmol/L (98-107); Creatinine, Serum 0.79 mg/dL (0.55-1.02); EST Glomerular Filtration Rate 73 mL/min (>60); Est Glom Filt Rate - Afr Amer 89 mL/min (>60); Estimated Creatinine Clearance 51.71 ml/min; Globulin 4.3 g/dL (2.2-4.2); Glucose 89 mg/dL (74-106); Potassium 3.7 mmol/L (3.5-5.1); Protein, Total 7.1 g/dL (6.4-8.2); Sodium Level 142 mmol/L (136-145); Troponin-I HS 70 pg/mL (3.0-54.0)
[2024-01-22 01:37] LABS: Lactic Acid 3.6 mmol/L (0.4-1.9)
[2024-01-22 01:41] LABS: Color, Urine Yellow (Yellow); Glucose, Dipstick Normal (Normal); Ketone-Dipstick Negative (Negative); Leukocyte Esterase-Dipstick 500 /ul (Negative); Nitrite-Dipstick Negative (Negative); Occult Blood-Urine 250 /ul (Negative); Protein-Dipstick 30 mg/dl (Negative); Urine Bilirubin Dipstick Negative (Negative); Urine Clarity Cloudy (Clear); Urine Urobilinogen Normal (Normal)
[2024-01-22 01:49] LABS: Bacteria 2+ /hpf (None Seen); Red Blood Cells-Urine 5-10 SEEN /hpf (0-5); White Blood Cells 50-100 SEEN /hpf (0-5)
--- NOTE | 2024-01-22 01:50 | RAD_ITS ---
EXAM: XR CHEST, 2 VIEWS CLINICAL INDICATION: dyspnea TECHNIQUE: Frontal and lateral views of the chest. COMPARISON: Previous chest radiograph of 08/15/2017. FINDINGS: LUNGS AND PLEURAL SPACES: Unremarkable. No consolidation or edema. No pneumothorax. No effusion. Lungs are not hyperinflated. HEART: Heart size is mildly enlarged. Continued cephalization of pulmonary blood flow. MEDIASTINUM: Stable mild elongation and calcification of the thoracic aorta. BONES/JOINTS: Unremarkable. No acute fracture. SOFT TISSUES: Unremarkable. RAD/Chest PA and Lateral IMPRESSION: Cardiomegaly with continued pulmonary venous hypertension, indicating a mild degree of cardiac decompensation/CHF, similar to the prior study of 08/18. No pneumonia or pulmonary edema. Electronically Signed: Santosh Mc MD at 3:05 EDT ,
--- NOTE | 2024-01-22 02:57 | EKG12_ITS ---
Test Reason : EDEMA Blood Pressure : / mmHG Vent. Rate : 080 BPM Atrial Rate : 000 BPM P-R Int : 000 ms QRS Dur : 150 ms QT Int : 406 ms P-R-T Axes : 000 106 -14 degrees QTc Int : 468 ms Atrial fibrillation Right bundle branch block Abnormal ECG Confirmed by Adarsh Friedman ([id number]), desk editor CHRISTINA RODRIGUEZ ([id number]) on 01/22/2024 12:53:54 PM Referred By: Confirmed By:Adarsh Friedman
[2024-01-22] MEDS: levoFLOXacin IV 750 MG/150 ML BAG 100 MG IV (03:09)
--- NOTE | 2024-01-22 03:29 | HP.PCM.HOS_ITS ---
[facility] - General General Date of Admission: 01/22/24 Date of Service: 01/29/24 Chief Complaint: Bilateral lower extremity edema, redness and confusion. HPI Narrative LOWELL MOORE, is a 83 F with a past medical history of essential hypertension, hyperlipidemia, hypothyroidism, obesity; with BMI of 33.3 this admission, CAD; s/p stent (1999), history of ischemic cardiomyopathy, PAF; on Eliquis, chronic diastolic CHF; with preserved LVEF, history of tobacco abuse (quit 1999); with subsequent COPD, chronic respiratory failure on 2 L nasal cannula, chronic idiopathic thrombocytopenia, history of ischemic cardiomyopathy, LUIS, history of renal calculi, history of skin cancer, depression with anxiety, history of cholecystectomy, history of appendectomy, history of ALFONSO/BSO, GERD, osteoarthritis and chronic wounds of her lower extremities treated with wrapping who presents to [facility] ER with complaints of bilateral lower extremity edema, redness and obvious confusion. Ms. Moore is not a fully reliable historian at this time as information was gathered from chart, medical staff and computer. According to the records the staff at her assisted living facility noted patient was slightly hypoxic at 88% on 3 L and then apparently requested she be sent to the emergency department. The patient also complained of pain in her legs for the past 6 days but she can give no other details at this time. There is no report of fever, chills, nausea, vomiting, chest pain or diaphoresis but she was noted to have severe tinea cruris rash affecting her pannus. In the ER she was noted to have a urinalysis positive for evidence of acute cystitis; with microscopic hematuria complicated by lactic acidosis of 3.6 mmol/L plus patient has chronic lower extremity wounds with cellulitis (with patient not suspected to have sepsis) complicated by altered mental status likely due to acute metabolic encephalopathy along with a mildly elevated troponin of 70 pg/mL present on admission is likely due to acute cardiac strain and she was then admitted to the PCU for ongoing care for stay that is expected to be greater than 2 midnights. FOR[facility]LY [facility] Medical History Kidney stones COPD (chronic obstructive pulmonary disease) Former tobacco use Chronic respiratory failure with hypoxia, on home O2 therapy Chronic idiopathic thrombocytopenia Ischemic cardiomyopathy Diastolic CHF Anxiety and depression Iron deficiency anemia Hyperlipidemia GERD (gastroesophageal reflux disease) Hypothyroidism Paroxysmal A-fib Hypertension Coronary artery disease Home Medications ?Medication ?Instructions ?Recorded ?Last Taken ?Type apixaban 5 mg tablet (Eliquis) 2.5 mg PO BID blood thinner 08/15/17 07/13/22 History ipratropium 0.5 mg-albuterol 3 mg 3 ml inhalation TID respiratory 12/15/18 07/13/22 History (2.5 mg base)/3 mL nebulization soln levothyroxine 75 mcg tablet 75 mcg PO DAILY thyroid 12/15/18 07/13/22 History sertraline 50 mg tablet 125 mg PO DAILY depression 12/15/18 07/13/22 History trazodone 50 mg tablet 100 mg PO BID sleep, depression 12/15/18 07/12/22 History Lactobacillus acidophilus 1 cap PO DAILY ANTIBIOTIC USE 07/13/22 07/13/22 History atorvastatin 40 mg tablet 40 mg PO DAILY cholesterol 07/13/22 07/12/22 History multivitamin 1 tab PO DAILY SUPPLEMENT 07/13/22 07/13/22 History pantoprazole 20 mg tablet,delayed 40 mg PO DAILY gerd 07/13/22 07/13/22 History release (Protonix) sacubitril 49 mg-valsartan 51 mg 1 tab PO BID CHF 07/13/22 07/13/22 History tablet sucralfate 1 gram tablet 1 g PO Q6H #0 tabs 07/17/22 Unknown Rx ascorbic acid (vitamin C) 500 mg 500 mg PO BID 01/22/24 Unknown History capsule ferrous sulfate 325 mg (65 mg 325 mg PO BID 01/22/24 Unknown History iron) tablet (FeroSul) gabapentin 100 mg capsule 100 mg PO TID 01/22/24 Unknown History miconazole nitrate 2 % topical 1 applic topical DAILY 01/22/24 Unknown History cream (Antifungal (miconazole)) mirtazapine 7.5 mg tablet 7.5 mg PO QHS 01/22/24 Unknown History prevagen 10 mg PO DAILY 01/22/24 Unknown History sodium ferric gluconate complex in 125 mg IV .x5 days 01/22/24 Unknown History sucrose 62.5 mg/5 mL intravenous (Ferrlecit) spironolactone 25 mg tablet 25 mg PO DAILY 01/22/24 Unknown History (Aldactone) Allergy/AdvReac Type Severity Reaction Status Date / Time Penicillins (PCN) Allergy Swelling Verified 01/21/24 23:48 Surgical History History of total abdominal hysterectomy History of tonsillectomy and adenoidectomy H/O heart artery stent Hx of cholecystectomy History of appendectomy Social History household members: none housing: assisted living facility Smoking Status: Former smoker how long ago did patient quit smoking: Quit 1999. alcohol intake: never substance use type: does not use ROS ROS Narrative This patient is elderly and encephalopathic due to her acute infections and therefore cannot complete a review of systems at this time. Vital Signs Vital Signs Vital Signs: 01/21/24 23:40 01/22/24 00:40 01/22/24 01:00 Temperature 97.4 F L Temperature Source Temporal Pulse Rate 100 94 83 Respiratory Rate 20 H 16 18 Blood Pressure 141/47 H 131/83 H Blood Pressure Mean 78 99 Pulse Ox 95 92 Oxygen Delivery Method Room Air Nasal Cannula Room Air Oxygen Flow Rate (L/min) 4 01/22/24 01:22 01/22/24 02:05 01/22/24 02:16 Temperature Temperature Source Pulse Rate Respiratory Rate Blood Pressure Blood Pressure Mean Pulse Ox 99 98 Oxygen Delivery Method Nasal Cannula Oxygen Flow Rate (L/min) 4 01/22/24 03:00 01/22/24 03:25 Temperature Temperature Source Pulse Rate 92 70 Respiratory Rate 25 H 18 Blood Pressure 127/63 H 130/69 H Blood Pressure Mean 84 89 Pulse Ox 99 Oxygen Delivery Method Nasal Cannula Oxygen Flow Rate (L/min) 4 Weight Weight: 180 lb 12.465 oz Body Mass Index (BMI) 33.3 Physical Exam Const alert and no apparent distress General Appearance: cooperative HEENT normocephalic, head/scalp atraumatic, hearing grossly normal bilaterally and moist oral mucous membranes Eyes PERRL and EOMs intact bilaterally Neck no lymphadenopathy and supple Resp normal respiratory effort, no retractions, no use of accessory muscles and clear to auscultation bilaterally Cardio regular rate and regular rhythm GI normal to inspection, nondistended, normoactive bowel sounds, soft to palpation, non-tender and non-distended Extremity Extremity Narrative: Patient has significant chronic lower extremity wounds with evidence of superimposed cellulitis. Skin Skin Narrative: Patient has significant chronic lower extremity wounds with evidence of superimposed cellulitis. Neuro CN's II-XII intact bilaterally, moves all extremities and no focal motor deficits Sensorium / Orientation: awake, alert and oriented to person Speech: speech normal Psych affect normal Results Medical Records Data Attestation: I reviewed the patient's medical records Lab / Micro Data Attestation: I reviewed the patient's lab results. 01/22/24 00:06 01/22/24 00:06 Labs: Laboratory Results - last 24 hr 01/22/24 00:06: WBC 7.9, RBC 3.10 L, Hgb 8.1 L, Hct 27.5 L, MCV 88.7, MCH 26.1 L , MCHC 29.5 L, RDW Std Deviation 54.6 H, RDW Coeff of Cha 17.5 H, Plt Count 172, MPV 12.1 H, Immature Gran % (Auto) 0.500, Neut % (Auto) 81.2 H, Lymph % (Auto) 10.0 L, [place] % (Auto) 7.8, Eos % (Auto) 0.1, Baso % (Auto) 0.4, Absolute Neuts (auto) 6.4, Absolute Lymphs (auto) 0.79 L, Nucleated RBC % 0, PT 21.5 H, INR 1.9, APTT 54.8 H, Sodium 142, Potassium 3.7, Chloride 108 H, Carbon Dioxide 27.0, Anion Gap 7, BUN 17, Creatinine 0.79, Estim Creat Clear Calc 51.71, Est GFR (MDRD) Af Amer 89, Est GFR (MDRD) Non-Af 73, BUN/Creatinine Ratio 21.4 H, Glucose 89, Calcium 9.3, Total Bilirubin 0.70, AST 20, ALT 13, Alkaline Phosphatase 142 H, Total Creatine Kinase 27, Troponin I High Sens 70 H, Total Protein 7.1, Albumin 2.8 L, Globulin 4.3 H, Albumin/Globulin Ratio 0.7 L 01/22/24 01:02: Lactic Acid 3.6 H* 01/22/24 01:20: Urine Color Yellow, Urine Clarity Cloudy, Urine pH 5.0, Ur Specific [place] 1.020, Urine Protein 30 H, Urine Glucose (UA) Normal, Urine Ketones Negative, Urine Occult Blood 250 H, Urine Nitrite Negative, Urine Bilirubin Negative, Urine Urobilinogen Normal, Ur Leukocyte Esterase 500 H, Urine RBC 5-10 SEEN, Urine WBC 50-100 SEEN, Ur Squamous Epith Cells 0 SEEN, Urine Bacteria 2+, Urine Mucus 0 SEEN Rhythm Strip Rhythm Strip: Sinus Rhythm Rate: 85 Ectopy: None Imaging Radiology Impression Brain CT 01/22/24 00:34 IMPRESSION: Mildly prominent ventricles, most likely due to the age-related atrophy and extensive chronic small vessel ischemic changes, with communicating hydrocephalus felt less likely. No intracranial mass, hemorrhage or acute infarction identified. Electronically Signed: Santosh Mc MD at 3:02 EDT , Tibia/Fibula X-Ray 01/22/24 00:34 IMPRESSION: Soft tissue swelling. No lytic osseous lesion or bubbles of soft tissue emphysema identified. Electronically Signed: Santosh Mc MD at 3:08 EDT Reading Location ID and State: [facility] / [place] Tel , Service support , Tibia/Fibula X-Ray 01/22/24 00:43 IMPRESSION: No acute abnormality. No bubbles of soft tissue emphysema or lytic osseous lesion identified. Electronically Signed: Santosh Mc MD at 3:06 EDT , Chest X-Ray 01/22/24 01:50 IMPRESSION: Cardiomegaly with continued pulmonary venous hypertension, indicating a mild degree of cardiac decompensation/CHF, similar to the prior study of 08/18. No pneumonia or pulmonary edema. Electronically Signed: Santosh Mc MD at 3:05 EDT , Assessment & Plan Assessment/Plan (1) Acute UTI: (2) Bilateral cellulitis of lower leg: (3) Acute encephalopathy: (4) Elevated troponin I level: (5) Tinea cruris: PLAN: Plan 1. Acute cystitis; with microscopic hematuria complicated by lactic acidosis of 3.6 mmol/L plus patient has an acute worsening of chronic lower extremity wounds with cellulitis with the patient suspected not to have sepsis - Admit to PCU. Continue broad-spectrum antibiotics with IV vancomycin and IV Levaquin (with listed penicillin allergy) and await culture and sensitivity data. Serialize lactate. Give Tylenol as needed pain or fever. 2. Mildly elevated troponin of 70 pg/mL present on admission likely arising from acute cardiac strain due to #1 in the setting of known CAD; status post stent plus ischemic cardiomyopathy and PAF; on Eliquis - Serialize troponin. Start enteric-coated aspirin. Check BNP with chest x-ray suspicious for early signs of chronic diastolic CHF; with preserved LVEF. 3. Acute metabolic encephalopathy arising from #1 & #2 - Minimize MEDICAL RECEPTIONIST ASSISTANT-active medications. Treat above conditions and monitor for improvement. Also check TSH, B12, folate and UDS to evaluate for other potential reversible causes of confusion. 4. Severe tinea cruris adding to the pathology of #1 - #3 - Start nystatin powder 3 times daily to skin folds. 5. Essential hypertension - Hold scheduled antihypertensives until infections outlined #1 have been neutralized. 6. Hyperlipidemia - Continue statin and check lipid profile. 7. Hypothyroidism - Resume Synthroid and check TSH. 8. Obesity; with BMI of 33.3 this admission - Weight loss will be recommended when patient's sensorium clears. 9. History of tobacco abuse (quit 1999); with subsequent COPD plus chronic respiratory failure on 3 L nasal cannula - Stable with no evidence of acute flare at this time. Continue supplemental oxygen as previous. 10. Chronic idiopathic thrombocytopenia - Noted platelet count of 172 K present on admission. Check daily CBC to ensure continued stability. 11. LUIS - Noted. 12. History of renal calculi - Noted. 13. Depression with anxiety - Continue home medications as previous. 14. History of cholecystectomy - Noted. 15. History of appendectomy - Noted. 16. History of ALFONSO - Noted. 17. GERD - Resume PPI. 18. Osteoarthritis - Give Tylenol as needed. 19. History of skin cancer - Noted. 20. DVT prophylaxis - Patient already on Eliquis for PAF which will be continued. Total time: Approximately 75 minutes. Charges/Coding Visit Charges Inpatient E&M: 94682 Init Hosp L3
[2024-01-22 05:07] LABS: Reflex Lactate? Y
--- NOTE | 2024-01-22 05:20 | ED.RN ---
Mukesh Puckett called and updated about pt's admission.
--- NOTE | 2024-01-22 05:48 | ECHOL_ITS ---
Reason For Study: CONGESTIVE HEART FAILURE Procedure This was a limited 2D transthoracic echocardiogram. Limited views were obtained. Patient not able to withstand full test. Exam performed portable in patient room. Aortic Valve There is no aortic stenosis. MMode/2D Measurements & Calculations LVIDd: 5.2 cm IVSd: 1.0 cm LVOT diam: 2.0 cm LVIDs: 3.9 cm LVPWd: 1.1 cm LVOT area: 3.0 cm2 FS: 24.5 % Ao root diam: 2.9 cm LA dimension(2D): 5.1 cm ECHO/Echo, Limited Study Interpretation Summary Limited echo due to patient not cooperating with the full study. EF assessment cannot be made due to limited views available Mildly enlarged left atrium Mild mitral regurgitation Ordering Physician: Leno Emerson Performed By: Lizett Rodriguez RDCS
[2024-01-22] MEDS: Morphine 2 MG/ML Syringe IV ×3 (06:28→21:09)
[2024-01-22] MEDS: Sucralfate 1 GM Tablet PO ×4 (06:31→22:45)
[2024-01-22] MEDS: Gabapentin 100 MG Capsule PO ×4 (06:31→22:47)
[2024-01-22] MEDS: Nystatin Ointment 1 APPLIC TOPICAL (06:31)
[2024-01-22] MEDS: Ciprofloxacin 0.3% 2.5ml Bottle 2 DRP EACH EYE ×5 (06:47→22:51)
[2024-01-22] MEDS: 0.9% Normal Saline (1000mL) 1,000 ML 30 ML IV (06:47)
[2024-01-22] MEDS: Vancomycin HCl 2,000 MG in 0.9% Normal Saline (500mL Bag) 500 ML 250 MG IV (06:49)
--- NOTE | 2024-01-22 07:11 | PHA.PHARE_ITS ---
Consult Antibiotic Management Pharmacy has been consulted to manage selected antibiotic: Vancomycin Type of Intervention Type of Consult: New start Suspected Infection Suspected Infection: Skin/Soft tissue and Other Dosing Weight Weight used for dosin.5 kg Estimated Creatinine Clearance Estimated Creatinine Clearance: 51.7ML/MIN Goal Trough Goal Trough: 15-20 mcg/mL Pharmacy Plan for Drug Dosing Pharmacy Plan for Drug Dosing: Give initial dose of 2000mg IV x1, then continue with 750mg IV q12h per [facility] dosing protocol. Check a trough before the 4th total dose. Pharmacy Service will continue to monitor and adjust dosing as required. Follow-Up Labs Follow-Up Labs: Trough: Vancomycin Date/Time Labs Ordered Labs to be done on [date and time ordered]: 01/23/24 18:30
[2024-01-22 07:12] LABS: Absolute Lymphocyte Count 0.75 X10^3/uL (0.83-4.51); Absolute Neutrophil Count 6.8 X10^3/uL (2.0-7.7); Basophil# 0.05 X10^3/uL; Basophil% 0.6 % (0-1); Eosinophil# 0.01 X10^3/uL; Eosinophils% 0.1 % (0-5); Hematocrit 29.2 % (37-47); Hemoglobin 8.2 g/dL (12.0-15.0); Lymphocyte # 0.75 X10^3/ul (0.83-4.51); Lymphocyte % 8.8 % (19-41); Mean Corp Hgb Conc 28.1 g/dL (32-36); Mean Corpuscular Hgb 25.6 pg (27.0-32.0); Mean Corpuscular Volume 91.3 fL (81-99); Mean Platelet Vol. 11.7 fl (6.2-12.0); Monocyte# 0.82 X10^3/uL; Monocyte% 9.7 % (0-10); NRBC Flagged by Analyzer 0 % (0-5); Neutrophil # 6.81 X10^3/uL (2.7-7.7); Neutrophil % 80.2 % (47-70); Platelet Count 172 K/mm3 (150-450); RBC Distribution Width CV 17.8 % (11.6-14.6); RBC Distribution Width SD 56.7 fl (35.1-43.9); White Blood Count 8.5 K/mm3 (4.4-11.0)
[2024-01-22 07:53] LABS: Phosphorus 3.6 mg/dL (2.5-4.9)
[2024-01-22 08:29] LABS: Vitamin B12 683 pg/mL (211-911)
[2024-01-22 08:47] LABS: ALB/GLOB Ratio 0.6 RATIO (0.9-2.4); AST(SGOT) 25 U/L (15-37); Alanine Aminotransfer ALT/SGPT 15 U/L (13-56); Albumin, Serum 2.8 g/dL (3.2-5.0); Alkaline Phosphatase 137 U/L (45-117); Anion Gap 7 (5-15); BUN 17 mg/dL (7-18); BUN/Creat Ratio 20.8 RATIO (10-20); Calcium,Total 9.2 mg/dL (8.5-10.1); Chloride 107 mmol/L (98-107); Creatinine, Serum 0.82 mg/dL (0.55-1.02); EST Glomerular Filtration Rate 71 mL/min (>60); Est Glom Filt Rate - Afr Amer 86 mL/min (>60); Estimated Creatinine Clearance 51.75 ml/min; Globulin 4.4 g/dL (2.2-4.2); Glucose 88 mg/dL (74-106); Magnesium 1.8 mg/dL (1.6-2.6); Potassium 4.4 mmol/L (3.5-5.1); Protein, Total 7.2 g/dL (6.4-8.2); Sodium Level 139 mmol/L (136-145); Troponin-I HS 415 pg/mL (3.0-54.0)
[2024-01-22] MEDS: Ferrous Sulfate 325 MG Tablet PO ×2 (09:13→17:38)
[2024-01-22] MEDS: Lactobacillis Acidophilus 1 CAP PO (09:13)
[2024-01-22] MEDS: Aspirin E.C. 81 MG Tablet PO (09:13)
[2024-01-22] MEDS: Multivitamins,Therapeutic Tablet 1 TABLET PO (09:13)
[2024-01-22] MEDS: Menthol/Lanolin/Calamine/Znox 113 GM Tube 1 APPLIC TOPICAL ×2 (09:18→22:48)
[2024-01-22] MEDS: Miconazole Nitrate Cream 1 APPLIC TOPICAL (09:19)
[2024-01-22] MEDS: APIXABAN 2.5 MG TABLET (WCH) PO ×2 (09:20→22:46)
--- NOTE | 2024-01-22 10:15 | WOUNDNOTE ---
wound photo: left lower leg/foot
--- NOTE | 2024-01-22 10:17 | WOUNDNOTE ---
wound photo: bilateral lower legs
[2024-01-22] MEDS: Spironolactone 25 MG Tablet PO (10:48)
[2024-01-22] MEDS: Acetaminophen 325 MG Tablet 650 MG PO ×2 (10:48→17:48)
[2024-01-22] MEDS: Pantoprazole Sodium 40 MG Tablet PO (10:49)
[2024-01-22] MEDS: Sertraline 50 MG Tablet 125 MG PO (10:49)
[2024-01-22] MEDS: Zinc Sulfate 50 mg zinc (220 mg) ORAL capsule PO (10:49)
[2024-01-22] MEDS: Ascorbic Acid 500 MG Tablet PO ×3 (10:49→22:48)
[2024-01-22 11:15] LABS: Lactic Acid 1.9 mmol/L (0.4-1.9)
[2024-01-22] MEDS: Nystatin Powder 15gm Bottle 1 APPLIC TOPICAL ×2 (11:28→22:49)
--- NOTE | 2024-01-22 11:35 | CASEMGMT ---
Social Work Pt is here from [facility]. NAVIN called Salima at [facility], she confirmed pt is [facility] there, no precert needed and can return any time. D/C business continuity planning director Katharine will send updates. NAVIN called son Ollie to confirm discharge plan, message left. NAVIN will continue to follow. LATRELL Bonds
--- NOTE | 2024-01-22 11:46 | CASEMGMT ---
Discharge Planning Updates sent via [facility] to Marzena Gardner. Requested POA papers be faxed to [facility]. Katharine Velázquez DC Planning Asst.
--- NOTE | 2024-01-22 17:29 | PCM.PN.BLA ---
Progress Note Called to bedside by nursing staff secondary to pain in her left leg. She is still confused and encephalopathic from her infection so it is hard to communicate she does states she has pain but cannot tell me where. I did take down the dressing on her left lower extremity and she does have both dorsalis pedis and posterior tibial pulses on Doppler. She does have an extensive area of picking lesions in various stages of healing. She would occasionally endorse pain when not even touching air but then would sleep through manipulation of her foot to take down the dressings or put the dressings back on. At this time given the blood flow I do think that this is related to metabolic encephalopathy from her UTI and therefore we will order a dose of risperidone and see if this helps.
[2024-01-22] MEDS: RisperiDONE 0.25 MG Tablet PO ×2 (17:39→22:48)
[2024-01-22] MEDS: Vancomycin HCl 750 MG in 0.9% Normal Saline (250mL Bag) 250 ML 250 MG IV (18:52)
[2024-01-22] MEDS: Ipratropium/Albuterol Sulfate 3 ML AMPUL.NEB INHALATION (19:49)
[2024-01-22] MEDS: 0.9% Saline Lock 10 ML Syringe IV (21:10)
[2024-01-22] MEDS: Ketorolac 15 MG/ML Vial IV (21:10)
[2024-01-22] MEDS: Atorvastatin Calcium 40 MG Tablet PO (22:47)
[2024-01-22] MEDS: Mirtazapine 15 MG Tablet 7.5 MG PO (22:47)
[2024-01-23] VITALS (8 sets, daily range): BP systolic 109–129; BP diastolic 61–70; PULSE 66–92; RESP 16–19; TEMP 36.1–36.4; O2SAT 94–99; BMI 32.8
[2024-01-23] MEDS: Ciprofloxacin 0.3% 2.5ml Bottle 2 DRP EACH EYE ×4 (05:38→21:04)
[2024-01-23] MEDS: Levothyroxine 75 MCG Tablet PO (05:39)
[2024-01-23] MEDS: Sucralfate 1 GM Tablet PO ×4 (05:39→21:03)
[2024-01-23] MEDS: Vancomycin HCl 750 MG in 0.9% Normal Saline (250mL Bag) 250 ML 250 MG IV (05:41)
[2024-01-23 06:54] LABS: Absolute Lymphocyte Count 0.82 X10^3/uL (0.83-4.51); Absolute Neutrophil Count 7.5 X10^3/uL (2.0-7.7); Basophil# 0.03 X10^3/uL; Basophil% 0.3 % (0-1); Hematocrit 27.8 % (37-47); Lymphocyte # 0.82 X10^3/ul (0.83-4.51); Lymphocyte % 9.2 % (19-41); Mean Corp Hgb Conc 28.8 g/dL (32-36); Mean Corpuscular Hgb 26.1 pg (27.0-32.0); Mean Corpuscular Volume 90.6 fL (81-99); Mean Platelet Vol. 10.8 fl (6.2-12.0); Monocyte# 0.61 X10^3/uL; Monocyte% 6.8 % (0-10); NRBC Flagged by Analyzer 0 % (0-5); Neutrophil # 7.45 X10^3/uL (2.7-7.7); Neutrophil % 83.4 % (47-70); Platelet Count 146 K/mm3 (150-450); RBC Distribution Width CV 18.1 % (11.6-14.6); Red Blood Count 3.07 M/mm3 (4.2-5.4); White Blood Count 8.9 K/mm3 (4.4-11.0)
[2024-01-23 07:29] LABS: Anion Gap 8 (5-15); BUN 29 mg/dL (7-18); BUN/Creat Ratio 20.1 RATIO (10-20); Calcium,Total 8.9 mg/dL (8.5-10.1); Chloride 110 mmol/L (98-107); Creatinine, Serum 1.44 mg/dL (0.55-1.02); EST Glomerular Filtration Rate 37 mL/min (>60); Est Glom Filt Rate - Afr Amer 45 mL/min (>60); Estimated Creatinine Clearance 29.26 ml/min; Glucose 72 mg/dL (74-106); Potassium 5.1 mmol/L (3.5-5.1); Sodium Level 140 mmol/L (136-145)
[2024-01-23] MEDS: Ipratropium/Albuterol Sulfate 3 ML AMPUL.NEB INHALATION ×2 (10:40→19:29)
[2024-01-23] MEDS: Aspirin E.C. 81 MG Tablet PO (10:46)
[2024-01-23] MEDS: Lactobacillis Acidophilus 1 CAP PO (10:47)
[2024-01-23] MEDS: Multivitamins,Therapeutic Tablet 1 TABLET PO (10:47)
[2024-01-23] MEDS: Menthol/Lanolin/Calamine/Znox 113 GM Tube 1 APPLIC TOPICAL ×2 (10:47→21:03)
[2024-01-23] MEDS: Spironolactone 25 MG Tablet PO (10:47)
[2024-01-23] MEDS: Ferrous Sulfate 325 MG Tablet PO ×2 (10:47→15:46)
[2024-01-23] MEDS: APIXABAN 2.5 MG TABLET (WCH) PO ×2 (10:48→21:03)
[2024-01-23] MEDS: levoFLOXacin IV 750 MG/150 ML BAG 100 MG IV (10:49)
[2024-01-23] MEDS: Nystatin Powder 15gm Bottle 1 APPLIC TOPICAL ×2 (10:49→21:03)
[2024-01-23] MEDS: Pantoprazole Sodium 40 MG Tablet PO (10:50)
[2024-01-23] MEDS: Zinc Sulfate 50 mg zinc (220 mg) ORAL capsule PO (10:50)
[2024-01-23] MEDS: Miconazole Nitrate Cream 1 APPLIC TOPICAL (10:50)
[2024-01-23] MEDS: Sertraline 50 MG Tablet 125 MG PO (10:51)
--- NOTE | 2024-01-23 13:57 | WOUNDNOTE ---
Judd RN had already applied cream and dressings to legs. patient states areas over body are skin cancer. lots of old scarring and red areas to arms, legs, chest, and back. will continue to monitor. pt more alert today but still confused.
--- NOTE | 2024-01-23 15:21 | PN.HOSP_ITS ---
Subjective Subjective Doing well, had more pain overnight however this morning she seems much more alert and is not complaining of any pain Objective Data Objective Data Vital Signs: Vital Signs Temp Pulse Resp BP Pulse Ox O2 Del Method O2 Flow Rate 97.6 F L 92 19 H 109/61 94 Nasal Cannula 3.5 01/23/24 10:00 01/23/24 10:55 01/23/24 10:55 01/23/24 10:00 01/23/24 10:19 01/23/24 10:19 01/23/24 10:19 Oxygen Flow Rate (L/min) 3.5 Oxygen Delivery Method Nasal Cannula Weight: 179 lb 7.3 oz Body Mass Index (BMI) 32.8 Intake & Output: Intake and Output for Last 24 Hours 01/22/24 01/23/24 01/24/24 03:59 03:59 03:59 Intake Total 1225 / 1225 835 / 835 Output Total 2 / 2 0 / 0 Balance 1223 / 1223 835 / 835 Lab / Micro Data 01/23/24 06:35 01/23/24 06:35 Labs: Laboratory Results - last 24 hr 01/23/24 06:35: WBC 8.9, RBC 3.07 L, Hgb 8.0 L, Hct 27.8 L, MCV 90.6, MCH 26.1 L , MCHC 28.8 L, RDW Std Deviation 56.0 H, RDW Coeff of Cha 18.1 H, Plt Count 146 L, MPV 10.8, Immature Gran % (Auto) 0.300, Neut % (Auto) 83.4 H, Lymph % (Auto) 9.2 L, [place] % (Auto) 6.8, Eos % (Auto) 0.0, Baso % (Auto) 0.3, Absolute Neuts (auto) 7.5, Absolute Lymphs (auto) 0.82 L, Nucleated RBC % 0, Sodium 140, Potassium 5.1, Chloride 110 H, Carbon Dioxide 22.0, Anion Gap 8, BUN 29 H, C reatinine 1.44 H, Estim Creat Clear Calc 29.26, Est GFR (MDRD) Af Amer 45 L, Est GFR (MDRD) Non-Af 37 L, BUN/Creatinine Ratio 20.1 H, Glucose 72 L, Calcium 8.9 Micro: Microbiology 01/22/24 01:20 Urine, Clean Catch Urine Culture - Preliminary Presumptive E. coli Rhythm Strip Rhythm Strip: Sinus Rhythm Rate: 85 Ectopy: None Physical Exam Narrative General: Alert, Oriented x2, Cooperative, No apparent distress HEENT: Atraumatic, PERRLA, EOMI, Normocephalic Oral: Moist Mucosa Neck: Supple, No JVD Lungs: Diminished, Normal air movement, No rhonchi, No wheeze, No rales Cardiovascular: Regular rate, Regular Rhythm, Normal S1, Normal S2, No murmurs Abdomen: Soft, Non Tender, Non-Distended, No Hepato-splenomegaly Extremities: No edema, Capillary Refill Less than 3 Seconds Skin: Multiple areas of excoriation and what appears to be picking in various stages of healing Musculoskeletal: No Tenderness to Palpation of Joints or Extremities Neurological: No focal neurological deficits, Motor Exam 5/5 strength throughout, Sensory exam intact to light touch and pain Psych/Mental Status: Normal Affect, Appropriate Assessment & Plan Assessment/Plan (1) Acute UTI: (2) Acute encephalopathy: (3) Elevated troponin I level: (4) Tinea cruris: PLAN: Plan 1. UTI with metabolic encephalopathy/YOHANA ? Continue with antibiotics ? Urine cultures are pending ? PT/OT as well as wound care secondary to the multiple noninfected wounds in her lower extremities ? Renal function has climbed to 1.44 we will recheck in the morning continue with IV fluids ? Will discontinue vancomycin 2. Elevated troponin/essential HTN/HLD/A-fib ? She did have an elevated troponin from 70 to 415 however unclear as to the etiology at this time initially attempted to get an echo but she was too restless ? Will reorder echo to see if it can be completed ? We will monitor her blood pressure make adjustments as necessary ? Continue with statin 3. Hypothyroidism ? Stable ? Continue with Synthroid 4. Anxiety/depression ? Stable ? Continue with her home medications ? There may be a component of dementia so we will cover with risperidone for agitation overnight 5. GERD ? Stable ? Continue with PPI DVT: Eliquis Charges/Coding Visit Charges Inpatient E&M: 08746 Subs Hosp L2
[2024-01-23] MEDS: 0.9% Normal Saline (1000mL) 1,000 ML 30 ML IV (15:45)
[2024-01-23] MEDS: Gabapentin 100 MG Capsule PO ×2 (15:45→21:02)
--- NOTE | 2024-01-23 16:26 | ECHOD_ITS ---
Reason For Study: OTHER Procedure This was a 2D Doppler, Color Flow transthoracic echocardiogram. Technically difficult due to body habitus. Definity deferred due to pulmonary pressure. Exam performed portable in patient room. Left Ventricle Normal LV size. The estimated ejection fraction is 55 %. Unable to assess diastolic dysfunction. No regional wall motion abnormalities noted. Right Ventricle Normal RV size. Normal systolic function. Atria There is mild biatrial dilatation. No doppler evidence for ASD. Mitral Valve There is moderate mitral annular calcification. There is no mitral valve stenosis. Mild (1+) mitral valve insufficiency. Tricuspid Valve There is no tricuspid stenosis. Mild tricuspid valve insufficiency. Pulmonary artery systolic pressure is 55 mmHg. Aortic Valve Trisinus/trileaflet aortic valve. Aortic sclerosis, no stenosis. There is no aortic stenosis. No aortic valve insufficiency. Pulmonic Valve There is no pulmonic valvular stenosis. No pulmonic valve insufficiency. Great Vessels Normal aortic root. Pericardium/Pleural No pericardial effusion. MMode/2D Measurements & Calculations LVIDd: 5.0 cm IVSd: 1.2 cm Ao root diam: 3.3 cm LVIDs: 3.8 cm LVPWd: 1.4 cm FS: 24.3 % LAV(MOD-bp): 134.7 ml LA A4 area: 32.7 cm2 LA dimension(2D): 4.9 cm LAV(MOD-bp) Indexed: 72.7 ml/m2 LAV(MOD-sp2): 137.4 ml LAV(MOD-sp4): 127.4 ml TAPSE: 2.3 cm RA A4 area: 34.3 cm2 Doppler Measurements & Calculations MV E max jarrell: 122.7 cm/sec LV V1 max: 63.1 cm/sec PA V2 max: 88.1 cm/sec LV V1 max P.6 mmHg PA V2 mean: 61.0 cm/sec LV V1 mean P.74 mmHg LV V1 mean: 40.4 cm/sec LV V1 VTI: 9.4 cm TR max jarrell: 399.2 cm/sec TR max P.7 mmHg ECHO/Echo Complete Interpretation Summary The estimated ejection fraction is 55 %. Unable to assess diastolic dysfunction. Mild (1+) mitral valve insufficiency. Ordering Physician: Casper Parish Referring Physician: APOLONIA ESCALANTE Performed By: Sowmya Ho RCS
[2024-01-23 17:12] LABS: Ferritin 3440 ng/mL (8-252); Iron 34 ug/dL (50-170); Iron Binding Capacity,Total 208 ug/dL (250-450); PERCENT IRON SATURATION 16.3 % (15.0-55.0)
[2024-01-23] MEDS: Mirtazapine 15 MG Tablet 7.5 MG PO (21:02)
[2024-01-23] MEDS: Ascorbic Acid 500 MG Tablet PO (21:02)
[2024-01-23] MEDS: Atorvastatin Calcium 40 MG Tablet PO (21:03)
[2024-01-23] MEDS: RisperiDONE 0.25 MG Tablet PO (21:04)
[2024-01-23] MEDS: Acetaminophen 325 MG Tablet 650 MG PO (22:10)
[2024-01-24 03:11] VITALS: BP 104/52; PULSE 70; RESP 16; TEMP 36.1; O2SAT 94
[2024-01-24 03:19] VITALS: BMI 34.1
[2024-01-24] MEDS: Ciprofloxacin 0.3% 2.5ml Bottle 2 DRP EACH EYE ×5 (05:56→20:55)
[2024-01-24] MEDS: Sucralfate 1 GM Tablet PO ×4 (05:57→20:54)
[2024-01-24] MEDS: 0.9% Normal Saline (1000mL) 1,000 ML 75 ML IV ×2 (05:57→19:07)
[2024-01-24] MEDS: Levothyroxine 75 MCG Tablet PO (05:57)
[2024-01-24] MEDS: Gabapentin 100 MG Capsule PO ×3 (05:59→20:55)
[2024-01-24 06:48] LABS: Absolute Neutrophil Count 3.4 X10^3/uL (2.0-7.7); Basophil# 0.03 X10^3/uL; Basophil% 0.6 % (0-1); Eosinophil# 0.14 X10^3/uL; Eosinophils% 2.8 % (0-5); Hematocrit 26.6 % (37-47); Hemoglobin 7.8 g/dL (12.0-15.0); Lymphocyte % 20.2 % (19-41); Mean Corp Hgb Conc 29.3 g/dL (32-36); Mean Corpuscular Hgb 26.6 pg (27.0-32.0); Mean Corpuscular Volume 90.8 fL (81-99); Mean Platelet Vol. 10.9 fl (6.2-12.0); Monocyte# 0.33 X10^3/uL; Monocyte% 6.7 % (0-10); NRBC Flagged by Analyzer 0 % (0-5); Neutrophil # 3.42 X10^3/uL (2.7-7.7); Neutrophil % 69.3 % (47-70); Platelet Count 148 K/mm3 (150-450); RBC Distribution Width CV 18.4 % (11.6-14.6); RBC Distribution Width SD 57.9 fl (35.1-43.9); Red Blood Count 2.93 M/mm3 (4.2-5.4); White Blood Count 4.9 K/mm3 (4.4-11.0)
[2024-01-24 07:29] VITALS: PULSE 88; RESP 20; O2SAT 97
[2024-01-24] MEDS: Ipratropium/Albuterol Sulfate 3 ML AMPUL.NEB INHALATION ×2 (07:29→19:14)
[2024-01-24 08:23] LABS: Anion Gap 7 (5-15); BUN 40 mg/dL (7-18); BUN/Creat Ratio 24.2 RATIO (10-20); Calcium,Total 8.7 mg/dL (8.5-10.1); Chloride 113 mmol/L (98-107); Creatinine, Serum 1.65 mg/dL (0.55-1.02); EST Glomerular Filtration Rate 32 mL/min (>60); Est Glom Filt Rate - Afr Amer 38 mL/min (>60); Estimated Creatinine Clearance 26.06 ml/min; Glucose 86 mg/dL (74-106); Potassium 4.4 mmol/L (3.5-5.1); Sodium Level 143 mmol/L (136-145)
[2024-01-24] MEDS: Multivitamins,Therapeutic Tablet 1 TABLET PO (09:06)
[2024-01-24] MEDS: Aspirin E.C. 81 MG Tablet PO (09:06)
[2024-01-24] MEDS: Lactobacillis Acidophilus 1 CAP PO (09:07)
[2024-01-24] MEDS: APIXABAN 2.5 MG TABLET (WCH) PO ×2 (09:07→20:54)
[2024-01-24] MEDS: Nystatin Powder 15gm Bottle 1 APPLIC TOPICAL ×2 (09:08→20:55)
[2024-01-24] MEDS: Ascorbic Acid 500 MG Tablet PO ×2 (09:08→20:54)
[2024-01-24] MEDS: Pantoprazole Sodium 40 MG Tablet PO (09:08)
[2024-01-24] MEDS: Sertraline 50 MG Tablet 125 MG PO (09:10)
[2024-01-24] MEDS: Zinc Sulfate 50 mg zinc (220 mg) ORAL capsule PO (09:10)
[2024-01-24 09:11] VITALS: BP 130/56; PULSE 68; RESP 16; TEMP 36.6; O2SAT 97
[2024-01-24] MEDS: Menthol/Lanolin/Calamine/Znox 113 GM Tube 1 APPLIC TOPICAL ×2 (09:11→20:53)
[2024-01-24] MEDS: Ferrous Sulfate 325 MG Tablet PO ×2 (09:12→19:07)
--- NOTE | 2024-01-24 13:35 | CASEMGMT ---
Discharge Planning Updates sent to [place] via [facility]. Requested wknd phone/fax. Katharine Velázquez DC Planning Asst.
[2024-01-24 15:00] VITALS: BP 122/62; PULSE 74; RESP 16; TEMP 36.4; O2SAT 97
[2024-01-24] MEDS: Morphine 2 MG/ML Syringe IV (15:03)
[2024-01-24] MEDS: 0.9% Saline Lock 10 ML Syringe IV (15:04)
--- NOTE | 2024-01-24 15:17 | PN.HOSP_ITS ---
Objective Data Objective Data Vital Signs: Vital Signs Temp Pulse Resp BP Pulse Ox O2 Del Method O2 Flow Rate 97.8 F 68 16 130/56 H 97 Nasal Cannula 3 01/24/24 09:11 01/24/24 09:11 01/24/24 09:11 01/24/24 09:11 01/24/24 09:11 01/24/24 09:11 01/24/24 14:09 Oxygen Flow Rate (L/min) 3 Oxygen Delivery Method Nasal Cannula Weight: 186 lb 8.177 oz Body Mass Index (BMI) 34.1 Intake & Output: Intake and Output for Last 24 Hours 01/23/24 01/24/24 01/25/24 03:59 03:59 03:59 Intake Total 1225 / 1225 2307 / 2307 1117 / 1117 Output Total 2 / 2 0 / 0 0 / 0 Balance 1223 / 1223 2307 / 2307 1117 / 1117 Lab / Micro Data 01/24/24 06:30 01/24/24 06:30 Labs: Laboratory Results - last 24 hr 01/23/24 06:35: Iron 34 L, TIBC 208 L, Iron Saturation 16.3, Ferritin 3440 H 01/24/24 06:30: WBC 4.9, RBC 2.93 L, Hgb 7.8 L, Hct 26.6 L, MCV 90.8, MCH 26.6 L , MCHC 29.3 L, RDW Std Deviation 57.9 H, RDW Coeff of Cha 18.4 H, Plt Count 148 L, MPV 10.9, Immature Gran % (Auto) 0.400, Neut % (Auto) 69.3, Lymph % (Auto) 20.2, [place] % (Auto) 6.7, Eos % (Auto) 2.8, Baso % (Auto) 0.6, Absolute Neuts (auto) 3.4, Absolute Lymphs (auto) 1.00, Nucleated RBC % 0, Sodium 143, Potassium 4.4, Chloride 113 H, Carbon Dioxide 23.0, Anion Gap 7, BUN 40 H, C reatinine 1.65 H, Estim Creat Clear Calc 26.06, Est GFR (MDRD) Af Amer 38 L, Est GFR (MDRD) Non-Af 32 L, BUN/Creatinine Ratio 24.2 H, Glucose 86, Calcium 8.7 Micro: Microbiology 01/22/24 01:26 Blood Culture (Wb) - Anticubital Left Blood Culture - Preliminary No growth in 48 hours. 01/22/24 01:02 Blood Culture (Wb) - Anticubital Left Blood Culture - Preliminary No growth in 48 hours. 01/22/24 01:20 Urine, Clean Catch Urine Culture - Final Presumptive E. coli Radiography Diagnostic Testing: Radiology Impression Echocardiogram 01/23/24 16:26 Interpretation Summary The estimated ejection fraction is 55 %. Unable to assess diastolic dysfunction. Mild (1+) mitral valve insufficiency. Ordering Physician: Casper Parish Referring Physician: APOLONIA ESCALANTE Performed By: Sowmya Ho RCS Rhythm Strip Rhythm Strip: Sinus Rhythm Rate: 85 Ectopy: None
--- NOTE | 2024-01-24 15:46 | PCM.PN.HOSP ---
Subjective Subjective Doing well, no issues overnight. Legs are less painful today Objective Data Objective Data Vital Signs: Vital Signs Temp Pulse Resp BP Pulse Ox O2 Del Method O2 Flow Rate 97.8 F 68 16 130/56 H 97 Nasal Cannula 3 01/24/24 09:11 01/24/24 09:11 01/24/24 09:11 01/24/24 09:11 01/24/24 09:11 01/24/24 09:11 01/24/24 14:09 Oxygen Flow Rate (L/min) 3 Oxygen Delivery Method Nasal Cannula Weight: 186 lb 8.177 oz Body Mass Index (BMI) 34.1 Intake & Output: Intake and Output for Last 24 Hours 01/23/24 01/24/24 01/25/24 03:59 03:59 03:59 Intake Total 1225 / 1225 2307 / 2307 1117 / 1117 Output Total 2 / 2 0 / 0 0 / 0 Balance 1223 / 1223 2307 / 2307 1117 / 1117 Lab / Micro Data 01/24/24 06:30 01/24/24 06:30 Labs: Laboratory Results - last 24 hr 01/23/24 06:35: Iron 34 L, TIBC 208 L, Iron Saturation 16.3, Ferritin 3440 H 01/24/24 06:30: WBC 4.9, RBC 2.93 L, Hgb 7.8 L, Hct 26.6 L, MCV 90.8, MCH 26.6 L, MCHC 29.3 L, RDW Std Deviation 57.9 H, RDW Coeff of Cha 18.4 H, Plt Count 148 L, MPV 10.9, Immature Gran % (Auto) 0.400, Neut % (Auto) 69.3, Lymph % (Auto) 20.2, Josephine % (Auto) 6.7, Eos % (Auto) 2.8, Baso % (Auto) 0.6, Absolute Neuts (auto) 3.4, Absolute Lymphs (auto) 1.00, Nucleated RBC % 0, Sodium 143, Potassium 4.4, Chloride 113 H, Carbon Dioxide 23.0, Anion Gap 7, BUN 40 H, Creatinine 1.65 H, Estim Creat Clear Calc 26.06, Est GFR (MDRD) Af Amer 38 L, Est GFR (MDRD) Non-Af 32 L, BUN/Creatinine Ratio 24.2 H, Glucose 86, Calcium 8.7 Micro: Microbiology 01/22/24 01:26 Blood Culture (Wb) - Anticubital Left Blood Culture - Preliminary No growth in 48 hours. 01/22/24 01:02 Blood Culture (Wb) - Anticubital Left Blood Culture - Preliminary No growth in 48 hours. 01/22/24 01:20 Urine, Clean Catch Urine Culture - Final Presumptive E. coli Radiography Diagnostic Testing: Radiology Impression Echocardiogram 01/23/24 16:26 Interpretation Summary The estimated ejection fraction is 55 %. Unable to assess diastolic dysfunction. Mild (1+) mitral valve insufficiency. Ordering Physician: Casper Parish Referring Physician: APOLONIA ESCALANTE Performed By: Sowmya Ho RCS Rhythm Strip Rhythm Strip: Sinus Rhythm Rate: 85 Ectopy: None Physical Exam Narrative General: Alert, Oriented x2, Cooperative, No apparent distress HEENT: Atraumatic, PERRLA, EOMI, Normocephalic Oral: Moist Mucosa Neck: Supple, No JVD Lungs: Diminished, Normal air movement, No rhonchi, No wheeze, No rales Cardiovascular: Regular rate, Regular Rhythm, Normal S1, Normal S2, No murmurs Abdomen: Soft, Non Tender, Non-Distended, No Hepato-splenomegaly Extremities: No edema, Capillary Refill Less than 3 Seconds Skin: Multiple areas of excoriation and what appears to be picking in various stages of healing Musculoskeletal: No Tenderness to Palpation of Joints or Extremities Neurological: No focal neurological deficits, Motor Exam 5/5 strength throughout, Sensory exam intact to light touch and pain Psych/Mental Status: Normal Affect, Appropriate Assessment & Plan Assessment/Plan (1) Acute UTI: (2) Acute encephalopathy: (3) Elevated troponin I level: (4) Tinea cruris: PLAN: Plan 1. UTI due to pansensitive E. coli with metabolic encephalopathy/YOHANA ? Continue with antibiotics ? Urine cultures with E. coli ? PT/OT as well as wound care secondary to the multiple noninfected wounds in her lower extremities ? Renal function has continued decline will recheck in a.m. in the meantime we will continue with IV fluids. 2. Elevated troponin/essential HTN/HLD/A-fib ? She did have an elevated troponin from 70 to 415 ? Echo with a normal EF of 55% and a PASP of 55 mmHg consistent with pulmonary hypertension. Elevated troponin could be related to worsening renal function versus demand secondary to her infection ? She is on oxygen and would normally provide her with Lasix however her renal function is worsening so we will continue to monitor ? We will monitor her blood pressure make adjustments as necessary ? Continue with statin 3. Hypothyroidism ? Stable ? Continue with Synthroid 4. Anxiety/depression ? Stable ? Continue with her home medications ? There may be a component of dementia so we will cover with risperidone for agitation overnight 5. GERD ? Stable ? Continue with PPI DVT: Eliquis Charges/Coding Visit Charges Inpatient E&M: 86738 Subs Hosp L2
--- NOTE | 2024-01-24 16:06 | CASEMGMT ---
NAVIN spoke with patient and her plan is to return to [facility] at discharge. Patient declined a list of facilities. Plan: d/c back to [facility] under intermediate level of care. Naty DOBSON
[2024-01-24 19:14] VITALS: PULSE 87; RESP 16
[2024-01-24] MEDS: Mirtazapine 15 MG Tablet 7.5 MG PO (20:54)
[2024-01-24] MEDS: Acetaminophen 325 MG Tablet 650 MG PO (20:54)
[2024-01-24] MEDS: RisperiDONE 0.25 MG Tablet PO (20:54)
[2024-01-24] MEDS: Atorvastatin Calcium 40 MG Tablet PO (20:54)
[2024-01-24 20:57] VITALS: BP 132/54; PULSE 88; RESP 18; TEMP 36.8; O2SAT 100
[2024-01-25] MEDS: Ciprofloxacin 0.3% 2.5ml Bottle 2 DRP EACH EYE ×3 (01:30→10:33)
[2024-01-25 04:14] VITALS: BP 142/74; PULSE 91; RESP 18; TEMP 36.7; O2SAT 99
[2024-01-25 05:19] VITALS: BMI 34.9
[2024-01-25] MEDS: Gabapentin 100 MG Capsule PO (05:54)
[2024-01-25] MEDS: Acetaminophen 325 MG Tablet 650 MG PO (05:54)
[2024-01-25] MEDS: 0.9% Normal Saline (1000mL) 1,000 ML 75 ML IV (05:54)
[2024-01-25] MEDS: Levothyroxine 75 MCG Tablet PO (05:55)
[2024-01-25] MEDS: Sucralfate 1 GM Tablet PO ×2 (05:55→11:32)
--- NOTE | 2024-01-25 06:15 | NURSING ---
Pt noted to have open areas to multiple parts of body in various stages of healing. Skin is generally dry and calloused with flaking. Pt continues to refuse legs to be dressed and wrapped for open areas that bleed. Pt is unable to tolerate leg wraps.
[2024-01-25 07:12] LABS: Absolute Lymphocyte Count 0.87 X10^3/uL (0.83-4.51); Absolute Neutrophil Count 3.1 X10^3/uL (2.0-7.7); Basophil# 0.03 X10^3/uL; Basophil% 0.7 % (0-1); Eosinophil# 0.15 X10^3/uL; Eosinophils% 3.3 % (0-5); Hematocrit 26.9 % (37-47); Hemoglobin 7.8 g/dL (12.0-15.0); Lymphocyte # 0.87 X10^3/ul (0.83-4.51); Lymphocyte % 19.2 % (19-41); Mean Corpuscular Hgb 26.5 pg (27.0-32.0); Mean Corpuscular Volume 91.5 fL (81-99); Mean Platelet Vol. 10.9 fl (6.2-12.0); Monocyte# 0.32 X10^3/uL; Monocyte% 7.1 % (0-10); NRBC Flagged by Analyzer 0 % (0-5); Neutrophil # 3.12 X10^3/uL (2.7-7.7); Platelet Count 145 K/mm3 (150-450); RBC Distribution Width CV 18.8 % (11.6-14.6); Red Blood Count 2.94 M/mm3 (4.2-5.4); White Blood Count 4.5 K/mm3 (4.4-11.0)
[2024-01-25 07:16] VITALS: PULSE 75; RESP 18; O2SAT 94
[2024-01-25] MEDS: Ipratropium/Albuterol Sulfate 3 ML AMPUL.NEB INHALATION (07:16)
[2024-01-25 07:34] LABS: Anion Gap 5 (5-15); BUN 35 mg/dL (7-18); BUN/Creat Ratio 33.3 RATIO (10-20); Calcium,Total 8.7 mg/dL (8.5-10.1); Chloride 116 mmol/L (98-107); Creatinine, Serum 1.05 mg/dL (0.55-1.02); EST Glomerular Filtration Rate 53 mL/min (>60); Est Glom Filt Rate - Afr Amer 64 mL/min (>60); Estimated Creatinine Clearance 41.49 ml/min; Glucose 108 mg/dL (74-106); Potassium 4.3 mmol/L (3.5-5.1); Sodium Level 145 mmol/L (136-145)
[2024-01-25] MEDS: Mag Hydrox/Al Hydrox/Simeth 30 ML UDC PO (09:08)
[2024-01-25 10:14] VITALS: BP 143/75; PULSE 77; RESP 18; TEMP 36.6; O2SAT 98
[2024-01-25] MEDS: Multivitamins,Therapeutic Tablet 1 TABLET PO (10:28)
[2024-01-25 10:29] VITALS: PULSE 80; RESP 18
[2024-01-25] MEDS: Albuterol 2.5 MG/3 ML VIAL.NEB. INHALATION (10:29)
[2024-01-25] MEDS: Ascorbic Acid 500 MG Tablet PO (10:29)
[2024-01-25] MEDS: Sertraline 50 MG Tablet 125 MG PO (10:29)
[2024-01-25] MEDS: Aspirin E.C. 81 MG Tablet PO (10:29)
[2024-01-25] MEDS: Pantoprazole Sodium 40 MG Tablet PO (10:29)
[2024-01-25] MEDS: Zinc Sulfate 50 mg zinc (220 mg) ORAL capsule PO (10:29)
[2024-01-25] MEDS: Ferrous Sulfate 325 MG Tablet PO (10:29)
[2024-01-25] MEDS: Nystatin Powder 15gm Bottle 1 APPLIC TOPICAL (10:30)
[2024-01-25] MEDS: Lactobacillis Acidophilus 1 CAP PO (10:33)
[2024-01-25] MEDS: APIXABAN 2.5 MG TABLET (WCH) PO (10:33)
[2024-01-25] MEDS: Menthol/Lanolin/Calamine/Znox 113 GM Tube 1 APPLIC TOPICAL (10:34)
--- NOTE | 2024-01-25 10:42 | PCM.TXEXTCAR ---
Diet Diet Order/Speech Therapy: 01/22/24 05:48 Diet: Cardiac - Heart Healthy Food consistency:: Regular Liquid Consistency:: Regular/Thin Is pt able to select menu?: Yes Routine Orders/Code Status Routine Lab Work: CBC (In 1 week) Wound(s) left nostril: Wound Type: scabbed over wound right upper back: Wound Type: open scab left upper foot: Wound Type: open scab distal right thigh: Wound Type: open scab left dorsal foot: Wound Type: superficial scabbed over wound Dressing Change: dry dressing Therapies Weight Bearing: Full weight bearing (with walker) Problem/Diagnosis (1) Acute UTI: Status: Acute Code(s): N39.0 - Urinary tract infection, site not specified (2) Acute encephalopathy: Status: Acute Code(s): G93.40 - Encephalopathy, unspecified (3) Elevated troponin I level: Status: Acute Code(s): R79.89 - Other specified abnormal findings of blood chemistry (4) Tinea cruris: Status: Acute Code(s): B35.6 - Tinea cruris Allergies/Procedures Done in Hospital Allergies Penicillins (PCN) Allergy (Verified 01/21/24 23:48) Swelling Procedures: None Type of Care/Length of Stay Estimated LOS: More Than 30 Days Type of Care Needed: Intermediate Rehab Potential: Fair Prognosis: Fair Additional Orders/Day of Discharge H&P will serve as current which was dated: 01/22/24 Day of Discharge: 01/25/24 Dietary and Speech Recommendations Dietitian Recommendations/Changes: Continue Cardiac diet as ordered Continue Ensure Compact TID as ordered to promote adequate energy and protein intake to support wound healing Discharge Plan Admission Admit Date/Time: 01/22/24 04:56 Primary Reason for Your Visit: Acute cystitis, acute metabolic encephalopathy Attending Provider: Breezy Cuevas Primary Care Provider: Pretty Noguera Consulting Providers: Leno Emerson; Casper Parish Discharge Orders/Prescriptions Prescriptions: New ciprofloxacin HCl 0.3 % Drops 2 drp EACH EYE Q4 Qty: 2.5 0RF Rx Instructions: Stop date 01/27/2024 menthol-zinc oxide [Calmoseptine] 0.44-20.6 % Ointment 1 applic topical BID Qty: 0 0RF Protocol: *Topical Application Instructions APPLICATION INSTRUCTIONS: apply to affected areas levofloxacin 500 mg tablet 500 mg PO DAILY Qty: 4 0RF Rx Instructions: Give 4 doses-1 daily-starting on 01/26/2024 then discontinue Continued Eliquis 5 MG tablet 2.5 mg PO BID ipratropium-albuterol 0.5-3MG solution for nebulization 3 ml inhalation TID trazodone 50 MG tablet 100 mg PO BID levothyroxine 75 MCG tablet 75 mcg PO DAILY sertraline 50 MG tablet 125 mg PO DAILY atorvastatin 40 mg tablet 40 mg PO DAILY pantoprazole [Protonix] 20 mg Tablet,Delayed Release (Dr/Ec) 40 mg PO DAILY sacubitril-valsartan 49-51 mg Tablet 1 tab PO BID multivitamin Tablet 1 tab PO DAILY Lactobacillus acidophilus Capsule 1 cap PO DAILY sucralfate 1 gram Tablet 1 g PO Q6H Qty: 0 0RF ascorbic acid (vitamin C) 500 mg capsule 500 mg PO BID sodium ferric gluconat-sucrose [Ferrlecit] 62.5 mg/5 mL solution 125 mg IV .x5 days Rx Instructions: started 01/17 ferrous sulfate [FeroSul] 325 mg (65 mg iron) tablet 325 mg PO BID gabapentin 100 mg capsule 100 mg PO TID miconazole nitrate [Antifungal (miconazole)] 2 % cream 1 applic topical DAILY mirtazapine 7.5 mg tablet 7.5 mg PO QHS prevagen 10 mg PO DAILY spironolactone [Aldactone] 25 mg tablet 25 mg PO DAILY Referrals / Follow Up: Pretty Noguera DO [Primary Care Provider] - Disposition Disposition (needs filled in before D/C Order can be placed): NonSkilled NH/Intermed Care
--- NOTE | 2024-01-25 10:57 | PCM.DC.SUM ---
Providers Date of Admission: 01/22/24 Date of Discharge: 01/25/24 Primary Care Physician: Dr. 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 Reason For Visit: ACUTE CYSTITIS W/ MICROSCOPE HEMATURIA,B/L LE WOUN Diagnosis Discharge Diagnosis (1) Acute UTI: Status: Acute Code(s): N39.0 - Urinary tract infection, site not specified (2) Acute encephalopathy: Status: Acute Code(s): G93.40 - Encephalopathy, unspecified (3) Elevated troponin I level: Status: Acute Code(s): R79.89 - Other specified abnormal findings of blood chemistry (4) Tinea cruris: Status: Acute Code(s): B35.6 - Tinea cruris Plan Final diagnosis #1 acute cystitis #2 metabolic encephalopathy secondary to acute cystitis #3 chronic atrial fibrillation #4 anemia of chronic disease #5 coronary artery disease #6 hypothyroidism #7 elevated troponin-etiology unclear #8 chronic obstructive pulmonary disease #9 acute kidney injury #10 chronic hypoxic respiratory failure Type II FL was ruled out Medications at Discharge Home Medications apixaban 5 mg tablet (Eliquis) 2.5 mg PO BID blood thinner 08/15/17 ipratropium 0.5 mg-albuterol 3 mg (2.5 mg base)/3 mL nebulization soln 3 ml inhalation TID respiratory 12/15/18 levothyroxine 75 mcg tablet 75 mcg PO DAILY thyroid 12/15/18 sertraline 50 mg tablet 125 mg PO DAILY depression 12/15/18 trazodone 50 mg tablet 100 mg PO BID sleep, depression 12/15/18 Lactobacillus acidophilus 1 cap PO DAILY ANTIBIOTIC USE 07/13/22 atorvastatin 40 mg tablet 40 mg PO DAILY cholesterol 07/13/22 multivitamin 1 tab PO DAILY SUPPLEMENT 07/13/22 pantoprazole 20 mg tablet,delayed release (Protonix) 40 mg PO DAILY gerd 07/13/22 sacubitril 49 mg-valsartan 51 mg tablet 1 tab PO BID CHF 07/13/22 sucralfate 1 gram tablet 1 g PO Q6H #0 tabs 07/17/22 ascorbic acid (vitamin C) 500 mg capsule 500 mg PO BID 01/22/24 ferrous sulfate 325 mg (65 mg iron) tablet (FeroSul) 325 mg PO BID 01/22/24 gabapentin 100 mg capsule 100 mg PO TID 01/22/24 miconazole nitrate 2 % topical cream (Antifungal (miconazole)) 1 applic topical DAILY 01/22/24 mirtazapine 7.5 mg tablet 7.5 mg PO QHS 01/22/24 prevagen 10 mg PO DAILY 01/22/24 sodium ferric gluconate complex in sucrose 62.5 mg/5 mL intravenous (Ferrlecit) 125 mg IV .x5 days 01/22/24 spironolactone 25 mg tablet (Aldactone) 25 mg PO DAILY 01/22/24 ciprofloxacin HCl 0.3 % eye drops 2 drp EACH EYE Q4 #2.5 mL 01/25/24 levofloxacin 500 mg tablet 500 mg PO DAILY #4 tabs 01/25/24 menthol 0.44 %-zinc oxide 20.6 % topical ointment (Calmoseptine) 1 applic topical BID #0 grams 01/25/24 Hospital Course Operations None Procedures 2-D Echocardiogram Summary of Care Provided Minutes Spent on Discharge: 33 Hospital Course: This 83-year-old white female was seen in the emergency room at [facility] after being sent in from an extended care facility at which she was receiving intermediate care due to confusion and slightly low pulse oximetry at 88% on 3 L. Workup in the emergency room included a UA which showed evidence for acute cystitis, lactic acid was elevated at 3.6, and patient was found to have acute metabolic encephalopathy. There is a mildly elevated troponin at 70. Patient was admitted to PCU, repeat troponin was elevated at 415, patient did not appear to have had a type II FL. Patient was placed on IV antibiotics and had periods of confusion during her hospitalization. On 01/25/2024, patient was seen and examined: On examination she appeared in good health and spirits, she does not appear to be in any distress. Vital signs as documented. Skin warm and dry and without overt rashes. Neck without JVD, thyroid appears normal, trachea is midline, neck is supple. Lungs clear, normal air movement was noted. Heart exam notable for regular rhythm, normal sounds and absence of murmurs, rubs or gallops. Abdomen unremarkable and without evidence of organomegaly, masses, or abdominal aortic enlargement, bowel sounds are present in all 4 quadrants, no abdominal tenderness was noted. Extremities nonedematous, no cyanosis was noted, no clubbing was noted. Neuro: Cranial nerves II through XII are grossly intact, no focal motor deficits were noted, sensation to light touch and pinprick is intact, motor exam 5/5 throughout. Psych: Patient is alert, she was oriented as to person and place. Patient appear to be stable for discharge back to her extended care facility for ongoing care on 01/25/2024. Weight / BMI Weight Weight: 86.7 kg Body Mass Index (BMI) 34.9 ABG / Lab / Microbiology Data 01/25/24 07:05 01/25/24 07:05 Laboratory: Laboratory Results - last 24 hr 01/25/24 07:05: WBC 4.5, RBC 2.94 L, Hgb 7.8 L, Hct 26.9 L, MCV 91.5, MCH 26.5 L, MCHC 29.0 L, RDW Std Deviation 59.0 H, RDW Coeff of Cha 18.8 H, Plt Count 145 L, MPV 10.9, Immature Gran % (Auto) 0.700, Neut % (Auto) 69.0, Lymph % (Auto) 19.2, [place] % (Auto) 7.1, Eos % (Auto) 3.3, Baso % (Auto) 0.7, Absolute Neuts (auto) 3.1, Absolute Lymphs (auto) 0.87, Nucleated RBC % 0, Sodium 145, Potassium 4.3, Chloride 116 H, Carbon Dioxide 24.0, Anion Gap 5, BUN 35 H, Creatinine 1.05 H, Estim Creat Clear Calc 41.49, Est GFR (MDRD) Af Amer 64, Est GFR (MDRD) Non-Af 53 L, BUN/Creatinine Ratio 33.3 H, Glucose 108 H, Calcium 8.7 Microbiology: Microbiology 01/22/24 01:26 Blood Culture (Wb) - Anticubital Left Blood Culture - Preliminary No growth in 48 hours. 01/22/24 01:02 Blood Culture (Wb) - Anticubital Left Blood Culture - Preliminary No growth in 48 hours. 01/22/24 01:20 Urine, Clean Catch Urine Culture - Final Presumptive E. coli Radiography Diagnostic Testing: Radiology Impression Echocardiogram 01/23/24 16:26 Interpretation Summary The estimated ejection fraction is 55 %. Unable to assess diastolic dysfunction. Mild (1+) mitral valve insufficiency. Ordering Physician: Casper Parish Referring Physician: APOLONIA NOGUERA Performed By: Sowmya Ho RCS Meaningful Use Info Meaningful Use Meaningful Use Diagnoses (Choose all that apply): None applicable Ischemic Stroke Statin Dosing Therapy Reference: STATIN DOSE THERAPY REFERENCE: * Patients > 75 years receive moderate or high dose statin therapy. * Patients 75 years or YOUNGER should receive HIGH intensity statin dose unless contraindicated. You will be required to document reason for non-treatment if statin daily dose does not meet guidelines. HIGH DOSE STATIN THERAPY DAILY Atorvastatin > than or = to 40 mg Rosuvastatin > than or = to 20 mg Amlodipine + Atorvastatin > than or = to 2.5/40 mg Ezetimibe + Simvastatin 10/80 mg Simvastatin 80mg Discharge Plan Admission Admit Date/Time: 01/22/24 04:56 Primary Reason for Your Visit: Acute cystitis, acute metabolic encephalopathy Attending Provider: Breezy Cuevas Primary Care Provider: Apolonia Noguera Consulting Providers: Leno Emerson; Cas[place] Parish Discharge Orders/Prescriptions Prescriptions: New ciprofloxacin HCl 0.3 % Drops 2 drp EACH EYE Q4 Qty: 2.5 0RF Rx Instructions: Stop date 01/27/2024 menthol-zinc oxide [Calmoseptine] 0.44-20.6 % Ointment 1 applic topical BID Qty: 0 0RF Protocol: *Topical Application Instructions APPLICATION INSTRUCTIONS: apply to affected areas levofloxacin 500 mg tablet 500 mg PO DAILY Qty: 4 0RF Rx Instructions: Give 4 doses-1 daily-starting on 01/26/2024 then discontinue Continued Eliquis 5 MG tablet 2.5 mg PO BID ipratropium-albuterol 0.5-3MG solution for nebulization 3 ml inhalation TID trazodone 50 MG tablet 100 mg PO BID levothyroxine 75 MCG tablet 75 mcg PO DAILY sertraline 50 MG tablet 125 mg PO DAILY atorvastatin 40 mg tablet 40 mg PO DAILY pantoprazole [Protonix] 20 mg Tablet,Delayed Release (Dr/Ec) 40 mg PO DAILY sacubitril-valsartan 49-51 mg Tablet 1 tab PO BID multivitamin Tablet 1 tab PO DAILY Lactobacillus acidophilus Capsule 1 cap PO DAILY sucralfate 1 gram Tablet 1 g PO Q6H Qty: 0 0RF ascorbic acid (vitamin C) 500 mg capsule 500 mg PO BID sodium ferric gluconat-sucrose [Ferrlecit] 62.5 mg/5 mL solution 125 mg IV .x5 days Rx Instructions: started 01/17 ferrous sulfate [FeroSul] 325 mg (65 mg iron) tablet 325 mg PO BID gabapentin 100 mg capsule 100 mg PO TID miconazole nitrate [Antifungal (miconazole)] 2 % cream 1 applic topical DAILY mirtazapine 7.5 mg tablet 7.5 mg PO QHS prevagen 10 mg PO DAILY spironolactone [Aldactone] 25 mg tablet 25 mg PO DAILY Referrals / Follow Up: Apolonia Noguera DO [Primary Care Provider] - Disposition Disposition (needs filled in before D/C Order can be placed): NonSkilled NH/Intermed Care Charges/Coding Visit Charges Inpatient E&M: 34523 Disch Hosp >30min
[2024-01-25] MEDS: levoFLOXacin IV 750 MG/150 ML BAG 100 MG IV (11:30)
[2024-01-25 14:13] VITALS: BP 124/78; PULSE 89; RESP 18; TEMP 36.1; O2SAT 98
== END 2024-01-25 14:23 | disposition intermediate care facility (04) | DRG 689 ==
LOC: ED 01-22 03:21 → PCU 01-22 04:55
PROVIDERS: Family Medicine; Admitting Provider Internal Medicine; Emergency Provider Emergency Medicine; PCP Family Medicine; Visit Provider Internal Medicine
DX: N30.01 Acute cystitis with hematuria (principal); G93.41 Metabolic encephalopathy; J96.11 Chronic respiratory failure with hypoxia; E87.20 Acidosis, unspecified; I48.20 Chronic atrial fibrillation, unspecified; L03.115 Cellulitis of right lower limb; N17.9 Acute kidney failure, unspecified; I50.32 Chronic diastolic (congestive) heart failure; L03.116 Cellulitis of left lower limb; B35.6 Tinea cruris; I11.0 Hypertensive heart disease with heart failure; J44.9 Chronic obstructive pulmonary disease, unspecified; D50.9 Iron deficiency anemia, unspecified; E03.9 Hypothyroidism, unspecified; F41.8 Other specified anxiety disorders; I25.5 Ischemic cardiomyopathy; E78.5 Hyperlipidemia, unspecified; K21.9 Gastro-esophageal reflux disease without esophagitis; I25.10 Atherosclerotic heart disease of native coronary artery without angina pectoris; I45.10 Unspecified right bundle-branch block; Z87.891 Personal history of nicotine dependence; Z79.01 Long term (current) use of anticoagulants; F41.0 Panic disorder [episodic paroxysmal anxiety]; R79.89 Other specified abnormal findings of blood chemistry
CPT/HCPCS: 36415; 36592; 70450; 71046; 73590; 80048; 80053; 81001; 82550; 82607; 82728; 82746; 83540; 83550; 83605; 83735; 83880; 84100; 84443; 84484; 85025; 85610; 85730; 87040; 87086; 87088; 87186; 92526; 93005; 93306; 93308; 94640; 97162; 97166; 99285; J7030; J7040; J7050; A4216; J2405

== ENCOUNTER 2024-03-20 23:43 | Inpatient (IN) | payer MEDICARE, MEDICAID, SELFPAY ==
--- NOTE | 2024-03-20 00:30 | RAD_ITS ---
EXAM: XR CHEST, 2 VIEWS CLINICAL INDICATION: chest pain TECHNIQUE: Frontal and lateral views of the chest. COMPARISON: 01/22/2024. FINDINGS: LUNGS AND PLEURAL SPACES: Probable small bilateral pleural effusions. No pneumothorax. HEART: Stable mild cardiomegaly. MEDIASTINUM: Central airways and mediastinal contour are unremarkable. BONES/JOINTS: Unremarkable. No acute fracture. SOFT TISSUES: Unremarkable. RAD/Chest 1 View (Portable) IMPRESSION: 1. Stable mild cardiomegaly. 2. Probable small bilateral pleural effusions. Electronically Signed: Adarsh Brewer MD at 1:12 EDT ,
[2024-03-20 23:43] VITALS: BP 145/70; PULSE 103; TEMP 37.7; O2SAT 100
[2024-03-20 23:47] VITALS: BP 145/70; PULSE 89; PULSE 95; RESP 12; RESP 19; RESP 22; TEMP 37.7; O2SAT 100; O2SAT 99
[2024-03-20 23:49] VITALS: O2SAT 100
--- NOTE | 2024-03-20 23:49 | EKG12_ITS ---
Test Reason : DYSRHYTHMIA Blood Pressure : / mmHG Vent. Rate : 100 BPM Atrial Rate : 100 BPM P-R Int : 000 ms QRS Dur : 174 ms QT Int : 400 ms P-R-T Axes : 000 152 -07 degrees QTc Int : 516 ms Critical Test Result: AV Block ATRIAL TACHYCARDIA Wide QRS rhythm with Premature supraventricular complexes and with frequent and co nsecutive Premature ventricular complexes with junctional escape complexes Right bundle branch block Abnormal ECG Confirmed by REBECCA VALDEZ, KIKA ([id number]), order editor CHACHO LAZARO ([id number]) on 03/23/2024 11:32:50 AM Referred By: DYAN Confirmed By:KIKA FERNANDEZ MD
[2024-03-20 23:55] VITALS: O2SAT 100
[2024-03-21] VITALS (37 sets, daily range): BP systolic 71–150; BP diastolic 39–92; PULSE 61–116; RESP 18–29; TEMP 36.4–39.2; O2SAT 92–99; BMI 32.3
--- NOTE | 2024-03-21 | ED.VIS.DYS ---
HPI History of Present Illness Chief Complaint: Shortness of Breath Informant: patient and EMS Onset/Context/Timing Onset: Today Context: gradual Timing: Continuous Maximum Severity: Moderate Worsened by: Nothing Relieved by: Nothing Associated Symptoms Chest Pain: Positive for None Narrative Narrative: 83-year-old female from [facility]. Extensive past medical history including A-fib, CAD, DNR Comfort Care arrest, CHF, COPD, anemia, renal insufficiency. Patient states she has been short of breath today. Was diagnosed with UTI 4 days ago and was just started on Bactrim antibiotic today. Reportedly had a pulse ox of 64% at the [facility]. Reportedly is on the blood thinner Eliquis. Denies any chest pain. Denies any leg pain or swelling. Denies any hemoptysis. PE Risk Factors: Positive for -; Negative for Cancer, OCP + Smoking + > 35, Prior DVT or PE, Recent immobilization, Recent surgery or Recent travel Prior similar symptoms: Yes Recent Illness/Hospitalization: No PFSH [facility] Medical History Tinea cruris Acute electrocardiogram changes Elevated troponin I level Bilateral cellulitis of lower leg Acute UTI Acute encephalopathy Chronic anticoagulation Foraminal stenosis of lumbosacral region Intractable back pain Chronic bronchitis Anxiety Congestive heart failure Kidney stones COPD (chronic obstructive pulmonary disease) Former tobacco use Chronic respiratory failure with hypoxia, on home O2 therapy Chronic idiopathic thrombocytopenia Ischemic cardiomyopathy Diastolic CHF Anxiety and depression Iron deficiency anemia Hyperlipidemia GERD (gastroesophageal reflux disease) Hypothyroidism Paroxysmal A-fib Hypertension Coronary artery disease Home Medications ?Medication ?Instructions ?Recorded ?Last Taken ?Type apixaban 5 mg tablet (Eliquis) 2.5 mg PO BID blood thinner 08/15/17 07/13/22 History ipratropium 0.5 mg-albuterol 3 mg 3 ml inhalation TID respiratory 12/15/18 07/13/22 History (2.5 mg base)/3 mL nebulization soln levothyroxine 75 mcg tablet 75 mcg PO DAILY thyroid 12/15/18 07/13/22 History trazodone 50 mg tablet 100 mg PO BID sleep, depression 12/15/18 07/12/22 History Lactobacillus acidophilus 1 cap PO DAILY ANTIBIOTIC USE 07/13/22 07/13/22 History atorvastatin 40 mg tablet 40 mg PO DAILY cholesterol 07/13/22 07/12/22 History multivitamin 1 tab PO DAILY SUPPLEMENT 07/13/22 07/13/22 History pantoprazole 20 mg tablet,delayed 40 mg PO DAILY gerd 07/13/22 07/13/22 History release (Protonix) sacubitril 49 mg-valsartan 51 mg 1 tab PO BID CHF 07/13/22 07/13/22 History tablet sucralfate 1 gram tablet 1 g PO Q6H #0 tabs 07/17/22 Unknown Rx ascorbic acid (vitamin C) 500 mg 500 mg PO BID 01/22/24 Unknown History capsule ferrous sulfate 325 mg (65 mg 325 mg PO BID 01/22/24 Unknown History iron) tablet (FeroSul) gabapentin 100 mg capsule 100 mg PO TID 01/22/24 Unknown History miconazole nitrate 2 % topical 1 applic topical DAILY 01/22/24 Unknown History cream (Antifungal (miconazole)) mirtazapine 7.5 mg tablet 7.5 mg PO QHS 01/22/24 Unknown History prevagen 10 mg PO DAILY 01/22/24 Unknown History sodium ferric gluconate complex in 125 mg IV .x5 days 01/22/24 Unknown History sucrose 62.5 mg/5 mL intravenous (Ferrlecit) spironolactone 25 mg tablet 25 mg PO DAILY 01/22/24 Unknown History (Aldactone) menthol 0.44 %-zinc oxide 20.6 % 1 applic topical BID #0 grams 01/25/24 Unknown Rx topical ointment (Calmoseptine) albuterol sulfate 90 mcg/actuation 1 inh inhalation Q6H 03/21/24 Unknown History aerosol inhaler (Proventil HFA) cyanocobalamin (vitamin B-12) 500 500 mcg PO DAILY 03/21/24 Unknown History mcg tablet losartan 25 mg tablet (Cozaar) 25 mg PO DAILY 03/21/24 Unknown History sertraline 100 mg tablet 150 mg PO DAILY 03/21/24 Unknown History sulfamethoxazole 800 1 tab PO BID 03/21/24 Unknown History mg-trimethoprim 160 mg tablet (Bactrim DS) torsemide 20 mg tablet 20 mg PO DAILY 03/21/24 Unknown History Allergy/AdvReac Type Severity Reaction Status Date / Time Penicillins (PCN) Allergy Swelling Verified 03/21/24 01:22 Surgical History History of total abdominal hysterectomy History of tonsillectomy and adenoidectomy H/O heart artery stent Hx of cholecystectomy History of appendectomy Social History household members: none housing: assisted living facility Smoking Status: Former smoker how long ago did patient quit smoking: Quit 1999. alcohol intake: never substance use type: does not use ROS ROS ED ROS Narrative Shortness of breath today. Fever subjectively. Review of Systems ROS Unobtainable: Denies due to encephalopathy Constitutional Constitutional ED: Reports fever(s) Eyes Eyes: Denies blurry vision Cardiovascular Cardiovascular: Denies chest pain Respiratory/Chest Respiratory/Chest: Reports dyspnea; Denies cough Gastrointestinal Gastrointestinal: Denies abdominal pain or constipation Genitourinary Genitourinary ED: Denies dysuria Musculoskeletal Musculoskeletal: Denies arthralgias Integumentary Denies abscess Neurologic Neurologic: Denies headache(s) Psychiatric Psychiatric: Denies anxiety Endocrine Endocrinology: Denies cold intolerance Hematologic/Lymphatic Hematologic/Lymphatic: Denies easy bleeding Allergic/Immunologic Allergic/Immunologic ED: Denies mouth swelling, tongue swelling or urticaria EXAM Physical Exam Narrative Exam Narrative: 83-year-old female vital signs show a axillary temperature of 100. Blood pressure 145/70. Pulse ox 100% on BiPAP. With 60% FiO2. Pulses 103. Respiratory rate is 20. H EENT exam unremarkable. Neck nontender no JVD. Lungs clear to auscultation bilaterally. Heart sinus rhythm rate about 100. PVCs on the monitor. Chest wall ribs nontender. Abdomen soft nontender. Moving all 4 extremities. Nontender no edema. Chronic skin changes in lower extremities. Normal drive man strength. Normal dorsi plantarflexion. Back nontender. She has sores in different areas 1 on the right chest wall. One of the right mid back. Neurologically she is awake and alert. Answering questions following commands. No focal motor deficits. Const Vital Signs: 03/20/24 23:43 03/20/24 23:43 03/20/24 23:47 Temperature 100 F H 100 F H Temperature Source Axillary Axillary Pulse Rate 103 H 95 Respiratory Rate 19 H Respiratory Effort Respiratory Depth Respiratory Pattern Blood Pressure 145/70 H 145/70 H Blood Pressure Mean 95 95 Pulse Ox 100 100 Oxygen Delivery Method Bi-pap Bi-pap Oxygen Flow Rate (L/min) Fraction of Inspired Oxygen (FIO2) 60 60 03/20/24 23:47 03/20/24 23:49 03/20/24 23:55 Temperature Temperature Source Pulse Rate 89 Respiratory Rate 22 H Respiratory Effort Short of Breath Respiratory Depth Deep Respiratory Pattern Tachypnea Tachypnea Blood Pressure Blood Pressure Mean Pulse Ox 99 100 Oxygen Delivery Method Bi-pap Bi-pap Oxygen Flow Rate (L/min) Fraction of Inspired Oxygen (FIO2) 80 60 60 03/21/24 00:31 03/21/24 00:37 03/21/24 00:43 Temperature Temperature Source Core Pulse Rate 105 H Respiratory Rate 26 H Respiratory Effort Respiratory Depth Respiratory Pattern Blood Pressure 150/63 H Blood Pressure Mean 92 Pulse Ox 99 96 94 Oxygen Delivery Method Bi-pap Nasal Cannula Nasal Cannula Oxygen Flow Rate (L/min) 4 4 Fraction of Inspired Oxygen (FIO2) 30 03/21/24 01:00 Temperature 102.5 F H Temperature Source Core Pulse Rate 116 H Respiratory Rate 27 H Respiratory Effort Respiratory Depth Respiratory Pattern Blood Pressure 140/59 H Blood Pressure Mean 86 Pulse Ox 96 Oxygen Delivery Method Nasal Cannula Oxygen Flow Rate (L/min) 4 Fraction of Inspired Oxygen (FIO2) Positive well nourished and well developed; Negative for cachectic, contractures or unkempt General Appearance ED: well developed; Negative for unkempt, cachectic, contractures, NAD or pallor Nutritional Appearance: Negative for cachectic HEENT Reports moist mucous membranes atraumatic; Negative for trauma or tenderness Eyes PERRL and EOMs intact bilaterally General Eye ED: Negative for pale conjunctiva or scleral icterus Neck no lymphadenopathy, supple, no meningeal signs and no JVD General: Negative for tenderness Lymph Lymphatic: Negative for other Resp No normal respiratory effort and clear to auscultation bilaterally Auscultation: Negative for rales, rhonchi, wheezes or diminished lung sounds Cardio regular rate, regular rhythm, S1 normal heart sound, S2 normal heart sound and no murmurs Cardio Narrative: Rate about 100. Rate: Negative for bradycardia or tachycardic GI non-tender, non-distended and no masses Palpation: soft; Negative for tender, guarding, hepatomegaly, splenomegaly or rebound tenderness present Back/Spine no CVA tenderness Back/Spine Narrative: Wound right upper lateral back. General Back: Negative for CVA tenderness Extremity Negative for normal to inspection Extremity Narrative: Chronic skin changes. General Extremety ED: Negative for edema General Extremity: Negative for edema Neuro oriented x3 and CN's II-XII intact bilaterally Sensorium / Orientation: alert, oriented to person, oriented to place and oriented to time; Negative for orientation impaired, confused, lethargic or stuporous Motor Exam: strength 5/5 throughout Psych mental status grossly normal Appearance: Negative for unkempt Attitude: No agitated Mood & Affect: Negative for depressed, anxious or tearful Thought Process: normal thought process Skin no wounds Skin Narrative: Wounds right chest wall. Right upper back. General Skin Exam: Negative for jaundice or pallor Lesions: no lesions Rashes: no rashes MDM MDM MDM Narrative Medical decision making narrative: 83-year-old female with shortness of breath and hypoxia. On Eliquis. She also has a low-grade fever. She undergo a septic workup. She is not wheezing and only she needs breathing treatments currently. This could be from pneumonia or CHF more likely. She undergo a cardiac/septic workup. I am holding off on IV fluids at this time due to her water pressures good and 2 she has a history of CHF so I see the chest x-ray and labs. I did discuss with the patient she is DNR Comfort Care arrest but states if it Are alive and she needed she would go on a ventilator. Repeat exam at 1:23 AM patient is improving and was able to become off of BiPAP. Currently on 4 L she is at 94%. She does have a fever of 102.5. She was given rectal Tylenol. I will add a COVID and flu. Also her potassium is low at 2.6 which she will be given potassium. I have already spoken to the hospitalist. She will be admitted. UA shows greater than 100 white cells and 2+ bacteria. Urine culture resent. She will be given IV Rocephin. History & Record Review Discussion w/independent historian: Patient Additional record(s) reviewed:: Prior inpatient record, Prior outpatient record, Prior ED visit, Prior labs and No prior records Lab Data Attestation: I reviewed the patient's lab results. Lab results narrative: CBC shows white count 7.4. H&H is 9.5 and 32.6 which is her baseline chronic anemia or even a little improved. Platelets 201. PT/INR of 21 1.9. PTT of 40. Electrolytes show potassium of 2.6. Gap 10. BUN of 23 and creatinine 0.9 consistent with mild dehydration. Glucose 106. Lactic acid elevated 3.4. Troponin is normal at 58. BNP is 1,345. ABG showed a pH 7.54, pCO2 43 pO2 of 81. 97%. That was while she was on BiPAP. COVID, flu and RSV are all negative. Labs: Laboratory Results - last 24 hr 03/20/24 03/21/24 03/21/24 23:50 00:04 00:56 WBC 7.4 RBC 3.72 L Hgb 9.5 L Hct 32.6 L MCV 87.6 MCH 25.5 L MCHC 29.1 L RDW Std Deviation 57.1 H RDW Coeff of Cha 17.9 H Plt Count 201 MPV 11.7 Immature Gran % (Auto) 0.500 Neut % (Auto) 93.5 H Lymph % (Auto) 5.1 L [place] % (Auto) 0.5 Eos % (Auto) 0.1 Baso % (Auto) 0.3 Absolute Neuts (auto) 6.9 Absolute Lymphs (auto) 0.38 L Nucleated RBC % 0 PT 21.8 H INR 1.9 APTT 40.0 H Sodium 144 Potassium 2.6 L* Chloride 99 Carbon Dioxide 35.0 H Anion Gap 10 BUN 23 H Creatinine 0.97 Est GFR (MDRD) Af Amer 70 Est GFR (MDRD) Non-Af 58 L BUN/Creatinine Ratio 23.7 H Glucose 106 Lactic Acid 3.4 H* Calcium 8.6 Troponin I High Sens 58 H B-Natriuretic Peptide 1345.8 H Urine Color Yellow Urine Clarity Turbid Urine pH 5.0 Ur Specific [place] 1.020 Urine Protein 100 H Urine Glucose (UA) Normal Urine Ketones Negative Urine Occult Blood 150 H Urine Nitrite Negative Urine Bilirubin Negative Urine Urobilinogen 1 H Ur Leukocyte Esterase 500 H Urine RBC 0-5 SEEN Urine WBC >100 SEEN Ur Squamous Epith Cells 0-5 SEEN Ur Renal Epithelial Cell 0-5 SEEN Urine Bacteria 2+ Urine Mucus 0 SEEN ABG Data ABG results: ABG 03/21/24 00:16 Specimen Type ART Sample Site L Radial pH 7.55 H Bicarbonate Actual 37.9 H Total CO2 39 Base Excess 16 H O2 Saturation 97 O2 % 30.0 ABG pCO2 43.7 ABG pO2 81 Ronaldo Test Positive O2 Delivery Device BiPAP Vent Mode Not entered Clinical Comments 17/04 12 30% Radiography Chest X-Ray - ED: 1 View, Read by ED Physician, Read by Radiologist, Lungs, Mediastinum, Bony Structures, Chronic Changes, No Infiltrates, Right Effusion and Left Effusion Diagnostic Testing: Clinical Impression(s) from Imaging Studies Chest X-Ray 03/20/24 00:30 IMPRESSION: 1. Stable mild cardiomegaly. 2. Probable small bilateral pleural effusions. Electronically Signed: Adarsh Brewer MD at 1:12 EDT , Chest x-ray, portable, single view interpreted both by myself and the radiologist. Shows chronic changes. Chronic cardiomegaly. Chronic changes of the lung [place]. No obvious pneumonia. Bilateral small pleural effusions. Rhythm Strip Rhythm Strip: Sinus Rhythm Rate: 100 Ectopy: PVC(s) EKG Initial EKG: Attestation: I personally reviewed and interpreted this EKG as follows: Interpretation: Sinus Rhythm, No Acute Injury Pattern and RBBB Comments: Sinus rhythm rate 100. Occasional PVCs. Right bundle branch block. Discharge Plan Dx/Rx/DC Orders Clinical Impression: Fever, Hypoxia, History of atrial fibrillation, History of CHF (congestive heart failure), History of COPD, Chronic anticoagulation, Chronic anemia, Acute hypokalemia, Acute UTI Disposition Disposition: [facility]
[2024-03-21 00:01] LABS: Absolute Lymphocyte Count 0.38 X10^3/uL (0.83-4.51); Absolute Neutrophil Count 6.9 X10^3/uL (2.0-7.7); Basophil# 0.02 X10^3/uL; Basophil% 0.3 % (0-1); Eosinophil# 0.01 X10^3/uL; Eosinophils% 0.1 % (0-5); Hematocrit 32.6 % (37-47); Hemoglobin 9.5 g/dL (12.0-15.0); Lymphocyte # 0.38 X10^3/ul (0.83-4.51); Lymphocyte % 5.1 % (19-41); Mean Corp Hgb Conc 29.1 g/dL (32-36); Mean Corpuscular Hgb 25.5 pg (27.0-32.0); Mean Corpuscular Volume 87.6 fL (81-99); Mean Platelet Vol. 11.7 fl (6.2-12.0); Monocyte# 0.04 X10^3/uL; Monocyte% 0.5 % (0-10); NRBC Flagged by Analyzer 0 % (0-5); Neutrophil # 6.94 X10^3/uL (2.7-7.7); Neutrophil % 93.5 % (47-70); POSITIVE DIFFERENTIAL YES; Platelet Count 201 K/mm3 (150-450); RBC Distribution Width CV 17.9 % (11.6-14.6); RBC Distribution Width SD 57.1 fl (35.1-43.9); Red Blood Count 3.72 M/mm3 (4.2-5.4); White Blood Count 7.4 K/mm3 (4.4-11.0)
[2024-03-21 00:20] LABS: Allen Test Positive; Base Excess 16 mmol/L (-2 to +2); Bicarbonate 37.9 mmol/L (22-26); Blood Gas Specimen Type ART; Comment 16/8 12 30%; Mode Not entered; O2 Delivery Device BiPAP; PO2 81 mmHG (75-100); SITE L Radial; SO2 97 % (95-99); Total Carbon Dioxide 39 mmol/L; pCO2 43.7 mmHg (35-45); pH 7.55 (7.35-7.45)
[2024-03-21 00:30] LABS: Anion Gap 10 (5-15); BNP,B-Type NATRIURETIC PEPTIDE 1345.8 pg/mL (0-100); BUN 23 mg/dL (7-18); BUN/Creat Ratio 23.7 RATIO (10-20); Calcium,Total 8.6 mg/dL (8.5-10.1); Chloride 99 mmol/L (98-107); Creatinine, Serum 0.97 mg/dL (0.55-1.02); EST Glomerular Filtration Rate 58 mL/min (>60); Est Glom Filt Rate - Afr Amer 70 mL/min (>60); Glucose 106 mg/dL (74-106); Potassium 2.6 mmol/L (3.5-5.1); Sodium Level 144 mmol/L (136-145); Troponin-I HS 58 pg/mL (3.0-54.0)
[2024-03-21 00:48] LABS: International Normalized Ratio 1.9; Prothrombin Time (Protime)PT. 21.8 SECONDS (11.7-14.9)
[2024-03-21] MEDS: Acetaminophen 650 MG Suppository RC (00:50)
[2024-03-21 00:58] LABS: Lactic Acid 3.4 mmol/L (0.4-1.9)
[2024-03-21 01:13] LABS: Color, Urine Yellow (Yellow); Glucose, Dipstick Normal (Normal); Ketone-Dipstick Negative (Negative); Leukocyte Esterase-Dipstick 500 /ul (Negative); Mucous, Urine 0 SEEN /hpf (<or=2+); Nitrite-Dipstick Negative (Negative); Occult Blood-Urine 150 /ul (Negative); Protein-Dipstick 100 mg/dl (Negative); Urine Bilirubin Dipstick Negative (Negative); Urine Clarity Turbid (Clear); Urine Urobilinogen 1 mg/dl (Normal)
--- NOTE | 2024-03-21 01:20 | ED.RN ---
B/L legs wrapped with adaptic and Kerlix. Legs are peeling and weeping.
[2024-03-21 01:40] LABS: Bacteria 2+ /hpf (None Seen); Red Blood Cells-Urine 0-5 SEEN /hpf (0-5); Renal Epithelial Cells 0-5 SEEN /hpf (0-5); Squamous Epithelial Cells - UA 0-5 SEEN /hpf (5-10); White Blood Cells >100 SEEN /hpf (0-5)
--- NOTE | 2024-03-21 02:00 | PCM.HP.STD ---
[facility] - General General Date of Admission: 03/21/24 Date of Service: 03/21/24 Chief Complaint: Fever and SOB. [facility] Narrative LOWELL MOORE, is a 83 F with a past medical history of essential hypertension, hyperlipidemia, hypothyroidism, obesity; with BMI of 33.3 this admission, CAD; s/p stent (1999), history of ischemic cardiomyopathy, PAF; on Eliquis, chronic diastolic CHF; with preserved LVEF, history of tobacco abuse (quit 1999); with subsequent COPD, chronic respiratory failure on 2 L nasal cannula, chronic idiopathic thrombocytopenia, history of ischemic cardiomyopathy, LUSI, history of renal calculi, history of skin cancer, depression with anxiety, history of cholecystectomy, history of appendectomy, history of ALFONSO/BSO, GERD, osteoarthritis, history of severe tinea cruris, chronic wounds of her lower extremities treated with wrapping, listed allergy to PCN, DNR-CCA; with intubation CODE STATUS and recent admission here January 22, 2024 to January 25, 2024 for treatment of UTI complicated by Lactic Acidosis and LE Wounds with Cellulitis causing Metabolic Encephalopathy and elevated troponin due to Acute Cardiac Strain who presents to [facility] ER with complaints of fever, SOB and obvious confusion. Ms. Moore is not a fully-reliable historian at this time as information was gathered from chart, medical staff and computer. According to the records the staff at [facility] noted she had been diagnosed with a UTI 4 days ago but was apparently just started on oral Bactrim today. Allegedly she then had her pulse-oximeter reveal severe hypoxia of 64% at her ECF and they subsequently activated EMS. Shortly after arrival in the ER she was noted to have a fever of 102.5 degrees Fahrenheit with an elevated heart rate of ~116 bpm and an increased respiratory rate of 27 breaths/min with a saturation of 96% on 4L NC and an ABG revealing pH 7.55/ PCO2 43.7/ PO2 81/ HCO3 37.9 with 97% saturation on BiPAP 16/8 with FiO2 30% complicated by Lactic Acidosis of 3.4 mmol/L present on admission with UA positive for Acute Cystitis; without hematuria concerning for Sepsis compounded by a highly elevated BNP of 1,345.8 pg/mL present on admission consistent with AE of Chronic Diastolic CHF; with preserved LVEF all culminating in Acute Hypoxic Respiratory Failure requiring BiPAP and she was then admitted to the ICU for treatment under the Sepsis protocol for a stay that is expected to extend beyond 2 midnights. [facility] Medical History Tinea cruris Acute electrocardiogram changes Elevated troponin I level Bilateral cellulitis of lower leg Acute UTI Acute encephalopathy Chronic anticoagulation Foraminal stenosis of lumbosacral region Intractable back pain Chronic bronchitis Anxiety Congestive heart failure Kidney stones COPD (chronic obstructive pulmonary disease) Former tobacco use Chronic respiratory failure with hypoxia, on home O2 therapy Chronic idiopathic thrombocytopenia Ischemic cardiomyopathy Diastolic CHF Anxiety and depression Iron deficiency anemia Hyperlipidemia GERD (gastroesophageal reflux disease) Hypothyroidism Paroxysmal A-fib Hypertension Coronary artery disease Home Medications ?Medication ?Instructions ?Recorded ?Last Taken ?Type apixaban 5 mg tablet (Eliquis) 2.5 mg PO BID blood thinner 08/15/17 03/20/24 History ipratropium 0.5 mg-albuterol 3 mg 3 ml inhalation TID respiratory 12/15/18 03/20/24 History (2.5 mg base)/3 mL nebulization soln levothyroxine 75 mcg tablet 75 mcg PO DAILY thyroid 12/15/18 03/20/24 History atorvastatin 40 mg tablet 40 mg PO DAILY cholesterol 07/13/22 03/20/24 History multivitamin 1 tab PO DAILY SUPPLEMENT 07/13/22 03/20/24 History pantoprazole 20 mg tablet,delayed 40 mg PO DAILY gerd 07/13/22 03/20/24 History release (Protonix) sacubitril 49 mg-valsartan 51 mg 1 tab PO BID CHF 07/13/22 03/20/24 History tablet sucralfate 1 gram tablet 1 g PO Q6H #0 tabs 07/17/22 03/20/24 Rx ascorbic acid (vitamin C) 500 mg 500 mg PO BID nutritional support 01/22/24 03/20/24 History capsule ferrous sulfate 325 mg (65 mg 325 mg PO BID anemia 01/22/24 03/20/24 History iron) tablet (FeroSul) gabapentin 100 mg capsule 100 mg PO TID pain 01/22/24 03/20/24 History miconazole nitrate 2 % topical 1 applic topical DAILY antifungal 01/22/24 03/20/24 History cream (Antifungal (miconazole)) mirtazapine 7.5 mg tablet 7.5 mg PO QHS sleep 01/22/24 03/20/24 History prevagen 10 mg PO DAILY nutritional support 01/22/24 03/20/24 History sodium ferric gluconate complex in 125 mg IV .x5 days 01/22/24 Unknown History sucrose 62.5 mg/5 mL intravenous (Ferrlecit) spironolactone 25 mg tablet 25 mg PO DAILY hypertension 01/22/24 03/20/24 History (Aldactone) menthol 0.44 %-zinc oxide 20.6 % 1 applic topical BID #0 grams 01/25/24 03/20/24 Rx topical ointment (Calmoseptine) albuterol sulfate 90 mcg/actuation 1 inh inhalation Q6H SOB, wheezing 03/21/24 Unknown History aerosol inhaler (Proventil HFA) cyanocobalamin (vitamin B-12) 500 500 mcg PO DAILY nutritional suppor 03/21/24 03/20/24 History mcg tablet losartan 25 mg tablet (Cozaar) 25 mg PO DAILY hypertension 03/21/24 03/20/24 History sertraline 100 mg tablet 150 mg PO DAILY antidepressant 03/21/24 03/20/24 History sulfamethoxazole 800 1 tab PO BID anti-infective 03/21/24 03/20/24 History mg-trimethoprim 160 mg tablet (Bactrim DS) torsemide 20 mg tablet 20 mg PO DAILY hypertension 03/21/24 03/20/24 History Allergy/AdvReac Type Severity Reaction Status Date / Time Penicillins (PCN) Allergy Swelling Verified 03/21/24 01:22 Surgical History History of total abdominal hysterectomy History of tonsillectomy and adenoidectomy H/O heart artery stent Hx of cholecystectomy History of appendectomy Social History household members: none housing: assisted living facility Smoking Status: Former smoker how long ago did patient quit smoking: Quit 1999. alcohol intake: never substance use type: does not use Vital Signs Vital Signs Vital Signs: 03/20/24 23:43 03/20/24 23:43 03/20/24 23:47 Temperature 100 F H 100 F H Temperature Source Axillary Axillary Pulse Rate 103 H 95 Respiratory Rate 19 H Respiratory Effort Respiratory Depth Respiratory Pattern Blood Pressure 145/70 H 145/70 H Blood Pressure Mean 95 95 Pulse Ox 100 100 Oxygen Delivery Method Bi-pap Bi-pap Oxygen Flow Rate (L/min) Fraction of Inspired Oxygen (FIO2) 60 60 03/20/24 23:47 03/20/24 23:49 03/20/24 23:55 Temperature Temperature Source Pulse Rate 89 Respiratory Rate 22 H Respiratory Effort Short of Breath Respiratory Depth Deep Respiratory Pattern Tachypnea Tachypnea Blood Pressure Blood Pressure Mean Pulse Ox 99 100 Oxygen Delivery Method Bi-pap Bi-pap Oxygen Flow Rate (L/min) Fraction of Inspired Oxygen (FIO2) 80 60 60 03/21/24 00:31 03/21/24 00:37 03/21/24 00:43 Temperature Temperature Source Core Pulse Rate 105 H Respiratory Rate 26 H Respiratory Effort Respiratory Depth Respiratory Pattern Blood Pressure 150/63 H Blood Pressure Mean 92 Pulse Ox 99 96 94 Oxygen Delivery Method Bi-pap Nasal Cannula Nasal Cannula Oxygen Flow Rate (L/min) 4 4 Fraction of Inspired Oxygen (FIO2) 30 03/21/24 01:00 Temperature 102.5 F H Temperature Source Core Pulse Rate 116 H Respiratory Rate 27 H Respiratory Effort Respiratory Depth Respiratory Pattern Blood Pressure 140/59 H Blood Pressure Mean 86 Pulse Ox 96 Oxygen Delivery Method Nasal Cannula Oxygen Flow Rate (L/min) 4 Fraction of Inspired Oxygen (FIO2) Physical Exam Const alert, oriented x3 and average body habitus General Appearance: cooperative HEENT normocephalic, head/scalp atraumatic, hearing grossly normal bilaterally and moist oral mucous membranes Eyes PERRL and EOMs intact bilaterally Neck no lymphadenopathy and supple Resp normal respiratory effort, no retractions, no use of accessory muscles and clear to auscultation bilaterally Cardio regular rate and regular rhythm GI normal to inspection, nondistended, normoactive bowel sounds, soft to palpation, non-tender and non-distended Extremity normal to inspection, full ROM and no clubbing, cyanosis or edema Skin Skin Narrative: Patient has wounds over the Right chest wall and Right upper back. No rashes or jaundice noted. Neuro oriented x3, CN's II-XII intact bilaterally, moves all extremities and no focal motor deficits Sensorium / Orientation: awake, alert, oriented to person, oriented to place and oriented to time Speech: speech normal Psych affect normal Results Medical Records Data Attestation: I reviewed the patient's medical records Lab / Micro Data Attestation: I reviewed the patient's lab results. 03/20/24 23:50 03/20/24 23:50 Labs: Laboratory Results - last 24 hr 03/20/24 23:50: WBC 7.4, RBC 3.72 L, Hgb 9.5 L, Hct 32.6 L, MCV 87.6, MCH 25.5 L, MCHC 29.1 L, RDW Std Deviation 57.1 H, RDW Coeff of Cha 17.9 H, Plt Count 201, MPV 11.7, Immature Gran % (Auto) 0.500, Neut % (Auto) 93.5 H, Lymph % (Auto) 5.1 L, [place] % (Auto) 0.5, Eos % (Auto) 0.1, Baso % (Auto) 0.3, Absolute Neuts (auto) 6.9, Absolute Lymphs (auto) 0.38 L, Nucleated RBC % 0, PT 21.8 H, INR 1.9, APTT 40.0 H, Sodium 144, Potassium 2.6 L*, Chloride 99, Carbon Dioxide 35.0 H, Anion Gap 10, BUN 23 H, Creatinine 0.97, Est GFR (MDRD) Af Amer 70, Est GFR (MDRD) Non-Af 58 L, BUN/Creatinine Ratio 23.7 H, Glucose 106, Calcium 8.6, Troponin I High Sens 58 H, B-Natriuretic Peptide 1345.8 H 03/21/24 00:04: Lactic Acid 3.4 H* 03/21/24 00:56: Urine Color Yellow, Urine Clarity Turbid, Urine pH 5.0, Ur Specific [place] 1.020, Urine Protein 100 H, Urine Glucose (UA) Normal, Urine Ketones Negative, Urine Occult Blood 150 H, Urine Nitrite Negative, Urine Bilirubin Negative, Urine Urobilinogen 1 H, Ur Leukocyte Esterase 500 H, Urine RBC 0-5 SEEN, Urine WBC >100 SEEN, Ur Squamous Epith Cells 0-5 SEEN, Ur Renal Epithelial Cell 0-5 SEEN, Urine Bacteria 2+, Urine Mucus 0 SEEN Micro: Microbiology 03/21/24 00:04 Mucosa - Nose SARS-CoV-2, Influenza & RSV (PCR) - Final ABG Data ABG results: ABG 03/21/24 00:16 Specimen Type ART Sample Site L Radial pH 7.55 H Bicarbonate Actual 37.9 H Total CO2 39 Base Excess 16 H O2 Saturation 97 O2 % 30.0 ABG pCO2 43.7 ABG pO2 81 Ronaldo Test Positive O2 Delivery Device BiPAP Vent Mode Not entered Clinical Comments 17/04 12 30% Rhythm Strip Rhythm Strip: Sinus Rhythm Rate: 100 Ectopy: PVC(s) Imaging Radiology Impression Chest X-Ray 03/20/24 00:30 IMPRESSION: 1. Stable mild cardiomegaly. 2. Probable small bilateral pleural effusions. Electronically Signed: Adarsh Brewer MD at 1:12 EDT , Assessment & Plan Assessment/Plan (1) Acute cystitis without hematuria: (2) Sepsis: QUALIFIERS: Acute respiratory failure type: with hypoxia Sepsis acute organ dysfunction status: with acute organ dysfunction Sepsis type: sepsis due to unspecified organism Severe sepsis acute organ dysfunction type: acute respiratory failure Severe sepsis shock status: without septic shock Qualified Code(s): A41.9 - Sepsis, unspecified organism; R65.20 - Severe sepsis without septic shock; J96.01 - Acute respiratory failure with hypoxia (3) COPD with acute exacerbation: (4) Acute on chronic hypoxic respiratory failure: (5) History of CHF (congestive heart failure): (6) Fever: QUALIFIERS: Fever type: unspecified Qualified Code(s): R50.9 - Fever, unspecified (7) Acute hypokalemia: (8) Hypomagnesemia: (9) Obesity (BMI 30.0-34.9): PLAN: Plan 1. Acute Cystitis; without hematuria complicated by clinical signs of suspected Sepsis with fever of 102.5 degrees Fahrenheit with an elevated heart rate of ~116 bpm and an increased respiratory rate of 27 breaths/min with a saturation of 96% on 4L NC and an ABG revealing pH 7.55/ PCO2 43.7/ PO2 81/ HCO3 37.9 with 97% saturation on BiPAP 17/04 with FiO2 30% complicated by Lactic Acidosis of 3.4 mmol/L present on admission with listed allergy to PCN in elderly patient with DNR-CCA; with intubation CODE STATUS likely made worse with possible initial delay in antibiotic treatment - Admit to ICU for treatment under the Sepsis protocol. Continue IV Rocephin begun in the ER and add IV Levaquin to double-cover Gram-negatives and then await culture and sensitivity data. Start IV Levophed for MAP dropping into 50's in spite of fluid bolus for sepsis along with persistent fever. Give Tylenol prn for [id number] (level 1-5/10) pain or fever. Give Morphine IV prn severe (level 6-10/10) pain. 2. AE COPD with [id number] Hypoxic Respiratory Failure requiring BiPAP arising from #1 - Wean BiPAP as tolerated. Give IV Solumedrol 40 mg IV BID plus give scheduled and prn nebulizers. 3. Highly elevated BNP of 1,345.8 pg/mL present on admission consistent with AE of Chronic Diastolic CHF; with preserved LVEF in the setting of known Ischemic Cardiomyopathy due to #1 & #2 - Limit fluid bolus for sepsis protocol given BNP is so high and the patient's tenuous respiratory status on BiPAP. Follow strict I's & O's. Recheck ABG in AM. 4. Severe Hypokalemia of 2.6 mmol/L present on admission compounding #1 - #3 - Give supplemental IV and oral KCl and then recheck level in the AM to ensure improvement. 5. Hypomagnesemia of 1.5 mg/dL present on admission adding to the complexity of #1 - #4 - Give supplemental magnesium sulfate IV once and then recheck level in the AM to confirm repletion. 6. Recent admission here January 22, 2024 to January 25, 2024 for treatment of UTI complicated by Lactic Acidosis and Chronic LE Wounds with Cellulitis causing Metabolic Encephalopathy and elevated troponin due to Acute Cardiac Strain with a significant decline since her last admission in spite of aggressive treatment amplifying the pathologic impact of #1 - #5 - Noted with large new wound with erosion and black discoloration over the distal lateral aspect of the Left side of the nose likely due to skin cancer. We will consult Wound RN to see for further recommendations with help appreciated in advance. 7. Obesity; with BMI of 32.3 this admission - Weight loss will be recommended. This complicates her case and may hamper her recovery. 8. Essential hypertension - Hold scheduled antihypertensives until infection outlined in #1 is controlled. 9. Hyperlipidemia - Resume statin. 10. Hypothyroidism - Continue Synthroid and check TSH. 11. CAD; s/p stent (1999) - Noted. 12. History of ischemic cardiomyopathy - Stable. 13. PAF; on Eliquis - Resume Eliquis as previous. 14. Chronic idiopathic thrombocytopenia - Stable with platelet count of 201K present on admission. 15. LUIS - Stable with hemoglobin of 9.5 g/dL MCV of 87.6 fL present on admission. 16. History of renal calculi - Noted. 17. History of skin cancer - Noted. 18. Depression with anxiety - Stable. Resume home regimen as previous. 19. History of cholecystectomy - Noted. 20. History of appendectomy - Noted. 21. History of ALFONSO/BSO - Noted. 22. GERD - Resume PPI. 23. Osteoarthritis - Give Tylenol prn. 24. History of severe tinea cruris - Noted. Give Nystatin powder TID. 25. DVT prophylaxis - Patient is already on Eliquis for #11 which will be continued. Total time: Approximately 75 minutes. Sepsis Attestation Sepsis Alert: Yes Sepsis Attestation: Agree w/Sepsis Date exam was performed: 03/21/24 Time exam was performed: 02:40 Possible Source of Sepsis: Pulmonary, Genitourinary and Skin/soft tissue Sepsis Organ Dysfunction Criteria Present: Acute Respiratory Failure (New need for BiPAP/CPAP or MV) and Lactic Acid > 2 mmol/L Fluid Resuscitation Fluid resuscitation indicated?: Yes Fluid Resuscitation ordered: 30 ml/kg fluid bolus ordered Amount of fluid ordered: 1 Reason for lesser fluid bolus:: Concern for fluid overload and Heart failure Sepsis Note Date exam was performed: 03/21/24 Time exam was performed: 06:40 Sepsis Attestation: Sepsis re-evaluation was performed Response to fluids: Non Fluid responsive hypotension and Vasopressors started Charges/Coding Visit Charges Inpatient E&M: 37633 Init Hosp L3
[2024-03-21] MEDS: Ceftriaxone 1 GM/50 ML BAG IV ×2 (02:23→21:06)
[2024-03-21] MEDS: Furosemide 20 MG/2 ML VIAL IV (02:23)
[2024-03-21] MEDS: Potassium Chloride 10mEq/100mL 10 MEQ/100 ML IV.SOLN. 100 MEQ IV BOLUS ×2 (02:24→03:40)
[2024-03-21] MEDS: 0.9% Normal Saline (1000mL) 1,000 ML 999 ML IV ×2 (03:29→04:27)
[2024-03-21] MEDS: Potassium Chloride Oral Tablet 20 MEQ 60 MEQ PO (03:47)
[2024-03-21 04:14] LABS: Reflex Lactate? Y
[2024-03-21 04:16] LABS: Magnesium 1.5 mg/dL (1.6-2.6)
[2024-03-21 04:35] LABS: Allen Test Positive; Base Excess 9 mmol/L (-2 to +2); Bicarbonate 32.8 mmol/L (22-26); Blood Gas Specimen Type ART; Mode Not entered; O2 Delivery Device Cannula; PO2 32 mmHG (75-100); SITE L Radial; SO2 63 % (95-99); Total Carbon Dioxide 34 mmol/L; pCO2 47.1 mmHg (35-45); pH 7.45 (7.35-7.45)
[2024-03-21] MEDS: Magnesium Sulfate 2 GM in Dextrose 5%-Water (100mL Bag) 100 ML IV (04:46)
[2024-03-21] MEDS: Norepinephrine 8 MG in 0.9% Normal Saline (250mL Bag) 242 ML 9.4 MG CONT INF (04:48)
[2024-03-21] MEDS: Levothyroxine 75 MCG Tablet PO (04:49)
[2024-03-21] MEDS: Gabapentin 100 MG Capsule PO ×3 (04:50→20:42)
[2024-03-21 04:58] LABS: Lactic Acid 1.9 mmol/L (0.4-1.9)
[2024-03-21] MEDS: Sucralfate 1 GM Tablet PO ×3 (06:08→20:25)
[2024-03-21] MEDS: Acetaminophen 325 MG Tablet 650 MG PO (06:20)
[2024-03-21] MEDS: Ipratropium/Albuterol Sulfate 3 ML AMPUL.NEB INHALATION ×3 (07:10→19:33)
[2024-03-21] MEDS: Lactobacillis Acidophilus 2 CAP PO ×2 (07:31→20:25)
[2024-03-21] MEDS: Sertraline 50 MG Tablet 150 MG PO (07:31)
[2024-03-21] MEDS: Ferrous Sulfate 325 MG Tablet PO ×2 (07:32→16:43)
[2024-03-21] MEDS: Zinc Sulfate 50 mg zinc (220 mg) ORAL capsule PO (07:32)
[2024-03-21] MEDS: Multivitamins,Therapeutic Tablet 1 TABLET PO (07:32)
[2024-03-21] MEDS: Pantoprazole Sodium 40 MG Tablet PO (07:32)
[2024-03-21] MEDS: Cholecalciferol (Vit D3) 125 MCG CAPSULE (5,000 UNITS) PO (07:32)
[2024-03-21] MEDS: Ascorbic Acid 500 MG Tablet PO ×2 (07:32→20:28)
[2024-03-21] MEDS: APIXABAN 2.5 MG TABLET (WCH) PO ×2 (07:33→20:27)
[2024-03-21] MEDS: Cyanocobalamin 500 MCG Tablet PO (07:33)
[2024-03-21] MEDS: Menthol/Lanolin/Calamine/Znox 113 GM Tube 1 APPLIC TOPICAL ×2 (07:34→21:06)
[2024-03-21] MEDS: Miconazole Nitrate Cream 1 APPLIC TOPICAL (07:34)
[2024-03-21] MEDS: traZODone 100 MG Tablet PO ×2 (07:34→20:27)
[2024-03-21] MEDS: Albumin Human 25% (100 mL) 25 GM/100 ML BAG IV (07:57)
[2024-03-21] MEDS: levoFLOXacin IV 750 MG in Empty Viaflex Q48 100 MG IV (09:36)
[2024-03-21] MEDS: Morphine 2 MG/ML Syringe IV (10:51)
--- NOTE | 2024-03-21 11:51 | CASEMGMT ---
Social Work SW called [facility], spoke w/Etta. She reached out to Heather, got the okay that pt can return to [facility] whenever she is medically ready, precert not needed. SW sent updates in [facility]. SW called son Ollie, message left. SW spoke w/pt in room, confirmed w/her the plan will be for pt to return to [facility] when ready, pt states, I live there. Pt does not need a list of nursing facilities at this time. Green sheet placed on chart with transport forms in the event pt is ready for discharge on the weekend. LATRELL Bonds
--- NOTE | 2024-03-21 14:27 | PN.HOSP_ITS ---
Hospitalist Note Patient was seen and examined today, she is off pressor agents at this time, patient is on 3 L of oxygen and appears to be doing well. I have elected to stop her Levaquin and continue the Rocephin. The etiology of the patient's hypoxia on admission was unclear. Patient will be transferred to [facility] for further care.
--- NOTE | 2024-03-21 14:53 | CCN.REFER ---
Social Work Power of dynamite packing machine feeder for healthcare is scanned into [employer], pt's son Ollie Masters is listed as healthcare POA. LATRELL Bonds
[2024-03-21] MEDS: Mirtazapine 15 MG Tablet 7.5 MG PO (20:26)
[2024-03-21] MEDS: Atorvastatin Calcium 40 MG Tablet PO (20:27)
[2024-03-21 20:35] LABS: ALB/GLOB Ratio 0.8 RATIO (0.9-2.4); AST(SGOT) 65 U/L (15-37); Alanine Aminotransfer ALT/SGPT 27 U/L (13-56); Albumin, Serum 2.6 g/dL (3.2-5.0); Alkaline Phosphatase 159 U/L (45-117); Anion Gap 8 (5-15); BUN 29 mg/dL (7-18); BUN/Creat Ratio 23.2 RATIO (10-20); Calcium,Total 8.2 mg/dL (8.5-10.1); Chloride 103 mmol/L (98-107); Creatinine, Serum 1.25 mg/dL (0.55-1.02); EST Glomerular Filtration Rate 43 mL/min (>60); Est Glom Filt Rate - Afr Amer 53 mL/min (>60); Estimated Creatinine Clearance 33.45 ml/min; Globulin 3.3 g/dL (2.2-4.2); Glucose 168 mg/dL (74-106); Potassium 3.2 mmol/L (3.5-5.1); Protein, Total 5.9 g/dL (6.4-8.2); Sodium Level 145 mmol/L (136-145)
[2024-03-22] VITALS (8 sets, daily range): BP systolic 102–130; BP diastolic 50–70; PULSE 60–93; RESP 16–24; TEMP 36.5–36.9; O2SAT 96–99; BMI 33.3
[2024-03-22] MEDS: Ipratropium/Albuterol Sulfate 3 ML AMPUL.NEB INHALATION ×4 (02:06→19:47)
[2024-03-22] MEDS: Sucralfate 1 GM Tablet PO ×4 (05:25→21:26)
[2024-03-22] MEDS: Gabapentin 100 MG Capsule PO ×3 (05:25→21:25)
[2024-03-22] MEDS: Levothyroxine 75 MCG Tablet PO (05:25)
[2024-03-22 07:57] LABS: Absolute Lymphocyte Count 0.61 X10^3/uL (0.83-4.51); Absolute Neutrophil Count 9.9 X10^3/uL (2.0-7.7); Basophil# 0.03 X10^3/uL; Basophil% 0.3 % (0-1); Eosinophil# 0.03 X10^3/uL; Eosinophils% 0.3 % (0-5); Hematocrit 27.9 % (37-47); Hemoglobin 8.3 g/dL (12.0-15.0); Lymphocyte # 0.61 X10^3/ul (0.83-4.51); Lymphocyte % 5.4 % (19-41); Mean Corp Hgb Conc 29.7 g/dL (32-36); Mean Corpuscular Hgb 25.3 pg (27.0-32.0); Mean Corpuscular Volume 85.1 fL (81-99); Mean Platelet Vol. 11.6 fl (6.2-12.0); Monocyte# 0.58 X10^3/uL; Monocyte% 5.1 % (0-10); NRBC Flagged by Analyzer 0 % (0-5); Neutrophil # 9.93 X10^3/uL (2.7-7.7); Neutrophil % 88.1 % (47-70); Platelet Count 172 K/mm3 (150-450); RBC Distribution Width CV 18.2 % (11.6-14.6); RBC Distribution Width SD 56.8 fl (35.1-43.9); Red Blood Count 3.28 M/mm3 (4.2-5.4); White Blood Count 11.3 K/mm3 (4.4-11.0)
[2024-03-22] MEDS: Multivitamins,Therapeutic Tablet 1 TABLET PO (08:06)
[2024-03-22] MEDS: Potassium Chloride Oral Tablet 20 MEQ 40 MEQ PO (08:10)
--- NOTE | 2024-03-22 09:54 | PN.HOSP_ITS ---
Reason for Visit Reason for Visit: Diagnoses Sepsis, unspecified organism (03/21/24) Obesity, unspecified (03/21/24) Hypomagnesemia (03/21/24) Hypokalemia (03/21/24) Chronic obstructive pulmonary disease with (acute) exacerbation (03/21/24) Acute respiratory failure with hypoxia (03/21/24) Acute and chronic respiratory failure with hypoxia (03/21/24) Acute cystitis without hematuria (03/21/24) Fever, unspecified (03/21/24) Severe sepsis without septic shock (03/21/24) Personal history of other diseases of the circulatory system (03/21/24) Subjective Subjective Patient was seen and examined today, she spiked a temperature last night of 101, urine culture today was positive for gram-negative rods-possibly Enterobacter. Patient is alert and does not appear to be in any distress, she is on 3 L of oxygen at this time and her oxygen saturation is 99%. Objective Data Objective Data Vital Signs: Vital Signs Temp Pulse Resp BP Pulse Ox O2 Del Method O2 Flow Rate 98.4 F 93 18 102/67 99 Nasal Cannula 3 03/22/24 08:45 03/22/24 08:45 03/22/24 08:45 03/22/24 08:45 03/22/24 08:45 03/22/24 08:45 03/22/24 08:45 FiO2 98 03/21/24 07:51 Oxygen Flow Rate (L/min) 3 Oxygen Delivery Method Nasal Cannula Weight: 82.1 kg Body Mass Index (BMI) 33.3 Intake & Output: Intake and Output for Last 24 Hours 03/20/24 03/21/24 03/22/24 23:59 23:59 23:59 Intake Total 2301.38 / 2301.38 300 / 300 Output Total 400 / 400 425 / 425 Balance 1901.38 / 1901.38 -125 / -125 Lab / Micro Data 03/22/24 07:45 03/21/24 18:35 Labs: Laboratory Results - last 24 hr 03/21/24 18:35: Sodium 145, Potassium 3.2 L, Chloride 103, Carbon Dioxide 34.0 H , Anion Gap 8, BUN 29 H, Creatinine 1.25 H, Estim Creat Clear Calc 33.45, Est GFR (MDRD) Af Amer 53 L, Est GFR (MDRD) Non-Af 43 L, BUN/Creatinine Ratio 23.2 H , Glucose 168 H, Calcium 8.2 L, Magnesium 2.0, Total Bilirubin 0.80, AST 65 H, ALT 27, Alkaline Phosphatase 159 H, Total Protein 5.9 L, Albumin 2.6 L, Globulin 3.3, Albumin/Globulin Ratio 0.8 L 03/22/24 07:45: WBC 11.3 H, RBC 3.28 L, Hgb 8.3 L, Hct 27.9 L, MCV 85.1, MCH 25.3 L, MCHC 29.7 L, RDW Std Deviation 56.8 H, RDW Coeff of Cha 18.2 H, Plt Count 172, MPV 11.6, Immature Gran % (Auto) 0.800, Neut % (Auto) 88.1 H, Lymph % (Auto) 5.4 L, [place] % (Auto) 5.1, Eos % (Auto) 0.3, Baso % (Auto) 0.3, Absolute Neuts (auto) 9.9 H, Absolute Lymphs (auto) 0.61 L, Nucleated RBC % 0 Micro: Microbiology 03/21/24 00:04 Blood Culture (Wb) - Anticubital Left Blood Culture - Preliminary 03/21/24 00:04 Mucosa - Nose SARS-CoV-2, Influenza & RSV (PCR) - Final Rhythm Strip Rhythm Strip: Sinus Rhythm Rate: 100 Ectopy: PVC(s) Physical Exam Const alert, no apparent distress and healthy appearing General Appearance: cooperative, well kempt and well developed Orientation / Consciousness: awake, oriented to person and oriented to place HEENT normocephalic and moist oral mucous membranes Eyes PERRL, EOMs intact bilaterally and conjunctivae normal Neck supple, no JVD, thyroid normal and no carotid bruits General: trachea midline Resp normal respiratory effort and clear to auscultation bilaterally Auscultation: Negative for rales, rhonchi or wheezes Cardio no murmurs, no rub and no gallops Cardio Narrative: Heart rate and rhythm is irregular GI normal to inspection, nondistended, normoactive bowel sounds, soft to palpation, non-tender and non-distended Extremity no clubbing, cyanosis or edema Skin no rashes or lesions noted General Skin Exam: no breakdown Neuro CN's II-XII intact bilaterally, moves all extremities, no focal motor deficits and no sensory deficits noted Sensorium / Orientation: awake, alert, oriented to person and oriented to place Speech: speech normal Psych affect normal Assessment & Plan Assessment/Plan (1) Acute cystitis without hematuria: PLAN: Plan 1. Acute cystitis-patient will remain on IV Rocephin for now, await further identification on the urine culture tomorrow #2 hypoxia on a backdrop of chronic hypoxic respiratory failure-patient is currently on 3 L of oxygen via nasal cannula, this is near her baseline #3 chronic atrial fibrillation-complicates care, management, recovery, and prognosis #4 chronic obstructive pulmonary disease-patient's lungs are clear, I do not believe she has a flareup of COPD #5 coronary artery disease-stable at this time #6 anemia of chronic disease-patient does not require blood transfusion at this time, CBC will be rechecked tomorrow #7 chronic kidney disease stage IIIa-complicates care, management, recovery, and prognosis, repeat BMP tomorrow Total clinical time spent by myself addressing the patient's medical issues, reviewing all of her data, and collaborating with the patient's care team: 35 minutes Charges/Coding Visit Charges Inpatient E&M: 63327 Subs Hosp L2
[2024-03-22] MEDS: Menthol/Lanolin/Calamine/Znox 113 GM Tube 1 APPLIC TOPICAL ×2 (10:45→21:28)
[2024-03-22] MEDS: Lactobacillis Acidophilus 2 CAP PO ×2 (10:45→21:25)
[2024-03-22] MEDS: APIXABAN 2.5 MG TABLET (WCH) PO ×2 (10:46→21:26)
[2024-03-22] MEDS: traZODone 100 MG Tablet PO ×2 (10:46→21:25)
[2024-03-22] MEDS: Ascorbic Acid 500 MG Tablet PO ×2 (10:47→21:28)
[2024-03-22] MEDS: Cholecalciferol (Vit D3) 125 MCG CAPSULE (5,000 UNITS) PO (10:47)
[2024-03-22] MEDS: Pantoprazole Sodium 40 MG Tablet PO (10:47)
[2024-03-22] MEDS: Sertraline 50 MG Tablet 150 MG PO (10:47)
[2024-03-22] MEDS: Cyanocobalamin 500 MCG Tablet PO (10:47)
[2024-03-22] MEDS: Miconazole Nitrate Cream 1 APPLIC TOPICAL (10:54)
[2024-03-22] MEDS: Ceftriaxone 1 GM/50 ML BAG IV (11:05)
[2024-03-22] MEDS: 0.9% Saline Lock 10 ML Syringe IV (11:05)
[2024-03-22] MEDS: Ferrous Sulfate 325 MG Tablet PO ×2 (12:11→17:41)
[2024-03-22 17:14] LABS: ALB/GLOB Ratio 0.8 RATIO (0.9-2.4); AST(SGOT) 55 U/L (15-37); Alanine Aminotransfer ALT/SGPT 24 U/L (13-56); Albumin, Serum 2.6 g/dL (3.2-5.0); Alkaline Phosphatase 145 U/L (45-117); Anion Gap 5 (5-15); BUN 34 mg/dL (7-18); BUN/Creat Ratio 31.5 RATIO (10-20); Calcium,Total 8.4 mg/dL (8.5-10.1); Chloride 105 mmol/L (98-107); Creatinine, Serum 1.08 mg/dL (0.55-1.02); EST Glomerular Filtration Rate 51 mL/min (>60); Est Glom Filt Rate - Afr Amer 62 mL/min (>60); Estimated Creatinine Clearance 39.19 ml/min; Globulin 3.1 g/dL (2.2-4.2); Glucose 93 mg/dL (74-106); Potassium 3.1 mmol/L (3.5-5.1); Protein, Total 5.7 g/dL (6.4-8.2); Sodium Level 146 mmol/L (136-145)
[2024-03-22] MEDS: Atorvastatin Calcium 40 MG Tablet PO (21:25)
[2024-03-22] MEDS: Mirtazapine 15 MG Tablet 7.5 MG PO (21:27)
[2024-03-23 05:26] VITALS: BP 117/54; PULSE 76; RESP 17; TEMP 36.7; O2SAT 98
[2024-03-23 05:29] VITALS: O2SAT 98
[2024-03-23 05:33] LABS: Absolute Lymphocyte Count 0.77 X10^3/uL (0.83-4.51); Absolute Neutrophil Count 4.7 X10^3/uL (2.0-7.7); Basophil# 0.03 X10^3/uL; Basophil% 0.5 % (0-1); Eosinophil# 0.34 X10^3/uL; Eosinophils% 5.4 % (0-5); Hemoglobin 8.3 g/dL (12.0-15.0); Lymphocyte # 0.77 X10^3/ul (0.83-4.51); Lymphocyte % 12.3 % (19-41); Mean Corp Hgb Conc 28.6 g/dL (32-36); Mean Corpuscular Hgb 24.6 pg (27.0-32.0); Mean Corpuscular Volume 85.8 fL (81-99); Mean Platelet Vol. 12.5 fl (6.2-12.0); Monocyte# 0.42 X10^3/uL; Monocyte% 6.7 % (0-10); NRBC Flagged by Analyzer 0 % (0-5); Neutrophil # 4.67 X10^3/uL (2.7-7.7); Neutrophil % 74.5 % (47-70); Platelet Count 174 K/mm3 (150-450); RBC Distribution Width CV 18.5 % (11.6-14.6); RBC Distribution Width SD 57.3 fl (35.1-43.9); Red Blood Count 3.38 M/mm3 (4.2-5.4); White Blood Count 6.3 K/mm3 (4.4-11.0)
[2024-03-23 05:39] VITALS: BMI 33.5
[2024-03-23] MEDS: Gabapentin 100 MG Capsule PO (05:41)
[2024-03-23] MEDS: Sucralfate 1 GM Tablet PO ×2 (05:42→11:44)
[2024-03-23] MEDS: Levothyroxine 75 MCG Tablet PO (05:42)
[2024-03-23 06:05] LABS: Anion Gap 6 (5-15); BUN 37 mg/dL (7-18); BUN/Creat Ratio 35.6 RATIO (10-20); Calcium,Total 8.9 mg/dL (8.5-10.1); Chloride 104 mmol/L (98-107); Creatinine, Serum 1.04 mg/dL (0.55-1.02); EST Glomerular Filtration Rate 54 mL/min (>60); Est Glom Filt Rate - Afr Amer 65 mL/min (>60); Estimated Creatinine Clearance 40.83 ml/min; Glucose 79 mg/dL (74-106); Potassium 3.2 mmol/L (3.5-5.1); Sodium Level 143 mmol/L (136-145)
[2024-03-23] MEDS: Ipratropium/Albuterol Sulfate 3 ML AMPUL.NEB INHALATION (07:26)
[2024-03-23 07:28] VITALS: PULSE 90; RESP 18; O2SAT 98
[2024-03-23] MEDS: Multivitamins,Therapeutic Tablet 1 TABLET PO (08:09)
[2024-03-23] MEDS: Acetaminophen 325 MG Tablet 650 MG PO (08:18)
--- NOTE | 2024-03-23 08:21 | CASEMGMT ---
Discharge Planning Updates sent to [facility] via [facility]. Katharine Velázquez DC Planning Asst.
[2024-03-23] MEDS: Sertraline 50 MG Tablet 150 MG PO (09:48)
[2024-03-23] MEDS: Cholecalciferol (Vit D3) 125 MCG CAPSULE (5,000 UNITS) PO (09:49)
[2024-03-23] MEDS: Lactobacillis Acidophilus 2 CAP PO (09:49)
[2024-03-23] MEDS: Menthol/Lanolin/Calamine/Znox 113 GM Tube 1 APPLIC TOPICAL (09:49)
[2024-03-23] MEDS: Pantoprazole Sodium 40 MG Tablet PO (09:49)
[2024-03-23] MEDS: APIXABAN 2.5 MG TABLET (WCH) PO (09:49)
[2024-03-23] MEDS: Miconazole Nitrate Cream 1 APPLIC TOPICAL (09:50)
[2024-03-23] MEDS: traZODone 100 MG Tablet PO (09:50)
[2024-03-23] MEDS: 0.9% Saline Lock 10 ML Syringe IV (09:51)
[2024-03-23] MEDS: Ceftriaxone 1 GM/50 ML BAG IV (09:51)
[2024-03-23] MEDS: Cyanocobalamin 500 MCG Tablet PO (09:56)
[2024-03-23] MEDS: Ascorbic Acid 500 MG Tablet PO (09:59)
--- NOTE | 2024-03-23 11:05 | PCM.TXEXTCAR ---
Diet Diet Order/Speech Therapy: 03/21/24 09:45 Diet: Regular - General Food consistency:: Easy to Chew Dietary Modifications:: No Added Salt Is pt able to select menu?: No Routine Orders/Code Status O2 Liters per Minute: 3 O2 Frequency: Continuous Keep PO Greater than or Equal to (%): 90 Code Status: DNRCC-A (with intubation) Wound(s) top of right foot: Wound Type: Neuropathic/Diabetic Foot Ulcer left side of nose: Wound Type: wound Right scapula: Wound Type: Pressure Injury left shoulder: Wound Type: Pressure Injury Therapies Weight Bearing: Full weight bearing Problem/Diagnosis (1) Acute cystitis without hematuria: Status: Acute Code(s): N30.00 - Acute cystitis without hematuria Plan 1. Acute cystitis-Klebsiella pneumoniae #2 Acute hypoxic respiratory failure on a backdrop of chronic hypoxic respiratory failure-patient is currently on 3 L of oxygen via nasal cannula, this is near her baseline #3 chronic atrial fibrillation-complicates care, management, recovery, and prognosis #4 chronic obstructive pulmonary disease-patient's lungs are clear, I do not believe she has a flareup of COPD #5 coronary artery disease-stable at this time #6 anemia of chronic disease-patient does not require blood transfusion at this time, CBC will be rechecked tomorrow #7 chronic kidney disease stage IIIa-complicates care, management, recovery, and prognosis, repeat BMP tomorrow Total clinical time spent by myself addressing the patient's medical issues, reviewing all of her data, and collaborating with the patient's care team: 35 minutes Allergies/Procedures Done in Hospital Allergies Penicillins (PCN) Allergy (Verified 03/21/24 01:22) Swelling Procedures: None Type of Care/Length of Stay Estimated LOS: More Than 30 Days Type of Care Needed: Intermediate Rehab Potential: Fair Prognosis: Fair Additional Orders/Day of Discharge H&P will serve as current which was dated: 03/21/24 Day of Discharge: 03/23/24 Dietary and Speech Recommendations Dietitian Recommendations/Changes: Recommend Regular - ELANA diet for management of diagnoses, yet some liberalization to promote oral intakes. Will add easy to chew texture since she is missing her dentures. Will continue with Ensure Compact TID to help increase protein intakes to promote wound healing. Will continue to follow and modify nutrition interventions as needed. Discharge Plan Admission Admit Date/Time: 03/21/24 02:40 Primary Reason for Your Visit: cystitis, respiratory failure Attending Provider: Breezy Cuevas Primary Care Provider: Zahraa Hightower Consulting Providers: Leno Emerson Discharge Orders/Prescriptions Prescriptions: New acetaminophen 325 mg Tablet 650 mg PO Q6H PRN PRN (Reason: Pain 1-5/10 or Fever) Qty: 0 0RF trazodone 100 mg Tablet 100 mg PO BID Qty: 0 0RF cholecalciferol (vitamin D3) 125 mcg (5,000 unit) Capsule 125 mcg PO DAILY Qty: 0 0RF Ensure Compact Liquid 118 ml PO TIDCM Qty: 0 0RF Continued Eliquis 5 MG tablet 2.5 mg PO BID ipratropium-albuterol 0.5-3MG solution for nebulization 3 ml inhalation TID levothyroxine 75 MCG tablet 75 mcg PO DAILY atorvastatin 40 mg tablet 40 mg PO DAILY pantoprazole [Protonix] 20 mg Tablet,Delayed Release (Dr/Ec) 40 mg PO DAILY multivitamin Tablet 1 tab PO DAILY sucralfate 1 gram Tablet 1 g PO Q6H Qty: 0 0RF ascorbic acid (vitamin C) 500 mg capsule 500 mg PO BID ferrous sulfate [FeroSul] 325 mg (65 mg iron) tablet 325 mg PO BID gabapentin 100 mg capsule 100 mg PO TID miconazole nitrate [Antifungal (miconazole)] 2 % cream 1 applic topical DAILY mirtazapine 7.5 mg tablet 7.5 mg PO QHS menthol-zinc oxide [Calmoseptine] 0.44-20.6 % Ointment 1 applic topical BID Qty: 0 0RF Protocol: *Topical Application Instructions APPLICATION INSTRUCTIONS: apply to affected areas albuterol sulfate [Proventil HFA] 90 mcg/actuation HFA aerosol inhaler 1 inh inhalation Q6H losartan [Cozaar] 25 mg tablet 25 mg PO DAILY cyanocobalamin (vitamin B-12) 500 mcg tablet 500 mcg PO DAILY sertraline 100 mg tablet 150 mg PO DAILY Discontinued sacubitril-valsartan 49-51 mg Tablet 1 tab PO BID sodium ferric gluconat-sucrose [Ferrlecit] 62.5 mg/5 mL solution 125 mg IV .x5 days Rx Instructions: started 01/17 prevagen 10 mg PO DAILY spironolactone [Aldactone] 25 mg tablet 25 mg PO DAILY sulfamethoxazole-trimethoprim [Bactrim DS] 800-160 mg tablet 1 tab PO BID Patient Comments: x3days, started 03/20/24 torsemide 20 mg tablet 20 mg PO DAILY Referrals / Follow Up: Pretty Noguera DO [Non-Staff] - Zahraa Hightower MD [Primary Care Provider] - Disposition Disposition (needs filled in before D/C Order can be placed): [facility]
--- NOTE | 2024-03-23 11:23 | DS.PCM_ITS ---
Providers Date of Admission: 03/21/24 Date of Discharge: 03/23/24 Primary Care Physician: Dr. 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 Reason For Visit: SEPSIS, UTI, AE COPD AE CHF & ACUTE RESP FAILURE Diagnosis Discharge Diagnosis (1) Acute cystitis without hematuria: Status: Acute Code(s): N30.00 - Acute cystitis without hematuria Plan 1. Acute cystitis-Klebsiella pneumoniae #2 Acute hypoxic respiratory failure on a backdrop of chronic hypoxic respiratory failure, etiology unclear-patient is currently on 3 L of oxygen via nasal cannula, this is near her baseline #3 chronic atrial fibrillation-complicates care, management, recovery, and prognosis #4 chronic obstructive pulmonary disease-patient's lungs are clear, I do not believe she has a flareup of COPD #5 coronary artery disease-stable at this time #6 anemia of chronic disease-patient does not require blood transfusion at this time, CBC will be rechecked tomorrow #7 chronic kidney disease stage IIIa-complicates care, management, recovery, and prognosis, repeat BMP tomorrow #8 hypokalemia #9 hypomagnesemia Exacerbation of COPD was ruled out Total clinical time spent by myself addressing the patient's medical issues, reviewing all of her data, and collaborating with the patient's care team: 35 minutes Medications at Discharge Home Medications apixaban 5 mg tablet (Eliquis) 2.5 mg PO BID blood thinner 08/15/17 ipratropium 0.5 mg-albuterol 3 mg (2.5 mg base)/3 mL nebulization soln 3 ml inhalation TID respiratory 12/15/18 levothyroxine 75 mcg tablet 75 mcg PO DAILY thyroid 12/15/18 atorvastatin 40 mg tablet 40 mg PO DAILY cholesterol 07/13/22 multivitamin 1 tab PO DAILY SUPPLEMENT 07/13/22 pantoprazole 20 mg tablet,delayed release (Protonix) 40 mg PO DAILY gerd 07/13/22 sucralfate 1 gram tablet 1 g PO Q6H #0 tabs 07/17/22 ascorbic acid (vitamin C) 500 mg capsule 500 mg PO BID nutritional support 01/22/24 ferrous sulfate 325 mg (65 mg iron) tablet (FeroSul) 325 mg PO BID anemia 01/22/24 gabapentin 100 mg capsule 100 mg PO TID pain 01/22/24 miconazole nitrate 2 % topical cream (Antifungal (miconazole)) 1 applic topical DAILY antifungal 01/22/24 mirtazapine 7.5 mg tablet 7.5 mg PO QHS sleep 01/22/24 menthol 0.44 %-zinc oxide 20.6 % topical ointment (Calmoseptine) 1 applic topical BID #0 grams 01/25/24 albuterol sulfate 90 mcg/actuation aerosol inhaler (Proventil HFA) 1 inh inhalation Q6H SOB, wheezing 03/21/24 cyanocobalamin (vitamin B-12) 500 mcg tablet 500 mcg PO DAILY nutritional suppor 03/21/24 losartan 25 mg tablet (Cozaar) 25 mg PO DAILY hypertension 03/21/24 sertraline 100 mg tablet 150 mg PO DAILY antidepressant 03/21/24 acetaminophen 325 mg tablet 650 mg (2 x 325 mg) PO Q6H PRN PRN Pain 1-5/10 or Fever #0 tabs 03/23/24 cephalexin 500 mg tablet 500 mg PO TID #12 tabs 03/23/24 cholecalciferol (vitamin D3) 125 mcg (5,000 unit) capsule 125 mcg PO DAILY #0 caps 03/23/24 food supplemt, lactose-reduced (Ensure Compact oral liquid) 118 ml PO TIDCM #0 mL 03/23/24 trazodone 100 mg tablet 100 mg PO BID #0 tabs 03/23/24 Hospital Course Operations None Procedures None Summary of Care Provided Minutes Spent on Discharge: 32 Hospital Course: This 83-year-old white female was seen in the emergency room at [facility] after being sent in from an extended care facility at which she was living under intermediate care. Patient was sent in for shortness of breath, she had been diagnosed with a urinary tract infection 4 days prior and been started on antibiotic. A pulse ox of 64% at her extended care facility was noted on her usual oxygen which was 2 L. Patient was noted to be febrile in the emergency room with 100 temperature, she initially required BiPAP for oxygenation but was subsequently weaned to nasal cannula. Patient's white blood cell count was normal at 7.4, hemoglobin was 9.5, chemistry profile was remarkable for BUN of 23, patient's beta natruretic peptide was 1345, lactic acid was 3.4. Patient's potassium was 2.6. Urinalysis was remarkable for a WBC of over 100, 2+ bacteria, and 0-5 RBCs. Patient's chest x-ray showed mild cardiomegaly with probable small bilateral pleural effusions. Patient was admitted for acute on chronic hypoxic respiratory failure and acute cystitis, she was placed on IV antibiotics and her pulse ox was monitored. Patient was able to be weaned to 3 L/min via nasal cannula, urine culture grew out Klebsiella which was sensitive to several antibiotics. Patient's potassium was replaced and her labs were monitored. On 03/23/2024, patient was seen and examined: On examination she appeared frail, she does not appear to be in any distress. Vital signs as documented. Skin warm and dry and without overt rashes. Neck without JVD, thyroid appears normal, trachea is midline, neck is supple. Lungs clear, normal air movement was noted. Heart exam notable for regular rhythm, normal sounds and absence of murmurs, rubs or gallops. Abdomen unremarkable and without evidence of organomegaly, masses, or abdominal aortic enlargement, bowel sounds are present in all 4 quadrants, no abdominal tenderness was noted. Extremities nonedematous, no cyanosis was noted, no clubbing was noted. Neuro: Cranial nerves II through XII are grossly intact, no focal motor deficits were noted, sensation to light touch and pinprick is intact, motor exam 5/5 throughout. Psych: Patient is alert and oriented x3, she does not appear anxious or depressed, she does not appear agitated. On 03/23/2024, patient was discharged in stable condition to her intermediate care skilled nursing. Weight / BMI Weight Weight: 82.6 kg Body Mass Index (BMI) 33.5 ABG / Lab / Microbiology Data 03/23/24 04:14 03/23/24 04:14 Laboratory: Laboratory Results - last 24 hr 03/22/24 07:45: Sodium 146 H, Potassium 3.1 L, Chloride 105, Carbon Dioxide 36.0 H, Anion Gap 5, BUN 34 H, Creatinine 1.08 H, Estim Creat Clear Calc 39.19, Est GFR (MDRD) Af Amer 62, Est GFR (MDRD) Non-Af 51 L, BUN/Creatinine Ratio 31.5 H, Glucose 93, Calcium 8.4 L, Total Bilirubin 0.60, AST 55 H, ALT 24, Alkaline Phosphatase 145 H, Total Protein 5.7 L, Albumin 2.6 L, Globulin 3.1, A lbumin/Globulin Ratio 0.8 L 03/23/24 04:14: WBC 6.3, RBC 3.38 L, Hgb 8.3 L, Hct 29.0 L, MCV 85.8, MCH 24.6 L , MCHC 28.6 L, RDW Std Deviation 57.3 H, RDW Coeff of Cha 18.5 H, Plt Count 174, MPV 12.5 H, Immature Gran % (Auto) 0.600, Neut % (Auto) 74.5 H, Lymph % (Auto) 12.3 L, Lyon % (Auto) 6.7, Eos % (Auto) 5.4 H, Baso % (Auto) 0.5, Absolute Neuts (auto) 4.7, Absolute Lymphs (auto) 0.77 L, Nucleated RBC % 0, Sodium 143, P otassium 3.2 L, Chloride 104, Carbon Dioxide 33.0 H, Anion Gap 6, BUN 37 H, C reatinine 1.04 H, Estim Creat Clear Calc 40.83, Est GFR (MDRD) Af Amer 65, Est GFR (MDRD) Non-Af 54 L, BUN/Creatinine Ratio 35.6 H, Glucose 79, Calcium 8.9 Microbiology: Microbiology 03/21/24 00:04 Blood Culture (Wb) - Anticubital Left Blood Culture - Preliminary Gram positive angel 03/21/24 00:56 Urine, Catheterized Urine Culture - Final Klebsiella pneumoniae sp pneum 03/21/24 00:04 Mucosa - Nose SARS-CoV-2, Influenza & RSV (PCR) - Final Meaningful Use Info Meaningful Use Meaningful Use Diagnoses (Choose all that apply): None applicable Ischemic Stroke Statin Dosing Therapy Reference: STATIN DOSE THERAPY REFERENCE: * Patients > 75 years receive moderate or high dose statin therapy. * Patients 75 years or YOUNGER should receive HIGH intensity statin dose unless contraindicated. You will be required to document reason for non-treatment if statin daily dose does not meet guidelines. HIGH DOSE STATIN THERAPY DAILY Atorvastatin > than or = to 40 mg Rosuvastatin > than or = to 20 mg Amlodipine + Atorvastatin > than or = to 2.5/40 mg Ezetimibe + Simvastatin 10/80 mg Simvastatin 80mg Discharge Plan Admission Admit Date/Time: 03/21/24 02:40 Primary Reason for Your Visit: cystitis, respiratory failure Attending Provider: Breezy Cuevas Primary Care Provider: Zahraa Hightower Consulting Providers: Leno Emerson Discharge Orders/Prescriptions Prescriptions: New acetaminophen 325 mg Tablet 650 mg PO Q6H PRN PRN (Reason: Pain 1-5/10 or Fever) Qty: 0 0RF trazodone 100 mg Tablet 100 mg PO BID Qty: 0 0RF cholecalciferol (vitamin D3) 125 mcg (5,000 unit) Capsule 125 mcg PO DAILY Qty: 0 0RF Ensure Compact Liquid 118 ml PO TIDCM Qty: 0 0RF cephalexin 500 mg tablet 500 mg PO TID Qty: 12 0RF Rx Instructions: Take 1 3 times a day x 12 doses starting 03/24/2024 Continued Eliquis 5 MG tablet 2.5 mg PO BID ipratropium-albuterol 0.5-3MG solution for nebulization 3 ml inhalation TID levothyroxine 75 MCG tablet 75 mcg PO DAILY atorvastatin 40 mg tablet 40 mg PO DAILY pantoprazole [Protonix] 20 mg Tablet,Delayed Release (Dr/Ec) 40 mg PO DAILY multivitamin Tablet 1 tab PO DAILY sucralfate 1 gram Tablet 1 g PO Q6H Qty: 0 0RF ascorbic acid (vitamin C) 500 mg capsule 500 mg PO BID ferrous sulfate [FeroSul] 325 mg (65 mg iron) tablet 325 mg PO BID gabapentin 100 mg capsule 100 mg PO TID miconazole nitrate [Antifungal (miconazole)] 2 % cream 1 applic topical DAILY mirtazapine 7.5 mg tablet 7.5 mg PO QHS menthol-zinc oxide [Calmoseptine] 0.44-20.6 % Ointment 1 applic topical BID Qty: 0 0RF Protocol: *Topical Application Instructions APPLICATION INSTRUCTIONS: apply to affected areas albuterol sulfate [Proventil HFA] 90 mcg/actuation HFA aerosol inhaler 1 inh inhalation Q6H losartan [Cozaar] 25 mg tablet 25 mg PO DAILY cyanocobalamin (vitamin B-12) 500 mcg tablet 500 mcg PO DAILY sertraline 100 mg tablet 150 mg PO DAILY Discontinued sacubitril-valsartan 49-51 mg Tablet 1 tab PO BID sodium ferric gluconat-sucrose [Ferrlecit] 62.5 mg/5 mL solution 125 mg IV .x5 days Rx Instructions: started 01/17 prevagen 10 mg PO DAILY spironolactone [Aldactone] 25 mg tablet 25 mg PO DAILY sulfamethoxazole-trimethoprim [Bactrim DS] 800-160 mg tablet 1 tab PO BID Patient Comments: x3days, started 03/20/24 torsemide 20 mg tablet 20 mg PO DAILY Referrals / Follow Up: Pretty Noguera DO [Non-Staff] - Zahraa Hightower MD [Primary Care Provider] - Disposition Disposition (needs filled in before D/C Order can be placed): Intermediate Facility Charges/Coding Visit Charges Inpatient E&M: 22877 Disch Hosp >30min
[2024-03-23 11:26] VITALS: BP 160/71; PULSE 67; RESP 16; TEMP 36.5; O2SAT 96
--- NOTE | 2024-03-23 11:28 | WOUNDNOTE ---
wound photo: left side of nose
--- NOTE | 2024-03-23 11:29 | CASEMGMT ---
Social Work- SW advised by physician that pt is medically ready for d/c. No precert needed per Marzena Gardner. Transport forms completed; DCA advised. Pt notified. Plan: Marzena Gardner; intermediate level of care. ANIBAL Cole
--- NOTE | 2024-03-23 11:45 | CASEMGMT ---
Discharge Planning Discharge orders, signed med list, and trasport time sent to [facility] via [facility]. Physicians will transport patient by cot at 1p. Nursing, SW , and patient updated. VM left for patients son (Ollie). Katharine Velázquez DC Planning Asst.
[2024-03-23 11:51] VITALS: BP 107/65; PULSE 88; RESP 18; TEMP 36.4; O2SAT 96
--- NOTE | 2024-03-23 12:12 | NURSING ---
REPORT CALLED TO REYMUNDO HERRERA
--- NOTE | 2024-03-23 13:25 | PHA.DC.MR.R ---
Pharmacy [place] Med Reconciliation Pharmacy Service has performed discharge medication reconciliation for this patient upon transfer to [facility] The patient's discharge medication list was reviewed for discrepancies and discrepancies were resolved. Medications at Discharge Home Medications apixaban 5 mg tablet (Eliquis) 2.5 mg PO BID blood thinner 08/15/17 ipratropium 0.5 mg-albuterol 3 mg (2.5 mg base)/3 mL nebulization soln 3 ml inhalation TID respiratory 12/15/18 levothyroxine 75 mcg tablet 75 mcg PO DAILY thyroid 12/15/18 atorvastatin 40 mg tablet 40 mg PO DAILY cholesterol 07/13/22 multivitamin 1 tab PO DAILY SUPPLEMENT 07/13/22 pantoprazole 20 mg tablet,delayed release (Protonix) 40 mg PO DAILY gerd 07/13/22 sucralfate 1 gram tablet 1 g PO Q6H #0 tabs 07/17/22 ascorbic acid (vitamin C) 500 mg capsule 500 mg PO BID nutritional support 01/22/24 ferrous sulfate 325 mg (65 mg iron) tablet (FeroSul) 325 mg PO BID anemia 01/22/24 gabapentin 100 mg capsule 100 mg PO TID pain 01/22/24 miconazole nitrate 2 % topical cream (Antifungal (miconazole)) 1 applic topical DAILY antifungal 01/22/24 mirtazapine 7.5 mg tablet 7.5 mg PO QHS sleep 01/22/24 menthol 0.44 %-zinc oxide 20.6 % topical ointment (Calmoseptine) 1 applic topical BID #0 grams 01/25/24 albuterol sulfate 90 mcg/actuation aerosol inhaler (Proventil HFA) 1 inh inhalation Q6H SOB, wheezing 03/21/24 cyanocobalamin (vitamin B-12) 500 mcg tablet 500 mcg PO DAILY nutritional suppor 03/21/24 losartan 25 mg tablet (Cozaar) 25 mg PO DAILY hypertension 03/21/24 sertraline 100 mg tablet 150 mg PO DAILY antidepressant 03/21/24 acetaminophen 325 mg tablet 650 mg (2 x 325 mg) PO Q6H PRN PRN Pain 1-5/10 or Fever #0 tabs 03/23/24 cephalexin 500 mg tablet 500 mg PO TID #12 tabs 03/23/24 cholecalciferol (vitamin D3) 125 mcg (5,000 unit) capsule 125 mcg PO DAILY #0 caps 03/23/24 food supplemt, lactose-reduced (Ensure Compact oral liquid) 118 ml PO TIDCM #0 mL 03/23/24 trazodone 100 mg tablet 100 mg PO BID #0 tabs 03/23/24
== END 2024-03-23 13:26 | disposition skilled nursing facility (03) | DRG 189 ==
LOC: ED 03-21 01:39 → ICU 03-21 03:00 → MS3 03-21 13:52
PROVIDERS: Admitting Provider Internal Medicine; Emergency Provider Emergency Medicine; PCP Internal Medicine Geriatric Medicine; Visit Provider Internal Medicine
DX: J96.21 Acute and chronic respiratory failure with hypoxia (principal); I50.33 Acute on chronic diastolic (congestive) heart failure; I48.20 Chronic atrial fibrillation, unspecified; I13.0 Hypertensive heart and chronic kidney disease with heart failure and stage 1 through stage 4 chronic kidney disease, or unspecified chronic kidney disease; N30.00 Acute cystitis without hematuria; D63.1 Anemia in chronic kidney disease; B35.6 Tinea cruris; J44.9 Chronic obstructive pulmonary disease, unspecified; Z99.81 Dependence on supplemental oxygen; B96.1 Klebsiella pneumoniae [K. pneumoniae] as the cause of diseases classified elsewhere; N18.31 Chronic kidney disease, stage 3a; E03.9 Hypothyroidism, unspecified; F32.A Depression, unspecified; I25.10 Atherosclerotic heart disease of native coronary artery without angina pectoris; K21.9 Gastro-esophageal reflux disease without esophagitis; E83.42 Hypomagnesemia; E78.5 Hyperlipidemia, unspecified; E87.6 Hypokalemia; F41.9 Anxiety disorder, unspecified; E66.9 Obesity, unspecified; Z79.01 Long term (current) use of anticoagulants; Z66 Do not resuscitate; Z95.5 Presence of coronary angioplasty implant and graft; Z68.32 Body mass index [BMI] 32.0-32.9, adult; Z79.51 Long term (current) use of inhaled steroids; Z79.899 Other long term (current) drug therapy; Z87.891 Personal history of nicotine dependence
CPT/HCPCS: 36415; 36600; 51702; 71045; 80048; 80053; 81001; 82803; 83605; 83735; 83880; 84100; 84484; 85025; 85610; 85730; 87040; 87077; 87086; 87088; 87186; 87631; 93005; 94002; 94640; 97162; 97166; 97802; 99285; J7030; J7050; P9047; A4216; J1940

== ENCOUNTER 2024-05-27 20:57 | Emergency (ER) | payer MEDICARE, MEDICAID, SELFPAY ==
[2024-05-27 20:58] VITALS: BP 144/107; PULSE 70; RESP 20; TEMP 36.9; O2SAT 99; BMI 27.9
[2024-05-27] MEDS: Ondansetron ODT 4 MG Tablet PO (22:18)
[2024-05-27] MEDS: Gabapentin 300 MG Capsule PO (22:19)
[2024-05-27] MEDS: Morphine 4 MG/ML Syringe IM (22:19)
--- NOTE | 2024-05-27 22:25 | ED.RN ---
pt is normally on 4L o2 and does not have her walker with her.
--- NOTE | 2024-05-27 22:25 | ED.RN ---
this RN attempted to call report back to the [facility] but did not get ahold of anyone at this time.
--- NOTE | 2024-05-27 22:29 | ED.RN ---
This RN called report to the longterm.
--- NOTE | 2024-05-27 22:30 | EDS_ITS ---
HPI History of Present Illness Chief Complaint: Lower Extremity Injury Informant: patient Narrative Narrative: Patient is an 83-year-old female from the [facility] with history of COPD CHF hypertension and paroxysmal atrial fibrillation currently on Eliquis. She states she has been having foot pain for quite some time. She states has been worse in the last 1 to 2 days. She denies any trauma. She states x-rays were performed at the assisted and were negative for any type of fracture. She states she has been taking her normal medications but there has been no symptom improvement and therefore she was concerned based on the persistent pain and co mes in for evaluation. Patient denies any fevers associated with these symptoms [facility] Medical History Tinea cruris Acute electrocardiogram changes Elevated troponin I level Bilateral cellulitis of lower leg Acute UTI Acute encephalopathy Chronic anticoagulation Foraminal stenosis of lumbosacral region Intractable back pain Chronic bronchitis Anxiety Congestive heart failure Kidney stones COPD (chronic obstructive pulmonary disease) Former tobacco use Chronic respiratory failure with hypoxia, on home O2 therapy Chronic idiopathic thrombocytopenia Ischemic cardiomyopathy Diastolic CHF Anxiety and depression Iron deficiency anemia Hyperlipidemia GERD (gastroesophageal reflux disease) Hypothyroidism Paroxysmal A-fib Hypertension Coronary artery disease Home Medications ?Medication ?Instructions ?Recorded ?Last Taken ?Type apixaban 5 mg tablet (Eliquis) 2.5 mg PO BID blood thinner 08/15/17 03/20/24 History ipratropium 0.5 mg-albuterol 3 mg 3 ml inhalation TID respiratory 12/15/18 03/20/24 History (2.5 mg base)/3 mL nebulization soln levothyroxine 75 mcg tablet 75 mcg PO DAILY thyroid 12/15/18 03/20/24 History atorvastatin 40 mg tablet 40 mg PO DAILY cholesterol 07/13/22 03/20/24 History multivitamin 1 tab PO DAILY SUPPLEMENT 07/13/22 03/20/24 History pantoprazole 20 mg tablet,delayed 40 mg PO DAILY gerd 07/13/22 03/20/24 History release (Protonix) sucralfate 1 gram tablet 1 g PO Q6H #0 tabs 07/17/22 03/20/24 Rx ascorbic acid (vitamin C) 500 mg 500 mg PO BID nutritional support 01/22/24 03/20/24 History capsule ferrous sulfate 325 mg (65 mg 325 mg PO BID anemia 01/22/24 03/20/24 History iron) tablet (FeroSul) gabapentin 100 mg capsule 100 mg PO TID pain 01/22/24 03/20/24 History miconazole nitrate 2 % topical 1 applic topical DAILY antifungal 01/22/24 03/20/24 History cream (Antifungal (miconazole)) mirtazapine 7.5 mg tablet 7.5 mg PO QHS sleep 01/22/24 03/20/24 History menthol 0.44 %-zinc oxide 20.6 % 1 applic topical BID #0 grams 01/25/24 03/20/24 Rx topical ointment (Calmoseptine) albuterol sulfate 90 mcg/actuation 1 inh inhalation Q6H SOB, wheezing 03/21/24 Unknown History aerosol inhaler (Proventil HFA) cyanocobalamin (vitamin B-12) 500 500 mcg PO DAILY nutritional suppor 03/21/24 03/20/24 History mcg tablet losartan 25 mg tablet (Cozaar) 25 mg PO DAILY hypertension 03/21/24 03/20/24 History sertraline 100 mg tablet 150 mg PO DAILY antidepressant 03/21/24 03/20/24 History acetaminophen 325 mg tablet 650 mg (2 x 325 mg) PO Q6H PRN PRN 03/23/24 Unknown Rx Pain 1-5/10 or Fever #0 tabs cephalexin 500 mg tablet 500 mg PO TID #12 tabs 03/23/24 Unknown Rx cholecalciferol (vitamin D3) 125 125 mcg PO DAILY #0 caps 03/23/24 Unknown Rx mcg (5,000 unit) capsule food supplemt, lactose-reduced 118 ml PO TIDCM #0 mL 03/23/24 Unknown Rx (Ensure Compact oral liquid) trazodone 100 mg tablet 100 mg PO BID #0 tabs 03/23/24 Unknown Rx gabapentin 300 mg capsule 300 mg PO TID 30 days #90 caps 05/27/24 Unknown Rx oxycodone 5 mg tablet 5 mg PO Q6H PRN pain 3 days #12 05/27/24 Unknown Rx tabs Allergy/AdvReac Type Severity Reaction Status Date / Time Penicillins (PCN) Allergy Swelling Verified 03/21/24 01:22 Surgical History History of total abdominal hysterectomy History of tonsillectomy and adenoidectomy H/O heart artery stent Hx of cholecystectomy History of appendectomy Social History household members: none housing: assisted living facility Smoking Status: Former smoker how long ago did patient quit smoking: Quit 1999. alcohol intake: never substance use type: does not use ROS ROS ED Constitutional Constitutional ED: Denies chills or fever(s) ENT ENT ED: Denies sore throat Cardiovascular Cardiovascular: Denies chest pain Respiratory/Chest Respiratory/Chest: Denies cough or dyspnea Gastrointestinal Gastrointestinal: Denies abdominal pain, diarrhea, nausea or vomiting Genitourinary Genitourinary ED: Denies dysuria Musculoskeletal Musculoskeletal: Reports other Details: Positive left foot pain ; Denies myalgias Integumentary Reports rash and other Details: Patient reports the rash is chronic in nature and has been present for multiple years Neurologic Neurologic: Denies headache(s) Hematologic/Lymphatic Hematologic/Lymphatic: Reports easy bleeding and easy bruising EXAM Physical Exam Const Vital Signs: 05/27/24 20:58 05/27/24 22:36 05/27/24 22:42 Temperature 98.4 F 97.5 F L Temperature Source Oral Pulse Rate 70 85 85 Respiratory Rate 20 H 18 19 H Blood Pressure 144/107 H 129/68 H 129/68 H Blood Pressure Mean 119 88 88 Pulse Ox 99 99 99 Oxygen Delivery Method Nasal Cannula Nasal Cannula Oxygen Flow Rate (L/min) 4 Positive well nourished and well developed General Appearance ED: well developed HEENT HEENT Narrative: Normocephalic atraumatic Eyes PERRL and EOMs intact bilaterally General Eye ED: Negative for scleral icterus Neck supple Resp normal respiratory effort Resp Narrative: Breath sounds are diminished throughout diffuse expiratory wheeze consistent w ith history of COPD but otherwise no nasal flaring retractions tachypnea or accessory muscle use Cardio regular rate and regular rhythm Extremity Extremity Narrative: Left lower extremity is neurovascularly intact. Capillary refill is slightly prolonged at 3 seconds. Dorsalis pedis and posterior tibial pulse is present at plus 1 out of 4. Patient has multiple areas of tissue breakdown which is chronic in nature. However there is no secondary erythema or warmth to suggest cellulitis no obvious abscess formation and no lymphangitic streaking. No crepitance palpated. There is mild diffuse pain on palpation of the dorsal aspect of the left foot. Neuro oriented x3 and CN's II-XII intact bilaterally Sensorium / Orientation: alert Psych mental status grossly normal Skin Skin Narrative: Patient has multiple areas of ulceration and skin breakdown across her entire body from head to toe which she states is chronic in nature without involvement of the palms or soles No asymmetric erythema or warmth no lymphangitic streaking or abscess formation MDM MDM MDM Narrative Medical decision making narrative: Patient arrived to the ER afebrile and was hypertensive but has a past medical history of this. She reports a longstanding history of foot but just felt like it was worse in the last few days. With her dorsalis pedis and posterior tibial pulses being slightly weak at +1 and capillary refill at the upper limit of normal at 3 seconds she most likely has peripheral vascular disease which contributes to her pain. There is also concern that pain could be worsened by peripheral neuropathy. Depressed fracture or dislocation the patient had x-rays at the assisted which revealed no signs of fracture dislocation or moth- eaten appearance to suggest osteomyelitis. The patient is not physical exam findings suggesting cellulitis or abscess formation either. Therefore at this time as recent x-rays were negative for fracture or signs of infection physical exam does not suggest gout or cellulitis or abscess and there are no signs to suggest arterial occlusion I do not feel that there is need for workup in the ER but simply symptom control. She will have her gabapentin increased to 100 mg 3 times a day to help with peripheral neuropathy. She will continue her Eliquis secondary to her delayed capillary refill consistent with peripheral vascular disease. Oxycodone will be provided for days for pain control. 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, Paroxysmal A-fib Instructions: ED Neuropathy, Peripheral, ED Peripheral Artery Disease (PAD) Prescriptions: New oxycodone 5 mg tablet 5 mg PO Q6H PRN (Reason: pain) 3 Days Qty: 12 0RF gabapentin 300 mg capsule 300 mg PO TID 30 Days Qty: 90 0RF No Action Eliquis 5 MG tablet 2.5 mg PO BID ipratropium-albuterol 0.5-3MG solution for nebulization 3 ml inhalation TID levothyroxine 75 MCG tablet 75 mcg PO DAILY atorvastatin 40 mg tablet 40 mg PO DAILY pantoprazole [Protonix] 20 mg Tablet,Delayed Release (Dr/Ec) 40 mg PO DAILY multivitamin Tablet 1 tab PO DAILY sucralfate 1 gram Tablet 1 g PO Q6H Qty: 0 0RF ascorbic acid (vitamin C) 500 mg capsule 500 mg PO BID ferrous sulfate [FeroSul] 325 mg (65 mg iron) tablet 325 mg PO BID gabapentin 100 mg capsule 100 mg PO TID miconazole nitrate [Antifungal (miconazole)] 2 % cream 1 applic topical DAILY mirtazapine 7.5 mg tablet 7.5 mg PO QHS menthol-zinc oxide [Calmoseptine] 0.44-20.6 % Ointment 1 applic topical BID Qty: 0 0RF Protocol: *Topical Application Instructions APPLICATION INSTRUCTIONS: apply to affected areas albuterol sulfate [Proventil HFA] 90 mcg/actuation HFA aerosol inhaler 1 inh inhalation Q6H losartan [Cozaar] 25 mg tablet 25 mg PO DAILY cyanocobalamin (vitamin B-12) 500 mcg tablet 500 mcg PO DAILY sertraline 100 mg tablet 150 mg PO DAILY acetaminophen 325 mg Tablet 650 mg PO Q6H PRN PRN (Reason: Pain 1-5/10 or Fever) Qty: 0 0RF trazodone 100 mg Tablet 100 mg PO BID Qty: 0 0RF cholecalciferol (vitamin D3) 125 mcg (5,000 unit) Capsule 125 mcg PO DAILY Qty: 0 0RF Ensure Compact Liquid 118 ml PO TIDCM Qty: 0 0RF cephalexin 500 mg tablet 500 mg PO TID Qty: 12 0RF Rx Instructions: Take 1 3 times a day x 12 doses starting 03/24/2024 Primary Care Provider: Zahraa Hightower Referrals: Adarsh Frost DPM [Med Staff - Active Staff] - Zahraa Hightower MD [Primary Care Provider] - Activity Restrictions/Additional Instructions: Your pain seems to be related to multiple factors such as your chronic skin condition arthritis peripheral neuropathy and peripheral vascular disease. Increase your gabapentin to 300 mg 3 times a day as directed in the new prescription and use the oxycodone for the next few days for improved pain control. Follow-up with podiatry to discuss further testing for other causes of your recurrent pain and return to the ER should you have any further concerns Print Language: Korean Disposition Disposition: Home, Self Care Discharge Date/Time: 05/27/24 23:00
[2024-05-27 22:36] VITALS: BP 129/68; PULSE 85; RESP 18; O2SAT 99
[2024-05-27 22:42] VITALS: BP 129/68; PULSE 85; RESP 19; TEMP 36.4; O2SAT 99
== END 2024-05-27 23:00 | disposition home or self-care (01) ==
PROVIDERS: Emergency Provider Emergency Medicine; PCP Internal Medicine Geriatric Medicine; Visit Provider Emergency Medicine
DX: M79.672 Pain in left foot (principal); I11.0 Hypertensive heart disease with heart failure; I50.30 Unspecified diastolic (congestive) heart failure; J44.9 Chronic obstructive pulmonary disease, unspecified; I48.0 Paroxysmal atrial fibrillation; E78.5 Hyperlipidemia, unspecified; I25.10 Atherosclerotic heart disease of native coronary artery without angina pectoris; I73.9 Peripheral vascular disease, unspecified; Z87.891 Personal history of nicotine dependence; Z79.01 Long term (current) use of anticoagulants; G62.9 Polyneuropathy, unspecified; E03.9 Hypothyroidism, unspecified; Z79.890 Hormone replacement therapy; K21.9 Gastro-esophageal reflux disease without esophagitis; Z79.899 Other long term (current) drug therapy; F41.9 Anxiety disorder, unspecified; Z90.710 Acquired absence of both cervix and uterus; Z95.5 Presence of coronary angioplasty implant and graft; Z90.49 Acquired absence of other specified parts of digestive tract
CPT/HCPCS: 96372; 99285